=== PATIENT | male | born 1990 | race Caucasian/White ===

== ENCOUNTER 2025-05-23 12:35 | Outpatient (CLI) | payer OTHER, SELFPAY ==
--- NOTE | ~2025-05-23 | MR_ITS ---
MRI of the left shoulder Technique: Axial proton-density fat-sat images, coronal proton density fat-sat and T2 fat-sat images, and sagittal T1-weighted and T2 fat-sat images were acquired. Clinical History: Pain Findings: AC joint is unremarkable. Coracoclavicular, coracoacromial, and coracohumeral ligaments suzan ear intact. Supraspinatus and infraspinatus tendons are intact, without partial or full-thickness tear. Subscapul reshma tendon is intact. There is presumed complete rupture of the tendon of long head of the biceps pr oximally with retraction beyond the [id number]-bw-mian. Bicipital groove appears empty. 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 There is relative deficiency of the posterior labrum, which could indicate sequela of prior tear. There is mild posterior subluxation of the humeral head. Inferior glenohumeral ligament is intact. Minimal glenohumeral joint effusion present. No fluid diste ntion of the subacromial/subdeltoid bursa. No muscle atrophy or edema. Impression: Apparent complete rupture of the proximal long head biceps tendon with retraction beyond the field-of -view. Bicipital groove appears empty. Posterior labral tearing or attenuation with degenerative change along the posterior aspect of the gl enohumeral joint. There is mild posterior subluxation of the humeral head. Reviewed, dictated and finalized at [facility]. Impression: Apparent complete rupture of the proximal long head biceps tendon with retracti on beyond the [id number]. Bicipital groove appears empty. Posterior labral tearing or attenuation with degenerative change along the post erior aspect of the glenohumeral joint. There is mild posterior subluxation of the humeral head.
--- OUTSIDE RECORDS SUMMARY | 2025-05-23 12:46 | XMS_ITS | Continuity of Care Document ---
Author Name [facility] Organization [facility] Care Team Providers Care Customer Experience Intern Name Role Phone [facility] Unavailable Unavailable Problems Combined list of problems from Department of Defense and Veterans Affairs facilities. It does not include entries that were removed or entered in error. Problem Status Onset Date Problem Type Date of Resolution Comments Source OTITIS MEDIA RIGHT EAR Inactive 11/26/19 15 Condition [facility] Pain in left shoulder Active Condition DoD BLEPHARITIS Active Condition DoD visit for: screening exam neurological disorders traumatic brain injury Active Condition DoD visit for: issue repeat prescription Inactive Condition [facility] Patient Education - Injury Prevention Active Condition DoD visit: ears/hearing exam for hearing conservation, treatment Inactive Condition [facility] Vaccines Prophylactic Need Against Influenza Inactive Condition [facility] DRY EYE SYNDROME Active Condition [facility] ASTIGMATISM - REGULAR Active Condition [facility] REFRACTIVE ERROR - MYOPIA Active Condition DoD visit for: occupational health / fitness exam Active Condition DoD visit for: potential organ / tissue donor Inactive Condition [facility] Need For Prophylactic Antibiotics Inactive Condition [facility] Need For Vaccination Yellow Fever Inactive Condition DoD visit for: exam following treatment Active Condition DoD Need For Vaccination Poliomyelitis Inactivated Inactive Condition DoD PNEUMONIA Inactive Condition DoD visit for: examination of subpopulation Active Condition [facility] Vaccines Prophylactic Need Against DTP Inactive Condition DoD Need For Vaccination Pneumococcal Inactive Condition [facility]D Need For Vaccination Hepatitis A And Hepatitis B Inactive Condition [facility] Vaccines Prophylactic Need Against Bacterial Diseases Inactive Condition [facility] visit for: screening exam pulmonary tuberculosis Inactive Condition [facility] Allergic rhinitis Active Condition [facility] Constipation Active Condition [facility] Decreased vitamin D Active Condition [facility] Gastroesophageal reflux disease Active Condition [facility] HLD - Hyperlipidemia Active Condition [facility] Knee pain Active Condition [facility] Low [facility] pain Active Condition [facility] Mood disorder Active Condition [facility] Obesity Active Condition . [facility] Pain of left shoulder joint Active Condition [facility] Pain of right shoulder joint Active Condition Apr 01, 2024 Entered By: SHANNAN QUARLES Comment: MRI indicates Partial-thickne ss bursal surface supraspinatus tendon tear 03/2024 [facility] Posttraumatic stress disorder Active Condition [facility] Prediabetes Active Condition [facility] Severe bipolar II disorder Active Condition [facility] Diagnosis: ICD-10-CM N50.89 Other specified disorders of the male genital organs Active Diagnosis [facility] Diagnosis: ICD-10-CM M25.512 Pain in left shoulder Active Diagnosis [facility] Diagnosis: ICD-10-CM F39 Unspecified mood [affective] disorder Active Diagnosis [facility] Diagnosis: ICD-10-CM R21 Rash and other nonspecific skin eruption Active Diagnosis [facility] Diagnosis: ICD-10-CM M25.511 Pain in right shoulder Active Diagnosis [facility] Diagnosis: ICD-10-CM M54.50 Low back pain, unspecified Active Diagnosis [facility] Diagnosis: ICD-10-CM Z51.81 Encounter for therapeutic drug level monitoring Active Diagnosis [facility] Diagnosis: ICD-10-CM H04.123 Dry eye syndrome of bilateral lacrimal glands Active Diagnosis [facility] Diagnosis: ICD-10-CM G89.29 Other chronic pain Active Diagnosis [facility] Diagnosis: ICD-10-CM Z47.89 Encounter for other orthopedic aftercare Active Diagnosis [facility] Diagnosis: ICD-10-CM G47.33 Obstructive sleep apnea (adult) (pediatric) Active Diagnosis [facility] Diagnosis: ICD-10-CM K12.2 Cellulitis and abscess of mouth Active Diagnosis [facility] Diagnosis: ICD-10-CM H94.03 Acustc neuritis in infec/parastc diseases classd elswhr, bi Active Diagnosis [facility] Diagnosis: ICD-10-CM H60.8X2 Other otitis externa, left ear Active Diagnosis [facility] Diagnosis: ICD-10-CM Z79.899 Other prison (current) drug therapy Active Diagnosis [facility] Diagnosis: ICD-10-CM Z01.818 Encounter for other preprocedural examination Active Diagnosis [facility] Diagnosis: ICD-10-CM J30.9 Allergic rhinitis, unspecified Active Diagnosis [facility] Diagnosis: ICD-10-CM Z23 Encounter for immunization Active Diagnosis [facility] Diagnosis: ICD-10-CM M19.011 Primary osteoarthritis, right shoulder Active Diagnosis [facility] Diagnosis: ICD-10-CM J18.9 Pneumonia, unspecified organism Active Diagnosis [facility] Diagnosis: ICD-10-CM J22 Unspecified acute lower respiratory infection Active Diagnosis [facility] Diagnosis: ICD-10-CM R55 Syncope and collapse Active Diagnosis [facility] Admit Reason: CHEST PAIN Active Diagnosis [facility] Diagnosis: ICD-10-CM M25.561 Pain in right knee Active Diagnosis [facility] Diagnosis: ICD-10-CM S53.491S Other sprain of right elbow, sequela Active Diagnosis [facility] Diagnosis: ICD-10-CM H60.8X1 Other otitis externa, right ear Active Diagnosis [facility] Diagnosis: ICD-10-CM M51.36 Other intervertebral disc degeneration, lumbar region Active Diagnosis [facility] Diagnosis: ICD-10-CM 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 Diagnosis [facility] Diagnosis: ICD-10-CM S53.491A Other sprain of right elbow, initial encounter Active Diagnosis [facility] Diagnosis: ICD-10-CM M79.7 Fibromyalgia Active Diagnosis [facility] Diagnosis: ICD-10-CM L03.211 Cellulitis of face Active Diagnosis [facility] Diagnosis: ICD-10-CM R60.9 Edema, unspecified Active Diagnosis [facility] Diagnosis: ICD-10-CM R03.0 Elevated blood-pressure reading, w/o diagnosis of htn Active Diagnosis [facility] Diagnosis: ICD-10-CM H65.01 Acute serous otitis media, right ear Active Diagnosis [facility] Medications Combined list of outpatient medications from Department of Defense and Veterans Affairs facilities.Medications provided include 1) outpatient medications from the last 15 months, and 2) patient-reported medications. Medication Details Route Status Patient Instructions Prescription Expires Prescription Number Last Dispense Date Ordering Provider Order Date Order Qty Source BUPROPION HCL 150MG 12HR TAB,SA TAKE ONE TABLET BY MOUTH EVERY MORNING FOR DEPRESSI ON SWALLOW WHOLE - DO NOT CRUSH OR CHEW. ORAL ACTIVE 01/29/2026 [id number] 5 SHELLIE JACOBO 2024 90 [facility] BUPROPION HCL 150MG 12HR TAB,SA TAKE ONE TABLET BY MOUTH EVERY MORNING SWALLOW WHOLE - DO NOT CRUSH OR CHEW. ORAL DISCONT INUED (EDIT) 03/31/2025 [id number] 5 SHELLIE JACOBO 2024 90 [facility] BUPROPION HCL 150MG 12HR TAB,SA TAKE ONE TABLET BY MOUTH EVERY MORNING SWALLOW WHOLE - DO NOT CRUSH OR CHEW. ORAL DISCONT INUED 12/30/2024 [id number] 5 SHELLIE JACOBO 2024 90 [facility] BUPROPION HCL 150MG 12HR TAB,SA TAKE ONE TABLET BY MOUTH EVERY MORNING SWALLOW WHOLE - DO NOT CRUSH OR CHEW. ORAL DISCONT INUED 12/28/2024 [id number] SHELLIE JACOBO 2023 90 [facility] BUPROPION HCL 150MG 12HR TAB,SA TAKE ONE TABLET BY MOUTH EVERY MORNING SWALLOW WHOLE - DO NOT CRUSH OR CHEW. ORAL DISCONT INUED 07/01/2025 [id number] 4 SHELLIE JACOBO 2023 45 [facility] BUPROPION HCL 150MG 12HR TAB,SA TAKE ONE TABLET BY MOUTH EVERY MORNING SWALLOW WHOLE - DO NOT CRUSH OR CHEW. ORAL DISCONT INUED 01/04/2025 [id number] 4 SHELLIE JACOBO DENNISAARON Domitila 2023 45 [facility] CARBOXYMETH YLCELLULOSE NA 0.5% SOLN,OPH INSTILL 1 DROP IN BOTH EYES FOUR TIMES A DAY NEEDED FOR DRY EYE(S) OPHTHA LMIC 01/21/2025 [id number] Astrid TRAN C 2023 30 [facility] CEFUROXIME AXETIL 500MG TAB TAKE ONE TABLET BY MOUTH EVERY 12 HOURS FOR PNEUMONI A TAKE UNTIL GONE UNLESS OTHERWIS E DIRECTED . ORAL 05/18/2024 [id number] JIM ROQUE 2023 4 [facility] CETIRIZINE (U/D) 10 MG ORAL TAB TAKE ONE TABLET BY MOUTH ONCE A DAY FOR ALLERGY SYMPTOMS . 04/11/2024 [id number] BRIAN OCAMPO 2023 90 [facility] CETIRIZINE HCL 10MG TAB TAKE ONE TABLET BY MOUTH ONCE A DAY FOR ALLERGY SYMPTOMS . ORAL ACTIVE 07/11/2025 [id number] ISMA ROSARIO 2023 90 [facility] CETIRIZINE HCL 10MG TAB TAKE ONE TABLET BY MOUTH ONCE A DAY FOR ALLERGY SYMPTOMS . ORAL DISCONT INUED 04/11/2024 [id number] RITESH OCAMPO 2022 90 [facility] CHLORHEXIDI NE GLUCONATE 4% LIQUID,TOP APPLY MODERATE AMOUNT TO AFFECTED AREA(S) DIRECTED FOR SKIN DISINFEC TION FOR 2 CONSECUT ANDRZEJ DAYS BEFORE SURGERY. WASH FROM NECK DOWN WITH SOLUTION WHILE SHOWERIN G MORNING OF SURGERY. REPEAT BEFORE ARRIVING TO HOSPITAL . FOR 2 CONSECUT ANDRZEJ DAYS BEFORE SURGERY. WASH FROM NECK DOWN WITH SOLUTION WHILE SHOWERIN G MORNING OF SURGERY. REPEAT BEFORE ARRIVING TO HOSPITAL . TOPICA L 08/28/2024 [id number] Astrid MOCTEZUMA S 2023 120 [facility] cholecalcif (VIT D3) 2,000 UNIT ORAL TAB TAKE ONE TABLET BY MOUTH ONCE A DAY FOR VITAMIN D DEFICIEN CY 12/13/2024 [id number] 4 SHANNAN QUARLES A 2023 100 [facility] CHOLECALCIF FAISAL 50MCG (2,000UNIT) TAB TAKE ONE TABLET BY MOUTH ONCE A DAY FOR VITAMIN D DEFICIEN CY ORAL 12/13/2024 [id number] ANDREW QUARLES A 2023 100 [facility] CIPROFLOXAC IN HCL 0.3%/DEXAME THASONE 0.1% SUSP,OTIC INSTILL 4 DROPS IN LEFT EAR TWICE A DAY FOR BACTERIA L INFECTIO N SHAKE WELL. FOR USE IN THE EAR(S) ONLY. AURICU LAR (OTIC) 11/09/2024 [id number] 4 ERIKA FRANKEL MD 2023 7.5 [facility] CYCLOBENZAP RINE HCL 10MG TAB TAKE ONE TABLET BY MOUTH TWICE A DAY FOR MUSCLE SPASM MAY CAUSE DROWSINE SS. DO NOT DRINK ALCOHOL WHILE TAKING THIS MEDICATI ON. ORAL ACTIVE 06/10/2025 [id number] 4 ELENA ROWE A 2023 60 [facility] DICLOFENAC NA 1% GEL,TOP APPLY 4 GM TO AFFECTED AREA(S) FOUR TIMES A DAY NEEDED FOR PAIN DO NOT EXCEED MORE THAN 16 GRAMS DAILY TO ANY LOWER EXTREMIT Y JOINT. NOT MORE THAN 8 GRAMS DAILY TO ANY UPPER EXTREMIT Y JOINT. MAX 32GM/DAY OVER ALL JOINTS. (MEASURE DOSE WITH RULER ATTACHED INSIDE BOX) TOPICA L ACTIVE 07/11/2025 [id number] ISMA ROSARIO A 2023 100 [facility] DICLOFENAC NA 1% GEL,TOP APPLY 4 GM TO AFFECTED AREA(S) FOUR TIMES A DAY NEEDED FOR PAIN DO NOT EXCEED MORE THAN 16 GRAMS DAILY TO ANY LOWER EXTREMIT Y JOINT. NOT MORE THAN 8 GRAMS DAILY TO ANY UPPER EXTREMIT Y JOINT. MAX 32GM/DAY OVER ALL JOINTS. (MEASURE DOSE WITH RULER ATTACHED INSIDE BOX) TOPICA L DISCONT INUED 04/24/2024 [id number] ICE,PIERO E [address] [facility] Diclofenac Sodium 0.01mg/mg, Gel/Jelly, Topical APPLY 4 GM TO AFFECTED AREA(S) FOUR TIMES A DAY NEEDED FOR PAIN DO NOT EXCEED MORE THAN 16 GRAMS DAILY TO ANY LOWER EXTREMIT Y JOINT. NOT MORE THAN 8 GRAMS DAILY TO ANY UPPER EXTREMIT Y JOINT. MAX 32 04/24/2024 [id number] ICE, PIERO E 2023 100 [facility] DULOXETINE HCL 60MG CAP,EC TAKE ONE CAPSULE BY MOUTH EVERY MORNING DO NOT ABRUPTLY DISCONTI NUE MEDICATI ON. ORAL ACTIVE 01/01/2026 [id number] 5 SHELLIE JACOBO 2024 90 [facility] DULOXETINE HCL 60MG CAP,EC TAKE ONE CAPSULE BY MOUTH EVERY MORNING DO NOT ABRUPTLY DISCONTI NUE MEDICATI ON. ORAL DISCONT INUED 01/04/2025 [id number] 5 SHELLIE JACOBO 2023 90 [facility] LAMOTRIGINE 100MG TAB TAKE ONE TABLET BY MOUTH TWICE A DAY FOR BIPOLAR DISORDER AND IRRITABI LITY . IF YOU GET A RASH, STOP THE MEDICINE ORAL ACTIVE 10/02/2025 [id number] 5 SHELLIE JACOBO 2024 180 [facility] LAMOTRIGINE 100MG TAB TAKE ONE TABLET BY MOUTH TWICE A DAY FOR BIPOLAR DISORDER AND IRRITABI LITY . IF YOU GET A RASH, STOP THE MEDICINE ORAL DISCONT INUED 09/30/2025 [id number] 5 SHELLIE JACOBO 2024 180 [facility] LAMOTRIGINE 100MG TAB TAKE ONE TABLET BY MOUTH TWICE A DAY FOR BIPOLAR DISORDER AND IRRITABI LITY . IF YOU GET A RASH, STOP THE MEDICINE ORAL DISCONT INUED 02/08/2025 [id number] 4 SHELLIE JACOBO 2023 180 [facility] LIDOCAINE 5% PATCH APPLY 1 PATCH TO SKIN SITE ONCE A DAY FOR LOCAL ANESTHES IA APPLY PATCH AND PRESS FIRMLY FOR 10-15 SECONDS. KEEP ON FOR 12 HOURS THEN REMOVE PATCH FOR 12 HOURS. TRANSD ERMAL 02/06/2025 [id number] 4 ANDREW QUARLES A 2023 30 [facility] LIFITEGRAST 5% SOLN,OPH,0. 2ML INSTILL 1 DROP IN BOTH EYES EVERY 12 HOURS FOR DRY EYE(S) OPHTHA LMIC 01/21/2025 [id number] Astrid TRAN 2023 180 [facility] meloxicam (U/D) 7.5 MG ORAL TAB TAKE ONE TABLET BY MOUTH ONCE A DAY FOR PAIN 02/06/2025 [id number] 4 SHANNAN QUARLES 2023 30 [facility] MELOXICAM 15MG TAB TAKE ONE TABLET BY MOUTH ONCE A DAY FOR PAIN ORAL ACTIVE 01/01/2026 [id number] SHELLIE JACOBO 2024 60 [facility] MELOXICAM 15MG TAB TAKE ONE TABLET BY MOUTH ONCE A DAY FOR PAIN ORAL DISCONT INUED 10/21/2025 [id number] 5 ELENA ROWE 2023 30 [facility] MELOXICAM 15MG TAB TAKE ONE TABLET BY MOUTH ONCE A DAY FOR PAIN ORAL DISCONT INUED 06/10/2025 [id number] SOLEDADELENA COOK A 2023 30 [facility] MELOXICAM 7.5MG TAB TAKE ONE TABLET BY MOUTH ONCE A DAY FOR PAIN ORAL DISCONT INUED 02/06/2025 [id number] QUARLESANDREW A 2023 30 [facility] MUPIROCIN 2% OINT,TOP APPLY LIGHTLY TO AFFECTED AREA(S) TWICE A DAY FOR BACTERIA L INFECTIO N EXTERNAL USE ONLY. TOPICA L 12/19/2024 [id number] JADEN MARTINEZ J 2024 22 [facility] NAPROXEN 500MG TAB TAKE ONE TABLET BY MOUTH TWICE A DAY FOR PAIN TAKE WITH FOOD STOP TAKING MELOXICA M AND IBUPROFE N WHILE ON THIS MEDICATI ON ORAL 05/18/2024 [id number] JIM ROQUE 2023 14 [facility] OXYCODONE HCL 5MG TAB TAKE ONE TABLET BY MOUTH EVERY 4 HOURS NEEDED FOR POST-OPE RATIVE PAIN MAY CAUSE CONSTIPA TION ORAL 09/28/2024 [id number] 4 CHRISTIE JACKSON 2023 42 [facility] pantoprazol e (U/D) 20 MG ORAL TBEC TAKE ONE TABLET BY MOUTH ONCE A DAY FOR GASTROES OPHAGEAL REFLUX DISEASE TAKE 30 MINUTES BEFORE MEAL(S) 04/11/2024 [id number] BRIAN OCAMPO 2023 90 [facility] PANTOPRAZOL E NA 20MG TAB,EC TAKE ONE TABLET BY MOUTH ONCE A DAY FOR GASTROES OPHAGEAL REFLUX DISEASE TAKE 30 MINUTES BEFORE MEAL(S) ORAL ACTIVE 07/11/2025 [id number] 5 ISMA ROSARIO 2023 90 [facility] PANTOPRAZOL E NA 20MG TAB,EC TAKE ONE TABLET BY MOUTH ONCE A DAY FOR GASTROES OPHAGEAL REFLUX DISEASE TAKE 30 MINUTES BEFORE MEAL(S) ORAL DISCONT INUED 04/11/2024 [id number] RITESH OCAMPO VENKAT Chen 2023 90 [facility] POLYETHYLEN E GLYCOL 3350 PWDR,ORAL MIX AND DRINK 1 CAPFUL BY MOUTH ONCE A DAY FOR CONSTIPA TION (MEASURE WITH CAP AND MIX IN 8 OZ OF WATER) ORAL ACTIVE 07/11/2025 [id number] 5 RYAN ROSARIOY Gabe 2023 510 [facility] POLYETHYLEN E GLYCOL 3350 PWDR,ORAL MIX AND DRINK 1 CAPFUL BY MOUTH ONCE A DAY FOR CONSTIPA TION (MEASURE WITH CAP AND MIX IN 8 OZ OF WATER) ORAL DISCONT INUED 04/30/2024 [id number] CHIKIS ESPINOZA 2022 510 [facility] PRAZOSIN HCL 2MG CAP TAKE TWO CAPSULES BY MOUTH AT BEDTIME MAY CAUSE DIZZINES S OR DROWSINE SS. ORAL ACTIVE 01/01/2026 [id number] SHELLIE JACOBO 2024 180 [facility] PRAZOSIN HCL 2MG CAP TAKE ONE CAPSULE BY MOUTH AT BEDTIME FOR NIGHTMAR ES MAY CAUSE DIZZINES S OR DROWSINE SS. ORAL DISCONT INUED (EDIT) 01/04/2025 [id number] 5 SHELLIE JACOBO 2023 90 [facility] PREDNISONE 10MG TAB TAKE FOUR TABLETS BY MOUTH EVERY MORNING FOR 4 DAYS, THEN TAKE THREE TABLETS EVERY MORNING FOR 3 DAYS, THEN TAKE TWO TABLETS EVERY MORNING FOR 2 DAYS, THEN TAKE ONE TABLET EVERY MORNING FOR 1 DAY CONTACT DERMATIT IS TAKE WITH FOOD OR MILK. ORAL 05/07/2025 [id number] GARFIELD AGARWAL 2024 30 [facility] PREDNISONE 20MG TAB TAKE THREE TABLETS BY MOUTH EVERY MORNING TAKE WITH FOOD OR MILK. ORAL 03/31/2025 [id number] TELMA MAZARIEGOS 2024 15 [facility] SENNOSIDES 8.6MG TAB TAKE ONE TABLET BY MOUTH TWICE A DAY FOR CONSTIPA TION ORAL DISCONT INUED 09/28/2024 [id number] RENETTANAFISAJose Resendiz 2023 28 [facility] SENNOSIDES 8.6MG TAB TAKE ONE TABLET BY MOUTH TWICE A DAY FOR CONSTIPA TION ORAL 12/09/2024 [id number] CHRISTIE JACKSON 2024 100 [facility] SO-PEG 3350-BOWEL 2,TWO PART PREP--PO SO MIX AND DRINK 1 CAPFUL BY MOUTH ONCE A DAY FOR CONSTIPA TION (MEASURE WITH CAP AND MIX IN 8 OZ OF WATER) 04/30/2024 [id number] EYAL ESPINOZA 2023 510 [facility] SULFAMETHOX AZOLE 800MG/TRIME THOPRIM 160MG TAB TAKE 1 TABLET BY MOUTH EVERY 12 HOURS FOR SKIN OR SOFT TISSUE INFECTIO N TAKE WITH WATER/AV OID SUNLIGHT . ORAL 12/19/2024 [id number] JADEN MARTINEZ 2024 14 [facility] Allergies, Adverse Reactions, Alerts Combined list of allergies from Department of Defense and Veterans Affairs facilities. It does not include entries that were removed or entered in error. Substance Category Reaction Severity Reaction type Status Date Reported Comments Source No Known Allergies Drug allergy (disorder) active 12/18/2012 [facility] Immunizations Combined list of available immunizations from the Department of Defense and Veterans Affairs facilities. Immunization Series Date Given Administered By Site Reaction Lot Number CVX Code Drug Telephoto Installer Status Comments Source PNEUMOCOCCAL CONJUGATE PCV20, POLYSACCHARID E [id number] CONJUGATE, ADJUVANT, PF 2024 ERUM GUTHRIE LEFT DELTO ID [id number] 216 complet ed [place], [facility] COVID-19 (PFIZER), MRNA, LNP-S, PF, DEBRA-SUCROSE, 30 MCG/0.3 ML (AGES 12+ YEARS) 2023 IVY SELBY LEFT DELTO ID [id number] 309 complet ed Booster for Series, [place], Tolerated well, informed to sit for 15min [facility] INFLUENZA, SPLIT VIRUS, TRIVALENT, PF 2023 IVY SELBY NNKARISIA Gabe LEFT DELTO ID [id number] 140 complet ed Completed Series, [facility]MIN[facility]E [facility] AT [facility] COVID-19 (MODERNA), MRNA, LNP-S, PF, 50 MCG/0.5 ML (AGES 12+ YEARS) 5 2022 312 complet ed HISTORICA L INFORMATI ON - FROM OTHER REGISTRY, [facility] INFLUENZA, INJECTABLE, QUADRIVALENT, PRESERVATIVE FREE 2022 ZAYNAB RUBY LEFT DELTO ID [id number] A 150 complet ed [place], [facility] INFLUENZA, INJECTABLE, QUADRIVALENT, PRESERVATIVE FREE 2021 150 complet ed [facility] COVID-19 (PFIZER), MRNA, LNP-S, PF, 30 MCG/0.3 ML DOSE 4 2021 208 complet ed [facility] COVID-19 (PFIZER), MRNA, LNP-S, PF, 30 MCG/0.3 ML DOSE, DEBRA-SUCROSE (AGES 12+ YEARS) 4 2021 217 complet ed HISTORICA L INFORMATI ON - FROM OTHER REGISTRY, [facility] COVID-19 (PFIZER), MRNA, LNP-S, PF, 30 MCG/0.3 ML DOSE 3 2020 208 complet ed [facility] INFLUENZA, INJECTABLE, QUADRIVALENT, PRESERVATIVE FREE 2020 150 complet ed [facility] TDAP 1 2020 115 complet ed HISTORICA L INFORMATI ON - FROM OTHER REGISTRY, [facility] COVID-19 (PFIZER), MRNA, LNP-S, PF, 30 MCG/0.3 ML DOSE 2 2020 208 complet ed [facility] COVID-19 (PFIZER), MRNA, LNP-S, PF, 30 MCG/0.3 ML DOSE 1 2020 208 complet ed [facility] INFLUENZA, INJECTABLE, QUADRIVALENT, PRESERVATIVE FREE 2019 150 complet ed [facility] TDAP 2019 115 complet ed [facility] PNEUMOCOCCAL POLYSACCHARID E PPV23 2019 33 complet ed [facility] INFLUENZA, UNSPECIFIED FORMULATION 2017 88 complet ed [facility] PHARMAC IES INFLUENZA, SPLIT VIRUS, QUADRIVALENT, PF 1 2017 150 complet ed HISTORICA L INFORMATI ON - FROM OTHER REGISTRY, [facility] N INFLUENZA, INJECTABLE, QUADRIVALENT, PRESERVATIVE FREE 2016 NONE 150 complet ed Completed Series, given [facility] Influenza, injectable, quadrivalent, preservative free 1 2015 EJFF DANIELS [id number] 150 [employer] ([facility]) complet ed Influenza , injectabl e, quadrival ent, preservat andrzej free DoD Influenza, injectable, quadrivalent, preservative free 0 2015 [id number] 150 [employer] ([facility]) complet ed Influenza , injectabl e, quadrival ent, preservat andrzej free DoD Influenza, seasonal, injectable, preservative free 0 2014 [id number] 140 Sanofi Pasteur ([facility]) complet ed Influenza , seasonal, injectabl e, preservat andrzej free DoD anthrax vaccine 3 2013 [id number] 24 [employer] ([facility]) complet ed anthrax vaccine DoD influenza, live, intranasal, quadrivalent 0 2013 [id number] 149 Sanofi Pasteur ([facility]) complet ed influenza , live, intranasa l, quadrival ent DoD poliovirus vaccine, inactivated 0 2013 [id number] 10 [employer] (MED) complet ed polioviru s vaccine, inactivat ed DoD Welsh Encephalitis vaccine for intramuscular administratio n 2 2013 [id number] 134 [employer] (INT) complet ed Welsh Encephali tis vaccine for intramusc ular administr ation DoD anthrax vaccine 2 2013 [id number] 24 [employer] (MIP) complet ed anthrax vaccine DoD anthrax vaccine 1 2013 [id number] (EBS) complet ed anthrax vaccine DoD Welsh Encephalitis vaccine for intramuscular administratio n 1 2013 [id number] 134 [employer] (INT) complet ed Welsh Encephali tis vaccine for intramusc ular administr ation DoD vaccinia (smallpox) vaccine 0 2013 UNK 75 (CHRISTINE) complet ed vaccinia (smallpox ) vaccine DoD typhoid Vi capsular polysaccharid e vaccine 1 2013 [id number] Sanofi Pasteur (PMC) complet ed typhoid Vi capsular polysacch aride vaccine DoD hepatitis A and hepatitis B vaccine 3 2012 [id number] [employer] (SKB) complet ed hepatitis A and hepatitis B vaccine DoD influenza virus vaccine, whole virus 1 2012 LELIA DUQUE [id number] 16 Novartis Anatole. (NOV) complet ed influenza virus vaccine, whole virus DoD seasonal influenza, intradermal, preservative free 0 2012 UNK 144 Sanofi Pasteur (PMC) complet ed seasonal influenza , intraderm al, preservat andrzej free DoD yellow fever vaccine 0 2012 [id number] Sanofi Pasteur (PMC) complet ed yellow fever vaccine DoD poliovirus vaccine, inactivated 0 2012 [id number] Sanofi Pasteur (PMC) complet ed polioviru s vaccine, inactivat ed DoD hepatitis A and hepatitis B vaccine 2 2012 [id number] 104 SmithKline (SKB) complet ed hepatitis A and hepatitis B vaccine DoD hepatitis A and hepatitis B vaccine 1 2012 [id number] 0AB 104 [employer] (SKB) complet ed hepatitis A and hepatitis B vaccine DoD meningococcal polysaccharid e (groups A, C, Y and W-135) diphtheria toxoid conjugate vaccine (MCV4P) 0 2012 [id number] (AG) complet ed meningoco ccal polysacch aride (groups A, C, Y and W-135) diphtheri a toxoid conjugate vaccine (MCV4P) DoD tetanus toxoid, reduced diphtheria toxoid, and acellular pertu is vaccine, adsorbed 0 2012 [id number] 2AA 115 SmithKline (SKB) complet ed tetanus toxoid, reduced diphtheri a toxoid, and acellular pertussis vaccine, adsorbed DoD pneumococcal conjugate vaccine, 13 valent 0 2012 [id number] Merck (MSD) complet ed pneumococ hilario conjugate vaccine, 13 valent DoD Influenza, seasonal, injectable 0 2012 [id number] 141 [employer], [employer]. (CSL) complet ed Influenza , seasonal, injectabl e DoD Adenovirus, type 4 and type 7, live, oral 0 2012 [id number] 143 [employer] (BRR) complet ed Adenoviru s, type 4 and type 7, live, oral DoD Results Combined list of recent chemistry, hematology and other laboratory results from [facility] [employer] and [facility], ranging from 15 months to all on record, depending upon the facility. Order Name Results Value Reference Range Date Interpretation Specimen Comments Source RAPID PLASMA REAGIN (RPR) REAGIN AB [PRESENCE] IN SERUM BY RPR NONREACT ANDRZEJ 04/01 Specimen Type: SERUM No comment entered. Ordering Provider: JABARI CONTRERAS Report Released Date/Time: Apr 01, 2025 03:29 PM Reporting Lab: [facility] [address] [facility] [address] Performing Lab: [facility] [address] [address] [facility] GC & CHLAMYDI A PCR (STL-PB) NEISSERIA GONORRHOEA E DNA [PRESENCE] IN URINE BY USAMA WITH PROBE DETECTION Not Detected 04/01 Specimen Type: URINE Comment: This is a qualitative real-time PCR test for the detection and differentia tion of genomic DNA from Chlamydia trachomatis (CT) and Neisseria gonorrhoeae (NG). A negative result does not preclude infection with the agent(s) tested and should not be used as the sole basis for treatment or other patient management decisions. If negative, but symptoms persist, consider re-testing. A positive test does not necessarily indicate the presence of viable organisms, following bacterial culture (for NG) to recover the organism for further characteriz ation and susceptibil ity testing. All results must be combined with clinical observation s, patient history, and epidemiolog ical information for final interpretat ion. Ordering Provider: JABARI CONTRERAS Report Released Date/Time: Apr 01, 2025 03:29 PM Reporting Lab: [facility] [address] [address] Performing Lab: [place] [address] [address] [facility] GC & CHLAMYDI A PCR ([facility]-PB) CHLAMYDIA SP DNA [PRESENCE] IN URINE BY USAMA WITH PROBE DETECTION Not Detected 04/01 Specimen Type: URINE Comment: This is a qualitative real-time PCR test for the detection and differentia tion of genomic DNA from Chlamydia trachomatis (CT) and Neisseria gonorrhoeae (NG). A negative result does not preclude infection with the agent(s) tested and should not be used as the sole basis for treatment or other patient management decisions. If negative, but symptoms persist, consider re-testing. A positive test does not necessarily indicate the presence of viable organisms, following bacterial culture (for NG) to recover the organism for further characteriz ation and susceptibil ity testing. All results must be combined with clinical observation s, patient history, and epidemiolog ical information for final interpretat ion. Ordering Provider: JABARI CONTRERAS Report Released Date/Time: Apr 01, 2025 03:29 PM Reporting Lab: [facility] [address] [address] Performing Lab: [place] [address] [address] [facility] HIV COMBO FOURTH GENERATI ON (STL) HIV 1+2 AB+HIV1 P24 AG [PRESENCE] IN SERUM OR PLASMA BY IMMUNOASSA Y Nonreact andrzej 04/01 Specimen Type: SERUM No comment entered. Ordering Provider: JABARI CONTRERAS Report Released Date/Time: Apr 01, 2025 03:29 PM Reporting Lab: [place] [phone] Performing Lab: [place] [address] [phone] [place] [address] TRICHOMO ASIA PCR (STL-PB) TRICHOMONA S VAGINALIS RRNA [PRESENCE] IN URINE BY USAMA WITH PROBE DETECTION Not Detected 04/01 Specimen Type: URINE Comment: Qualitative real-time PCR test to detect Trichomonas vaginalis genomic DNA. A negative result does not preclude infection with the agent(s) tested and should not be used as the sole basis for treatment or other patient management decisions. If negative, but symptoms persist, consider re-testing. A positive test does not necessarily indicate the presence of viable organisms. All results must be combined with clinical observation s, patient history, and epidemiolog ical information for final interpretat ion. Ordering Provider: JABARI CONTRERAS Report Released Date/Time: Apr 01, 2025 03:29 PM Reporting Lab: [place] [address] [place] [place] [phone] Performing Lab: [address] LIPID PANEL (STL) CHOLESTERO L [MASS/VOLU ME] IN SERUM OR PLASMA 182 mg/dL 0 - 200 12/12 Specimen Type: PLASMA Comment: No hemolysis noted. Ordering Provider: DONNIE MENEZES Report Released Date/Time: Dec 12, 2024 02:20 PM Reporting Lab: [place] [address] [address] Performing Lab: [place] [phone] [facility] LIPID PANEL (STL) TRIGLYCERI DE [MASS/VOLU ME] IN SERUM OR PLASMA 237 mg/dL 0 - 150 12/12 H Specimen Type: PLASMA Comment: No hemolysis noted. Ordering Provider: DONNIE MENEZES Report Released Date/Time: Dec 12, 2024 02:20 PM Reporting Lab: [facility] [address] [facility] [address] Performing Lab: [facility] [address] [address] [facility] LIPID PANEL (STL) CHOLESTERO L IN LDL [MASS/VOLU ME] IN SERUM OR PLASMA BY CALCULATIO N 106 mg/dL 12/12 Specimen Type: PLASMA Comment: No hemolysis noted. Ordering Provider: DONNIE MENEZES Report Released Date/Time: Dec 12, 2024 02:20 PM Reporting Lab: [facility] [address] [facility] [address] Performing Lab: [facility] [address] [address] [facility] LIPID PANEL (STL) CHOLESTERO L IN HDL [MASS/VOLU ME] IN SERUM OR PLASMA 29 mg/dL 40 12/12 L Specimen Type: PLASMA Comment: No hemolysis noted. Ordering Provider: DONNIE MENEZES Report Released Date/Time: Dec 12, 2024 02:20 PM Reporting Lab: [facility] [address] [facility] [address] Performing Lab: [facility] [address] [address] [facility] COMPREHE NSIVE METABOLI C PANEL CREATININE [MASS/VOLU ME] IN SERUM OR PLASMA 1.06 mg/dL 0.7 - 1.3 12/12 Specimen Type: PLASMA Comment: No hemolysis noted. Ordering Provider: DONNIE MENEZES Report Released Date/Time: Dec 12, 2024 02:20 PM Reporting Lab: [facility] [address] [address] Performing Lab: [facility] [address] [address] [facility] COMPREHE NSIVE METABOLI C PANEL UREA NITROGEN [MASS/VOLU ME] IN SERUM OR PLASMA 13.6 mg/dL 9.0 - 25.0 12/12 Specimen Type: PLASMA Comment: No hemolysis noted. Ordering Provider: DONNIE MENEZES Report Released Date/Time: Dec 12, 2024 02:20 PM Reporting Lab: [place] [address] [facility] [address] Performing Lab: [place] [address] [address] [facility] COMPREHE NSIVE METABOLI C PANEL GLUCOSE [MASS/VOLU ME] IN SERUM OR PLASMA 97 mg/dL 72 - 99 12/12 Specimen Type: PLASMA Comment: No hemolysis noted. Ordering Provider: DONNIE MENEZES Report Released Date/Time: Dec 12, 2024 02:20 PM Reporting Lab: [place] [address] [address] Performing Lab: [place] [address] [facility] [address] [facility] COMPREHE NSIVE METABOLI C PANEL SODIUM [MOLES/VOL UME] IN SERUM OR PLASMA 139 meq/L 136 - 145 12/12 Specimen Type: PLASMA Comment: No hemolysis noted. Ordering Provider: DONNIE MENEZES Report Released Date/Time: Dec 12, 2024 02:20 PM Reporting Lab: [place] [address] [facility] [address] Performing Lab: [place] [address] [address] [facility] COMPREHE NSIVE METABOLI C PANEL POTASSIUM [MOLES/VOL UME] IN SERUM OR PLASMA 5.0 meq/L 3.5 - 5 12/12 Specimen Type: PLASMA Comment: No hemolysis noted. Ordering Provider: DONNIE MENEZES Report Released Date/Time: Dec 12, 2024 02:20 PM Reporting Lab: [place] [address] [facility] [address] Performing Lab: [facility] [address] [facility] [address] [facility] COMPREHE NSIVE METABOLI C PANEL CHLORIDE [MOLES/VOL UME] IN SERUM OR PLASMA 104 meq/L 98 - 107 12/12 Specimen Type: PLASMA Comment: No hemolysis noted. Ordering Provider: DONNIE MENEZES Report Released Date/Time: Dec 12, 2024 02:20 PM Reporting Lab: [facility] [address] [facility] [address] Performing Lab: [place] [address] [address] [facility] COMPREHE NSIVE METABOLI C PANEL CARBON DIOXIDE, TOTAL [MOLES/VOL UME] IN SERUM OR PLASMA 26 meq/L 22 - 31 12/12 Specimen Type: PLASMA Comment: No hemolysis noted. Ordering Provider: DONNIE MENEZES Report Released Date/Time: Dec 12, 2024 02:20 PM Reporting Lab: [place] [address] [facility] [address] Performing Lab: [place] [address] [address] [facility] COMPREHE NSIVE METABOLI C PANEL CALCIUM [MASS/VOLU ME] IN SERUM OR PLASMA 10.0 mg/dL 8.4 - 10.4 12/12 Specimen Type: PLASMA Comment: No hemolysis noted. Ordering Provider: DONNIE MENEZES Report Released Date/Time: Dec 12, 2024 02:20 PM Reporting Lab: [place] [address] [address] Performing Lab: [address] [address] [facility] COMPREHE NSIVE METABOLI C PANEL PROTEIN [MASS/VOLU ME] IN SERUM OR PLASMA 8.1 g/dL 6 - 8.6 12/12 Specimen Type: PLASMA Comment: No hemolysis noted. Ordering Provider: DONNIE MENEZES Report Released Date/Time: Dec 12, 2024 02:20 PM Reporting Lab: [facility] [address] [address] Performing Lab: [facility] [address] [address] [facility] COMPREHE NSIVE METABOLI C PANEL ALBUMIN [MASS/VOLU ME] IN SERUM OR PLASMA 4.6 g/dL 3.4 - 5 12/12 Specimen Type: PLASMA Comment: No hemolysis noted. Ordering Provider: DONNIE MENEZES Report Released Date/Time: Dec 12, 2024 02:20 PM Reporting Lab: [place] [address] [address] Performing Lab: [place] [address] [address] [facility] COMPREHE NSIVE METABOLI C PANEL BILIRUBIN. TOTAL [MASS/VOLU ME] IN SERUM OR PLASMA 0.4 mg/dL 0.2 - 1.2 12/12 Specimen Type: PLASMA Comment: No hemolysis noted. Ordering Provider: DONNIE MENEZES Report Released Date/Time: Dec 12, 2024 02:20 PM Reporting Lab: [facility] [address] [address] Performing Lab: [place] [address] [address] [facility] COMPREHE NSIVE METABOLI C PANEL ALKALINE PHOSPHATAS E [ENZYMATIC ACTIVITY/V OLUME] IN SERUM OR PLASMA 105 U/L 40 - 150 12/12 Specimen Type: PLASMA Comment: No hemolysis noted. Ordering Provider: DONNIE MENEZES Report Released Date/Time: Dec 12, 2024 02:20 PM Reporting Lab: [facility] [address] [address] Performing Lab: [facility] [address] [address] [facility] COMPREHE NSIVE METABOLI C PANEL ASPARTATE AMINOTRANS FERASE [ENZYMATIC ACTIVITY/V OLUME] IN SERUM OR PLASMA 26 U/L 5 - 34 12/12 Specimen Type: PLASMA Comment: No hemolysis noted. Ordering Provider: DONNIE MENEZES Report Released Date/Time: Dec 12, 2024 02:20 PM Reporting Lab: [place] [address] [facility] [address] Performing Lab: [place] [address] [address] [facility] COMPREHE NSIVE METABOLI C PANEL ALANINE AMINOTRANS FERASE [ENZYMATIC ACTIVITY/V OLUME] IN SERUM OR PLASMA 20 U/L 8 - 40 12/12 Specimen Type: PLASMA Comment: No hemolysis noted. Ordering Provider: DONNIE MENEZES Report Released Date/Time: Dec 12, 2024 02:20 PM Reporting Lab: [place] [address] [address] Performing Lab: [place] [address] [phone] [place] [address] COMPREHE NSIVE METABOLI C PANEL GLOMERULAR FILTRATION RATE/1.73 SQ M.PREDICTE D [VOLUME RATE/AREA] IN SERUM, PLASMA OR BLOOD BY CREATININE -BASED FORMULA (CKD-EPI 2020) 94.4 60 12/12 Specimen Type: PLASMA Comment: No hemolysis noted. Ordering Provider: DONNIE MENEZES Report Released Date/Time: Dec 12, 2024 02:20 PM Reporting Lab: [place] [address] [address] Performing Lab: [place] [address] [phone] CBC LEUKOCYTES [#/VOLUME] IN BLOOD BY AUTOMATED COUNT 6.2 10*3/uL 3.6 - 11.2 12/12 Specimen Type: BLOOD No comment entered. Ordering Provider: DONNIE MENEZES Report Released Date/Time: Dec 12, 2024 02:20 PM Reporting Lab: [address] [place] [address] Performing Lab: [address] [address] [facility] CBC ERYTHROCYT ES [#/VOLUME] IN BLOOD BY AUTOMATED COUNT 4.84 10*6/uL 4.10 - 5.70 12/12 Specimen Type: BLOOD No comment entered. Ordering Provider: DONNIE MENEZES Report Released Date/Time: Dec 12, 2024 02:20 PM Reporting Lab: [address] [address] Performing Lab: [address] [address] [facility] CBC HEMOGLOBIN [MASS/VOLU ME] IN BLOOD 15.0 g/dL 13.1 - 16.8 12/12 Specimen Type: BLOOD No comment entered. Ordering Provider: DONNIE MENEZES Report Released Date/Time: Dec 12, 2024 02:20 PM Reporting Lab: [address] [address] Performing Lab: [address] [phone] [place] [address] CBC HEMATOCRIT [VOLUME FRACTION] OF BLOOD 44.7 38.2 - 48.4 12/12 Specimen Type: BLOOD No comment entered. Ordering Provider: DONNIE MENEZES Report Released Date/Time: Dec 12, 2024 02:20 PM Reporting Lab: [address] [address] Performing Lab: [address] [address] [facility] CBC MCV [ENTITIC VOLUME] BY AUTOMATED COUNT 92.4 fL 80.0 - 100.0 12/12 Specimen Type: BLOOD No comment entered. Ordering Provider: DONNIE MENEZES Report Released Date/Time: Dec 12, 2024 02:20 PM Reporting Lab: [address] [address] Performing Lab: [address] [address] [facility] CBC MCH [ENTITIC MASS] BY AUTOMATED COUNT 31.0 pg 27.0 - 34.0 12/12 Specimen Type: BLOOD No comment entered. Ordering Provider: DONNIE MENEZES Report Released Date/Time: Dec 12, 2024 02:20 PM Reporting Lab: [address] [address] Performing Lab: [address] [address] [facility] CBC MCHC [MASS/VOLU ME] BY AUTOMATED COUNT 33.6 g/dL 33.0 - 36.0 12/12 Specimen Type: BLOOD No comment entered. Ordering Provider: DONNIE MENEZES Report Released Date/Time: Dec 12, 2024 02:20 PM Reporting Lab: [address] [address] Performing Lab: [address] [phone] [place] [address] CBC PLATELETS [#/VOLUME] IN BLOOD BY AUTOMATED COUNT 171 10*3/uL 150 - 400 12/12 Specimen Type: BLOOD No comment entered. Ordering Provider: DONNIE MENEZES Report Released Date/Time: Dec 12, 2024 02:20 PM Reporting Lab: [address] [address] Performing Lab: [address] [address] [facility] CBC PLATELET MEAN VOLUME [ENTITIC VOLUME] IN BLOOD BY AUTOMATED COUNT 10.6 fL 7.5 - 11.2 12/12 Specimen Type: BLOOD No comment entered. Ordering Provider: DONNIE MENEZES Report Released Date/Time: Dec 12, 2024 02:20 PM Reporting Lab: [facility] [address] [address] Performing Lab: [facility] [address] [address] [facility] CBC ERYTHROCYT E DISTRIBUTI ON WIDTH [RATIO] BY AUTOMATED COUNT 12.7 11.8 - 15.1 12/12 Specimen Type: BLOOD No comment entered. Ordering Provider: DONNIE MENEZES Report Released Date/Time: Dec 12, 2024 02:20 PM Reporting Lab: [facility] [address] [address] Performing Lab: [place] [address] [address] [facility] CBC LYMPHOCYTE S/100 LEUKOCYTES IN BLOOD BY AUTOMATED COUNT 30 12/12 Specimen Type: BLOOD No comment entered. Ordering Provider: DONNIE MENEZES Report Released Date/Time: Dec 12, 2024 02:20 PM Reporting Lab: [facility] [address] [address] Performing Lab: [facility] [address] [address] [facility] CBC MONOCYTES/ 100 LEUKOCYTES IN BLOOD BY AUTOMATED COUNT 7 12/12 Specimen Type: BLOOD No comment entered. Ordering Provider: DONNIE MENEZES Report Released Date/Time: Dec 12, 2024 02:20 PM Reporting Lab: [facility] [address] [address] Performing Lab: [facility] [address] [address] [facility] CBC NEUTROPHIL S/100 LEUKOCYTES IN BLOOD BY AUTOMATED COUNT 61 12/12 Specimen Type: BLOOD No comment entered. Ordering Provider: DONNIE MENEZES Report Released Date/Time: Dec 12, 2024 02:20 PM Reporting Lab: [facility] [address] [address] Performing Lab: [facility] [address] [address] [facility] CBC EOSINOPHIL S/100 LEUKOCYTES IN BLOOD BY AUTOMATED COUNT 1 12/12 Specimen Type: BLOOD No comment entered. Ordering Provider: DONNIE MENEZES Report Released Date/Time: Dec 12, 2024 02:20 PM Reporting Lab: [place] [address] [facility] [address] Performing Lab: [facility] [address] [address] [facility] CBC BASOPHILS/ 100 LEUKOCYTES IN BLOOD BY AUTOMATED COUNT 1 12/12 Specimen Type: BLOOD No comment entered. Ordering Provider: DONNIE MENEZES Report Released Date/Time: Dec 12, 2024 02:20 PM Reporting Lab: [place] [address] [address] Performing Lab: [place] [address] [address] [facility] CBC LYMPHOCYTE S [#/VOLUME] IN BLOOD BY AUTOMATED COUNT 1.88 10*3/uL 0.77 - 4.50 12/12 Specimen Type: BLOOD No comment entered. Ordering Provider: DONNIE MENEZES Report Released Date/Time: Dec 12, 2024 02:20 PM Reporting Lab: [place] [address] [address] Performing Lab: [place] [address] [address] [facility] CBC MONOCYTES [#/VOLUME] IN BLOOD BY AUTOMATED COUNT 0.41 10*3/uL 0.19 - 0.80 12/12 Specimen Type: BLOOD No comment entered. Ordering Provider: DONNIE MENEEZS Report Released Date/Time: Dec 12, 2024 02:20 PM Reporting Lab: [place] [address] [address] Performing Lab: [address] [place] [address] [facility] CBC NEUTROPHIL S [#/VOLUME] IN BLOOD BY AUTOMATED COUNT 3.78 10*3/uL 2.10 - 8.00 12/12 Specimen Type: BLOOD No comment entered. Ordering Provider: DONNIE MENEZES Report Released Date/Time: Dec 12, 2024 02:20 PM Reporting Lab: [place] [phone] Performing Lab: [place] [phone] [facility] CBC EOSINOPHIL S [#/VOLUME] IN BLOOD BY AUTOMATED COUNT 0.08 10*3/uL 0.00 - 0.60 12/12 Specimen Type: BLOOD No comment entered. Ordering Provider: DONNIE MENEZES Report Released Date/Time: Dec 12, 2024 02:20 PM Reporting Lab: [place] [phone] Performing Lab: [address] [phone] [place] [address] CBC BASOPHILS [#/VOLUME] IN BLOOD BY AUTOMATED COUNT 0.03 10*3/uL 0.00 - 0.20 12/12 Specimen Type: BLOOD No comment entered. Ordering Provider: DONNIE MENEZES Report Released Date/Time: Dec 12, 2024 02:20 PM Reporting Lab: [place] [phone] Performing Lab: [place] [phone] URINE DRUG SCREEN (STL) ETHANOL [MASS/VOLU ME] IN URINE Negative mg/dL 0 - 20 07/30 Specimen Type: URINE Comment: The cut-off value for Fentanyl was laboratory developed and its performance characteris tics confirmed by the [facility] laboratory thru method comparison with reference laboratory and medication chart review. The laboratory is regulated under CLIA as qualified to perform high-comple xity testing. Fentanyl is used for clinical purposes in conjunction with other laboratory tests. Ordering Provider: RITESH MOCTEZUMA Report Released Date/Time: Jul 29, 2024 09:13 AM Reporting Lab: [facility] [address] [address] Performing Lab: [facility] [address] [address] [facility] URINE DRUG SCREEN (STL) AMPHETAMIN E [PRESENCE] IN URINE BY SCREEN METHOD Negative ng/mL 07/30 Specimen Type: URINE Comment: The cut-off value for Fentanyl was laboratory developed and its performance characteris tics confirmed by the [facility] laboratory thru method comparison with reference laboratory and medication chart review. The laboratory is regulated under CLIA as qualified to perform high-comple xity testing. Fentanyl is used for clinical purposes in conjunction with other laboratory tests. Ordering Provider: RITESH MOCTEZUMA Report Released Date/Time: Jul 29, 2024 09:13 AM Reporting Lab: [facility] [address] [address] Performing Lab: [place] [address] [address] [facility] URINE DRUG SCREEN (STL) BENZOYLECG ONINE [PRESENCE] IN URINE Negative ng/mL 07/30 Specimen Type: URINE Comment: The cut-off value for Fentanyl was laboratory developed and its performance characteris tics confirmed by the [facility] laboratory thru method comparison with reference laboratory and medication chart review. The laboratory is regulated under CLIA as qualified to perform high-comple xity testing. Fentanyl is used for clinical purposes in conjunction with other laboratory tests. Ordering Provider: RITESH MOCTEZUMA Report Released Date/Time: Jul 29, 2024 09:13 AM Reporting Lab: [place] [id number] [facility] [address] Performing Lab: [facility] [address] [address] [facility] URINE DRUG SCREEN (STL) BENZODIAZE PINES [PRESENCE] IN URINE BY SCREEN METHOD Negative ng/mL 07/30 Specimen Type: URINE Comment: The cut-off value for Fentanyl was laboratory developed and its performance characteris tics confirmed by the [facility] laboratory thru method comparison with reference laboratory and medication chart review. The laboratory is regulated under CLIA as qualified to perform high-comple xity testing. Fentanyl is used for clinical purposes in conjunction with other laboratory tests. Ordering Provider: RITESH MOCTEZUMA Report Released Date/Time: Jul 29, 2024 09:13 AM Reporting Lab: [facility] [address] [phone] Performing Lab: [facility] [address] [place] [phone] [facility] URINE DRUG SCREEN (STL) CANNABINOI DS [PRESENCE] IN URINE BY SCREEN METHOD Negative ng/mL 07/30 Specimen Type: URINE Comment: The cut-off value for Fentanyl was laboratory developed and its performance characteris tics confirmed by the [facility] laboratory thru method comparison with reference laboratory and medication chart review. The laboratory is regulated under CLIA as qualified to perform high-comple xity testing. Fentanyl is used for clinical purposes in conjunction with other laboratory tests. Ordering Provider: RITESH MOCTEZUMA Report Released Date/Time: Jul 29, 2024 09:13 AM Reporting Lab: [facility] [address] [phone] Performing Lab: [facility] [address] [place] [phone] [facility] URINE DRUG SCREEN (STL) METHADONE [PRESENCE] IN URINE Negative ng/mL 07/30 Specimen Type: URINE Comment: The cut-off value for Fentanyl was laboratory developed and its performance characteris tics confirmed by the [facility] laboratory thru method comparison with reference laboratory and medication chart review. The laboratory is regulated under CLIA as qualified to perform high-comple xity testing. Fentanyl is used for clinical purposes in conjunction with other laboratory tests. Ordering Provider: RITESH MOCTEZMUA Report Released Date/Time: Jul 29, 2024 09:13 AM Reporting Lab: [facility] [address] [phone] Performing Lab: [facility] [address] [place] [phone] [facility] URINE DRUG SCREEN (STL) OPIATES [PRESENCE] IN URINE BY SCREEN METHOD Negative ng/mL 07/30 Specimen Type: URINE Comment: The cut-off value for Fentanyl was laboratory developed and its performance characteris tics confirmed by the [facility] laboratory thru method comparison with reference laboratory and medication chart review. The laboratory is regulated under CLIA as qualified to perform high-comple xity testing. Fentanyl is used for clinical purposes in conjunction with other laboratory tests. Ordering Provider: RITESH MOCTEZUMA Report Released Date/Time: Jul 29, 2024 09:13 AM Reporting Lab: [address] [address] Performing Lab: [address] [address] [facility] URINE DRUG SCREEN (STL) CREATININE [MASS/VOLU ME] IN URINE 46.1 mg/dL 63 - 166 07/30 L Specimen Type: URINE Comment: The cut-off value for Fentanyl was laboratory developed and its performance characteris tics confirmed by the [facility] laboratory thru method comparison with reference laboratory and medication chart review. The laboratory is regulated under CLIA as qualified to perform high-comple xity testing. Fentanyl is used for clinical purposes in conjunction with other laboratory tests. Ordering Provider: RITESH MOCTEZUMA Report Released Date/Time: Jul 29, 2024 09:13 AM Reporting Lab: [place] [address] [address] Performing Lab: [address] [address] [facility] URINE DRUG SCREEN (STL) OXYCODONE CUTOFF [MASS/VOLU ME] IN URINE FOR SCREEN METHOD Negative ng/mL 07/30 Specimen Type: URINE Comment: The cut-off value for Fentanyl was laboratory developed and its performance characteris tics confirmed by the [facility] laboratory thru method comparison with reference laboratory and medication chart review. The laboratory is regulated under CLIA as qualified to perform high-comple xity testing. Fentanyl is used for clinical purposes in conjunction with other laboratory tests. Ordering Provider: RITESH MOCTEZUMA Report Released Date/Time: Jul 29, 2024 09:13 AM Reporting Lab: [facility] [address] [phone] Performing Lab: [facility] [address] [facility] [phone] [facility] URINE DRUG SCREEN (STL) BUPRENORPH INE [PRESENCE] IN URINE Negative ng/mL 07/30 Specimen Type: URINE Comment: The cut-off value for Fentanyl was laboratory developed and its performance characteris tics confirmed by the [facility] laboratory thru method comparison with reference laboratory and medication chart review. The laboratory is regulated under CLIA as qualified to perform high-comple xity testing. Fentanyl is used for clinical purposes in conjunction with other laboratory tests. Ordering Provider: RITESH MOCTEZUMA Report Released Date/Time: Jul 29, 2024 09:13 AM Reporting Lab: [facility] [address] [facility] [phone] Performing Lab: [address] [address] [facility] URINE DRUG SCREEN (STL) FENTANYL [PRESENCE] IN URINE Negative ng/mL 07/30 Specimen Type: URINE Comment: The cut-off value for Fentanyl was laboratory developed and its performance characteris tics confirmed by the [facility] laboratory thru method comparison with reference laboratory and medication chart review. The laboratory is regulated under CLIA as qualified to perform high-comple xity testing. Fentanyl is used for clinical purposes in conjunction with other laboratory tests. Ordering Provider: RITESH MOCTEZUMA Report Released Date/Time: Jul 29, 2024 09:13 AM Reporting Lab: [facility] [address] [facility] [address] Performing Lab: [facility] [address] [place] [phone] [facility] HGA1C HEMOGLOBIN A1C/HEMOGL OBIN.TOTAL IN BLOOD 5.3 4.0 - 6.0 07/30 Specimen Type: BLOOD No comment entered. Ordering Provider: RITESH MOCTEZUMA Report Released Date/Time: Jul 29, 2024 09:13 AM Reporting Lab: [facility] [address] [facility] [address] Performing Lab: [facility] [address] [phone] [facility] APTT APTT IN PLATELET POOR PLASMA BY COAGULATIO N ASSAY 36.6 s 26.7 - 39.9 07/30 Specimen Type: PLASMA No comment entered. Ordering Provider: RITESH MOCTEZUMA Report Released Date/Time: Jul 29, 2024 09:13 AM Reporting Lab: [facility] [address] [phone] Performing Lab: [address] [address] [facility] Vital Signs Combined list of inpatient and outpatient Vital Signs from Department of Defense and Veterans Affairs, ranging from 12 months to all on record, depending upon the facility. Vital Sign Value Date Comments Source SYSTOLIC BLOOD PRESSURE 151 04/29/2025 13:58:16 [facility] DIASTOLIC BLOOD PRESSURE 94 04/29/2025 13:58:16 [facility] PULSE OXIMETRY 98 % 04/29/2025 13:58:16 [facility] WEIGHT 335.6 04/29/2025 13:58:16 [facility] BMI 43 kg/m2 04/29/2025 13:58:16 [facility] PAIN 5 04/29/2025 13:58:16 [facility] HEIGHT 74 04/29/2025 13:58:16 [facility] TEMPERATURE 97.9 04/29/2025 13:58:16 [facility] PULSE 72 04/29/2025 13:58:16 [facility] RESPIRATION 20 04/29/2025 13:58:16 [facility] SYSTOLIC BLOOD PRESSURE 138 04/07/2025 19:41:00 [facility] DIASTOLIC BLOOD PRESSURE 89 04/07/2025 19:41:00 [facility] PAIN 3 04/07/2025 19:41:00 [facility] TEMPERATURE 98.1 04/07/2025 19:41:00 [facility] PULSE 81 04/07/2025 19:41:00 [facility] RESPIRATION 17 04/07/2025 19:41:00 [facility] SYSTOLIC BLOOD PRESSURE 128 04/01/2025 14:39:21 [facility] DIASTOLIC BLOOD PRESSURE 80 04/01/2025 14:39:21 [facility] PULSE OXIMETRY 97 04/01/2025 14:39:21 [facility] WEIGHT 327.5 04/01/2025 14:39:21 [facility] BMI 42 kg/m2 04/01/2025 14:39:21 [facility] PAIN 0 04/01/2025 14:39:21 [facility] TEMPERATURE 97.9 04/01/2025 14:39:21 [facility] PULSE 76 04/01/2025 14:39:21 [facility] RESPIRATION 18 04/01/2025 14:39:21 [facility] SYSTOLIC BLOOD PRESSURE 129 03/11/2025 14:55:31 [facility] DIASTOLIC BLOOD PRESSURE 86 03/11/2025 14:55:31 [facility] PULSE OXIMETRY 98 03/11/2025 14:55:31 [facility] WEIGHT 332.2 03/11/2025 14:55:31 [facility] BMI 43 kg/m2 03/11/2025 14:55:31 [facility] PAIN 3 03/11/2025 14:55:31 [facility] TEMPERATURE 97.7 03/11/2025 14:55:31 [facility] PULSE 72 03/11/2025 14:55:31 [facility] RESPIRATION 18 03/11/2025 14:55:31 [facility] SYSTOLIC BLOOD PRESSURE 135 03/01/2025 09:14:00 [facility] DIASTOLIC BLOOD PRESSURE 88 03/01/2025 09:14:00 [facility] TEMPERATURE 98 03/01/2025 09:14:00 [facility] PULSE 82 03/01/2025 09:14:00 [facility] RESPIRATION 18 03/01/2025 09:14:00 [facility] Encounters Combined list of: 1) Encounters from Department of Veterans Affairs facilities going backup to the last 18 months, not all VA inpatient encounters are included; 2) Encounters from the Department of Defense facilities going backup to 280 months. Location Location Details Encounter Type Encounter Number Reason For Visit Attending Provider ADM Date DC Date Status Disposition Source [facility] D Recruit Processin g) OUTPATIENT [id number] Notes Entered by: COLLEEN BELL 17 Dec 2012 1336 ------- ------- ------- ------- -- MOT KAREY HARRIS 12/17 Released w/o Limitations [facility]( CRD Recruit Process ing) [facility] D Recruit Sick Call) OUTPATIENT [id number] Notes Entered by: ANAHI MACKENZIE 14 Jan 2013 0634 ------- ------- ------- ------- -- COUGH X1 JULIAN DRUMMOND 01/14 Sick at Home/Quarter s [facility]( CRD Recruit Sick Call) [facility] D Recruit Sick Call) OUTPATIENT [id number] F/U PNA MAGALY SANTOS 01/15 Released with Work/Duty Limitations [facility](M CRD Recruit Sick Call) [facility](MCR D Recruit Sick Call) OUTPATIENT [id number] F/U MAGALY CHENG 01/16 Released w/o Limitations [facility](M CRD Recruit Sick Call) [facility](MCR D Recruit Processin g) OUTPATIENT [id number] Notes Entered by: KAILEY GORDON 20 Jan 2013 0830 ------- ------- ------- ------- -- T-22 VACCINE JOLYNN BORREGO 01/20 Released w/o Limitations [facility](M CRD Recruit Process ing) [facility](MCR D Recruit Sick Call) OUTPATIENT [id number] 1 MONTH PNA F/U JOSTIN CARLISLE 02/12 Released w/o Limitations [facility](M CRD Recruit Sick Call) [facility](MCR D Recruit Processin g) OUTPATIENT [id number] T48 VACCINE JOLYNN BORREGO 02/17 Released w/o Limitations [facility](M CRD Recruit Process ing) [place]) OUTPATIENT [id number] POST ALEX CHANDRA 03/07 Released w/o Limitations [place] OUTPATIENT [id number] KAREN Henry V 03/26 Released w/o Limitations [place]([facility] Occupatio [facility]) OUTPATIENT [id number] [facility] KATHYA HAYWARD 05/29 Released w/o Limitations [place]([facility] Occupat ional [facility]) [facility] [place], [facility](Op tometry CP Cln) OUTPATIENT [id number] blurred vision PAULIE ANDREWS 07/15 Released w/o Limitations [facility] [place], [facility]( Optomet ry CP Cln) [facility] [place], [facility](Mi litary Homeport Team 1) OUTPATIENT [id number] YAMILKA Dyer 08/07 Released w/o Limitations [facility] [place], [facility]( Militar y Homepor t Team 1) [facility] Program) OUTPATIENT [id number] Notes Entered by: ARON WILLIS 08 Oct 2013 1140 ------- ------- ------- ------- -- Annual MARIA LUZ WILLIS 10/08 Released w/o Limitations [facility] HC Program ) [facility]) OUTPATIENT [id number] NEW EXP CARD IGNACIO SOSA 12/31 Released w/o Limitations [facility] Health) [facility]) TELE CONSULT [id number] Notes Entered by: ZIA TRUJILLO 02 Jan 2014 1242 ------- ------- ------- ------- -- Patient request ed refill on Restasi s but was given an appt instead . RAQUEL YADAV 01/02 [facility] Tm 2) [facility]) OUTPATIENT [id number] Chronic Dry Eye (MALS-1 6) RAQUEL YADAV 01/15 Released w/o Limitations [facility] Tm 2) [facility](SD Med Readiness Cln) OUTPATIENT [id number] LENY Mejias 01/23 Released w/o Limitations [facility](S D Med Readine ss Cln) [facility](SD Ophthalmo logy General) OUTPATIENT [id number] Dry eye SAWYER Tesfaye 02/06 Released w/o Limitations [facility](S D Ophthal mology General ) Theater Facility OUTPATIENT [id number] Theater Provider 11/26 Released w/o Limitations Theater Facilit y [facility] Tm [facility]) OUTPATIENT [id number] R shoulde r pain (MALS-1 6) MARIO FIERRO S 12/29 Released with Work/Duty Limitations [facility](M CASM [facility] Tm 2) [facility](MCA SM Optometry Cln) OUTPATIENT [id number] jairon MARIA VICTORIA TERANE PURA 12/31 Released w/o Limitations [facility](M CASM Optomet ry Cln) [facility] SM Physical Therapy) OUTPATIENT [id number] Joint pain, localiz ed in the shoulde r SATHYABRIGIDA HAGAN L 01/29 Released w/o Limitations [facility](M CASM Physica l Therapy ) [facility] SM Physical Therapy) OUTPATIENT [id number] ISAAC HANCOCK 02/01 Released w/o Limitations [facility](M CASM Physica l Therapy ) [facility] SM Physical Therapy) OUTPATIENT [id number] SEFERINO RECIO 02/03 Released w/o Limitations [facility](M CASM Physica l Therapy ) [facility] SM Physical Therapy) TELE CONSULT [id number] CRISTIN CURRIE 02/15 Released to Self Care [facility](M CASM Physica l Therapy ) [facility] SM HC Program) OUTPATIENT [id number] Notes Entered by: ARON WLILIS 16 Feb 2015 1359 ------- ------- ------- ------- -- Annual MARIA LUZ WILLIS 02/16 Released w/o Limitations [facility](M CASM HC Program ) [facility]CA SM Physical Therapy) OUTPATIENT [id number] CRISTIN CURRIE 02/17 Released w/o Limitations [facility](M CASM Physica l Therapy ) [facility] SM Physical Therapy) OUTPATIENT [id number] CRISTIN CURRIE 02/19 Released w/o Limitations [facility](M CASM Physica l Therapy ) [facility] SM Physical Therapy) OUTPATIENT [id number] F/U BRIGIDA MUIR Eder 02/22 Released w/o Limitations [facility](M CASM Physica l Therapy ) [facility] SM Physical Therapy) OUTPATIENT [id number] CRISTIN CURRIE 02/24 Released w/o Limitations [facility](M CASM Physica l Therapy ) [facility] SM Physical Therapy) OUTPATIENT [id number] CRISTIN CURRIE Eder 03/01 Released w/o Limitations [facility](M CASM Physica l Therapy ) [facility] SM Physical Therapy) OUTPATIENT [id number] BRIGIDA MUIR Eder 03/29 Released w/o Limitations [facility](M CASM Physica l Therapy ) [facility] SM [facility] Tm 2) OUTPATIENT [id number] f/u r shoulde r (MalS-1 6) FLOWER JACINTO 03/29 Released with Work/Duty Limitations [facility](M CASM M[facility] Tm 2) [facility]CA SM MCMH Tm 2) OUTPATIENT [id number] F/U MRI (MAlS-1 6) MESSI RAMSAY 05/07 Released w/o Limitations [facility](M CASM [facility] Tm 2) [facility](MCA SM Ortho Cln) OUTPATIENT [id number] NONTRAU MATIC TENDON RUPTURE ROTATOR CUFF PARTIAL ARUN AGUAYO 05/25 Released w/o Limitations [facility](M CASM Ortho Cln) [facility]) OUTPATIENT [id number] PRELIM DRY ONLY ARAVIND GARCIA 06/01 Released w/o Limitations [facility](N TC NRSC) [facility]CA SM Ortho Cln) OUTPATIENT [id number] F/U RIGHT SHOULDE R ARUN AGUAYO 07/06 Released w/o Limitations [facility](M CASM Ortho Cln) [facility]) OUTPATIENT [id number] pre-op wet CHRIS SOTO 08/11 Released w/o Limitations [facility](N TC NRS) [facility]) OUTPATIENT [id number] DRY STABILI TY CK;WAVE S;(OK PER DR.NEWA VELA) CHRIS SOTO S 08/17 Released w/o Limitations [facility](N TC NRS) [facility] SM MCMH Tm 2) OUTPATIENT [id number] f/u shoulde r (MALS-1 6) ADITI RAMSAYH A 08/27 Released w/o Limitations [facility](M CASM M[facility]H Tm 2) [facility] SM Ortho Cln) OUTPATIENT [id number] R.Shoul helene F/U ARUN AGUAYO 09/07 Released w/o Limitations [facility](M CASM Ortho Cln) [facility]) OUTPATIENT [id number] lasik consent and sle (cherri geller) KYLE BELL 10/03 Released w/o Limitations [facility](N TC NRS) [facility]) OUTPATIENT [id number] lasik surgery (cherri geller) KYLE BELL 10/05 Released w/o Limitations [facility](N TC NRS) [facility]) OUTPATIENT [id number] impop lasik CHRIS Boykin S 10/06 Released w/o Limitations [facility](N TC NRS) [facility] SM Ortho Cln) OUTPATIENT [id number] Eval Right Shoulde r Distal Clavicl e Excisio n ALEX SALAZAR 10/12 Released w/o Limitations [facility](M CASM Ortho Cln) [facility]) OUTPATIENT [id number] 1-wk lasik CHRIS Boykin S 10/12 Released w/o Limitations [facility](N TC NRS) [facility](SD Med Readiness Cln) OUTPATIENT [id number] CHRIS VALE 10/12 Released w/o Limitations [facility](S D Med Readine ss Cln) [facility](SD Ortho Surgical Sports Tm) OUTPATIENT [id number] Notes Entered by: RHEA FERY 28 Oct 2015 0916 ------- ------- ------- ------- -- Consult ation of Poss MARIE Valentine CHARLES J 10/28 Released w/o Limitations [facility](S D Ortho Surgica l Sports Tm) [facility](SD Ortho Surgical Sports Tm) OUTPATIENT [id number] Notes Entered by: IZZY ANGUIANO 03 Nov 2015 191 ------- ------- ------- ------- -- Post-Ca ll ALEX SALAZAR 11/04 Released w/o Limitations [facility](S D Ortho Surgica l Sports Tm) [facility](SD Ortho Surgical Sports Tm) OUTPATIENT [id number] POP1 DOS [id number] RT ALEX MARLEY 11/09 Released w/o Limitations [facility](S D Ortho Surgica l Sports Tm) [facility] OUTPATIENT [id number] 4WK CHRIS HIDALGO 11/12 Released w/o Limitations [facility](N NRS) [facility](SD Physical Therapy) OUTPATIENT [id number] SETH THOMAS 11/12 Released with Work/Duty Limitations [facility](S D Physica l Therapy ) [facility](SD Ortho Surgical Sports Tm) TELE CONSULT [id number] Notes Entered by: GARRY BYERS 12 Nov 2015 1352 ------- ------- ------- ------- -- MED REFILL REQUEST ARUN AGUAYO 11/12 [facility](S D Ortho Surgica l Sports Tm) [facility] Physical Therapy) OUTPATIENT [id number] ELISA DOMINGUEZ 11/16 Released w/o Limitations [facility](M CASM Physica l Therapy ) [facility] Physical Therapy) OUTPATIENT [id number] MARIA L CONNER 11/18 Released w/o Limitations [facility](M CASM Physica l Therapy ) [facility](MCA SM Physical Therapy) OUTPATIENT [id number] ELISA DOMINGUEZ 11/30 Released w/o Limitations [facility](M CASM Physica l Therapy ) [facility] SM Physical Therapy) OUTPATIENT [id number] ELISA DOMINGUEZ 12/02 Released w/o Limitations [facility](M CASM Physica l Therapy ) [facility] SM Physical Therapy) OUTPATIENT [id number] ELISA DOMINGUEZ 12/07 Released w/o Limitations [facility](M CASM Physica l Therapy ) [facility](MCA SM Physical Therapy) OUTPATIENT [id number] ELISA DOMINGUEZ 12/09 Released w/o Limitations [facility](M CASM Physica l Therapy ) [facility] SM Physical Therapy) OUTPATIENT [id number] f/u shoulde SUPRIYA Thomas 12/13 Released w/o Limitations [facility](M CASM Physica l Therapy ) [facility] SM Ortho Cln) OUTPATIENT [id number] rt shoulde r f/u ALEX Sarkar 12/20 Released w/o Limitations [facility](M CASM Ortho Cln) [facility] Physical Therapy) OUTPATIENT [id number] ONEAL ALDANA 12/23 Released w/o Limitations [facility](M CASM Physica l Therapy ) [facility]) OUTPATIENT [id number] 3mons.l ARAVIND Modi 01/03 Released w/o Limitations [facility](N NRS) [facility] SM HC Program) OUTPATIENT [id number] Notes Entered by: ARON WILLIS 06 Jan 2016 0955 ------- ------- ------- ------- -- Annual MARIA LUZ WILLIS 01/05 Released w/o Limitations [facility](M CASM HC Program ) [facility]CA SM Ortho Cln) OUTPATIENT [id number] F/u Right Shoulde ALEX Snider 02/07 Released w/o Limitations [facility] [facility](13 ABC FP MHP Green Team) OUTPATIENT [id number] LEFT LEG PAIN ABRASSI ON INFLAMM ED MYLA ORTIZ 03/07 Released w/o Limitations [facility](1 3 ABC FP MHP Green Team) [facility](13 ABC FP MHP Green Team) OUTPATIENT [id number] F/U ER FOR LEFT SHOULDE R INJURY KRISTEN TERRY 04/03 Released with Work/Duty Limitations [facility](1 3 ABC FP MHP Green Team) [facility](13 ABC FP MHP Green Team) OUTPATIENT [id number] L shoulde r KRISTEN TERRY 05/02 Released w/o Limitations [facility](1 3 ABC FP MHP Green Team) [facility](13 ABC FP MHP Green Team) OUTPATIENT [id number] Medical Certifi cation of Tom gonzales for RELM. SAVANNAH CLEMENT 05/16 Released w/o Limitations [facility](1 3 ABC FP MHP Green Team) [facility](13 ABC FP MHP Green Team) OUTPATIENT [id number] lcpls screeni LELIA Sullivan 05/17 Released w/o Limitations [facility](1 3 ABC FP MHP Green Team) [facility](22 Area Physical Therapy) OUTPATIENT [id number] Pain in left shoulde r NANCY CHAVEZ 05/22 Released w/o Limitations [facility](2 2 Area Physica l Therapy ) [facility](22 Area Physical Therapy) OUTPATIENT [id number] DANIEL REHMAN 05/23 Released w/o Limitations [facility](2 2 Area Physica l Therapy ) [facility](13 ABC FP MHP Green Team) OUTPATIENT [id number] POSSIBL E ANGER ISSUES KRISTEN TERRY 05/30 Released w/o Limitations [facility](1 3 ABC FP MHP Green Team) [facility](22 Area Physical Therapy) OUTPATIENT [id number] DANIEL REHMAN 05/31 Released w/o Limitations [facility](2 2 Area Physica l Therapy ) [facility](22 Area Physical Therapy) OUTPATIENT [id number] DANIEL REHMAN 06/12 Released w/o Limitations [facility](2 2 Area Physica l Therapy ) [facility](22 Area Physical Therapy) OUTPATIENT [id number] QUE ROOT 06/15 Released w/o Limitations [facility](2 2 Area Physica l Therapy ) [facility](22 Area Physical Therapy) OUTPATIENT [id number] DANIEL REHMAN CHARLEY 06/19 Released w/o Limitations [facility](2 2 Area Physica l Therapy ) [facility](22 Area Physical Therapy) OUTPATIENT [id number] DANIEL REHMAN CHARLEY 06/21 Released w/o Limitations [facility](2 2 Area Physica l Therapy ) [facility](22 Area Physical Therapy) OUTPATIENT [id number] NANCY CHAVEZ 06/28 Released w/o Limitations [facility](2 2 Area Physica l Therapy ) [facility](22 Area Physical Therapy) OUTPATIENT [id number] JENNA MARIA 07/03 Released w/o Limitations [facility](2 2 Area Physica l Therapy ) [facility](22 Area Physical Therapy) OUTPATIENT [id number] JENNA MARIA 07/05 Released w/o Limitations [facility](2 2 Area Physica l Therapy ) [facility](13 ABC FP MHP Green Team) OUTPATIENT [id number] SAWYER HAYES 07/13 Released w/o Limitations [facility](1 3 ABC FP MHP Green Team) [facility](22 Area Physical Therapy) OUTPATIENT [id number] JENNA MARIA 07/18 Released w/o Limitations [facility](2 2 Area Physica l Therapy ) [facility](22 Area Physical Therapy) OUTPATIENT [id number] NANCY Cevallos 07/27 Released w/o Limitations [facility](2 2 Area Physica l Therapy ) [facility](13 ABC FP MHP Green Team) OUTPATIENT [id number] CHRONIC BACK PAIN DEPLOYM ENT RELATED //GUIDO. KRISTEN TERRY 08/01 Released w/o Limitations [facility](1 3 ABC FP MHP Green Team) [facility](13 ABC Smart/Spo rts Medicine) OUTPATIENT [id number] Pain in left shoulde LONNY Michelle 08/22 Released w/o Limitations [facility](1 3 ABC Smart/S ports Medicin e) [facility](13 ABC Smart/Spo rts Medicine) OUTPATIENT [id number] Injecti on lt shoulde r LONNY MORALES 08/28 Released w/o Limitations [facility](1 3 ABC Smart/S ports Medicin e) [facility](13 ABC FP MHP Green Team) OUTPATIENT [id number] Notes Entered by: JEFF DANIELS 30 Aug 2016 1456 ------- ------- ------- ------- -- flu JEFF DANIELS 08/30 Released w/o Limitations [facility](1 3 ABC FP MHP Green Team) [facility](13 ABC FP MHP Green Team) OUTPATIENT [id number] Sep pe KRISTEN TERRY 09/20 Released w/o Limitations [facility](1 3 ABC FP MHP Green Team) [facility](13 ABC Smart/Spo rts Medicine) OUTPATIENT [id number] f/u L ShouldLONNY Melendez 09/25 Released w/o Limitations [facility](1 3 ABC Smart/S ports Medicin e) [facility](13 ABC FP MHP Green Team) OUTPATIENT [id number] CHEST PAINS X 2 WEEKS KRISTEN TERRY 10/30 Released w/o Limitations [facility](1 3 ABC FP MHP Green Team) [facility] Outpatient Encounter 27877-0.65 [id number] 9 12/04 [facility] EMERGENCY DEPT VISIT MOD MDM 05350-0.65 [id number] 1 Diagnos is: ICD-10- CM H65.01 Acute serous otitis media, right ear Ana PATEL 12/05 [facility] Outpatient Encounter 76532-0.65 [id number] 2 Ana PATEL T 12/05 [facility] OFFICE O/P NEW MOD 45 MIN 17847-4.65 [id number] 3 Diagnos is: ICD-10- CM R03.0 Elevate d blood-p ressure reading , w/o diagnos is of htn IMANI QUARLES A 12/12 [facility] PSYTX W PT 30 MINUTES 25620-9.65 [id number] 1 Diagnos is: ICD-10- CM F39 Unspeci fied mood [affect andrzej] disorde r KEMAR TOWNSEND E 12/12 [facility] EMERGENCY DEPT VISIT MOD MDM 08000-5.65 [id number] 1 Diagnos is: ICD-10- CM R60.9 Edema, unspeci fied MUDALLAL,O MAR 12/14 [facility] Outpatient Encounter 82971-4.65 [id number] 5 MUDALLAL,O MAR 12/14 [facility] EMERGENCY DEPT VISIT MOD MDM 95408-3.65 [id number] 8 Diagnos is: ICD-10- CM L03.211 Celluli tis of face ANDRES BELTRAN 12/15 [facility] Outpatient Encounter 03829-0.65 [id number] 9 ANDRES BELTRAN 12/15 [facility] Outpatient Encounter [id number] [id number] 5 12/17 [facility] EMERGENCY DEPT VISIT SF MDM 37550-8.65 [id number] 5 Diagnos is: ICD-10- CM L03.211 Celluli tis of face ANDRES BELTRAN 12/17 [facility] EMERGENCY DEPT VISIT MOD MDM 63724-5.65 [id number] 8 Diagnos is: ICD-10- CM K12.2 Celluli tis and abscess of mouth VU,MELO D 12/18 [facility] Outpatient Encounter 54255-6.65 [id number] 3 VU,MELO D 12/18 [facility] PSYTX W PT 30 MINUTES 57882-1.65 [id number] 1 Diagnos is: ICD-10- CM F39 Unspeci fied mood [affect andrzej] disorde KEMAR Barron [facility] En[facility] 19162-4.65 [id number] 8 12/25 [facility] OFF/OP CONSLTJ NEW/EST HI 55 83117-8.65 [id number] 2 Diagnos is: ICD-10- CM M79.7 Fibromy algia GU-AMILCAR MCMULLEN R D 12/30 [facility] OFFICE O/P NEW HI 60 MIN 89705-1.58 [id number] Diagnos is: ICD-10- CM F39 Unspeci fied mood [affect andrzej] disorde CRISTEL Nair 01/03 [facility] Outpatient Encounter 11934-6.65 [id number] 9 01/03 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 fied corneal degener ation ANDRÉS TRAN TTHEW C 01/20 [facility] OFFICE O/P EST MOD 30 MIN 47167-6.65 [id number] 4 Diagnos is: ICD-10- CM M51.36 Other interve rtebral disc degener ation, lumbar region DO,HYUNWOO 01/28 [facility] Outpatient Encounter 42608-8.65 [id number] 9 01/30 [facility] Outpatient Encounter 29896-2.65 [id number] 1 RORY CONNER 02/04 [facility] OFFICE O/P EST LOW 20 MIN 37260-5.65 [id number] 1 Diagnos is: ICD-10- CM M25.511 Pain in right shoulde r QUARLES,IMANI H A 02/05 [facility] OFF[facility] O/P EST MOD 30 MIN 77336-6.58 [id number] Diagnos is: ICD-10- CM F39 Unspeci fied mood [affect andrzej] disorde r CRISTEL JACOBO C 02/07 [facility] Outpatient Encounter 39536-6.65 [id number] 5 02/07 [facility] OT RE-EVAL EST PLAN CARE 56215-2.65 [id number] 0 Diagnos is: ICD-10- CM S53.491 S Other sprain of right elbow, sequela CARIE,SLAMA AN T 02/10 [facility] Outpatient Encounter 58361-1.65 [id number] 1 WILLIAMS SIMS THEW R 02/17 [facility] EMERGENCY DEPT VISIT MOD MDM 81833-6.65 [id number] 1 Diagnos is: ICD-10- CM H60.8X1 Other otitis externa , right ear ALBARCHA,B ASSAM 02/17 [facility] Outpatient Encounter 53863-1.65 [id number] 8 ALBARCHA,B ASSAM 02/17 [facility] OFFICE O/P NEW LOW 30 MIN 07572-8.65 [id number] Diagnos is: ICD-10- CM M54.50 Low back pain, unspeci fied CROOKS,CAR OL 03/05 [facility] Outpatient Encounter 53938-2.65 [id number] 03/06 [facility] Outpatient Encounter 97795-4.65 [id number] 6 03/07 [facility] En[facility] 76213-0.65 [id number] 2 03/07 [facility] Encounter 64003-6.65 [id number] 6 03/11 [facility] RE-EVAL EST PLAN CARE 82016-7.65 [id number] 0 Diagnos is: ICD-10- CM S53.491 S Other sprain of right elbow, sequela CARIE,SALMA AN T 03/24 [facility] O[facility]P EST LOW 20 MIN 75551-8.58 [id number] Diagnos is: ICD-10- CM F39 Unspeci fied mood [affect andrzej] disorde r CRISTEL JACOBO 03/24 [facility] [place] Outpatient Encounter 22625-5.65 [id number] 9 03/24 [facility] Encounter 64830-3.65 [id number] 4 03/25 [facility] Encounter 61046-7.65 [id number] 7 03/25 [facility] O/P EST SF 10 MIN 77834-0.65 [id number] 5 Diagnos is: ICD-10- CM M25.561 Pain in right knee ICE,PIERO E 03/25 [facility] Encounter 92362-3.65 [id number] 8 03/31 [facility] Outpatient Encounter 57001-3.65 [id number] 6 04/02 [facility] THERAPEUTI C EXERCISES 82999-7.65 [id number] Diagnos is: ICD-10- CM M25.561 Pain in right knee BERNADETTE RALPH A 04/11 [facility] Outpatient Encounter 17766-5.65 [id number] 2 04/15 [facility] OFF/OP CNSLTJ NEW/EST MOD 40 52370-3.65 [id number] 9 Diagnos is: ICD-10- CM M25.511 Pain in right shoulde SAM Marti 04/15 [facility] EMERGENCY DEPT VISIT MOD MDM 24998-3.65 [id number] 3 Diagnos is: ICD-10- CM R55 Syncope and collaps e DEBRA MARTINEZ 04/15 [facility] Outpatient Encounter 80580-5.65 [id number] 9 04/15 [facility] Ultrasonog kathy of Right and Left Heart 21771-8.65 [id number] 2 Admit Reason: CHEST PAIN ONEB,MED 04/16 Discharge from inpatient treatment to the Service Connected (OPT-NH) [facility] Inpatient Encounter 86517-1.65 [id number] 0 MG BACON 04/16 [facility] Inpatient Encounter 32876-7.65 [id number] 3 MG BACON C 04/16 [facility] QNHP OL DIG ASSMT&MGMT 11-20 42951-4.65 [id number] 7 Diagnos is: ICD-10- CM Z51.81 Encount er for therape utic drug level monitor JENNIFER Villatoro 04/16 [facility] Inpatient Encounter 30514-9.65 [id number] 3 MG BACON C 04/16 [facility] MYOCRD STRAIN IMG [facility] TRCK 26672-4.65 [id number] 1 Diagnos is: ICD-10- CM R55 Syncope and collaps e RHEA VALENCIA M 04/16 [facility] Inpatient Encounter 51094-1.65 [id number] 5 MG BACON C 04/16 [facility] Inpatient Encounter 19934-9.65 [id number] 1 MG BACON C 04/16 [facility] Inpatient Encounter 36614-7.65 [id number] 3 WALTER RIGGINS 04/16 [facility] Inpatient Encounter 21710-6.65 [id number] 0 Ana AGUSTIN 04/16 [facility] Inpatient Encounter 37815-5.65 [id number] 2 NIKOLE,S USAN M 04/16 [facility] Inpatient Encounter 06893-6.65 [id number] 2 NIKOLE,S USAN M 04/16 [facility] Inpatient Encounter 06901-2.65 [id number] 6 NIKOLE,S USAN M 04/17 [facility] Inpatient Encounter 01697-7.65 [id number] 5 NIKOLE,S USAN 04/17 [facility] Inpatient Encounter 76932-0.65 [id number] 3 WALTER RIGGINS DA 04/17 [facility] Inpatient Encounter 38119-1.65 [id number] 6 NIKOLE,S USAN M 04/17 [facility] Inpatient Encounter 84670-3.65 [id number] 1 NIKOLE,S USAN M 04/17 [facility] Inpatient Encounter 18807-6.65 [id number] 3 ANURAG NAIR CA A 04/17 [facility] Inpatient Encounter 07089-8.65 [id number] 1 ANURAG NIAR CA A 04/17 [facility] Inpatient Encounter 27974-6.65 [id number] 6 ANURAG NAIR CA A 04/17 [facility] Inpatient Encounter 03976-6.65 [id number] 7 ANURAG NAIR CA A 04/17 [facility] Inpatient Encounter 86331-9.65 [id number] 7 Ana AGUSTIN M 04/17 [facility] Inpatient Encounter 86105-2.65 [id number] 7 Ana AGUSTIN USAN M 04/17 [facility] Inpatient Encounter 91131-0.65 [id number] 9 Ana AGUSTIN USAN M 04/17 [facility] Inpatient Encounter 76160-2.65 [id number] 1 Ana AGUSTIN M 04/17 [facility] Inpatient Encounter 62545-7.65 [id number] 3 TROTTER,THER ORLIN A 04/18 [facility] Inpatient Encounter 21687-0.65 [id number] 2 TROTTER,THER ORLIN A 04/18 [facility] Inpatient Encounter 91276-0.65 [id number] 3 TIMMY TROTTER A 04/18 [facility] Inpatient Encounter 01979-1.65 [id number] 4 SEDA FLORES BROOKS 04/18 [facility] Inpatient Encounter 92551-1.65 [id number] 3 DANYA MCDONALD [facility] 04/18 [facility] Inpatient Encounter 34865-8.65 [id number] 9 DANYA MCDONALD [facility] 04/18 [facility] Inpatient Encounter 61118-0.65 [id number] 1 DANYA MCDONALD [facility] 04/18 [facility] Inpatient Encounter 43044-9.65 [id number] 0 DANYA MCDONALD [facility] 04/18 [facility] Inpatient Encounter 18835-3.65 [id number] 6 DANYA MCDONALD [facility] 04/18 [facility] Inpatient Encounter 97002-6.65 [id number] 8 DANYA MCDONALD [facility] 04/18 [facility] Outpatient Encounter 46121-0.65 [id number] 1 04/21 [facility] Outpatient Encounter 19861-0.65 [id number] 1 04/21 [facility] Outpatient Encounter [id number]. [id number] 1 Diagnos is: ICD-10- CM J22 Unspeci fied acute lower respira tory infecti on HUANG-EVGENY DEL ROSARIO R 04/22 [facility] Outpatient Encounter 01071-2. [id number] 3 04/22 [facility] OFFICE O/P EST MOD 30 MIN 21422-7.65 [id number] 6 Diagnos is: ICD-10- CM J18.9 Pneumon ia, unspeci fied organis MIRZA Nunez 05/02 [facility] Outpatient Encounter 75433-2. [id number] 4 05/14 [facility] PT RE-EVAL EST PLAN CARE 90990-6. [id number] Diagnos is: ICD-10- CM M25.511 Pain in right shoulde r PIERO TAM 05/15 [facility] Outpatient Encounter 45160-9. [id number] 4 05/15 [facility] Outpatient Encounter 58100-1.65 [id number] 0 05/17 [facility] Outpatient Encounter 46344-6.65 [id number] 6 06/04 [facility] Outpatient Encounter 97134-2.65 [id number] 4 April SHAH 06/06 [facility] OFFICE O/P EST MOD 30 MIN 75972-8.65 [id number] 1 Diagnos is: ICD-10- CM M25.511 Pain in right shoulde r JAMES ROWE Heike A 06/09 [facility] Outpatient Encounter 57004-9.65 [id number] 9 06/09 [facility] HC PRO PHONE CALL 5-10 MIN 88073-3.65 [id number] 5 Diagnos is: ICD-10- CM M25.511 Pain in right shoulde r AMPARO STEPHEN SHAHID M 06/25 [facility] OFFICE O/P NEW MOD 45 MIN 93724-7.65 [id number] 8 Diagnos is: ICD-10- CM M19.011 Primary osteoar thritis , right shoulde r Gabe WESTON M 06/25 [facility] OFFICE O/P EST LOW 20 MIN 18890-6.58 [id number] Diagnos is: ICD-10- CM F39 Unspeci fied mood [affect andrzej] disorde r CRISTEL JACOBO 06/30 [facility] Outpatient Encounter 37878-1.65 [id number] 1 06/30 [facility] Outpatient Encounter 64569-0.65 [id number] 8 07/29 [facility] Encounter 40846-3.58 [id number] 0 07/30 [facility] OFFICE O/P EST LOW 20 MIN 99040-8.65 [id number] 6 Diagnos is: ICD-10- CM M25.511 Pain in right shoulde r Gabe WESTON M 07/30 [facility] Outpatient Encounter 45082-6.65 [id number] 3 07/30 [facility] IMMUNIZATI ON ADMIN 45086-3.65 [id number] 7 Diagnos is: ICD-10- CM Z23 Encount er for immuniz atRUDDY Richard A 07/30 [facility] Outpatient Encounter 09350-9.65 [id number] 5 Diagnos is: ICD-10- CM J30.9 Allergi c rhiniti s, unspeci ebony RIVERA,ER IN A 07/30 [facility] MEASURE BLOOD OXYGEN LEVEL 86314-0.65 [id number] 5 Diagnos is: ICD-10- CM M25.511 Pain in right shoulde r JIM AGUILAR TOÑO SA 08/28 [facility] HC PRO PHONE CALL 5-10 MIN 77335-2.65 [id number] 0 Diagnos is: ICD-10- CM M25.511 Pain in right shoulde r BETOALLISONTA M 08/28 [facility] OFFICE O/P EST LOW 20 MIN 82186-5.65 [id number] 7 Diagnos is: ICD-10- CM Z01.818 Encount er for other preproc edural examina tion MIGUEL,ER IN A 08/29 [facility] Outpatient Encounter 39976-5.65 [id number] 9 ALYSIA ZAIDI P 08/29 [facility] Outpatient Encounter 18788-6.65 [id number] 1 IVONNE DIAZ 08/29 [facility] Outpatient Encounter 43704-7.65 [id number] 9 IVONNE DIAZ 08/29 [facility] RC ARTHRS SRG RT8TR CUF RPR 46744-5.65 [id number] 3 ROMALUKE Hilda 08/29 [facility] Outpatient Encounter 89872-4.65 [id number] 2 ROMALUKE Hilda 08/29 [facility] OFFICE O/P EST SF 10 MIN 16358-0.65 [id number] 8 Diagnos is: ICD-10- CM M25.511 Pain in right shoulde r MIGUEL,ER IN A 08/29 [facility] Outpatient Encounter 69826-3.65 [id number] 0 ROMALUKE Hilda 08/29 [facility] Outpatient Encounter 30073-8.65 [id number] 7 RENETTA AYERS 08/29 [facility] Outpatient Encounter 55176-1.65 [id number] 4 MALIK BASS 08/29 [facility] Outpatient Encounter 55624-6.65 [id number] 9 09/02 [facility] MTMS BY PHARM ACCOUNT DEVELOPMENT SPECIALIST 15 MIN 27793-3.65 [id number] Diagnos is: ICD-10- CM 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 POSTOP FOLLOW-UP VISIT 27046-3.65 [id number] 6 Diagnos is: ICD-10- CM M25.511 Pain in right shoulde r IVONNE DAIZ 09/10 [facility] THERAPEUTI C EXERCISES 79021-5.65 [id number] 8 Diagnos is: ICD-10- CM M25.511 Pain in right shoulde r BRUCE PANIAGUA HN K 09/10 [facility] Outpatient Encounter 29985-2.65 [id number] 1 09/19 [facility] 66515-6.65 [id number] 2 Diagnos is: ICD-10- CM M25.511 Pain in right shoulde r BRUCE PANIAGUA HN K 09/26 [facility] Encounter 52950-0.65 [id number] 0 CRISTEL JACOBO 09/29 [facility] Outpatient Encounter 39923-6.65 [id number] 9 09/29 [facility] O/P EST LOW 20 MIN 37018-0.58 [id number] Diagnos is: ICD-10- CM F39 Unspeci fied mood [affect andrzej] disorde r CRISTEL JACOBO 10/01 [facility] Out[facility] Encounter 36219-8.65 [id number] 0 10/01 [facility] THERAPEUTI C EXERCISES 79125-9.65 [id number] 7 Diagnos is: ICD-10- CM M25.511 Pain in right shoulde r SHERMANRickeyBRUCE DEVANTE K 10/10 [facility] Outpatient Encounter 95032-1.65 [id number] 7 Ana FRANKEL MD 10/10 [facility] Outpatient Encounter 04782-7.65 [id number] 0 YEE VERONICA R 10/10 [facility] EMERGENCY DEPT VISIT LOW MDM 89833-5.65 [id number] 9 Diagnos is: ICD-10- CM H60.8X2 Other otitis externa , left ear Ana FRANKEL MD 10/10 [facility] Outpatient Encounter [id number] [id number] Ana FRANKEL MD 10/10 [facility] Outpatient Encounter [id number] 10/10 [facility] OFFICE O/P NEW SF 15 MIN [id number] [id number] Diagnos is: ICD-10- CM 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 lindsay RENE E J 10/23 [facility] POSTOP FOLLOW-UP VISIT 35984-7.65 [id number] 8 Diagnos is: ICD-10- CM M25.511 Pain in right shoulde r IVONNE DIAZ 11/05 [facility] THERAPEUTI C EXERCISES [id number] [id number] Diagnos is: ICD-10- CM M25.511 Pain in right shoulde r IDALIAYEE Burroughs 11/14 [facility] Outpatient Encounter [id number] DEBRA MARTINEZ J 11/19 [facility] Outpatient Encounter [id number] [id number] 0 SAMEER SALAS 11/19 [facility] EMERGENCY DEPT VISIT LOW MDM 31619-6.65 [id number] 2 Diagnos is: ICD-10- CM K12.2 Celluli tis and abscess of mouth DEBRA MARTINEZ 11/19 [facility] Outpatient Encounter [id number] [id number] DEBRA MARTINEZ 11/19 [facility] THERAPEUTI C EXERCISES 12768-0.65 [id number] 8 Diagnos is: ICD-10- CM M25.511 Pain in right shoulde r BRUCE PANIAGUA 11/28 [facility] Outpatient Encounter [id number] [id number] 9 12/12 [facility] OFFICE O/P EST MOD 30 MIN 60998-3.65 [id number] 8 Diagnos is: ICD-10- CM G47.33 Obstruc tive sleep apnea (adult) (pediat margret) Domitila ROSARIO 12/12 [facility] Outpatient Encounter [id number] [id number] 2 12/17 [facility]P EST SF 10 MIN 61287-9.65 [id number] 7 Diagnos is: ICD-10- CM Z47.89 Encount er for other orthope dic afterca re AKTRUIZGabe Velazquez Astrid 12/24 [facility] OFF/OP EST MAY X REQ PHY/QHP [id number] Diagnos is: ICD-10- CM G89.29 Other chronic pain JUAN JOSÉTAYLA 12/25 [facility] THERAPEUTI C EXERCISES [id number] Diagnos is: ICD-10- CM M25.511 Pain in right shoulde r BRUCE PANIAGUA 12/29 [facility] W E/M 30 MIN [id number] [id number] Diagnos is: ICD-10- CM F39 Unspeci fied mood [affect andrzej] disorde r CRISTEL JACOBO 12/31 [facility] Encounter [id number] 12/31 [facility] THERAPEUTI C EXERCISES [id number] [id number] Diagnos is: ICD-10- CM M25.511 Pain in right shoulde r BRUCE PANIAGUA 01/09 [facility] OFFICE O/P EST LOW 20 MIN [id number] [id number] Diagnos is: ICD-10- CM H04.123 Dry eye syndrom e of bilater al lacrima l glands April COLES ATHARINE IVÁN 01/21 [facility] THERAPEUTI C EXERCISES [id number] [id number] Diagnos is: ICD-10- CM M25.511 Pain in right shoulde r IDALIAYEE TURK D 01/26 [facility] Outpatient Encounter [id number] Diagnos is: ICD-10- CM Z51.81 Encount er for therape utic drug level monitor HUAN Galeano 01/27 [facility] [place] [facility] SYNCH AUDIO-VIDE O EST LOW 20 [id number] [id number] Diagnos is: ICD-10- CM F39 Unspeci fied mood [affect andrzej] disorde CRISTEL Nair 01/28 [facility] [place] Outpatient Encounter [id number] 01/28 [facility] Outpatient Encounter [id number] 02/20 [facility] Outpatient Encounter [id number] 02/20 [facility] OT RE-EVAL EST PLAN CARE [id number] [id number] Diagnos is: ICD-10- CM M25.511 Pain in right shoulde r YEE FRIEDMAN 02/25 [facility] Outpatient Encounter [id number] Gabe MAZARIEGOS 03/01 [facility] EMERGENCY DEPT VISIT LOW MDM [id number] [id number] Diagnos is: ICD-10- CM R21 Rash and other nonspec ific skin eruptio n Gabe MAZARIEGOS NNA M 03/01 [facility] Outpatient Encounter [id number] Gabe MAZARIEGOS NNGabe M 03/01 [facility] Outpatient Encounter [id number] [id number] 03/03 [facility] Outpatient Encounter [id number] [id number] MANGO PRINCE 03/06 [facility] Outpatient Encounter [id number] 03/11 [facility] Outpatient Encounter [id number] [id number] 03/11 [facility] OFFICE O/P EST MOD 30 MIN [id number] [id number] Diagnos is: ICD-10- CM M54.50 Low back pain, unspeci fied JAMES ROWE D A 03/11 [facility] THERAPEUTI C EXERCISES [id number] [id number] Diagnos is: ICD-10- CM M25.511 Pain in right shoulde r YEE FRIEDMAN D 04/01 [facility] OFFICE O/P EST LOW 20 MIN [id number] [id number] Diagnos is: ICD-10- CM M25.512 Pain in left shoulde r JAMES ROWE D A 04/01 [facility] PH1 ASSMT&MGMT NQHP 5-10 [id number] [id number] Diagnos is: ICD-10- CM M25.512 Pain in left shoulde r AMPARO STEPHEN 04/06 [facility] Outpatient Encounter [id number] [id number] LEISA AGARWAL S 04/07 [facility] EMERGENCY DEPT VISIT LOW MDM [id number] [id number] Diagnos is: ICD-10- CM R21 Rash and other nonspec ific skin eruptio n LEISA AGARWAL S 04/07 [facility] [id number] [id number] LEISA AGARWAL S 04/07 [facility] Outpatient Encounter [id number] [id number] NEYMAR HERNANDEZ L 04/21 [facility] Outpatient Encounter [id number] 04/29 [facility] [place] [facility] SYNCH AUDIO-VIDE O EST LOW 20 [id number] [id number] Diagnos is: ICD-10- CM F39 Unspeci fied mood [affect andrzej] disorde r CRISTEL JACOBO 04/29 [facility] [place] [facility] Outpatient Encounter [id number] 04/29 [facility] Outpatient Encounter [id number] [id number] MEGHANA SKELTON 04/29 [facility] OFFICE O/P EST MOD 30 MIN [id number] [id number] Diagnos is: ICD-10- CM M25.512 Pain in left shoulde IVONNE Mott 04/29 [facility] OFFICE O/P EST LOW 20 MIN [id number] Diagnos is: ICD-10- CM 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 Procedure Procedure Type Code Date Perfomer Comments Sourc e ELECTROCARDIOGRAM, ROUTINE ECG WITH AT LEAST 12 LEADS; WITH INTERPRETATION AND REPORT 2012 [facility] INFLUENZA VIRUS VACCINE, TRIVALENT (IIV3), SPLIT VIRUS, 0.5 ML DOSAGE, FOR INTRAMUSCULAR USE 2012 [facility] FITTING OF SPECTACLES, EXCEPT FOR APHAKIA; MONOFOCAL 2012 [facility] INTRODUCTION OF NEEDLE OR INTRACATHETER, VEIN 2016 [facility] INFLUENZA VIRUS VACCINE, QUADRIVALENT (IIV4), SPLIT VIRUS, PRESERVATIVE FREE, 0.5 ML DOSAGE, FOR INTRAMUSCULAR USE 2015 [facility] ARTHROCENTESIS, ASPIRATION AND/OR INJECTION, MAJOR JOINT OR BURSA (EG, SHOULDER, HIP, KNEE, SUBACROMIAL BURSA); WITHOUT ULTRASOUND GUIDANCE 2015 [facility] PHYSICAL THERAPY RE-EVALUATION 2015 [facility] THERAPEUTIC PROCEDURE, 1 OR MORE AREAS, EACH 15 MINUTES; THERAPEUTIC EXERCISES TO DEVELOP STRENGTH AND ENDURANCE, RANGE OF MOTION AND FLEXIBILITY 2015 [facility] THERAPEUTIC PROCEDURE, 1 OR MORE AREAS, EACH 15 MINUTES; THERAPEUTIC EXERCISES TO DEVELOP STRENGTH AND ENDURANCE, RANGE OF MOTION AND FLEXIBILITY 2015 [facility] THERAPEUTIC PROCEDURE, 1 OR MORE AREAS, EACH 15 MINUTES; THERAPEUTIC EXERCISES TO DEVELOP STRENGTH AND ENDURANCE, RANGE OF MOTION AND FLEXIBILITY 2015 [facility] THERAPEUTIC PROCEDURE, 1 OR MORE AREAS, EACH 15 MINUTES; THERAPEUTIC EXERCISES TO DEVELOP STRENGTH AND ENDURANCE, RANGE OF MOTION AND FLEXIBILITY 2015 [facility] THERAPEUTIC PROCEDURE, 1 OR MORE AREAS, EACH 15 MINUTES; THERAPEUTIC EXERCISES TO DEVELOP STRENGTH AND ENDURANCE, RANGE OF MOTION AND FLEXIBILITY 2015 [facility] THERAPEUTIC PROCEDURE, 1 OR MORE AREAS, EACH 15 MINUTES; THERAPEUTIC EXERCISES TO DEVELOP STRENGTH AND ENDURANCE, RANGE OF MOTION AND FLEXIBILITY 2015 [facility] THERAPEUTIC PROCEDURE, 1 OR MORE AREAS, EACH 15 MINUTES; THERAPEUTIC EXERCISES TO DEVELOP STRENGTH AND ENDURANCE, RANGE OF MOTION AND FLEXIBILITY 2015 [facility] APPLICATION OF A MODALITY TO 1 OR MORE AREAS; HOT OR COLD PACKS 2015 [facility] APPLICATION OF A MODALITY TO 1 OR MORE AREAS; HOT OR COLD PACKS 2015 [facility] THERAPEUTIC PROCEDURE, 1 OR MORE AREAS, EACH 15 MINUTES; THERAPEUTIC EXERCISES TO DEVELOP STRENGTH AND ENDURANCE, RANGE OF MOTION AND FLEXIBILITY 2015 [facility] STRAPPING; SHOULDER (EG, VELPEAU) 2015 [facility] SLINGS 2015 [facility] AUDIOMETRIC TESTING OF GROUPS 2015 [facility] DETERMINATION OF REFRACTIVE STATE 2015 [facility] THERAPEUTIC PROCEDURE, 1 OR MORE AREAS, EACH 15 MINUTES; THERAPEUTIC EXERCISES TO DEVELOP STRENGTH AND ENDURANCE, RANGE OF MOTION AND FLEXIBILITY 2015 [facility] THERAPEUTIC PROCEDURE, 1 OR MORE AREAS, EACH 15 MINUTES; THERAPEUTIC EXERCISES TO DEVELOP STRENGTH AND ENDURANCE, RANGE OF MOTION AND FLEXIBILITY 2015 [facility] THERAPEUTIC PROCEDURE, 1 OR MORE AREAS, EACH 15 MINUTES; THERAPEUTIC EXERCISES TO DEVELOP STRENGTH AND ENDURANCE, RANGE OF MOTION AND FLEXIBILITY 2015 [facility] APPLICATION OF A MODALITY TO 1 OR MORE AREAS; VASOPNEUMATIC DEVICES 2015 [facility] THERAPEUTIC PROCEDURE, 1 OR MORE AREAS, EACH 15 MINUTES; THERAPEUTIC EXERCISES TO DEVELOP STRENGTH AND ENDURANCE, RANGE OF MOTION AND FLEXIBILITY 2015 [facility] THERAPEUTIC PROCEDURE, 1 OR MORE AREAS, EACH 15 MINUTES; THERAPEUTIC EXERCISES TO DEVELOP STRENGTH AND ENDURANCE, RANGE OF MOTION AND FLEXIBILITY 2015 [facility] MANUAL THERAPY TECHNIQUES (EG, MOBILIZATION/ MANIPULATION, MANUAL LYMPHATIC DRAINAGE, MANUAL TRACTION), 1 OR MORE REGIONS, EACH 15 MINUTES 2015 [facility] THERAPEUTIC PROCEDURE, 1 OR MORE AREAS, EACH 15 MINUTES; THERAPEUTIC EXERCISES TO DEVELOP STRENGTH AND ENDURANCE, RANGE OF MOTION AND FLEXIBILITY 2015 [facility] THERAPEUTIC PROCEDURE, 1 OR MORE AREAS, EACH 15 MINUTES; THERAPEUTIC EXERCISES TO DEVELOP STRENGTH AND ENDURANCE, RANGE OF MOTION AND FLEXIBILITY 2015 [facility] DETERMINATION OF REFRACTIVE STATE 2015 [facility] CLAVICULECTOMY; PARTIAL 2015 [facility] NEUROPSYCHOLOGICAL TESTING (EG, [place] CARD SORTING TEST), ADMINISTERED BY A COMPUTER, WITH QUALIFIED HEALTH RESOURCE PARAPROFESSIONAL INTERPRETATION AND REPORT 2014 [facility] DETERMINATION OF REFRACTIVE STATE 2014 [facility] POSTOPERATIVE FOLLOW-UP VISIT, NORMALLY INCLUDED IN THE SURGICAL PACKAGE, INDICATE THAT EVALUATION & MANAGEMENT SERVICE WAS PERFORMED DURING A POSTOPERATIVE PERIOD REASON RELATED ORIGINAL PROCEDURE 2014 [facility] LASER IN SITU KERATOMILEUSIS (LASIK) 2014 [facility] PHYS/OTH QUALIFIED HEALTH RESOURCE PARAPROFESSIONAL QUALIFIED,EDUCATION, TRAIN,LICENSURE/REGU LATION (WHEN APPLICABLE) EDUC SER RENDERED TO PATS IN A GRP SETTING (EG,,OBESITY ,OR DIABETIC INSTRUCT) 2014 [facility] ARTHROCENTESIS, ASPIRATION AND/OR INJECTION, INTERMEDIATE JOINT OR BURSA (EG, TEMPOROMANDIBULAR, ACROMIOCLAVICULAR, WRIST, ELBOW OR ANKLE, OLECRANON BURSA); WITHOUT ULTRASOUND GUIDANCE 2014 [facility] QUANTITATIVE PUPILLOMETRY WITH INTERPRETATION AND REPORT, UNILATERAL OR BILATERAL 2014 [facility] DETERMINATION OF REFRACTIVE STATE 2014 [facility] OPHTHALMIC ULTRASOUND, ECHOGRAPHY, DIAGNOSTIC; CORNEAL PACHYMETRY, UNILATERAL OR BILATERAL (DETERMINATION OF CORNEAL THICKNESS) 2014 [facility] ARTHROCENTESIS, ASPIRATION AND/OR INJECTION, INTERMEDIATE JOINT OR BURSA (EG, TEMPOROMANDIBULAR, ACROMIOCLAVICULAR, WRIST, ELBOW OR ANKLE, OLECRANON BURSA); WITHOUT ULTRASOUND GUIDANCE 2014 [facility] PHYSICAL THERAPY RE-EVALUATION 2014 [facility] APPLICATION OF A MODALITY TO 1 OR MORE AREAS; IONTOPHORESIS, EACH 15 MINUTES 2014 [facility] APPLICATION OF A MODALITY TO 1 OR MORE AREAS; IONTOPHORESIS, EACH 15 MINUTES 2014 [facility] PHYSICAL THERAPY RE-EVALUATION 2014 [facility] APPLICATION OF A MODALITY TO 1 OR MORE AREAS; VASOPNEUMATIC DEVICES 2014 [facility] APPLICATION OF A MODALITY TO 1 OR MORE AREAS; IONTOPHORESIS, EACH 15 MINUTES 2014 [facility] AUDIOMETRIC TESTING OF GROUPS 2014 [facility] THERAPEUTIC PROCEDURE, 1 OR MORE AREAS, EACH 15 MINUTES; THERAPEUTIC EXERCISES TO DEVELOP STRENGTH AND ENDURANCE, RANGE OF MOTION AND FLEXIBILITY 2014 [facility] EXERCISE EQUIPMENT 2014 [facility] PHYSICAL THERAPY EVALUATION 2014 [facility] DETERMINATION OF REFRACTIVE STATE 2014 [facility] OPHTHALMOLOGICAL SERVICES: MEDICAL EXAMINATION AND EVALUATION WITH INITIATION OF DIAGNOSTIC AND TREATMENT PROGRAM; COMPREHENSIVE, NEW PATIENT, 1 OR MORE VISITS 2013 [facility] NEUROPSYCHOLOGICAL TESTING (EG, [place] CARD SORTING TEST), ADMINISTERED BY A COMPUTER, WITH QUALIFIED HEALTH RESOURCE PARAPROFESSIONAL INTERPRETATION AND REPORT 2013 [facility] TELE ASSESS & MGT SRV PROV QUAL NONPHYS HLTH CARE PRO TO EST PAT,PARENT,GUARD NOT ORIG REL ASSESS & MGT SRV PROV W/IN PREV 7 DAYS NOR LEAD ASSESS & MGT SRV/PX W/IN NXT 24 HR/SOON APT;5-10 MIN MED DIS 2013 [facility] AUDIOMETRIC TESTING OF GROUPS 2012 [facility] IMMUNIZATION ADMINISTRATION (INCLUDES PERCUTANEOUS, INTRADERMAL, SUBCUTANEOUS, OR INTRAMUSCULAR INJECTIONS); 1 VACCINE (SINGLE OR COMBINATION VACCINE/TOXOID) 2012 [facility] IMMUNIZATION ADMINISTRATION (INCLUDES PERCUTANEOUS, INTRADERMAL, SUBCUTANEOUS, OR INTRAMUSCULAR INJECTIONS); EACH ADDITIONAL VACCINE (SINGLE OR COMBINATION VACCINE/TOXOID) 2012 [facility] SPIROMETER, NON-ELECTRONIC, INCLUDES ALL ACCESSORIES 2012 [facility] IMMUNIZATION ADMINISTRATION (INCLUDES PERCUTANEOUS, INTRADERMAL, SUBCUTANEOUS, OR INTRAMUSCULAR INJECTIONS); 1 VACCINE (SINGLE OR COMBINATION VACCINE/TOXOID) 2012 [facility] Injection, penicillin g benzathine, 100,000 units 2012 CYRUS BROWNLEE DoD Immunization Administration One Vaccine Immunization Administration One Vaccine 48298 2012 CYRUS BROWNLEE [facility] Hepatitis A And Hepatitis B (Intramuscular Use) Adult Dosage Hepatitis A And Hepatitis B (Intramuscular Use) Adult Dosage [address] Supervised Injection Intramuscular Supervised Injection Intramuscular 86084 2012 KAILEY GORDON [facility] Vaccines Viral Polio, Inactivated (Salk) Vaccines Viral Polio, Inactivated (Salk) 50827 2012 KAILEY GORDON [facility] Injection, penicillin g benzathine, 100,000 units 2012 KAILEY GORDON Immunization Administration One Vaccine Immunization Administration One Vaccine 95730 2012 KAILEY GORDON Immunization Administration Each Additional Vaccine Immunization Administration Each Additional Vaccine 70096 2012 KAILEY GORDON Spirometer, non-electronic, includes all acce ories 2012 JULIAN HAN Tdap Vaccine Seven Years Of Age And Above Tdap Vaccine Seven Years Of Age And Above 76947 2012 SERVANDO FITZGERALD Skin Test Anergy Tuberculin Intradermal Skin Test Anergy Tuberculin Intradermal 25696 2012 SERVANDO FITZGERALD Venipuncture Venipuncture 99598 2012 SERVANDO FITZGERALD Collection Of Capillary Blood Specimen Collection Of Capillary Blood Specimen [address] Supervised Injection Intramuscular Antibiotic Supervised Injection Intramuscular Antibiotic 09899 2012 SERVANDO FITZGERALD [facility] Injection, penicillin g benzathine, 100,000 units 2012 SERVANDO FITZGERALD [facility] Meningococcal Polysaccharide Vaccine (Active) Meningococcal Polysaccharide Vaccine (Active) 21734 2012 SERVANDO FITZGERALD Pneumococcal Polysaccharide Vaccine Adult Dos For Intramusc Pneumococcal Polysaccharide Vaccine Adult Dos For Intramusc 65634 2012 SERVANDO FITZGERALD [facility] Immunization Administration Each Additional Vaccine Immunization Administration Each Additional Vaccine 87446 2012 SERVANDO FITZGERALD [facility] Hepatitis A And Hepatitis B (Intramuscular Use) Adult Dosage Hepatitis A And Hepatitis B (Intramuscular Use) Adult Dosage 80035 2012 SERVANDO FITZGERALD Immunization Administration One Vaccine Immunization Administration One Vaccine 93677 2012 SERVANDO FITZGERALD [facility] Immunization Administration One Vaccine Immunization Administration One Vaccine 19431 2015 JEFF DANIELS [facility] Corticosteroids Injection Intraarticular Left Shoulder Corticosteroids Injection Intraarticular Left Shoulder 27655 2015 LONNY MORALES [facility] Physical Medicine Physical Therapy Re-Evaluation Physical Medicine Physical Therapy Re-Evaluation 96535 2015 NANCY CHAVEZ [facility] Physical Therapy: ___ Se ion Segments, 15 Minutes Each Physical Therapy: ___ Session Segments, 15 Minutes Each 26024 2015 JENNA MARIA 45 minutes DoD Physical Therapy: ___ Se ion Segments, 15 Minutes Each Physical Therapy: ___ Session Segments, 15 Minutes Each 01647 2015 JNENA MARIA 50 minutes DoD Physical Therapy: ___ Se ion Segments, 15 Minutes Each Physical Therapy: ___ Session Segments, 15 Minutes Each 24251 2015 JENNA MARIA 60 minutes DoD Physical Therapy: ___ Se ion Segments, 15 Minutes Each Physical Therapy: ___ Session Segments, 15 Minutes Each 58403 2015 NANCY CHAVEZ [facility] Physical Medicine Physical Therapy Re-Evaluation Physical Medicine Physical Therapy Re-Evaluation 21504 2015 NANCY CHAVEZ [facility] Physical Therapy: ___ Se ion Segments, 15 Minutes Each Physical Therapy: ___ Session Segments, 15 Minutes Each 69674 2015 DANIEL REHMAN Therex 68 minutes DoD Physical Therapy: ___ Se ion Segments, 15 Minutes Each Physical Therapy: ___ Session Segments, 15 Minutes Each 37436 2015 DANIEL REHMAN Therex 60 minutes DoD Physical Therapy: ___ Se ion Segments, 15 Minutes Each Physical Therapy: ___ Session Segments, 15 Minutes Each 51517 2015 QUE ROOT 55 mins DoD Modalities Cryotherapy Cold Packs Modalities Cryotherapy Cold Packs 45701 2015 DANIEL REHMAN DoD Mobilization Soft Ti ue Mobilization Soft Tissue 71426 2015 DANIEL REHMAN DoD Physical Therapy: ___ Se ion Segments, 15 Minutes Each Physical Therapy: ___ Session Segments, 15 Minutes Each 38788 2015 DANIEL REHMAN There ex 60 minutes DoD Modalities Cryotherapy Cold Packs Modalities Cryotherapy Cold Packs 90662 2015 DANIEL REHMAN DoD Mobilization Soft Ti ue Mobilization Soft Tissue 76180 2015 DANIEL REHMAN DoD Physical Therapy: ___ Se ion Segments, 15 Minutes Each Physical Therapy: ___ Session Segments, 15 Minutes Each 11055 2015 DANIEL REHMAN There ex 65 minutes DoD Physical Therapy: ___ Se ion Segments, 15 Minutes Each Physical Therapy: ___ Session Segments, 15 Minutes Each 90048 2015 DANIEL REHMAN CHARLEY Therex 65 minutes [facility] Orthopedic Strapping Shoulder Orthopedic Strapping Shoulder 37581 2015 NANCY CHAVEZ Physical Medicine Physical Therapy Evaluation Physical Medicine Physical Therapy Evaluation 23927 2015 NANCY CHAVEZ Audiometry Group Testing Audiometry Group Testing 89901 2015 MARIA LUZ WILLIS Postoperative Visit, Without Charge Postoperative Visit, Without Charge 12032 2015 ARAVIND GARCIA Determination Of Refractive State Determination Of Refractive State 95761 2015 ARAVIND GARCIA Physical Medicine Physical Therapy Re-Evaluation Physical Medicine Physical Therapy Re-Evaluation 00958 2015 ONEAL ALDANA Physical Therapy: ___ Se ion Segments, 15 Minutes Each Physical Therapy: ___ Session Segments, 15 Minutes Each 25000 2015 ONEAL ALDANA Physical Medicine Physical Therapy Re-Evaluation Physical Medicine Physical Therapy Re-Evaluation 27086 2015 SUPRIYA WARD Exercises A isted Exercises For ROM Exercises Assisted Exercises For ROM 97179 2015 SUPRIYA WARD Exercises A isted Exercises For ROM Exercises Assisted Exercises For ROM 64945 2015 ELISA DOMINGUEZ Modalities Vasopneumatic Device Modalities Vasopneumatic Device 76864 2015 ELISA DOMINGUEZ Exercises A isted Exercises For ROM Exercises Assisted [place]ercises [place] 35611 2015 ELISA DOMINGUEZ Exercises A isted Exercises For ROM Exercises Assisted [place]ises [place] 65212 2015 ELISA DOMINGUEZ Exercises A isted Exercises For ROM Exercises Assisted [place]ercises [place] 91152 2015 ELISA DOMINGUEZ Physical Therapy Mobilization Joint Physical Therapy Mobilization Joint 89265 2015 SHAILA CONNER Exercises A isted Exercises For ROM Exercises Assisted [place]ercises [place] ROM 22129 2015 SHAILA CONNER Exercises A isted Exercises For ROM Exercises Assisted Exercises For ROM 76368 2015 ELISA DOMINGUEZ Exercises A isted Exercises For ROM Exercises Assisted [place]ercises [place] 34035 2015 SETH THOMAS 12 MIN FOR AAROM RIGHT [facility] Physical Therapy Neuromuscular Re-education Physical Therapy Neuromuscular Re-education 7[address] [facility] Physical Medicine Physical Therapy Evaluation Physical Medicine Physical Therapy Evaluation 52362 2015 SETH THOMAS [facility] Postoperative Visit, Without Charge Postoperative Visit, Without Charge 02372 2015 CHRIS SOTO Determination Of Refractive State Determination Of Refractive State 41780 2015 CHRIS SOTO Psychometric Neuropsych Testing Battery Admin By Computer Psychometric Neuropsych Testing Battery Admin By Computer 47618 2014 CHRIS CACERES Postoperative Visit, Without Charge Postoperative Visit, Without Charge 69117 2014 CHRIS SOTO Determination Of Refractive State Determination Of Refractive State 12401 2014 CHRIS SOTO Laser in situ keratomileusis (LASIK) 2014 KYLE BELL Postoperative Visit, Without Charge Postoperative Visit, Without Charge 80280 2014 CHRIS SOTO Ophthalmological Prior Patient Start Intermediate Level Care Ophthalmological Prior Patient Start Intermediate Level Care [address]Supervised Group Educational Services -Supervised Group Educational Services 25159 2014 KYLE BELL Arthrocentesis Injection Of Acromioclavicular Joint Arthrocentesis Injection Of Acromioclavicular Joint 41549 2014 ARUN AGUAYO Right shoulder was marked and prepped in sterile fashion. Under informed consent and sterile technique, 25g 1 inch needle was used to enter the right AC joint. 1cc Kenalog 40 and 3cc 1% lidocaine without epinephrine, was injected in the joint. Site was dressed with band-aid and patient tolerated procedure well. Good lidocaine effect was achieved. Post-procedur e instructions provided. [facility] Scanning Computerized Ophthalmic Diagnostic Imaging Retina Scanning Computerized Ophthalmic Diagnostic Imaging Retina 12024 2014 CHRIS SOTO Determination Of Refractive State Determination Of Refractive State 07000 2014 CHRIS SOTO Ophthalmological New Patient Start Comprehensive Care Ophthalmological New Patient Start Comprehensive Care 71169 2014 CHRIS SOTO Determination Of Refractive State Determination Of Refractive State 19648 2014 CHRIS SOTO Scanning Computerized Ophthalmic Diagnostic Imaging Retina Scanning Computerized Ophthalmic Diagnostic Imaging Retina 02342 2014 ARAVIND GARCIA Determination Of Refractive State Determination Of Refractive State 13033 2014 ARAVIND GARCIA Computerized Corneal Topography Computerized Corneal Topography 85135 2014 ARAVIND GARCIA Corneal Pachymetry Both Eyes Corneal Pachymetry Both Eyes 76844 2014 ARAVIND GARCIA Arthrocentesis Injection Of Acromioclavicular Joint Arthrocentesis Injection Of Acromioclavicular Joint 53348 2014 ARUN AGUAYO Right shoulder was marked and prepped in sterile fashion. Under informed consent and sterile technique, 25g 1 inch needle was used to enter the right AC joint. 1cc Kenalog 40 and 3cc 1% lidocaine without epinephrine, was injected in the joint. Site was dressed with band-aid and patient tolerated procedure well. Good lidocaine effect was achieved. Post-procedur e instructions provided. [facility] Physical Medicine Physical Therapy Re-Evaluation Physical Medicine Physical Therapy Re-Evaluation 36926 2014 BRIGIDA MUIR Modalities Iontophoresis Modalities Iontophoresis 35687 2014 CRISTIN CURRIE Exercises A isted Exercises For ROM Exercises Assisted Exercises For ROM 79348 2014 CRISTIN CURRIE Modalities Iontophoresis Modalities Iontophoresis 61549 2014 CRISTIN CURRIE Modalities Vasopneumatic Device Modalities Vasopneumatic Device 22647 2014 CRISTIN CURRIE Exercises A isted Exercises For ROM Exercises Assisted Exercises For ROM 02616 2014 CRISTIN CURRIE Physical Medicine Physical Therapy Re-Evaluation Physical Medicine Physical Therapy Re-Evaluation 28018 2014 BRIGIDA MUIR Modalities Iontophoresis Modalities Iontophoresis 26635 2014 CRISTIN CURRIE Modalities Vasopneumatic Device Modalities Vasopneumatic Device 82147 2014 CRISTIN CURRIE Exercises A isted Exercises For ROM Exercises Assisted Exercises [place] ROM 92758 2014 CRISTIN CURRIE Modalities Vasopneumatic Device Modalities Vasopneumatic Device 28231 2014 STIVISONCRISTIN Modalities Iontophoresis Modalities Iontophoresis 89511 2014 DMITRYCRISTIN YOUNG Exercises A isted Exercises For ROM Exercises Assisted Exercises For ROM 41733 2014 STICRISTIN YOUNG [facility] Testing Audiometry Group Testing [id number] 2014 CHRISTIANECARLITOS MARIA LUZ [place]allo Exercises A isted Exercises For ROM Exercises Assisted Exercises For ROM 67492 2014 SEFERINO DIAZ Modalities Vasopneumatic Device Modalities Vasopneumatic Device 63167 2014 SEFERINO DIAZ Modalities Iontophoresis Modalities Iontophoresis 47464 2014 SEFERINO DIAZ Exercise equipment [address]Supervised Services Provision Of Special Supplies -Supervised Services Provision Of Special Supplies 40763 2014 ISAAC ALONSO Modalities Vasopneumatic Device Modalities Vasopneumatic Device 45075 2014 ISAAC ALONSO Modalities Iontophoresis Modalities Iontophoresis 66786 2014 ISAAC ALONSO Physical Therapy: ___ Se ion Segments, 15 Minutes Each Physical Therapy: ___ Session Segments, 15 Minutes Each 61731 2014 ISAAC ALONSO Physical Medicine Physical Therapy Evaluation Physical Medicine Physical Therapy Evaluation 55847 2014 BRIGIDA MUIR Determination Of Refractive State Determination Of Refractive State 80869 2014 BRIGIDA TERAN Spectacles Services Fitting Monofocals (Not For Aphakia) Spectacles Services Fitting Monofocals (Not For Aphakia) 04822 2014 BRIGIDA TERAN Ophthalmological New Patient Start Comprehensive Care Ophthalmological New Patient Start Comprehensive Care [id number] 2014 BRIGIDA TERAN Ophthalmological New Patient Start Comprehensive Care Ophthalmological New Patient Start Comprehensive Care [id number] 2013 SAWYER MESA Psychometric Neuropsych Testing Battery Admin By Computer Psychometric Neuropsych Testing Battery Admin By Computer 32049 2013 LENY PONCE [facility] Non-Physician Phone Call To Patient/Provider Brief (5-10min) Non-Physician Phone Call To Patient/Provider Brief (5-10min) 89909 2013 ZIA TRUJILLO [facility] Audiometry Group Testing Audiometry Group Testing 39622 2012 MARIA LUZ WILLIS [facility] Influenza Split Virus Vaccine Age 3+ Years Intramuscular 2012 LELIA HARDING [facility] Ophthalmological New Patient Start Comprehensive Care Ophthalmological New Patient Start Comprehensive Care 09753 2012 ALISHA ANDREWS [facility] Spectacles Services Fitting Monofocals (Not For Aphakia) Spectacles Services Fitting Monofocals (Not For Aphakia) 19723 2012 ALISHA ANDREWS [facility] Determination Of Refractive State Determination Of Refractive State 26751 2012 ALISHA ANDREWS [facility] Electrocardiogram Electrocardiogram 76485 05/29 KATHYA DEXTER Screening Test Of Visual Acuity, Quantitative, Bilateral Screening Test Of Visual Acuity, Quantitative, Bilateral 75598 2012 KATHYA DEXTER Screening to determine the appropriatene of consideration of an individual for participation in a specified program, project or treatment protocol, per encounter [address] Supervised Injection Intramuscular Antibiotic Supervised Injection Intramuscular Antibiotic 69479 2012 SKINNY LYNCH Vaccines Viral Yellow Fever Vaccines Viral Yellow Fever [address] Supervised Injection Intramuscular Antibiotic Supervised Injection Intramuscular Antibiotic 05119 2012 CYRUS BROWNLEE Right shoulder arthroscopy RC ARTHRS SRG RT8TR CUF RPR 10429 2023 IVONNE DIAZ [facility] Social History Combined list of available smoking, tobacco, and other social history from Department of Defense and Veterans Affairs facilities. Social History Type Response Date Comment Sourc e Tobacco smoking status NHIS VA-TOBACCO NEVER USED 05/02/2024 [facility] History of tobacco use VA-TOBACCO NEVER USED 04/11/2023 [facility] History of tobacco use [place]-TOBACCO NEVER USED 05/10/2022 [facility] History of tobacco use [place]-TOBACCO NEVER USED 06/03/2021 [facility] History of tobacco use [place]-TOBACCO NEVER USED 06/10/2020 [facility] History of tobacco use [place]-TOBACCO NEVER USED 01/14/2019 [facility] History of tobacco use TOBACCO REFUSED S CREEN V15 06/07/2018 [facility] History of tobacco use LIFETIME NON-USER OF TOBACCO 08/10/2017 [facility] History of tobacco use LIFETIME NON-USER OF TOBACCO 07/13/2017 [facility] History of tobacco use LIFETIME NON-USER OF TOBACCO 05/08/2017 [facility] This section is an empty social history section. [facility] Plan of Care List of future care activities from Department of Veterans Affairs facilities. Additional future care activities may be listed in the Assessment and Plan section. Date/Time Care Activity Care Activity Detail Facili ty 05/23/2025 AMBULATORY - NONE AMBULATORY - NONE [facility]
--- OUTSIDE RECORDS SUMMARY | 2025-05-23 12:46 | XMS_ITS | Encounter Summary ---
Author Name [facility] [place] [facility] [place] Address [address] [place] [address] Care Team Providers Care Wire Straightener Name Role Phone ISMA ROSARIO Primary Care Provider REBECCA Kinney Unavailable Unavailable Selected Encounter This section includes the information on record at [place] for the Encounter. Date/Time Encounter Type Encounter Description Reason Provider Source Dec 29, 2024 02:30 PM THERAPEUTIC EXERCISES OCCUPATIONAL THERAPY ICD-10-CM M25.511 Pain in right shoulder GEOVANNY PANIAGUA Carmen Encounter Template Text not used by [place] Assessments - Encounter Diagnoses This section includes the primary and secondary diagnoses documented for the Encounter. Date/Time Primary/Secondary Diagnosis Diagnosis Name Provider Source Dec 29, 2024 03:16 PM PRIMARY Pain in right shoulder GEOVANNY PANIAGUA [facility] Plan of Treatment: Future Appointments (+ 6 months) and Future Tests (+/- 45 days) The Plan of Treatment section includes future care activities for the patient from all [place] treatmentfacilities. This section includes future appointments and future orders which are active, pending or scheduled. Future Appointments This section includes appointments that were scheduled to occur 6 months from the date of the Encounter, up to a maximum of 20 appointments. The data comes from all [place] treatment facilities. Appointment Date/Time Appointment Type Appointme nt Facility Name Dec 31, 2024 09:30 AM AMBULATORY - PSYCHIATRY [facility] Dec 31, 2024 09:30 AM AMBULATORY - [facility]IATRY [facility] Jan 09, 2025 02:30 PM AMBULATORY - REHAB MEDICIN E [facility] Jan 21, 2025 10:00 AM AMBULATORY - SURGERY [facility] Jan 26, 2025 03:00 PM AMBULATORY - REHAB MEDICIN E [facility] Jan 28, 2025 09:30 AM AMBULATORY - PSYCHIATRY [facility] Jan 28, 2025 09:30 AM AMBULATORY - PSYCHIATRY [facility] February 20, 2025 12:00 PM AMBULATORY - NONE [facility] February 25, 2025 11:30 AM AMBULATORY - REHAB MEDICIN E [facility] March 01, 2025 09:10 AM AMBULATORY - MEDICINE [facility] March 11, 2025 02:40 PM AMBULATORY - MEDICINE [facility] Apr 01, 2025 11:30 AM AMBULATORY - REHAB MEDICIN E [facility] Apr 01, 2025 02:40 PM AMBULATORY - MEDICINE [facility] Apr 07, 2025 07:22 PM AMBULATORY - MEDICINE [facility] Apr 29, 2025 09:30 AM AMBULATORY - PSYCHIATRY [facility] Apr 29, 2025 09:30 AM AMBULATORY - PS[facility]CHIATRY [facility] Apr 29, 2025 02:00 PM AMBULATORY - SURGERY [facility] Apr 29, 2025 02:15 PM AMBULATORY - MEDICINE [facility] May 23, 2025 01:00 PM AMBULATORY - NONE [facility] May 27, 2025 11:00 AM AMBULATORY - NONE [facility] Lab Results: +/- 30 days of the encounter This section includes the Chemistry and Hematology Lab Results on record with [place] for the patient. Radiology Reports and Pathology Reports are provided separately, in subsequent sections. Lab Results This section contains the Chemistry/Hematology Results that were resulted 30 days before or 30 daysafter the date of the Encounter. Date/Time Source Result Type Result - Unit Interpretation Reference Range Specimen Type Comment Dec 12, 2024 02:29 PM [facility] LIPID PANEL (STL) PLASMA Specimen Type: PLASMA Comment: No hemolysis noted. Ordering Provider: REBECCA MENEZES Report Released Date/Time: Dec 12, 2024 02:20 PM Reporting Lab: [facility] [address] [facility] [address] Performing Lab: [address] [address] CHOLESTEROL 182 mg/dL 0-200 TRIGLYCERIDE 237 mg/dL H 0-150 CALCULATED LDL 106 mg/dL HDL(New) 29 mg/dL L >40 Dec 12, 2024 02:29 PM [facility] COMPREHENSIVE METABOLIC PANEL PLASMA Specimen Type: PLASMA Comment: No hemolysis noted. Ordering Provider: REBECCA MENEZES Report Released Date/Time: Dec 12, 2024 02:20 PM Reporting Lab: [address] [address] Performing Lab: [address] [address] CREATININE 1.06 mg/dL 0.7-1.3 UREA NITROGEN 13.6 mg/dL 9.0-25.0 GLUCOSE 97 mg/dL 72-99 SODIUM 139 meq/L 136-145 POTASSIUM 5.0 meq/L 3.5-5 CHLORIDE 104 meq/L 98-107 CARBON DIOXIDE 26 meq/L 22-31 CALCIUM 10.0 mg/dL 8.4-10.4 PROTEIN 8.1 g/dL 6-8.6 ALBUMIN 4.6 g/dL 3.4-5 TOTAL BILIRUBIN 0.4 mg/dL 0.2-1.2 ALKALINE PHOSPHATASE 105 U/L 40-150 AST/SGOT 26 U/L 5-34 ALT/SGPT 20 U/L 8-40 EGFR (CKD-EPI 2020) 94.4 >60 Dec 12, 2024 02:29 PM [facility] CBC BLOOD Specimen Type: BLOOD No comment entered. Ordering Provider: REBECCA MENEZES Report Released Date/Time: Dec 12, 2024 02:20 PM Reporting Lab: [facility] [address] [facility] [address] Performing Lab: [facility] [address] [facility] [address] WBC 6.2 10*3/uL 3.6-11.2 RBC 4.84 10*6/uL 4.10-5.70 HGB 15.0 g/dL 13.1-16.8 HCT 44.7 38.2-48.4 MCV 92.4 fL 80.0-100.0 MCH 31.0 pg 27.0-34.0 MCHC 33.6 g/dL 33.0-36.0 PLT 171 10*3/uL 150-400 MPV 10.6 fL 7.5-11.2 RDW 12.7 11.8-15.1 LYMPHOCYTES, AUTO % 30 MONOCYTES, AUTO % 7 NEUTROPHILS, AUTO % 61 EOSINOPHILS, AUTO % 1 BASOPHILS, AUTO % 1 LYMPHOCYTES, ABSOLUTE 1.88 10*3/uL 0.77- 4.50 MONOCYTES, ABSOLUTE 0.41 10*3/uL 0.19-0. 80 NEUTROPHILS, ABSOLUTE 3.78 10*3/uL 2.10- 8.00 EOSINOPHILS, ABSOLUTE 0.08 10*3/uL 0.00- 0.60 BASOPHILS, ABSOLUTE 0.03 10*3/uL 0.00-0. 20 Social History: Smoking Status (Most current) and Tobacco Use (All prior to encounter date) This section includes the most current, and the historical, smoking and tobacco- related health factors from the [place] facility where the Encounter took place. Current Smoking Status This section includes the most current smoking, or tobacco-related health factor, from the [place] facility where the Encounter took place. Date/Time Current Smoking Status Comment David ity May 02, 2024 11:00 AM VA-TOBACCO NEVER USED [facility] Tobacco Use History This section includes a history of the smoking, or tobacco-related health factors, that were collected on or before the date of the Encounter. The data comes from the [place] facility where the Encounter took place. Date/Time Smoking Status/Tobacco Use Comment F acility Jan 14, 2019 05:30 PM [place]-TOBACCO NEVER USED [facility] Jun 07, 2018 01:03 PM TOBACCO REFUSED SCREEN V15 [facility] Aug 10, 2017 09:25 AM LIFETIME NON-USER OF TOBACCO [facility] Jul 13, 2017 11:32 AM LIFETIME NON-USER OF TOBACCO [facility] May 08, 2017 01:14 PM LIFETIME NON-USER OF TOBACCO [facility] Encounter Notes: All associated encounter notes This section contains the clinical notes associated to the Encounter. Date/Time Encounter Note(s) Provider Source Dec 29, 2024 03:07 PM PHYSICAL MEDICINE REHAB NOTE: LOCAL TITLE: OT DAILY STL STANDARD TITLE: PHYSICAL MEDICINE REHAB NOTE DATE OF NOTE: DEC 29, 2024@15:07 ENTRY DATE: DEC 29, 2024@15:07:29 AUTHOR: GEOVANNY PANIAGUA COSIGNER: URGENCY: STATUS: COMPLETED Occupational Therapy Daily/Progress Note Diagnosis: Pain in right Shoulder(ICD-10-CM M25.511) Requesting Provider: BRIAN MOCTEZUMA Reason for request: R shoulder scope, possible cuff repair 08/29/24 Surgery: Right arthroscopic rotator cuff repair Date of surgery: 08/29/24 IS 17 WEEKS POST-OP PHYSICAL THERAPY REFERRAL: Rotator cuff repair (Phase 3: beyond 12 weeks postop) Therapy Instructions: Progressive passive stretching and advance AROM as needed/tolerated. May need to focus on posterior cuff stretching. Emphasize proper scapular posture and mechanics with AROM. Progressive light cuff, deltoid and scapular stabilizer strengthening. Special Instructions: Avoid overhead strengthening. Date of Initial Evaluation: 09/10/2024 Visit #: 6 Ca or NS #: 0 TIME: [id number] Ther ex: 45 minutes SUBJECTIVE: Dominick reports he is still having pain since his slip/trip fall in his home onto his outstretched R arm, pain is consistnat, located to proximal bicep and anterior shoulder. 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 OT reached out to ortho ([facility]) regurading return to work note. Ortho note from 12/24: He does have some anterior shoulder pain which I think is related to a deltoid strain from his fall episode in October. He should continue the strengthening conditioning phase of his rotator cuff repair with physical therapy 2-3 times a week. We discussed the importance of rotator cuff conditioning, strengthening and periscapular muscle strengthening. We also discussed his poor scapular posture and ways to correct this. Goal: Return to work Pain: 2-3/10 constant States 4-5/10 at worst. OBJECTIVE: Vet presents into OT ambulating without AD. AROM SHOULDER STANDING: Left Right Right Right 10/10 10/10 11/14 310 Flexion:160 148 145 165 EX: 50 46 50 50 ABD: 150 132 140 160 ER: 65 48 64 65 IR: T8 T12 T12 T8 Strenth: 5/5 in all Right shoulder motions. Treatment: [place] participated in the following this date: - educated to conintue with use of ice for targeted pain at bicep tendon since fall - Continue trigger point massage to proximal bicep - Vet to continue with rotator cuff conditioning, strengthening and periscapular muscle strengthening as noted below Access Code: [email or web address] URL: [email or web address] Date: 11/28/2024 Prepared by: Geovanny Paniagua Exercises - Shoulder Row - 1 x daily - 7 x weekly - 3 sets - 10 reps - Shoulder Y - 1 x daily - 7 x weekly - 3 sets - 10 reps - Shoulder Internal Rotation with Resistance - 1 x daily - 7 x weekly - 3 sets - 10 reps - Shoulder External Rotation with Anchored Resistance - 1 x daily - 7 x weekly - 3 sets - 10 reps - Shoulder extension with resistance - Neutral - 1 x daily - 7 x weekly - 3 sets - 10 reps - Standing Shoulder Row with Anchored Resistance - 1 x daily - 7 x weekly - 3 sets - 10 reps - Standing Low Trap Setting with Resistance at Wall - 1 x daily - 7 x weekly - 3 sets - 10 reps - Anterior Shoulder and Biceps Stretch - 1 x daily - 7 x weekly - 3 sets - 10 reps - Standing Bicep Stretch at Wall - 1 x daily - 7 x weekly - 3 sets - 10 reps Equipment/Instructions: Red looped band for Standing Low Trap Green and Blue theraband [place] Education [place] was ready to learn and demonstrated an understanding of instructions given on Role of OT, [place] 1:1 instruction in equipment issued and/or home exercise program as noted above. ASSESSMENT: This 33 year old male presents to therapy s/p right rotator cuff surgery. Vet able to demonstrate HEP in the clinic today. [place] will continue to benefit from skilled occupational therapy in order to address pain and progress HEP. [place] presents with good rehabilitation potential. PLAN: Vet to f/u on 01/09 to continue with Phase III of post op protocol as tolerated. Continued skilled occupational therapy as below to address: Treatment Plan: ___ADLs _x__UE AROM/AAROM/PROM ___Transfers ___Cognition ___Coordination ___Endurance ___Gross/Fine Motor ___Home Management ___Visual Perception ___Standing Act. _x__UE Strengthening ___Sensation/Compensation ___Visual Skills ___Facilitation ___Inhibition ___Adaptive equipment Assessment _x__Modalities _x__Other:HEP SHORT TERM GOALS: To be achieved in (4-6 visits). 1. Demonstrate HEP with 100% accuracy-PROGRESSING met 2. Increase AROM to WFL in all planes of motion in UE-PROGRESSING. met 3. Increase MM mass to 4/5 grade in all involved MM groups. 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 1. Vet will describe improved pain management with combination of HEP, and increased awareness of posture/scapular/biomechani cs and positioning techniques 2. Return to prior level of independent function at home and in the community. Date of Initiation of Treatment Plan: 09/10/2024 *This note will serve as the d/c note should this be the last tx intervention* /arlet/ ESCOBAR Dominguez/DARIUS Gaines Occupational Therapist Signed: 12/29/2024 15:16 GEOVANNY PANIAGUA [facility]
--- OUTSIDE RECORDS SUMMARY | 2025-05-23 12:46 | XMS_ITS | Encounter Summary ---
Author Name [facility] [place] [facility] [place] Address [address] [place] [address] Care Team Providers Care Oil Laboratory Analyst Name Role Phone ISMA ROSARIO Primary Care Provider REBECCA Kinney Unavailable Unavailable Selected Encounter This section includes the information on record at [place] for the Encounter. Date/Time Encounter Type Encounter Description Reason Provider Source Nov 19, 2024 09:49 AM EMERGENCY DEPT VISIT [facility] EMERGENCY DEPT ICD-10-CM K12.2 Cellulitis and abscess of mouth DEBRA MARTINEZ E Encounter Template Text not used by [place] Assessments - Encounter Diagnoses This section includes the primary and secondary diagnoses documented for the Encounter. Date/Time Primary/Secondary Diagnosis Diagnosis Name Provider Source Nov 19, 2024 10:45 AM PRIMARY Cellulitis and abscess of mouth DEBRA MARTINEZ [facility] Plan of Treatment: Future Appointments (+ 6 months) and Future Tests (+/- 45 days) The Plan of Treatment section includes future care activities for the patient from all [place] treatmentfacilities. This section includes future appointments and future orders which are active, pending or scheduled. Future Appointments This section includes appointments that were scheduled to occur 6 months from the date of the Encounter, up to a maximum of 20 appointments. The data comes from all [place] treatment facilities. Appointment Date/Time Appointment Type Appointme nt Facility Name Nov 28, 2024 02:00 PM AMBULATORY - REHAB MEDICIN E [facility] Dec 12, 2024 01:15 PM AMBULATORY - MEDICINE [facility] Dec 24, 2024 10:40 AM AMBULATORY - SURGERY [facility] Dec 29, 2024 02:30 PM AMBULATORY - REHAB MEDICIN E [facility] Dec 31, 2024 09:30 AM AMBULATORY - PSYCHIATRY [facility] Dec 31, 2024 09:30 AM AMB[facility]ORY [facility]AT[facility] Jan 09, 2025 02:30 PM AMBULATORY - REHAB MEDICIN E [facility] Jan 21, 2025 10:00 AM AMBULATORY - SURGERY [facility] Jan 26, 2025 03:00 PM AMBULATORY - REHAB MEDICIN E [facility] Jan 28, 2025 09:30 AM AMBULATORY - PSYCHIATRY [facility] Jan 28, 2025 09:30 AM AMBULATORY - PS[facility]CHIATRY [facility] February 20, 2025 12:00 PM AMBULATORY - NONE [facility] February 25, 2025 11:30 AM AMBULATORY - REHAB MEDICIN E [facility] March 01, 2025 09:10 AM AMBULATORY - MEDICINE [facility] March 11, 2025 02:40 PM AMBULATORY - MEDICINE [facility] Apr 01, 2025 11:30 AM AMBULATORY - REHAB MEDICIN E [facility] Apr 01, 2025 02:40 PM AMBULATORY - MEDICINE [facility] Apr 07, 2025 07:22 PM AMBULATORY - MEDICINE [facility] Apr 29, 2025 09:30 AM AMBULATORY - PSYCHIATRY [facility] Apr 29, 2025 09:30 AM AMBULATORY - PS[facility]CHIATRY [facility] Lab Results: +/- 30 days of the encounter This section includes the Chemistry and Hematology Lab Results on record with [facility] for the patient. Radiology Reports and Pathology Reports are provided separately, in subsequent sections. Lab Results This section contains the Chemistry/Hematology Results that were resulted 30 days before or 30 daysafter the date of the Encounter. Date/Time Source Result Type Result - Unit Interpretation Reference Range Specimen Type Comment Dec 12, 2024 02:29 PM [facility] LIPID PANEL (STL) PLASMA Specimen Type: PLASMA Comment: No hemolysis noted. Ordering Provider: REBECCA MENEZES Report Released Date/Time: Dec 12, 2024 02:20 PM Reporting Lab: [facility] [address] [facility] [address] Performing Lab: [address] [address] CHOLESTEROL 182 mg/dL 0-200 TRIGLYCERIDE 237 mg/dL H 0-150 CALCULATED LDL 106 mg/dL HDL(New) 29 mg/dL L >40 Dec 12, 2024 02:29 PM [facility] COMPREHENSIVE METABOLIC PANEL PLASMA Specimen Type: PLASMA Comment: No hemolysis noted. Ordering Provider: REBECCA MENEZES Report Released Date/Time: Dec 12, 2024 02:20 PM Reporting Lab: [facility] [address] [facility] [address] Performing Lab: [address] [address] CREATININE 1.06 mg/dL 0.7-1.3 UREA NITROGEN 13.6 [...] 94.4 >60 Dec 12, 2024 02:29 PM [facility] CBC BLOOD Specimen Type: BLOOD No comment entered. Ordering Provider: CLIF,REBECCA S Report Released Date/Time: Dec 12, 2024 02:20 PM Reporting Lab: [facility] [address] [facility] [address] Performing Lab: [facility] [address] [facility] [address] WBC 6.2 10*3/uL 3.6-11.2 RBC 4.84 10*6/uL [...] 0.60 BASOPHILS, ABSOLUTE 0.03 10*3/uL 0.00-0. 20 Vital Signs: All taken on the encounter date This section contains inpatient and outpatient Vital Signs collected on the date of the Encounter. Date/Time Temperature Pulse Blood Pressure Respiratory Rate SP02 Pain Height Weight Body Mass Index Source Nov 19, 2024 10:01 AM 97.8 97 151/97 16 2 [facility] Social History: Smoking Status (Most current) and Tobacco Use (All prior to encounter date) This section includes the most current, and the historical, smoking and tobacco- related health factors from the [place] facility where the Encounter took place. Current Smoking Status This section includes the most current smoking, or tobacco-related health factor, from the [place] facility where the Encounter took place. Date/Time Current Smoking Status Comment Facil ity May 02, 2024 11:00 AM [facility]-TOBACCO NEVER USED [facility] Tobacco Use History This section includes a history of the smoking, or tobacco-related health factors, that were collected on or before the date of the Encounter. The data comes from the [place] facility where the Encounter took place. Date/Time Smoking Status/Tobacco Use Comment F michael Jan 14, 2019 05:30 PM VA-TOBACCO NEVER USED [facility] Jun 07, 2018 01:03 PM TOBACCO REFUSED SCREEN V15 [facility] Aug 10, 2017 09:25 AM LIFETIME NON-USER OF TOBACCO [facility] Jul 13, 2017 11:32 AM LIFETIME NON-USER OF TOBACCO [facility] May 08, 2017 01:14 PM LIFETIME NON-USER OF TOBACCO [facility] Encounter Notes: All associated encounter notes This section contains the clinical notes associated to the Encounter. Date/Time Encounter Note(s) Provider Source Nov 19, 2024 10:29 AM PHYSICIAN EMERGENCY DEPT NOTE: LOCAL TITLE: EMERGENCY DEPARTMENT ST STANDARD TITLE: PHYSICIAN EMERGENCY DEPT NOTE DATE OF NOTE: NOV 19, 2024@10:29 ENTRY DATE: NOV 19, 2024@10:29:23 AUTHOR: DEBRA MARTINEZ COSIGNER: URGENCY: STATUS: COMPLETED TRIAGE CHIEF COMPLAINT: Sore to his left lip HPI: Patient is a 33-year-old male presents stating that 4 days ago he noticed a pustule just outside the left corner of his mouth. He squeezed it and got a little bit of pus and blood out of it, and over the last few days has noticed some swelling to his upper lip near the lesion which is painful. He has not had any further drainage from the lesion. Denies any fevers or chills, denies any dental pain, denies any difficulty speaking or swallowing, denies any difficulty opening his mouth. He admits to frequently squeezing and picking at the lesion. 1 year ago he had a similar swelling to his right lip that he thinks was due to an adjacent hair follicle infection. He was initially seen in the ED and felt to be having an allergic reaction due to the lower lip swelling, but after a few days the lesion burst and began draining and he was started on Augmentin. He was seen again about 5 days later with persistent drainage from the lesion, though the lesion had gotten a lot smaller and he overall appeared improved. At that time he was given a few more days of Augmentin and given full course of Bactrim and mupirocin. The lesion then healed completely and has not recurred. He does not smoke cigarettes. He is not a diabetic. REVIEW OF SYSTEMS: See HPI for further details. All 10 systems reviewed and otherwise negative unless otherwise detailed herein. PAST MEDICAL HISTORY: 1) Mood disorder 2) Allergic rhinitis 3) Pain of left shoulder joint 4) Low back pain 5) Severe bipolar II disorder 6) Posttraumatic stress disorder 7) Gastroesophageal reflux disease 8) Constipation 9) Obesity 10) Knee pain 11) HLD - Hyperlipidemia 12) Decreased vitamin D 13) Prediabetes 14) Pain of right shoulder joint CURRENT MEDICATIONS: Active Outpatient Medications (including Supplies): Active Outpatient Medications Status 1) BUPROPION HCL 150MG 12HR SA TAB TAKE ONE TABLET BY MOUTH ACTIVE (S) EVERY MORNING SWALLOW WHOLE - DO NOT CRUSH OR CHEW. Indication: FOR DEPRESSION 2) CARBOXYMETHYLCELLULOSE NA 0.5% OPH SOLN INSTILL 1 DROP IN ACTIVE BOTH EYES FOUR TIMES A DAY NEEDED Indication: FOR DRY EYE(S) 3) CETIRIZINE HCL 10MG TAB TAKE ONE TABLET BY MOUTH ONCE A DAY ACTIVE (S) FOR ALLERGY SYMPTOMS. 4) CHOLECALCIF 50MCG (D3-2,000UNIT) TAB TAKE ONE TABLET BY ACTIVE MOUTH ONCE A DAY Indication: FOR VITAMIN D DEFICIENCY 5) CYCLOBENZAPRINE HCL 10MG TAB TAKE ONE TABLET BY MOUTH TWICE ACTIVE A DAY MAY CAUSE DROWSINESS. DO NOT DRINK ALCOHOL WHILE TAKING THIS MEDICATION. Indication: FOR MUSCLE SPASM 6) DICLOFENAC NA 1% TOP GEL APPLY 4 GM TO AFFECTED AREA(S) FOUR ACTIVE TIMES A DAY NEEDED DO NOT EXCEED MORE THAN 16 GRAMS DAILY TO ANY LOWER EXTREMITY JOINT. NOT MORE THAN 8 GRAMS DAILY TO ANY UPPER EXTREMITY JOINT. MAX 32GM/DAY OVER ALL JOINTS. (MEASURE DOSE WITH RULER ATTACHED INSIDE BOX) Indication: FOR PAIN 7) DULOXETINE HCL 60MG EC CAP TAKE ONE CAPSULE BY MOUTH EVERY ACTIVE MORNING DO NOT ABRUPTLY DISCONTINUE MEDICATION. 8) LAMOTRIGINE 100MG TAB TAKE ONE TABLET BY MOUTH TWICE A DAY ACTIVE . IF YOU GET A RASH, STOP THE MEDICINE Indication: FOR BIPOLAR DISORDER AND IRRITABILITY 9) LIDOCAINE 5% PATCH APPLY 1 PATCH TO SKIN SITE ONCE A DAY ACTIVE APPLY PATCH AND PRESS FIRMLY FOR 10-15 SECONDS. KEEP ON FOR 12 HOURS THEN REMOVE PATCH FOR 12 HOURS. Indication: FOR LOCAL ANESTHESIA 10) LIFITEGRAST 5% OPH SOLN 0.2ML INSTILL 1 DROP IN BOTH EYES ACTIVE EVERY 12 HOURS Indication: FOR DRY EYE(S) 11) MELOXICAM 15MG TAB TAKE ONE TABLET BY MOUTH ONCE A DAY ACTIVE Indication: FOR PAIN 12) PANTOPRAZOLE NA 20MG EC TAB TAKE ONE TABLET BY MOUTH ONCE A ACTIVE (S) DAY TAKE 30 MINUTES BEFORE MEAL(S) Indication: FOR GASTROESOPHAGEAL REFLUX DISEASE 13) POLYETHYLENE GLYCOL 3350 ORAL PWDR MIX AND DRINK 1 CAPFUL BY ACTIVE MOUTH ONCE A DAY (MEASURE WITH CAP AND MIX IN 8 OZ OF WATER) Indication: FOR CONSTIPATION 14) PRAZOSIN HCL 2MG CAP TAKE ONE CAPSULE BY MOUTH AT BEDTIME ACTIVE MAY CAUSE DIZZINESS OR DROWSINESS. Indication: FOR NIGHTMARES 15) SENNOSIDES 8.6MG TAB TAKE ONE TABLET BY MOUTH TWICE A DAY ACTIVE Indication: FOR CONSTIPATION 1) ONDANSETRON INJ,SOLN IVP Q8H PRN 4MG/2ML. 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 Any medication discrepancies have been resolved. Patient will be provided with an updated list of his/her medication(s). SURGICAL HISTORY: not pertinent FAMILY HISTORY: not pertinent SOCIAL HISTORY: Social History Main Topics: Smoking status: Denies Alcohol Use: Denies illicit Drug Use: not indorsed ALLERGIES: Review of patient's allergies indicates: Patient has answered NKA PHYSICAL EXAM: VITAL SIGNS: 151/97 (11/19/2024 10:01)97 (11/19/2024 10:01)99% (09/10/2024 11:05)97.8 F [36.6 C] (11/19/2024 10:01)16 (11/19/2024 10:01) Measurement DT PAIN 11/19/2024 10:01 2 CONSTITUTIONAL: No acute distress, Non-toxic appearance, ANO x 4 HENT: airway patent, oropharynx clear, mucous membranes moist, dentition good, no trismus. Just lateral to the left commissure there is a 2 mm white dry raised lesion, with 1 cm of palpable induration there and over the lateral left upper lip. There is no fluctuance, there is slight tenderness to palpation. There is no erythema, no open wound, no drainage. EYES: Conj pink, sclera clear NECK: Normal range of motion, No tenderness, Supple, No stridor, No LAD. CARDIOVASCULAR: Normal heart rate PULMONARY/CHEST: Nonlabored respiration EXTREMITIES: Normal range of motion NEUROLOGIC: Alert & oriented/reactive, Normal motor function, Normal gait, no ataxia, No focal deficits appreciated on cursory screening exam SKIN: Warm, Dry, No erythema, No rash ED COURSE & MEDICAL DECISION MAKING: Nursing notes, medications, vital signs, allergies and pertinent labs & imaging studies reviewed (see chart for details) with lab results reviewed with patient and family/caregivers at bedside and radiology results reviewed with patient and any family/caregivers at bedside. Stable, alert, nontoxic, nonfocal with clinically apparent folliculitis versus superinfected pustule versus induration from patient persistently squeezing the left, commissure. Given his history of prior lip infections, will treat with Bactrim x 1 week as well as mupirocin topically. Also advised warm compresses, and advised patient not to touch or squeeze the area at all. Return to the ED as needed worsening or new concerning symptoms. Patient's care impacted by : other Patient's care is significantly limited by social determinants of health including: / psychiatric disease / other social determinants of health External records reviewed: Inpatient records / outpatient records DIFFERENTIAL DIAGNOSES CONSIDERED: Folliculitis, abscess, cellulitis DECISION to ADMIT / DISCHARGE TIME: 1050 SMOKING CESSATION RECOMMENDATION: The patient was strongly advised to DISPOSITION CONDITION:[ x ] Improved [ ] Unchanged [ ] Deteriorated CLINICAL IMPRESSION: 1 -cellulitis of the lip 2 - 3 - DISCHARGE INSTRUCTIONS AND PATIENT-DIRECTED FOLLOW-UP RECOMMENDATIONS: DIET: regular ACTIVITY: ad iesha NEW MEDS: Bactrim DS x 1 week, mupirocin ointment MEDICATION RECONCILIATION: CONTINUE ALL PRESCRIBED MEDICATIONS DIRECTED EXCEPT: FOLLOW-UP WITH PRIMARY COMMAND AND CONTROL OFFICER/SPECIALIST: routine in 1-2 weeks if not improving, sooner if worse RETURN TO EMERGENCY: if any worries or concerns ADDITIONAL SIGNATURE PCP: [x ] YES [ ] NO [ ] not listed Active Outpatient Medications (including Supplies): Active Outpatient Medications Status 1) BUPROPION HCL 150MG 12HR SA TAB TAKE ONE TABLET BY MOUTH ACTIVE (S) EVERY MORNING SWALLOW WHOLE - DO NOT CRUSH OR CHEW. Indication: FOR DEPRESSION 2) CARBOXYMETHYLCELLULOSE NA 0.5% OPH SOLN INSTILL 1 DROP IN ACTIVE BOTH EYES FOUR TIMES A DAY NEEDED Indication: FOR DRY EYE(S) 3) CETIRIZINE HCL 10MG TAB TAKE ONE TABLET BY MOUTH ONCE A DAY ACTIVE (S) FOR ALLERGY SYMPTOMS. 4) CHOLECALCIF 50MCG (D3-2,000UNIT) TAB TAKE ONE TABLET BY ACTIVE MOUTH ONCE A DAY Indication: FOR VITAMIN D DEFICIENCY 5) CYCLOBENZAPRINE HCL 10MG TAB TAKE ONE TABLET BY MOUTH TWICE ACTIVE A DAY MAY CAUSE DROWSINESS. DO NOT DRINK ALCOHOL WHILE TAKING THIS MEDICATION. Indication: FOR MUSCLE SPASM 6) DICLOFENAC NA 1% TOP GEL APPLY 4 GM TO AFFECTED AREA(S) FOUR ACTIVE TIMES A DAY NEEDED DO NOT EXCEED MORE THAN 16 GRAMS DAILY TO ANY LOWER EXTREMITY JOINT. NOT MORE THAN 8 GRAMS DAILY TO ANY UPPER EXTREMITY JOINT. MAX 32GM/DAY OVER ALL JOINTS. (MEASURE DOSE WITH RULER ATTACHED INSIDE BOX) Indication: FOR PAIN 7) DULOXETINE HCL 60MG EC CAP TAKE ONE CAPSULE BY MOUTH EVERY ACTIVE MORNING DO NOT ABRUPTLY DISCONTINUE MEDICATION. 8) LAMOTRIGINE 100MG TAB TAKE ONE TABLET BY MOUTH TWICE A DAY ACTIVE . IF YOU GET A RASH, STOP THE MEDICINE Indication: FOR BIPOLAR DISORDER AND IRRITABILITY 9) LIDOCAINE 5% PATCH APPLY 1 PATCH TO SKIN SITE ONCE A DAY ACTIVE APPLY PATCH AND PRESS FIRMLY FOR 10-15 SECONDS. KEEP ON FOR 12 HOURS THEN REMOVE PATCH FOR 12 HOURS. Indication: FOR LOCAL ANESTHESIA 10) LIFITEGRAST 5% OPH SOLN 0.2ML INSTILL 1 DROP IN BOTH EYES ACTIVE EVERY 12 HOURS Indication: FOR DRY EYE(S) 11) MELOXICAM 15MG TAB TAKE ONE TABLET BY MOUTH ONCE A DAY ACTIVE Indication: FOR PAIN 12) PANTOPRAZOLE NA 20MG EC TAB TAKE ONE TABLET BY MOUTH ONCE A ACTIVE (S) DAY TAKE 30 MINUTES BEFORE MEAL(S) Indication: FOR GASTROESOPHAGEAL REFLUX DISEASE 13) POLYETHYLENE GLYCOL 3350 ORAL PWDR MIX AND DRINK 1 CAPFUL BY ACTIVE MOUTH ONCE A DAY (MEASURE WITH CAP AND MIX IN 8 OZ OF WATER) Indication: FOR CONSTIPATION 14) PRAZOSIN HCL 2MG CAP TAKE ONE CAPSULE BY MOUTH AT BEDTIME ACTIVE MAY CAUSE DIZZINESS OR DROWSINESS. Indication: FOR NIGHTMARES 15) SENNOSIDES 8.6MG TAB TAKE ONE TABLET BY MOUTH TWICE A DAY ACTIVE Indication: FOR CONSTIPATION /arlet/ DEBRA MARTINEZ MD STAFF PHYSICIAN Signed: 11/19/2024 11:01 Receipt Acknowledged By: 12/01/2024 16:57 /arlet/ ISMA ROSARIO MD Staff Physician DEBRA MARTINEZ [facility]
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
--- OUTSIDE RECORDS SUMMARY | 2025-05-23 12:47 | XMS_ITS | Encounter Summary ---
Author Name Department of [place] [place] Organization [facility] [place] Address [address] [place] [address] Care Team Providers Care Nuisance Wildlife Specialist Name Role Phone ISMA ROSARIO Primary Care Provider REBECCA Kinney Unavailable Unavailable Selected Encounter This section includes the information on record at [place] for the Encounter. 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 This section includes future appointments and future orders which are active, pending or scheduled. Future Appointments This section includes appointments that were scheduled to occur 6 months from the date of the Encounter, up to a maximum of 20 appointments. The data comes from all [facility]. Appointment Date/Time Appointment Type Appointme nt Facility Name Nov 05, 2024 11:20 AM AMBULATORY - SURGERY [facility] Nov 14, 2024 11:30 AM AMBULATORY - REHAB MEDICIN E [facility] Nov 19, 2024 09:49 AM AMBULATORY - MEDICINE [facility] Nov 28, 2024 02:00 PM AMBULATORY - REHAB MEDICIN E [facility] Dec 12, 2024 01:15 PM AMBULATORY - MEDICINE [facility] Dec 24, 2024 10:40 AM AMBULATORY - SURGERY [facility] Dec 29, 2024 02:30 PM AMBULATORY - REHAB MEDICIN E [facility] Dec 31, 2024 09:30 AM AMBULATORY - PSYCHIATRY [facility] Dec 31, 2024 09:30 AM [facility] Jan 09, 2025 02:30 PM AMBULATORY - REHAB MEDICIN E [facility] Jan 21, 2025 10:00 AM AMBULATORY - SURGERY [facility] Jan 26, 2025 03:00 PM AMBULATORY - REHAB MEDICIN E [facility] Jan 28, 2025 09:30 AM AMBULATORY - PSYCHIATRY [facility] Jan 28, 2025 09:30 AM [facility] February 20, 2025 12:00 PM AMBULATORY - NONE [facility] February 25, 2025 11:30 AM AMBULATORY - REHAB MEDICIN E [facility] March 01, 2025 09:10 AM AMBULATORY - MEDICINE [facility] March 11, 2025 02:40 PM AMBULATORY - MEDICINE [facility] Apr 01, 2025 11:30 AM AMBULATORY - REHAB MEDICIN E [facility] Apr 01, 2025 02:40 PM AMBULATORY - MEDICINE [facility] Social History: Smoking Status (Most current) and Tobacco Use (All prior to encounter date) This section includes the most current, and the historical, smoking and tobacco- related health factors from the [place] facility where the Encounter took place. Current Smoking Status This section includes the most current smoking, or tobacco-related health factor, from the [place] facility where the Encounter took place. Date/Time Current Smoking Status Comment David dar May 02, 2024 11:00 AM VA-TOBACCO NEVER USED [facility] Tobacco Use History This section includes a history of the smoking, or tobacco-related health factors, that were collected on or before the date of the Encounter. The data comes from the [place] facility where the Encounter took place. Date/Time Smoking Status/Tobacco Use Comment F acility Jan 14, 2019 05:30 PM VA-TOBACCO NEVER USED [facility] Jun 07, 2018 01:03 PM TOBACCO REFUSED SCREEN V15 [facility] Aug 10, 2017 09:25 AM LIFETIME NON-USER OF TOBACCO [facility] Jul 13, 2017 11:32 AM LIFETIME NON-USER OF TOBACCO [facility] May 08, 2017 01:14 PM LIFETIME NON-USER OF TOBACCO [facility] Encounter Notes: All associated encounter notes This section contains the clinical notes associated to the Encounter. Date/Time Encounter Note(s) Provider Source Oct 23, 2024 11:32 AM OTOLARYNGOLOGY CONSULT: LOCAL TITLE: OTOLARYNGOLOGY CONSULT [facility] STANDARD TITLE: OTOLARYNGOLOGY CONSULT DATE OF NOTE: OCT 23, 2024@11:32 ENTRY DATE: OCT 23, 2024@11:32:41 AUTHOR: NORMA BRAVO EXP COSIGNER: URGENCY: STATUS: COMPLETED OTOLARYNGOLOGY CONSULT ST Has ADDENDA EAR INFECTION CONSULT HPI- Pt reports 3 infections within a few months awhile back. Last time he went to ED and they submitted ENT conslut. Pt denies chronic ear HL, fullness, pain and drainage. He is rather vague on what sxs he does have when he gets ear infections. Says happens to both ears, ? feel full with some dereased hearing. Never had pain or drainage, no h/o ear surgery +Wears CPAP, has some issues with left nasal airway only at noc when using CPAP. Breathes fine throughout the day, uses [facility] PAST MEDICAL HISTORY: 1) Mood disorder 2) Allergic rhinitis 3) Pain of left shoulder joint 4) Low back pain 5) Severe bipolar II disorder 6) Posttraumatic stress disorder 7) Gastroesophageal reflux disease 8) Constipation 9) Obesity 10) Knee pain 11) HLD - Hyperlipidemia 12) Decreased vitamin D 13) Prediabetes 14) Pain of right shoulder joint Active Outpatient Medications 1) BUPROPION HCL 150MG 12HR SA TAB [...] ONCE A DAY ACTIVE FOR ALLERGY SYMPTOMS. 4) CHOLECALCIF 50MCG (D3-2,000UNIT) [...] CAUSE DIZZINESS OR DROWSINESS. Indication: FOR NIGHTMARES PE- Obese WM, BMI 40.46 OTOMIC EXAM- external ears benign, EACs clear dry, TMs intact mobile, MEs aerated A/P Pt with vague h/o ?recurrent ear infections. He is poor historian, and wasn't able to clearly say what exact sxs recur. I reassured him his exam was completely benign today If he suspects recurrence of ear infection, he can contact ENT to discuss sxs and recommendations for further evalaution (PCP or ENT) He also has left nasal congestion only with CPAP use at night. Recommend he start using once daily nasal steroid /aftab BRAVO Physician Script Girl, ENT Signed: 10/23/2024 11:39 11/05/2024 ADDENDUM STATUS: COMPLETED Clarification on OTOMIC EXAM: Pt was examined under otomicroscopy. Exam was benign, no instrumentation or procedures were done on this pt. /aftab BRAVO Physician Script Girl, ENT Signed: 11/05/2024 12:08 NORMA BRAVO [facility]
--- OUTSIDE RECORDS SUMMARY | 2025-05-23 12:47 | XMS_ITS | Encounter Summary ---
Author Name [facility] [place] Organization [place] Address [address] [place] [address] Care Team Providers Care Fire Observer Name Role Phone ISMA ROSARIO Primary Care Provider REBECCA Kinney Unavailable Unavailable Selected Encounter This section includes the information on record at [place] for the Encounter. Date/Time Encounter Type Encounter Description Reason Provider Source Jan 09, 2025 02:30 PM THERAPEUTIC EXERCISES OCCUPATIONAL THERAPY ICD-10-CM M25.511 Pain in right shoulder GEOVANNY PANIAGUA Carmen Encounter Template Text not used by [place] Assessments - Encounter Diagnoses This section includes the primary and secondary diagnoses documented for the Encounter. Date/Time Primary/Secondary Diagnosis Diagnosis Name Provider Source Jan 09, 2025 03:20 PM PRIMARY Pain in right shoulder GEOVANNY PANIAGUA [facility] Plan of Treatment: Future Appointments (+ 6 months) and Future Tests (+/- 45 days) The Plan of Treatment section includes future care activities for the patient from all [place] treatmentfacilities. This section includes future appointments and future orders which are active, pending or scheduled. Future Appointments This section includes appointments that were scheduled to occur 6 months from the date of the Encounter, up to a maximum of 20 appointments. The data comes from all [place] treatment facilities. Appointment Date/Time Appointment Type Appointme nt Facility Name Jan 21, 2025 10:00 AM AMBULATORY - SURGERY [facility] Jan 26, 2025 03:00 PM AMBULATORY - REHAB MEDICIN E [facility] Jan 28, 2025 09:30 AM AMBULATORY - PSYCHIATRY [facility] Jan 28, 2025 09:30 AM AMB[facility]ATORY - [facility]RY [facility] February 20, 2025 12:00 PM AMBULATORY - NONE [facility] February 25, 2025 11:30 AM AMBULATORY - REHAB MEDICIN E [facility] March 01, 2025 09:10 AM AMBULATORY - MEDICINE [facility] March 11, 2025 02:40 PM AMBULATORY - MEDICINE [facility] Apr 01, 2025 11:30 AM AMBULATORY - REHAB MEDICIN E [facility] Apr 01, 2025 02:40 PM AMBULATORY - MEDICINE [facility] Apr 07, 2025 07:22 PM AMBULATORY - MEDICINE [facility] Apr 29, 2025 09:30 AM AMBULATORY - PSYCHIATRY [facility] Apr 29, 2025 09:30 AM AMBULATORY - [facility]ATRY [facility] Apr 29, 2025 02:00 PM AMBULATORY - SURGERY [facility] Apr 29, 2025 02:15 PM AMBULATORY - MEDICINE [facility] May 23, 2025 01:00 PM AMBULATORY - NONE [facility] May 27, 2025 11:00 AM AMBULATORY - NONE [facility] Jun 02, 2025 10:00 AM AMBULATORY - SURGERY [facility] Lab Results: +/- 30 days of the encounter This section includes the Chemistry and Hematology Lab Results on record with [place] for the patient. Radiology Reports and Pathology Reports are provided separately, in subsequent sections. Lab Results This section contains the Chemistry/Hematology Results that were resulted 30 days before or 30 daysafter the date of the Encounter. Date/Time Source Result Type Result - Unit Interpretation Reference Range Specimen Type Comment Dec 12, 2024 02:29 PM [facility] LIPID PANEL (STL) PLASMA Specimen Type: PLASMA Comment: No hemolysis noted. Ordering Provider: REBECCA MENEZES Report Released Date/Time: Dec 12, 2024 02:20 PM Reporting Lab: [address] [id number] Performing Lab: [address] [address] CHOLESTEROL 182 mg/dL 0-200 TRIGLYCERIDE 237 mg/dL H 0-150 CALCULATED LDL 106 mg/dL HDL(New) 29 mg/dL L >40 Dec 12, 2024 02:29 PM [facility] COMPREHENSIVE METABOLIC PANEL PLASMA Specimen Type: PLASMA Comment: No hemolysis noted. Ordering Provider: REBECCA MENEZES Report Released Date/Time: Dec 12, 2024 02:20 PM Reporting Lab: [address] [address] Performing Lab: [address] [address] CREATININE 1.06 mg/dL 0.7-1.3 UREA NITROGEN 13.6 [...] 94.4 >60 Dec 12, 2024 02:29 PM [facility] CBC BLOOD Specimen Type: BLOOD No comment entered. Ordering Provider: REBECCA MENEZES Report Released Date/Time: Dec 12, 2024 02:20 PM Reporting Lab: [address] [address] Performing Lab: [address] [address] WBC 6.2 10*3/uL 3.6-11.2 RBC 4.84 10*6/uL [...] and tobacco- related health factors from the [place] facility where the Encounter took place. Current Smoking Status This section includes the most current smoking, or tobacco-related health factor, from the [place] facility where the Encounter took place. Date/Time Current Smoking Status Comment David dodge May 02, 2024 11:00 AM VA-TOBACCO NEVER USED [facility] Tobacco Use History This section includes a history of the smoking, or tobacco-related health factors, that were collected on or before the date of the Encounter. The data comes from the [place] facility where the Encounter took place. Date/Time Smoking Status/Tobacco Use Comment Maximus acbashir Jan 14, 2019 05:30 PM VA-TOBACCO NEVER USED [facility] Jun 07, 2018 01:03 PM TOBACCO REFUSED SCREEN V15 [facility] Aug 10, 2017 09:25 AM LIFETIME NON-USER OF TOBACCO [facility] Jul 13, 2017 11:32 AM LIFETIME NON-USER OF TOBACCO [facility] May 08, 2017 01:14 PM LIFETIME NON-USER OF TOBACCO [facility] Encounter Notes: All associated encounter notes This section contains the clinical notes associated to the Encounter. Date/Time Encounter Note(s) Provider Source Jan 09, 2025 03:22 PM ADDENDUM: LOCAL TITLE: Addendum STANDARD TITLE: ADDENDUM DATE OF NOTE: JAN 09, 2025@15:22:40 ENTRY DATE: JAN 09, 2025@15:22:41 AUTHOR: GEOVANNY PANIAGUA EXP COSIGNER: URGENCY: STATUS: COMPLETED Vet reports he is still having pain since his slip/trip fall in his home onto his outstretched R arm, pain is consistent, located to proximal bicep and anterior shoulder. States he is wanting to have an earlier f/u with ortho for re-assessment as pain has been consistent since fall. States pain is very similar to prior to surgery but from instead of back. States no posterior shoulder pain since surgery. /es/ Geovanny Paniagua, OTR/L, CLT Occupational Therapist Signed: 01/09/2025 15:24 Receipt Acknowledged By: 01/21/2025 16:25 /es/ BRIAN MOCTEZUMA PA-C Physician Pilot Captain, Orthopedic 01/15/2025 16:41 /es/ TOM TRINIDAD MSN ANP-BC Nurse Practitioner, Orthopedics 01/14/2025 15:39 /es/ KAELYN [facility] [employer] AND ELBOW CLINICAL FELLOW --- Original Document --- 01/09/25 OT DAILY STL: Occupational Therapy Daily/Progress Note Diagnosis: Pain in right Shoulder(ICD-10-CM M25.511) Requesting Provider: BRIAN MOCTEZUMA Reason for request: R shoulder scope, possible cuff repair 08/29/24 Surgery: Right arthroscopic rotator cuff repair Date of surgery: 08/29/24 PHYSICAL THERAPY REFERRAL: Rotator cuff repair (Phase 3: beyond 12 weeks postop) Therapy Instructions: Progressive passive stretching and advance AROM as needed/tolerated. May need to focus on posterior cuff stretching. Emphasize proper scapular posture and mechanics with AROM. Progressive light cuff, deltoid and scapular stabilizer strengthening. Special Instructions: Avoid overhead strengthening. Date of Initial Evaluation: 09/10/2024 Visit #: 7 Ca or NS #: 0 TIME: [id number] Ther ex: 45 minutes SUBJECTIVE: Vet reports he is still having pain since his slip/trip fall in his home onto his outstretched R arm, pain is consistent, located to proximal bicep and anterior shoulder. States he is wanting to have an earlier f/u with other for re-assessment as pain has been consistent since fall. States pain is very similar to prior to surgery but from instead of back. States no posterior shoulder pain since surgery. 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 Ortho note from 12/24: He does have [...] AROM SHOULDER STANDING: Left Right Right Right 10/1010 Flexion:160 148 145 165 EX: 50 46 50 50 ABD: 150 132 140 160 ER: 65 48 64 65 IR: T8 T12 T12 T8 Strength: 5/5 in all Right shoulder motions. Treatment: participated in the following this date: - [place] educated to continue with use of ice for targeted pain at bicep tendon since fall - Continue trigger point massage to proximal bicep - Vet to continue with rotator cuff conditioning, strengthening and periscapular muscle strengthening as noted below -On this date vet provided with HEP with focus on anterior shoulder strength/endurance. Vet to complete slow controlled reps getting to 30 pain free motions prior to increase tension Access Code: [email or web address] URL: [email or web address] Date: 01/09/2025 Prepared by: Geovanny Paniagua Exercises - Shoulder Flexion with Anterior Anchored Resistance - 1 x daily - 7 x weekly - 3 sets - 10 reps - Shoulder External Rotation in Abduction with Anchored Resistance - 1 x daily - 7 x weekly - 3 sets - 10 reps - Standing Single Arm Shoulder Flexion with Posterior Anchored Resistance - 1 x daily - 7 x weekly - 3 sets - 10 reps - Standing Single Arm Shoulder Internal Rotation in Abduction with Anchored Resistance - 1 x daily - 7 x weekly - 3 sets - 10 reps - Standing Single Arm Shoulder Abduction with Anchored Resistance - 1 x daily - 7 x weekly - 3 sets - 10 reps Access Code: [email or web address] URL: [email or web address] Date: 11/28/2024 Prepared by: Geovanny Paniagua Exercises [...] for Standing Low Trap Green and Blue [employer] Education was ready to learn and demonstrated an understanding of instructions given on Role of OT, 1:1 instruction in equipment issued and/or home exercise program as noted above. ASSESSMENT: This 33 year old male presents to therapy s/p right rotator cuff surgery. Vet able to demonstrate HEP in the clinic today. will continue to benefit from skilled occupational therapy in order to address pain and progress HEP. presents with good rehabilitation potential. PLAN: Vet to f/u on 01/26 to continue with Phase III of post [...] grade in all involved MM groups. met BRAND DESIGNER GOALS: To be achieved in (6-8 visits). [...] /arlet/ ESCOBAR Dominguez/DARIUS Gaines Occupational Therapist Signed: 01/09/2025 15:20 Receipt Acknowledged By: * AWAITING SIGNATURE * AJITH FRIEDMAN 01/14/2025 ADDENDUM STATUS: COMPLETED MRI of the right shoulder to investigate the integrity of the repair is ordered. /arlet/ KAELYN [facility] [employer] CLINICAL FELLOW Signed: 01/14/2025 15:40 GEOVANNY PANIAGUA [facility] Jan 09, 2025 03:07 PM PHYSICAL MEDICINE REHAB NOTE: LOCAL TITLE: OT DAILY STL STANDARD TITLE: PHYSICAL MEDICINE REHAB NOTE DATE OF NOTE: JAN 09, 2025@15:07 ENTRY DATE: JAN 09, 2025@15:07:31 AUTHOR: GEOVANNY PANIAGUA EXP COSIGNER: URGENCY: STATUS: COMPLETED OT DAILY STL Has ADDENDA Occupational Therapy Daily/Progress Note Diagnosis: Pain in right Shoulder(ICD-10-CM M25.511) Requesting Provider: BRIAN MOCTEZUMA Reason for request: R shoulder scope, possible cuff repair 08/29/24 Surgery: Right arthroscopic rotator cuff repair Date of surgery: 08/29/24 PHYSICAL THERAPY REFERRAL: Rotator cuff repair (Phase 3: beyond 12 weeks postop) Therapy Instructions: Progressive passive stretching and advance AROM as needed/tolerated. May need to focus on posterior cuff stretching. Emphasize proper scapular posture and mechanics with AROM. Progressive light cuff, deltoid and scapular stabilizer strengthening. Special Instructions: Avoid overhead strengthening. Date of Initial Evaluation: 09/10/2024 Visit #: 7 Ca or NS #: 0 TIME: 4386-0722 Ther ex: 45 minutes SUBJECTIVE: Vet reports he is still having pain since his slip/trip fall in his home onto his outstretched R arm, pain is consistent, located to proximal bicep and anterior shoulder. States he is wanting to have an earlier f/u with other for re-assessment as pain has been consistent since fall. States pain is very similar to prior to surgery but from instead of back. States no posterior shoulder pain since surgery. 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 Ortho note from 12/24: He does have [...] Left Right Right Right 10/10 10/10 11/14 12/29 Flexion:160 148 145 165 EX: 50 46 50 50 ABD: 150 132 140 160 ER: 65 48 64 65 IR: T8 T12 T12 T8 Strength: 5/5 in all Right shoulder motions. Treatment: [place] participated in the following this date: - educated to continue with use of ice for targeted pain at bicep tendon since fall - Continue trigger point massage to proximal bicep - Vet to continue with rotator cuff conditioning, strengthening and periscapular muscle strengthening as noted below -On this date vet provided with HEP with focus on anterior shoulder strength/endurance. Vet to complete slow controlled reps getting to 30 pain free motions prior to increase tension Access Code: [email or web address] URL: [email or web address] Date: 01/09/2025 Prepared by: Geovanny Paniagua Exercises - Shoulder Flexion with Anterior Anchored Resistance - 1 x daily - 7 x weekly - 3 sets - 10 reps - Shoulder External Rotation in Abduction with Anchored Resistance - 1 x daily - 7 x weekly - 3 sets - 10 reps - Standing Single Arm Shoulder Flexion with Posterior Anchored Resistance - 1 x daily - 7 x weekly - 3 sets - 10 reps - Standing Single Arm Shoulder Internal Rotation in Abduction with Anchored Resistance - 1 x daily - 7 x weekly - 3 sets - 10 reps - Standing Single Arm Shoulder Abduction with Anchored Resistance - 1 x daily - 7 x weekly - 3 sets - 10 reps Access Code: [email or web address] URL: [email or web address] Date: 11/28/2024 Prepared by: Geovanny Patrico Exercises - Shoulder Row - 1 x [...] for Standing Low Trap Green and Blue TheraBand [place] Education [place] was ready to learn and demonstrated an understanding of instructions given on Role of OT, [place] 1:1 instruction in equipment issued and/or home exercise program as noted above. ASSESSMENT: This 33 year old male presents to therapy s/p right rotator cuff surgery. Vet able to demonstrate HEP in the clinic today. will continue to benefit from skilled occupational therapy in order to address pain and progress HEP. [place] presents with good rehabilitation potential. PLAN: Vet to f/u on 01/26 to continue with Phase III of post [...] grade in all involved MM groups. met HALF-WAY GOALS: To be achieved in (6-8 visits). [...] /arlet/ ESCOBAR Dominguez/DARIUS Gaines Occupational Therapist Signed: 01/09/2025 15:20 Receipt Acknowledged By: 01/22/2025 09:05 /arlet/ AJITH FRIEDMAN Occupational Therapist 01/09/2025 ADDENDUM STATUS: COMPLETED Vet reports he is still having pain since his slip/trip fall in his home onto his outstretched R arm, pain is consistent, located to proximal bicep and anterior shoulder. States he is wanting to have an earlier f/u with ortho for re-assessment as pain has been consistent since fall. States pain is very similar to prior to surgery but from instead of back. States no posterior shoulder pain since surgery. /arlet/ Geovanny K Patrico, OTR/L, CLT Occupational Therapist Signed: 01/09/2025 15:24 Receipt Acknowledged By: 01/21/2025 16:25 /arlet/ BRIAN MOCTEZUMA PA-C Physician Pilot Captain, Orthopedic 01/15/2025 16:41 /arlet/ TOM TRINIDAD MSN ANP-BC Nurse Practitioner, Orthopedics 01/14/2025 15:39 /arlet/ KAELYN [facility] [employer] CLINICAL FELLOW 01/14/2025 ADDENDUM STATUS: COMPLETED MRI of the right shoulder to investigate the integrity of the repair is ordered. /aftab [facility] CLINICAL FELLOW Signed: 01/14/2025 15:40 GEOVANNY PANIAGUA [facility]
--- OUTSIDE RECORDS SUMMARY | 2025-05-23 12:47 | XMS_ITS | Encounter Summary ---
Author Name [facility] Organization [facility] Address [address] [place] [address] Care Team Providers Care Applications Intern Name Role Phone ISMA ROSARIO Primary Care Provider REBECCA Kinney Unavailable Unavailable Selected Encounter This section includes the information on record at OR for the Encounter. Date/Time Encounter Type Encounter Description Reason Provider Source Jan 26, 2025 03:00 PM THERAPEUTIC EXERCISES OCCUPATIONAL THERAPY ICD-10-CM M25.511 Pain in right shoulder AJITH FRIEDMAN Carmen Encounter Template Text not used by OR Assessments - Encounter Diagnoses This section includes the primary and secondary diagnoses documented for the Encounter. Date/Time Primary/Secondary Diagnosis Diagnosis Name Provider Source Jan 26, 2025 04:07 PM PRIMARY Pain in right shoulder AJITH FRIEDMAN [facility] Plan of Treatment: Future Appointments (+ 6 months) and Future Tests (+/- 45 days) The Plan of Treatment section includes future care activities for the patient from all OR treatmentfacilities. This section includes future appointments and future orders which are active, pending or scheduled. Future Appointments This section includes appointments that were scheduled to occur 6 months from the date of the Encounter, up to a maximum of 20 appointments. The data comes from all OR treatment facilities. Appointment Date/Time Appointment Type Appointme nt Facility Name Jan 28, 2025 09:30 AM AMBULATORY - PSYCHIATRY [facility] Jan 28, 2025 09:30 AM AMBULATORY - PS[facility]CHIATRY [facility] February 20, 2025 12:00 PM AMBULATORY - NONE [facility] February 25, 2025 11:30 AM AMBULATORY - REHAB MEDICIN E [facility] March 01, 2025 09:10 AM AMBULATORY - MEDICINE [facility] March 11, 2025 02:40 PM AMBULATORY - MEDICINE [facility] Apr 01, 2025 11:30 AM AMBULATORY - REHAB MEDICIN E [facility] Apr 01, 2025 02:40 PM AMBULATORY - MEDICINE [facility] Apr 07, 2025 07:22 PM AMBULATORY - MEDICINE [facility] Apr 29, 2025 09:30 AM AMBULATORY - PSYCHIATRY [facility] Apr 29, 2025 09:30 AM AMBULATORY - PS[facility]CHIATRY [facility] Apr 29, 2025 02:00 PM AMBULATORY - SURGERY [facility] Apr 29, 2025 02:15 PM AMBULATORY - MEDICINE [facility] May 23, 2025 01:00 PM AMBULATORY - NONE [facility] May 27, 2025 11:00 AM AMBULATORY - NONE [facility] Jun 02, 2025 10:00 AM AMBULATORY - SURGERY [facility] Active, Pending, and Scheduled Orders This section includes a listing of several types of active, pending, and scheduled orders, including clinic medications orders, diagnostic test orders, procedure orders and consult orders; where the start date of the order is 45 days before the date of the Encounter or 45 days after the date of theEncounter. The data comes from all OR treatment facilities. Test Date/Time Test Type Test Details Facility Name March 11, 2025 03:38 PM Consult Order WHOLE HEAL TH [facility] [employer] OUTPT [facility] Cons Director [employer] [facility] Social History: Smoking Status (Most current) and Tobacco Use (All prior to encounter date) This section includes the most current, and the historical, smoking and tobacco- related health factors from the OR facility where the Encounter took place. Current Smoking Status This section includes the most current smoking, or tobacco-related health factor, from the OR facility where the Encounter took place. Date/Time Current Smoking Status Comment David ity May 02, 2024 11:00 AM OR-TOBACCO NEVER USED [facility] Tobacco Use History This section includes a history of the smoking, or tobacco-related health factors, that were collected on or before the date of the Encounter. The data comes from the OR facility where the Encounter took place. Date/Time Smoking Status/Tobacco Use Comment F acility Jan 14, 2019 05:30 PM VA-TOBACCO NEVER USED [facility] Jun 07, 2018 01:03 PM TOBACCO REFUSED SCREEN V15 [facility] Aug 10, 2017 09:25 AM LIFETIME NON-USER OF TOBACCO [facility] Jul 13, 2017 11:32 AM LIFETIME NON-USER OF TOBACCO [facility] May 08, 2017 01:14 PM LIFETIME NON-USER OF TOBACCO [facility] Radiology Reports: +/- 30 days of the [...] the Encounter. The data comes from all OR treatment facilities. Date/Time Radiology Report Provider Source February 20, 2025 12:04 PM MRI SHOULDER RIGHT : ALEYDA SORTO [id number] -1990 M Exm Date: FEBRUARY 20, 2025@12:04 Req Phys: JASPER LAMA Pat Loc: [facility] (Req'g Loc) Img Loc: [facility] Service: [address] [address] (Case [id number] COMPLETE) MRI SHOULDER RIGHT (MRI Detailed) CPT:88351 Proc Modifiers : RIGHT CPT Modifiers : RT RIGHT SIDE Reason for Study: s/p right rotator cuff repair; had post op fall. Now with pain Clinical History: Has this patient had a plain film x-ray of this body part within the past 6 months? Yes If no, please order a plain film x-ray. After the results of the x-ray, you may then proceed to order an MRI if necessary. Otherwise, this MRI order will be cancelled. Date of plain film x-ray performed? Mar Responsible Attending: Jasper Lama Attending Contact Number: [phone] Resident Contact Number: Does your patient have an implanted device or hardware? (Any prosthesis, implant, shrapnel or bullet fragments) No Does your patient have any of the following (Please check all that apply) [ ] Pacemaker [ ] AICD [ ] Neuro-stimulator [ ] Bone Growth Stimulator [ ] Pain Pump [ ] Insulin Pump [ ] Cochlear Implant [ ] Ocular Implant [ ] Aneurysm Clip [ ] Vascular Clip Any other type of implant, please explain rotator cuff repair anchors; MRI compatible Does your patient have a Coronary Stent: No Does your patient have a an artificial Heart Valve: No Were any of the following intravascular implanted devices inserted less than 6 weeks ago: Stent No IVC Filter No Embolization Coils No Is your patient's weight >350lbs or abdominal and shoulder width >60cm? No Does your patient have Renal Failure, Chronic or Acute Renal Disease? No If ordering a contrasted enhanced MRI, you will be required to complete the order for creatine eGFR which is located at the bottom of the MRI ordering screen. If your patient is 60 years or older, the patient will need a recent eGFR within 30 days prior to the exam. NOTE: Incorrectly answering these questions may result in a delay in the procedure. A patient with a device or implant does not automatically mean the patient cannot receive an MRI. If your patient will have difficulty with a confined space, the provider will be responsible for ordering a sedation prior to the procedure, or to order an alternative procedure. ----- In the event this patient needs referred to Community Care: Does this patient have mobility issues that will require additional assistance at the imaging center? No If yes, please provide specifics: Does this patient require an open bore MRI due to claustrophobia? No Has a close bore MRI with oral sedation been tried? No This order requests: Without Contrast Report Status: Verified Date Reported: FEBRUARY 23, 2025 Date Verified: FEBRUARY 23, 2025 Adjunct Teacher E-Sig:/ES/Elisa Oconnell MD Report: MRI SHOULDER RIGHT CASE #: [id number] DATE:02/20/2025 4:29 PM CLINICAL HISTORY:s/p right rotator cuff repair; had post op fall. Now with pain COMPARISON: 04/15/2024, 03/31/2024, 01/08/2024, 04/06/2017 TECHNIQUE: MRI SHOULDER RIGHT Impression: FINDINGS/IMPRESSION: Interval rotator cuff repair with anchors noted in the greater tuberosity of the humeral head through the distal fibers of the posterior supraspinatus and anterior infraspinatus. Inflammatory changes in the distal supraspinatus and infraspinatus at site of recent repair consistent with postsurgical change. No evidence for re-tear currently suggested. Subscapularis is intact. Teres minor unremarkable. Biceps tendon and tendon anchor appear intact. Humeral head is slightly posteriorly subluxed. Prominent posterior subpleural sulcus versus slight posterior labral tear. Superior and anterior glenoid labrum are intact. Consider arthrography for more definitive characterization if clinically warranted. Generally maintained articular cartilage in the glenohumeral articulation. There is no muscle atrophy or acute myoedema. Previous distal clavicle resection or resorption unchanged since 04/06/2017 No subacromial/subdeltoid bursitis. Primary Interpreting Staff: Elisa Oconnell MD, Radiologist ([place]elam) /ELISA DELGADO [facility] Encounter Notes: All associated encounter notes This section contains the clinical notes associated to the Encounter. Date/Time Encounter Note(s) Provider Source Jan 26, 2025 03:00 PM OCCUPATIONAL THERA PY E & M NOTE: LOCAL TITLE: OT PROGRESS ST STANDARD TITLE: OCCUPATIONAL THERAPY E & M NOTE DATE OF NOTE: JAN 26, 2025@15:00 ENTRY DATE: JAN 26, 2025@15:30:58 AUTHOR: AJITH FRIEDMAN EXP COSIGNER: URGENCY: STATUS: COMPLETED Occupational Therapy Daily/Progress [...] Date of Initial Evaluation: 09/10/2024 Visit #: 8 Ca or NS #: 0 TIME: 15:00-15:30 Ther ex: 30 minutes SUBJECTIVE: Vet states he is still having pain in R shoulder. He is scheduled for MRI February 20. He states he has increased weight for biceps curls and chest press to 40# Ortho note from 12/24: He does have [...] correct this. Goal: Return to work Pain: States 4-5/10 at worst. OBJECTIVE: Vet presents into OT ambulating without AD. 01/26/25: AROM R SHOULDER STANDING: Left Right Right Right Right 10/10 10/10 11/14 12/29 01/26 Flexion:160 148 145 165 150 EX: 50 46 50 50 50 ABD: 150 132 140 160 160 ER: 65 48 64 65 60 w/tightness IR: T8 T12 T12 T8 NT Strength: NT THIS DATE Treatment: participated in the following this date: CURRENT: - Crowell educated on decreasing weight lifted until pain-free resistance is achieved - Vet educated on doorway stretch, wall stretch in SH flexion and abduction with good return demo - Vet to continue HEP and was encouraged to review previously issued [employer] HEP videos for refresher on optimal HEP techniques - Vet encouraged to use heat prior to stretches PREVIOUS: - Crowell educated to continue with use of ice [...] pain free motions prior to increase tension Equipment/Instructions: Red looped band for Standing Low Trap Green and Blue TheraBand Education was ready to learn and demonstrated an understanding of instructions given on Role of OT, 1:1 instruction in equipment issued and/or home exercise program as noted above. ASSESSMENT: This 33 year old male presents to therapy s/p right rotator cuff surgery. Crowell awaiting MRI for possible injury to previous RTC repair. Crowell reports he has continued to progress HEP with increased weight and is still having pain. Vet encouraged to exercise in pain-free range/resistance. will continue to benefit from skilled occupational therapy in order to address pain and progress HEP. Crowell presents with good rehabilitation potential. PLAN: Vet to f/u after February 20 MRI to guide treatment needs Continued skilled occupational therapy as below to [...] grade in all involved MM groups. met ILLUSTRATOR SET GOALS: To be achieved in (6-8 visits). 1. Vet will describe improved pain management with combination of HEP, and increased awareness of posture/scapular/biomechani cs and positioning techniques-CONTINUE 2. Return to prior level of independent function at home and in the community- CONTINUE Date of Initiation of Treatment Plan: 09/10/2024 *This note will serve as the d/c note should this be the last tx intervention* Learning Assessment: Patient/Caregiver appeared ready for instruction (good eye contact, appropriate questions, active participation, etc.) Person(s) who received education: Patient Education Topic/Teaching Needs: Rehabilitation and Habilitation POST-OP RTC HEP Methods used included: One-on-one: DISCUSSION, DEMO/RETURN DEMO Teaching outcomes: Good level of understanding /arlet/ AJITH FRIEDMAN Occupational Therapist Signed: 01/26/2025 16:07 AJITH FRIEDMAN [facility]
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
--- OUTSIDE RECORDS SUMMARY | 2025-05-23 12:47 | XMS_ITS | Encounter Summary ---
Author Name [facility] Organization [facility] Address [address] [place] [address] Care Team Providers Care Vp Delivery Name Role Phone ISMA ROSARIO Primary Care Provider REBECCA Kinney Unavailable Unavailable Selected Encounter This section includes the information on record at MD for the Encounter. Date/Time Encounter Type Encounter Description Reason Provider Source March 01, 2025 09:10 AM EMERGENCY DEPT VISIT [facility]GENCY DEPT ICD-10-CM R21 Rash and other nonspecific skin eruption TELMA MAZARIEGOS Carmen Encounter Template Text not used by MD Assessments - Encounter Diagnoses This section includes the primary and secondary diagnoses documented for the Encounter. Date/Time Primary/Secondary Diagnosis Diagnosis Name Provider Source March 01, 2025 11:03 AM PRIMARY Rash and other nonspecific skin eruption TELMA MAZARIEGOS [facility] Plan of Treatment: Future Appointments (+ 6 months) and Future Tests (+/- 45 days) The Plan of Treatment section includes future care activities for the patient from all MD treatmentfacilities. This section includes future appointments and future orders which are active, pending or scheduled. Future Appointments This section includes appointments that were scheduled to occur 6 months from the date of the Encounter, up to a maximum of 20 appointments. The data comes from all MD treatment facilities. Appointment Date/Time Appointment Type Appointme nt Facility Name March 11, 2025 02:40 PM AMBULATORY - MEDICINE [facility] Apr 01, 2025 11:30 AM AMBULATORY - REHAB MEDICIN E [facility] Apr 01, 2025 02:40 PM AMBULATORY - MEDICINE [facility] Apr 07, 2025 07:22 PM AMBULATORY - MEDICINE [facility] Apr 29, 2025 09:30 AM AMBULATORY - PSYCHIATRY [facility] Apr 29, 2025 09:30 AM AMBULATORY - PSYCHIATRY [facility] Apr 29, 2025 02:00 PM AMBULATORY - SURGERY [facility] Apr 29, 2025 02:15 PM AMBULATORY - MEDICINE [facility] May 23, 2025 01:00 PM AMBULATORY - NONE [facility] May 27, 2025 11:00 AM [facility] NONE [facility] Jun 02, 2025 10:00 AM AMBULATORY - SURGERY [facility] Aug 07, 2025 09:30 AM AMBULATORY - PSYCHIATRY [facility] Aug 07, 2025 09:30 AM AMBULATORY - PSYCHIATRY [facility] Active, Pending, and Scheduled Orders This section includes a listing of several types of active, pending, and scheduled orders, including clinic medications orders, diagnostic test orders, procedure orders and consult orders; where the start date of the order is 45 days before the date of the Encounter or 45 days after the date of theEncounter. The data comes from all MD treatment facilities. 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 Apr 01, 2025 03:28 PM Consult Order ORTHOPEDIC SHOULDER/ELBOW EVAL OUTPT ST Cons Director Of Emergency Nursing's [facility] Vital Signs: All taken on the encounter date This section contains inpatient and outpatient Vital Signs collected on the date of the Encounter. Date/Time Temperature Pulse Blood Pressure Respiratory Rate SP02 Pain Height Weight Body Mass Index Source March 01, 2025 09:14 AM 98 82 135/88 18 [facility] Social History: Smoking Status (Most current) and Tobacco Use (All prior to encounter date) This section includes the most current, and the historical, smoking and tobacco- related health factors from the MD facility where the Encounter took place. Current Smoking Status This section includes the most current smoking, or tobacco-related health factor, from the MD facility where the Encounter took place. Date/Time Current Smoking Status Comment David dodge May 02, 2024 11:00 AM VA-TOBACCO NEVER USED [facility] Tobacco Use History This section includes a history of the smoking, or tobacco-related health factors, that were collected on or before the date of the Encounter. The data comes from the MD facility where the Encounter took place. Date/Time Smoking Status/Tobacco Use Comment F acility Jan 14, 2019 05:30 PM MD-TOBACCO NEVER USED [facility] Jun 07, 2018 01:03 PM TOBACCO REFUSED SCREEN V15 [facility] Aug 10, 2017 09:25 AM LIFETIME NON-USER OF TOBACCO [facility] Jul 13, 2017 11:32 AM LIFETIME NON-USER OF TOBACCO [facility] May 08, 2017 01:14 PM LIFETIME NON-USER OF TOBACCO [facility] Radiology Reports: +/- 30 days of [...] the Encounter. The data comes from all MD treatment facilities. Date/Time Radiology Report Provider Source February 20, 2025 12:04 PM MRI SHOULDER RIGHT : ALEYDA SORTO RENNY [id number] -[id number] M Exm Date: FEBRUARY 20, 2025@12:04 Req Phys: JASPER LAMA Loc: [facility] (Req'g Loc) Img Loc: [facility] Service: [facility] [address] [place] [address] (Case [id number] COMPLETE) MRI SHOULDER RIGHT (MRI Detailed) CPT:12955 Proc Modifiers : RIGHT CPT Modifiers : [...] Responsible Attending: Jasper Lama Attending Contact Number: [phone] Resident Contact Number: Does your patient have [...] 23, 2025 Date Verified: FEBRUARY 23, 2025 [employer]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 Date/Time Encounter Note(s) Provider Source March 01, 2025 09:35 AM PHYSICIAN EMERGENCY DEPT NOTE: LOCAL TITLE: EMERGENCY DEPARTMENT STL STANDARD TITLE: PHYSICIAN EMERGENCY DEPT NOTE DATE OF NOTE: MARCH 01, 2025@09:35 ENTRY DATE: MARCH 01, 2025@09:35:08 AUTHOR: TELMA MAZARIEGOS COSIGNER: URGENCY: STATUS: COMPLETED TRIAGE CHIEF COMPLAINT: rash HPI: Patient is a 34 yo male with a PMH of bipolar d/o, PTSD, GERD, HLD who presents to the ED with the complaint of a rash over the past few days. The pt notes the rash over his forearms, eyelids and scrotum. He states the rash is ithcy but not painful. It reminds him of poison ana maria rashes he has had in the past. He has tried benadryl with little relief of the itching. He denies fever, chills, oral lesions or GI symptoms. He has not started any new medications recently. REVIEW OF SYSTEMS: See HPI for further [...] TAB TAKE ONE TABLET BY MOUTH ACTIVE EVERY MORNING SWALLOW WHOLE - DO NOT CRUSH OR CHEW. Indication: FOR DEPRESSION 2) CETIRIZINE HCL 10MG TAB TAKE ONE TABLET BY MOUTH ONCE A DAY ACTIVE (S) FOR ALLERGY SYMPTOMS. 3) CYCLOBENZAPRINE HCL 10MG [...] ACTIVE MORNING DO NOT ABRUPTLY DISCONTINUE MEDICATION. 6) [...] TWO CAPSULES BY MOUTH AT BEDTIME ACTIVE MAY CAUSE DIZZINESS OR DROWSINESS. Indication: FOR NIGHTMARES Pending Outpatient Medications Status 1) METHYLPREDNISOLONE 4MG TAB DOSEPAK,21 TAKE TABLETS BY MOUTH PENDING DIRECTED TAKE 6 TABLETS BY MOUTH ON DAY ONE, THEN DECREASE BY ONE TABLET DAILY UNTIL GONE. TAKE WITH FOOD. Indication: FOR ALLERGIC REACTION 11 Total Medications No medications found.. I have reviewed the patient's medication list with the patient and/or his/her care-disabilities caregiver. Any medication discrepancies have been resolved. Patient will be provided with an updated list of his/her medication(s). SURGICAL HISTORY: not pertinent FAMILY HISTORY: not pertinent SOCIAL HISTORY: Social History Main Topics: Smoking status: No data available for: Current Tobacco User Alcohol Use: not indorsed Negative mg/dL (07/30/24 11:08) Illicit Drug Use: not indorsed Sexual Activity: Other Topics of Concern: Child bearing age: N/A LMP: N/A possible: N/A ALLERGIES: Review of patient's allergies indicates: Patient has answered NKA PHYSICAL EXAM: VITAL SIGNS: 135/88 (03/01/2025 09:14)82 (03/01/2025 09:14)97% (12/24/2024 10:36)98 F [36.7 C] (03/01/2025 09:14)18 (03/01/2025 09:14)The OBJECT WEIGHT LAST 3 was NOT found...Contact IRM. Carinae OBJECT was NOT found...Contact IRM.PAIN ASSESSMENTThe OBJECT was NOT found...Contact IRM. No data available for: PAIN CONSTITUTIONAL: No acute distress, Non-toxic appearance HENT: airway patent, no appreciable rash over eyelids EYES: Conj pink, sclera clear NECK: Normal range of motion, Supple, No stridor PULMONARY/CHEST: Breathing comfortably EXTREMITIES: Erythematous fine papular/vesicular rash in patches over bilaral volar forearms, some linear distributions; Normal range of motion, No edema, No tenderness NEUROLOGIC: Alert & oriented/reactive, Normal motor function, Normal gait, no ataxia, No focal deficits appreciated on cursory screening exam SKIN: Warm, Dry, see above ED COURSE & MEDICAL DECISION MAKING: Nursing notes, medications, vital signs, allergies and pertinent labs & imaging studies reviewed (see chart for details) with lab results reviewed with patient and family/caregivers at bedside and radiology results reviewed with patient and any family/caregivers at bedside. Stable, alert, nontoxic, nonfocal with clinically apparent pruritic papular/vessicular rash over forearms most likley consistent with contact dermatitis. The pt states that the itching has interfered with his sleep. As he feels his eyelids and scrotum are also involved, will opt for PO steroid over topical agent. Plan for outpt f/u as needed and return to the ED for new or worsening symptoms. MEDICATIONS GIVEN IN ED: [ ] YES [ x ] NO DIFFERENTIAL DIAGNOSES CONSIDERED: contact dermatitis, drug reaction, infectious etiolgy, autoimmune dz vs other DECISION to ADMIT / DISCHARGE TIME: 929 DISPOSITION CONDITION:[ ] Improved [ x ] Unchanged [ ] Deteriorated CLINICAL IMPRESSION: 1 - rash 2 - 3 - DISCHARGE INSTRUCTIONS AND PATIENT-DIRECTED FOLLOW-UP RECOMMENDATIONS: DIET: regular ACTIVITY: ad iesha NEW MEDS: Prednisone for 5 days FOLLOW-UP WITH PRIMARY ATOMIC PHYSICS PROFESSOR/SPECIALIST: routine in 1-2 weeks if not improving, sooner if worse RETURN TO EMERGENCY: if any worries or concerns, including fever or chills, sore throat, worsening rash, wounds in your mouth, vision changes, diarrhea or vomiting, or any other new, worsening or concerning symptoms. ADDITIONAL SIGNATURE PCP: [x ] YES [ ] NO [ ] not listed Active Outpatient Medications (including Supplies): Active Outpatient Medications Status 1) BUPROPION HCL 150MG 12HR SA TAB TAKE ONE TABLET BY MOUTH ACTIVE EVERY MORNING SWALLOW WHOLE - DO NOT CRUSH OR CHEW. Indication: FOR DEPRESSION 2) CETIRIZINE HCL 10MG TAB TAKE ONE TABLET BY MOUTH ONCE A DAY ACTIVE (S) FOR ALLERGY SYMPTOMS. 3) CYCLOBENZAPRINE HCL 10MG [...] ACTIVE MORNING DO NOT ABRUPTLY DISCONTINUE MEDICATION. 6) [...] TWO CAPSULES BY MOUTH AT BEDTIME ACTIVE MAY CAUSE DIZZINESS OR DROWSINESS. Indication: FOR NIGHTMARES Pending Outpatient Medications Status 1) METHYLPREDNISOLONE 4MG TAB DOSEPAK,21 TAKE TABLETS BY MOUTH PENDING DIRECTED TAKE 6 TABLETS BY MOUTH ON DAY ONE, THEN DECREASE BY ONE TABLET DAILY UNTIL GONE. TAKE WITH FOOD. Indication: FOR ALLERGIC REACTION 11 Total Medications /es/ TELMA MAZARIEGOS MD STAFF PHYSICIAN Signed: 03/01/2025 12:10 Receipt Acknowledged By: 04/16/2025 13:15 /es/ COLLEEN ROWE MD, MD for ISMA A ABRAHAM 04/16/2025 10:18 /es/ REBECCA MENEZES Resident Physician TELMA MAZARIEGOS [facility] March 01, 2025 09:12 AM EMERGENCY DEPT TRIAGE NOTE: LOCAL TITLE: EMERGENCY DEPARTMENT TRIAGE NOTE STANDARD TITLE: EMERGENCY DEPT TRIAGE NOTE DATE OF NOTE: MARCH 01, 2025@09:12 ENTRY DATE: MARCH 01, 2025@09:12:42 AUTHOR: MELISSA REDMAN EXP COSIGNER: URGENCY: STATUS: COMPLETED Emergency Department/Urgent Care Center Triage Patient age:34 Sex in chart: MALE Mode of Arrival: Private vehicle Mode of Mobility: * Walk Chief Complaint: rash gwot ia/ilo intelligence support Note (Subjective/Objective): Pt to ED with complaints of a generalized rash, worsening over the past one week. denied fever, chills, cp or sob. appeared awake and alert. VSS. had no further complaints. no distress noted. Level of Consciousness (AVPU): Alert = Appears aware of and responsive to the environment on their own. Follows commands, opens eyes spontaneously, and tracks objects. Vital Signs: Temperature 98 F (36.7 C) Pulse 82 Respirations 18 Blood Pressure 135/88 Pulse Oximetry 97 Room Air Pain: No pain Suicide Screen: [place] Suicide Severity Rating Scale (C-SSRS) screener 1. Over the past month, have you wished you were or wished you could go to sleep and not wake up? No 2. Over the past month, have you had any actual thoughts of killing yourself? No 3. Over the past month, have you been thinking about how you might do this? Response not required due to responses to other questions. 4. Over the past month, have you had these thoughts and had some intention of acting on them? Response not required due to responses to other questions. 5. Over the past month, have you started to work out or worked out the details of how to kill yourself? Response not required due to responses to other questions. 6. If yes, at any time in the past month did you intend to carry out this plan? Response not required due to responses to other questions. 7. In your lifetime, have you ever done anything, started to do anything, or prepared to do anything to end your life (for example, collected pills, obtained a gun, gave away valuables, went to the roof but didn't jump)? No 8. If YES, was this within the past 3 months? Response not required due to responses to other questions. Emergency Severity Index (MICHAEL) level: Level 4 Previously documented allergies: Patient has answered NKA Current Problems: 1) Mood disorder 2) Allergic rhinitis 3) Pain of left shoulder joint 4) Low back pain 5) Severe bipolar II disorder 6) Posttraumatic stress disorder 7) Gastroesophageal reflux disease 8) Constipation 9) Obesity 10) Knee pain 11) HLD - Hyperlipidemia 12) Decreased vitamin D 13) Prediabetes 14) Pain of right shoulder joint /es/ MELISSA REDMAN CORRECTIONS CORPORAL REGISTERED NURSE Signed: 03/01/2025 09:15 MELISSA REDMAN [facility]
--- OUTSIDE RECORDS SUMMARY | 2025-05-23 12:47 | XMS_ITS | Encounter Summary ---
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 CMH20(MMHG) (L/MIN)(%) IN(CM) ------ 06/25/2024 13:08 96 06/09/2024 10:19 95 Measurement DT Pain ---- 06/25/2024 13:08 3 06/09/2024 10:19 5 LABS: WBC 7.9 10*3/uL 04/17/2024 14:00 RBC 4.24 10*6/uL 04/17/2024 14:00 HGB 12.7 L g/dL 04/17/2024 14:00 HCT 39.4 % 04/17/2024 14:00 MCV 92.9 fL 04/17/2024 14:00 MCH 30.0 pg 04/17/2024 14:00 MCHC 32.2 L g/dL 04/17/2024 14:00 RDW 12.7 % 04/17/2024 14:00 PLT 177 10*3/uL 04/17/2024 14:00 MPV 10.7 fL 04/17/2024 14:00 NEUTROPHILS, AUTO % 71 % 04/17/2024 14:00 LYMPHOCYTES, AUTO % 17 % 04/17/2024 14:00 MONOCYTES, AUTO % 10 % 04/17/2024 14:00 EOSINOPHILS, AUTO % 2 % 04/17/2024 14:00 BASOPHILS, AUTO % 0 % 04/17/2024 14:00 IMMATURE GRANS, AUTO % 0.2 % 04/11/2023 09:44 NEUTROPHILS, ABSOLUTE 5.60 10*3/uL 04/17/2024 14:00 LYMPHOCYTES, ABSOLUTE 1.32 10*3/uL 04/17/2024 14:00 MONOCYTES, ABSOLUTE 0.79 10*3/uL 04/17/2024 14:00 EOSINOPHILS, ABSOLUTE 0.17 10*3/uL 04/17/2024 14:00 BASOPHILS, ABSOLUTE 0.03 10*3/uL 04/17/2024 14:00 IMMATURE GRANS, AUTO ABS 0.01 10*3/uL 04/11/2023 09:44 SODIUM 136 mEq/L 04/17/2024 14:00 POTASSIUM 4.1 mEq/L 04/17/2024 14:00 CHLORIDE 104 mEq/L 04/17/2024 14:00 UREA NITROGEN 13.5 mg/dL 04/17/2024 14:00 CREATININE 0.99 mg/dL 04/17/2024 14:00 CALCIUM 9.2 mg/dL 04/17/2024 14:00 PROTEIN 7.7 g/dL 04/15/2024 21:10 ALBUMIN 4.3 g/dL 04/15/2024 21:10 ALKALINE PHOSPHATASE 74 U/L 04/15/2024 21:10 ALT/SGPT 24 U/L 04/15/2024 21:10 AST/SGOT 27 U/L 04/15/2024 21:10 TOTAL BILIRUBIN 0.6 mg/dL 04/15/2024 21:10 CARBON DIOXIDE 25 mEq/L 04/17/2024 14:00 GLUCOSE 100 H mg/dL 04/17/2024 14:00 EGFR (CKD-EPI 2020) 103.2 04/17/2024 14:00 SLT - Lab Tests Selected Collection DT Specimen Test Name Result Units Ref Range 04/17/2024 14:00 PLASMA CREATININE 0.99 mg/dL 0.7 - 1.3 Comment: No hemolysis noted. 04/16/2024 14:00 PLASMA CREATININE 0.90 mg/dL 0.7 - 1.3 Comment: No hemolysis noted. TRIGLYCERIDE 61 mg/dL 04/16/2024 01:50 CHOLESTEROL 132 [...] Specimen Test Name Result Units Ref Range 04/16/2024 20:00 BLOOD HGA1C 5.6 % 4.0 - 6.0 12/12/2023 14:01 BLOOD HGA1C 5.7 % 4.0 - 6.0 04/11/2023 09:44 BLOOD HGA1C 5.2 % 4.0 - 6.0 No URINE DRUG SCREEN EO data found No data available for: FREE T4 (MA-PB) No TEST LAST ONE EO data found No GGT EO data found Measurement DT TEMP PULSE RESP BP HT WT F(C) IN(CM) LB(KG)[BMI] ---- ----- ---- -- ------ 06/25/2024 13:08 97.5(36.4) 78 18 129/76 74.0(188) 319(144.8)[41*] 06/09/2024 10:19 98.2(36.8) 110 16 132/81 74.0(188) 313(142.0)[40*] Measurement DT CVP POx CG CMH20(MMHG) (L/MIN)(%) IN(CM) ------ 06/25/2024 13:08 96 06/09/2024 10:19 95 Measurement DT Pain ---- 06/25/2024 13:08 3 06/09/2024 10:19 5 /es/ SHERI JACOBO MD [facility] Signed: 06/30/2024 14:21 06/30/2024 ADDENDUM STATUS: COMPLETED requested refills of pantoprazole and Miralax. /delilah/ SHERI JACOBO MD [facility] Signed: 06/30/2024 14:24 Receipt Acknowledged By: * AWAITING SIGNATURE * ISMA ROSARIO JENNIFER C [facility]
--- OUTSIDE RECORDS SUMMARY | 2025-05-23 12:47 | XMS_ITS | Continuity of Care Document ---
Author Organization [facility] Address [address] [place] [address] Phone Care Team Providers Care Cereal Miller Name Role Phone Canelizalbert Jon Unavailable Unavailable Procedures Procedure Date Office/outpatient Visit, Est Eye Exam, New Patient Advance Directives Directive Yes / No Effective Date File Name No Information Encounters Encounter Description Practice Location Reason(s) For Visit Diagnoses Date Provider Providers Copied on Encounter Office/outpat ient Visit, Est [facility], [id number] [place] [address] [address], [place], [place], [id number], tel:[phone] SEC [facility] No Information 8-200 8 Krishnasamy Jon. [address], [facility] [place], [place]. tel:[phone] [facility], [address] [place] [address] [address], [place], [place], [id number], [place] tel:[phone] SEC [facility] No Information 5-200 8 Krishnasamy Jon. [address] [facility] [address], [place], [place], [facility] [place], [place]. tel:[phone] Referring Provider: Rose Narayan MD, [address], [place], [place], [facility] [place]. tel:[phone] Family History Family Member Type Diagnosis Age At Onset No Information Payers Payer name Insurance type Covered constitution party ID Ryan lu(s) [facility] CI [id number] Social History Type Description Quantity Date Captured Comments Sex Male Smoking Status No Information Chief Complaint And Reason For Visit No Information Reason For Referral Reason For Referral No Information History Of Present Illness Encounter Date Complaint History Of Prese nt Illness No Information Functional Status Date Functional Assessmen t No Information Instructions Date Instruction Additional Infor mation No Information Assessments Type Assessment Date No Information Patient Care Teams Name Effective Dates (start - stop) Status Members No Information
--- OUTSIDE RECORDS SUMMARY | 2025-05-23 12:47 | XMS_ITS | Clinical Summary ---
Author Organization [facility] Address [address] [place] [address] Care Team Providers Care Claims Service Adjustor Name Role Phone Pino Monsalve MD Primary Care Provider [phone] Social History Tobacco Use Types Packs/Day Years Used Date Smoking Tobacco: Never Assessed Sex and Gender Information Value Date Recorded Sex Assigned at Not on file Legal Sex Male 8:26 PM CDT Gender Identity Not on file Sexual Orientation Not on file Plan of Treatment Health Maintenance Due Date Last Done Comments Annual Physical 1993 Hepatitis C 2008 DTaP, Tdap and Td Vaccines ( 1 - Tdap) 2009 Hepatitis B Vaccines (1 of 3 - 19+ 3-dose series) 2009 HPV Vaccines (1 - 3-dose SCD M series) 2017 COVID-19 Vaccine (2023-2 5 season) 2024 Meningococcal B Vaccine Aged Out No l onger eligible based on patient's age to complete this topic Meningococcal Vaccine Aged Out No jimmy efren eligible based on patient's age to complete this topic Pneumococcal Vaccine: Pediat rics (0 to 5 Years) and At-Risk Patients (6 to 49 Years) Aged Out No longer eligible b ased on patient's age to complete this topic RSV Immunizations Under 20 Months Aged Out No longer eligible based on patient's age to complete this topic Care Teams Claims Service Adjustor Relationship Specialty Start Date End Date Pino Monsalve MD [address] [address] PCP - General 05/06/12
--- OUTSIDE RECORDS SUMMARY | 2025-05-23 12:47 | XMS_ITS | Encounter Summary ---
Author Name [facility] Organization [facility] [place] Address [address] [place] [address] Care Team Providers Care Pastry Cook Name Role Phone ISMA ROSARIO Primary Care Provider REBECCA Kinney Unavailable Unavailable Selected Encounter This section includes the information on record at [place] for the Encounter. Date/Time Encounter Type Encounter Description Reason Provider Source Sep 10, 2024 11:00 AM POSTOP FOLLOW-UP VISIT ORTHO/JOINT SURG ICD-10-CM M25.511 Pain in right shoulder IVONNE DIAZ IHE Encounter Template Text not used by [place] Assessments - Encounter Diagnoses This section includes the primary and secondary diagnoses documented for the Encounter. Date/Time Primary/Secondary Diagnosis Diagnosis Name Provider Source Sep 10, 2024 01:09 PM PRIMARY Pain in right shoulder IVONNE DIAZ [facility] Plan of Treatment: Future Appointments (+ 6 months) and Future Tests (+/- 45 days) The Plan of Treatment section includes future care activities for the patient from all [place] treatmentfacilities. This section includes future appointments and future orders which are active, pending or scheduled. Future Appointments This section includes appointments that were scheduled to occur 6 months from the date of the Encounter, up to a maximum of 20 appointments. The data comes from all [place] treatment facilities. Appointment Date/Time Appointment Type Appointme nt Facility Name Sep 26, 2024 02:00 PM AMBULATORY - REHAB MEDICIN E [facility] Sep 29, 2024 02:00 PM AMBULATORY - PSYCHIATRY [facility] Sep 29, 2024 02:00 PM AMBULATORY - PSYCHIATRY [facility] Oct 01, 2024 09:30 AM AMBULATORY - PSYCHIATRY [facility] Oct 01, 2024 09:30 AM AMBULATORY - PSYCHIATRY [facility] Oct 10, 2024 10:30 AM AMBULATORY - REHAB MEDICIN E [facility] Oct 10, 2024 11:13 AM AMBULATORY - MEDICINE [facility] Oct 23, 2024 11:30 AM AMBULATORY - SURGERY [facility] Nov 05, 2024 11:20 AM AMBULATORY - SURGERY [facility] Nov 14, 2024 11:30 AM AMBULATORY - REHAB MEDICIN E [facility] Nov 19, 2024 09:49 AM AMBULATORY - MEDICINE [facility] Nov 28, 2024 02:00 PM AMBULATORY - REHAB MEDICIN E [facility] Dec 12, 2024 01:15 PM AMBULATORY - MEDICINE [facility] Dec 24, 2024 10:40 AM AMBULATORY - SURGERY [facility] Dec 29, 2024 02:30 PM AMBULATORY - REHAB MEDICIN E [facility] Dec 31, 2024 09:30 AM AMBULATORY - PSYCHIATRY [facility] Dec 31, 2024 09:30 AM AMBULATORY - PSYCHIATRY [facility] Jan 09, 2025 02:30 PM AMBULATORY - REHAB MEDICIN E [facility] Jan 21, 2025 10:00 AM [facility] Jan 26, 2025 03:00 PM AMBULATORY - REHAB MEDICIN E [facility] Vital Signs: All taken on the encounter date This section contains inpatient and outpatient Vital Signs collected on the date of the Encounter. Date/Time Temperature Pulse Blood Pressure Respiratory Rate SP02 Pain Height Weight Body Mass Index Source Sep 10, 2024 11:05 AM 97.8 80 130/85 20 99 1 [facility] Social History: Smoking Status (Most current) and Tobacco Use (All prior to encounter date) This section includes the most current, and the historical, smoking and tobacco- related health factors from the [place] facility where the Encounter took place. Current Smoking Status This section includes the most current smoking, or tobacco-related health factor, from the [place] facility where the Encounter took place. Date/Time Current Smoking Status Comment David dodge May 02, 2024 11:00 AM VA-TOBACCO NEVER USED [facility] Tobacco Use History This section includes a history of the smoking, or tobacco-related health factors, that were collected on or before the date of the Encounter. The data comes from the [place] facility where the Encounter took place. Date/Time Smoking Status/Tobacco Use Comment F michael Jan 14, 2019 05:30 PM VA-TOBACCO NEVER USED [facility] Jun 07, 2018 01:03 PM TOBACCO REFUSED SCREEN V15 [facility] Aug 10, 2017 09:25 AM LIFETIME NON-USER OF TOBACCO [facility] Jul 13, 2017 11:32 AM LIFETIME NON-USER OF TOBACCO [facility] May 08, 2017 01:14 PM LIFETIME NON-USER OF TOBACCO [facility] Encounter Notes: All associated encounter notes This section contains the clinical notes associated to the Encounter. Date/Time Encounter Note(s) Provider Source Sep 10, 2024 01:04 PM ORTHOPEDIC SURGERY NOTE: LOCAL TITLE: ORTHOPEDIC ST STANDARD TITLE: ORTHOPEDIC SURGERY NOTE DATE OF NOTE: SEP 10, 2024@13:04 ENTRY DATE: SEP 10, 2024@13:04:38 AUTHOR: IVONNE DIAZ EXP COSIGNER: URGENCY: STATUS: COMPLETED POST OP CLINIC VISIT Surgery: Right arthroscopic rotator cuff repair Date of surgery: 08/29/24 Subjective: Presents today for first post operative visit following above procedure. Has been doing well, off of narcotic pain medication. mostly having difficulty with sleeping. Has been compliant with sling. He is scheduled to see physical therapy at 1pm today. Objective Right shoulder incisions healing appropriately PFE 80 PER 10 defer IR and strengthening no new imaging today A/P 2 weeks s/p R RCR doing well. Remphasized importance of rehab. -sutures removed today and steri strips placed -continue phase 1 (weeks 0-6) cuff repair protocol: reviewed with alina who communicates understanding -RTC 4 weeks /arlet/ IVONNE DIAZ Signed: 09/10/2024 13:10 IVONNE DIAZ [facility]
--- OUTSIDE RECORDS SUMMARY | 2025-05-23 12:47 | XMS_ITS | Encounter Summary ---
Author Name [facility] [place] Organization [facility] [place] [place] Address [address] [place] [address] Care Team Providers Care Payroll Representative Name Role Phone ISMA ROSARIO Primary Care Provider REBECCA Kinney Unavailable Unavailable Selected Encounter This section includes the information on record at [place] for the Encounter. Date/Time Encounter Type Encounter Description Reason Provider Source Apr 21, 2025 11:04 AM Outpatient Encounter COMMUNITY CARE CONSULT DANI HERNANDEZ Carmen Encounter Template Text not used by [place] Plan of Treatment: Future Appointments (+ 6 months) and Future Tests (+/- 45 days) The Plan of Treatment section includes future care activities for the patient from all [place] treatmentfacilities. This section includes future appointments and future orders which are active, pending or scheduled. Future Appointments This section includes appointments that were scheduled to occur 6 months from the date of the Encounter, up to a maximum of 20 appointments. The data comes from all [place] treatment facilities. Appointment Date/Time Appointment Type Appointme nt Facility Name Apr 29, 2025 09:30 AM AMBULATORY - PSYCHIATRY [facility] Apr 29, 2025 09:30 AM AMBULATORY - PS[facility]CHIATRY [facility] Apr 29, 2025 02:00 PM AMBULATORY - SURGERY [facility] Apr 29, 2025 02:15 PM AMBULATORY - MEDICINE [facility] May 23, 2025 01:00 PM AMBULATORY - NONE [facility] May 27, 2025 11:00 AM AMBULATORY - NONE [address] [facility] Jun 02, 2025 10:00 AM AMBULATORY - SURGERY [facility] Aug 07, 2025 09:30 AM AMBULATORY - PS[place]CHIATRY [facility] Aug 07, 2025 09:30 AM AMBULATORY - PSYCHIATRY [facility] Active, Pending, and Scheduled Orders This section includes a listing of several types of active, pending, and scheduled orders, including clinic medications orders, diagnostic test orders, procedure orders and consult orders; where the start date of the order is 45 days before the date of the Encounter or 45 days after the date of theEncounter. The data comes from all [place] treatment facilities. Test Date/Time Test Type Test Details Facility Name March 11, 2025 03:38 PM Consult Order WHOLE HEAL TH CORE WINDING OPERATOR OUTPT [facility] [employer] [facility] [employer] [facility] Apr 01, 2025 03:28 PM Consult Order ORTHOPEDIC SHOULDER/ELBOW EVAL OUTPT [facility] [employer] [facility] Apr 21, 2025 09:48 AM Consult Order COMMUNITY CARE-IMAGING MAGNETIC [employer]ON[employer]AGING-AUTO [facility] Lab Results: +/- 30 days of the encounter This section includes the Chemistry and Hematology Lab Results on record with [place] for the patient. Radiology Reports and Pathology Reports are provided separately, in subsequent sections. Lab Results This section contains the Chemistry/Hematology Results that were resulted 30 days before or 30 daysafter the date of the Encounter. Date/Time Source Result Type Result - Unit Interpretation Reference Range Specimen Type Comment Apr 01, 2025 03:[address] [facility] RAPID PLASMA REAGIN (RPR) SERUM Specimen Type : SERUM No comment entered. Ordering Provider: FANI CONTRERAS Report Released Date/Time: Apr 01, 2025 03:29 PM Reporting Lab: [place] [address] [facility] [address] Performing Lab: [address] [address] RAPID PLASMA REAGIN (RPR) NONREACTIVE NO NREACTIVE Apr 01, 2025 03:[address] [facility] GC & CHLAMYDIA PCR (STL-PB) URINE Specimen [...] Apr 01, 2025 03:29 PM Reporting Lab: [address] [address] Performing Lab: [address] [address] N.GONORRHOEAE PCR (STL) Not Detected Not Detected C.TRACHOMATIS PCR (STL) Not Detected Not Detected Apr 01, 2025 03:[address] [facility] HIV COMBO FOURTH GENERATION (STL) SERUM Speci men Type: SERUM No comment entered. Ordering Provider: FANI CONTRERAS Report Released Date/Time: Apr 01, 2025 03:29 PM Reporting Lab: [facility] [address] [place] [id number] Performing Lab: [address] [address] HIV COMBO FOURTH GENERATION (STL) Nonreactive Nonreactive Apr 01, 2025 03:[address] [facility] TRICHOMONAS PCR (STL-PB) URINE Specimen Type: URINE [...] Apr 01, 2025 03:29 PM Reporting Lab: [facility] [address] [facility] [address] Performing Lab: [facility] [address] [facility] [address] TRICHOMONAS PCR (STL-PB) Not Detected No t Detected Social History: Smoking Status (Most current) and Tobacco Use (All prior to encounter date) This section includes the most current, and the historical, smoking and tobacco- related health factors from the [place] facility where the Encounter took place. Current Smoking Status This section includes the most current smoking, or tobacco-related health factor, from the [place] facility where the Encounter took place. Date/Time Current Smoking Status Comment David ity May 02, 2024 11:00 AM [place]-TOBACCO NEVER USED [facility] Tobacco Use History This section includes a history of the smoking, or tobacco-related health factors, that were collected on or before the date of the Encounter. The data comes from the [place] facility where the Encounter took place. Date/Time Smoking Status/Tobacco Use Comment F acility Jan 14, 2019 05:30 PM [place]-TOBACCO NEVER USED [facility] Jun 07, 2018 01:03 PM TOBACCO REFUSED SCREEN V15 [facility] Aug 10, 2017 09:25 AM LIFETIME NON-USER OF TOBACCO [facility] Jul 13, 2017 11:32 AM LIFETIME NON-USER OF TOBACCO [facility] May 08, 2017 01:14 PM LIFETIME NON-USER OF TOBACCO [facility] Radiology Reports: +/- 30 days of the [...] the Encounter. The data comes from all [place] treatment facilities. Date/Time Radiology Report Provider Source Apr 01, 2025 03:28 PM SHOULDER,LEFT,2 OR MORE VIEWS: ALEYDA SORTO [id number] -[phone] M Exm Date: APR 01, 2025@15:28 Req Phys: FANI CONTRERAS P Pat Loc: [facility]- GEN MED TM-C SAME DAY (R Img Loc: [facility]MAIN RADIOLOGY SUITE Service: Unknown [facility] [place] [address] [place] [address] (Case [id number] COMPLETE) SHOULDER,LEFT,2 OR MORE VIEWS (RAD Detailed) CPT:03833 Proc Modifiers : LEFT Reason for Study: 1 month of non-traumatic L shoulder pain Clinical History: Report Status: Verified Date Reported: APR 02, 2025 Date Verified: APR 02, 2025 Movie Extra E-Sig:/ES/KRISTEN MALDONADO Report: EXAM: SHOULDER,LEFT,2 OR MORE VIEWS HISTORY: 1 month of non-traumatic L shoulder pain FINDINGS: 3 views obtained. No fracture or dislocation. No advanced arthritic changes. No soft tissue abnormality is seen. Impression: No significant bony abnormality. RR Primary Interpreting Staff: KRISTEN MALDONADO Staff Physician (Movie Extra) /KRISTEN PHELAN [facility] Encounter Notes: All associated encounter notes This section contains the clinical notes associated to the Encounter. Date/Time Encounter Note(s) Provider Source Apr 21, 2025 11:04 AM NONVA NOTE: LOCAL TITLE: COMMUNITY CARE-CARE COORDINATION PLAN NOTE [address] TITLE: NONVA NOTE DATE OF NOTE: APR 21, 2025@11:04 ENTRY DATE: APR 21, 2025@11:04:38 AUTHOR: DANI HERNANDEZ EXP COSIGNER: URGENCY: STATUS: COMPLETED Community Care Consult: MRI Consult No: [id number] HS Referral #: pending DOA approval Chief Complaint: lt shoulder pain s/p surgery MRI SHOULDER LEFT Patient Admitted? No Level of Care Coordination Moderate Care Coordination was determined from: Chart Review Facility Community Care Office Contact Care Coordination Point of Contact: Dani Hernandez Services: Basic Care Coordination Services Monitoring and coordination of Rehab/PT Services Direct communication to referring provider Care management, if appropriate Plan: Send to . Fax authorization to provider. Follow up with provider or for scheduling update. Follow up with after appointment. Retrieve records for visit. Review imaging report, document any significant finding. Send to scanner. Request disc of images. Assess if any other care needed. /arlet/ DANI STEVENS RN REGISTERED NURSE Signed: 04/21/2025 11:05 DANI HERNANDEZ [facility]
--- OUTSIDE RECORDS SUMMARY | 2025-05-23 12:47 | XMS_ITS | Encounter Summary ---
Author Name [facility] [place] [place] Organization [facility] [place] [facility] [place] Address [address] [place] [address] Care Team Providers Care Wall Washer Name Role Phone ISMA ROSARIO Primary Care Provider REBECCA Kinney Unavailable Unavailable Selected Encounter This section includes the information on record at [place] for the Encounter. Date/Time Encounter Type Encounter Description Reason Provider Source Aug 29, 2024 11:13 AM Outpatient Encounter ADMIN PAT ACTIVTIES (MASNONCT) SUPRIYA AYERS Carmen Encounter Template Text not used by [place] Plan of Treatment: Future Appointments (+ 6 [...] Appointment Type Appointme nt Facility Name Sep 10, 2024 11:00 AM AMBULATORY - SURGERY [facility] Sep 10, 2024 01:00 PM AMBULATORY - REHAB MEDICIN E [facility] Sep 26, 2024 02:00 PM AMBULATORY - REHAB MEDICIN E [facility] Sep 29, 2024 02:00 PM AMBULATORY - [facility]IATRY [facility] Sep 29, 2024 02:00 PM AMBULATORY - PSYCHIATRY [facility] Oct 01, 2024 09:30 AM AMBULATORY - PSYCHIATRY [facility] Oct 01, 2024 09:30 AM [facility]BULATORY [facility]AT[facility] Oct 10, 2024 10:30 AM AMBULATORY - REHAB MEDICIN E [facility] Oct 10, 2024 11:13 AM AMBULATORY - MEDICINE [facility] Oct 23, 2024 11:30 AM AMBULATORY - SURGERY [facility] Nov 05, 2024 11:20 AM AMBULATORY - SURGERY [facility] Nov 14, 2024 11:30 AM AMBULATORY - REHAB MEDICIN E [facility] Nov 19, 2024 09:49 AM AMBULATORY - MEDICINE [facility] Nov 28, 2024 02:00 PM AMBULATORY - REHAB MEDICIN E [facility] Dec 12, 2024 01:15 PM AMBULATORY - MEDICINE [facility] Dec 24, 2024 10:40 AM AMBULATORY - SURGERY [facility] Dec 29, 2024 02:30 PM AMBULATORY - REHAB MEDICIN E [facility] Dec 31, 2024 09:30 AM AMBULATORY - PSYCHIATRY [facility] Dec 31, 2024 09:30 AM AMBULATORY - [facility]IATRY [facility] Jan 09, 2025 02:30 PM AMBULATORY - REHAB MEDICIN E [facility] Vital Signs: All taken on the encounter date This section contains inpatient and outpatient Vital Signs collected on the date of the Encounter. Date/Time Temperature Pulse Blood Pressure Respiratory Rate SP02 Pain Height Weight Body Mass Index Source Aug 29, 2024 11:55 AM 97.2 87 114/67 11 94 0 [facility] Aug 29, 2024 06:12 AM 97.3 84 140/79 14 98 8 74 314.5 40 [facility] Social History: Smoking Status (Most [...] David ity May 02, 2024 11:00 AM [place]-TOBACCO NEVER USED [facility] Tobacco Use History This section includes a history of the smoking, or tobacco-related health factors, that were collected on or before the date of the Encounter. The data comes from the [place] facility where the Encounter took place. Date/Time Smoking Status/Tobacco Use Comment F acility Jan 14, 2019 05:30 PM [place]-TO[place]AC[place] NEVER USED [facility] Jun 07, 2018 01:03 PM TOBACCO REFUSED SCREEN V15 [facility] Aug 10, 2017 09:25 AM LIFETIME NON-USER OF TOBACCO [facility] Jul 13, 2017 11:32 AM LIFETIME NON-USER OF TOBACCO [facility] May 08, 2017 01:14 PM LIFETIME NON-USER OF TOBACCO [facility] Radiology Reports: +/- 30 days of the [...] the Encounter. The data comes from all [place] treatment facilities. Date/Time Radiology Report Provider Source Jul 30, 2024 11:15 AM CHEST X-RAY, 2 VIE WS: ALEYDA SORTO [id number] -[id number] M Ex Date: JUL 30, 2024@11:15 Req Phys: BRIAN MOCTEZUMA Loc: [facility]TH[facility] SHOULDER (Req'g Loc) Img Loc: [facility]MAIN RADIOLOGY SUITE Service: [facility] [address] [place] [address] (Case [id number] COMPLETE) CHEST X-RAY, 2 VIEWS (RAD Detailed) CPT:02324 Reason for Study: preop Clinical History: Pre Operative CXR Report Status: Verified Date Reported: JUL 30, 2024 Date Verified: JUL 30, 2024 Spindle Setter E-Sig:/ES/HODAN JANE Report: INDICATION: preop COMPARISON: 04/15/2024 TECHNIQUE: Chest 2 views Impression: No pneumothorax. No large pleural effusion. No focal consolidation. Normal heart size. Normal mediastinal contours. Redemonstrated partial resection of the right clavicle. Primary Interpreting Staff: HODAN JANE, RADIOLOGIST (Spindle Setter) /HODAN DOOLEY [facility] Encounter Notes: All associated encounter notes This section contains the clinical notes associated to the Encounter. Date/Time Encounter Note(s) Provider Source Aug 29, 2024 11:13 AM ANESTHESIOLOGY ROBERTA WSHEET: LOCAL TITLE: LINA INTRA-OP FLOWSHEET ST STANDARD TITLE: ANESTHESIOLOGY FLOWSHEET DATE OF NOTE: AUG 29, 2024@11:13 ENTRY DATE: AUG 29, 2024@11:13:24 AUTHOR: SUPRIYA AYERS COSIGNER: URGENCY: STATUS: COMPLETED Patient: ALEYDA SORTO SSN: [id number] Date of Operation: 08/29/2024 Surgery Start Time: 08/29/2024 8:59 Surgery End Time: 08/29/2024 10:54 Anesthesia Care Start: 08/29/2024 7:52 Anesthesia Care End: 08/29/2024 11:17 Anesthesia Method: General 08/29/2024 8:43 Airway: Endotracheal Intubation, Technique: Direct Laryngoscopy, Level Of Consciousness: Sedated, Patient Position: Supine, Preoxygenated, Induction Type: Intravenous, Ventilation by Mask: Two Handed Mask, Intubating Device: Curved Blade, 1 Number Of Attempts, Intubation View: Grade 1, Blade Size: 4, Size: 8 mm, Depth (cm): 24, Depth Measurement Location: Lips, Tracheal Cuff Inflated With Min. Volume To Create Seal, Performed By: PRIN. GALLOWAY, Performed By Staff: JACQUI ZAIDI, Result: Successful Route: Oral Tube Checklist: Balloons Checked Airway Tube: Standard Verification Of Tube Placement: Bilateral Chest Movement Securement: Taped Eye Protection: Both Eyes Insertion Complication: No Complications Noted Positioning: Head Neutral, Head And Neck In Alignment With Spine, Pressure Points Padded & Checked, Eyes, Ears And Nose Free Of Pressure Regional - Peripheral 08/29/2024 8:12 (Primary), Block Type: Brachial Plexus Block, Approach: Interscalene, Laterality: Right, Patient Position: Appropriate for intended approach, Monitors Applied, Guidance: Ultrasound, Needle Type: Echogenic, Needle Size (Ga): 21, Needle Length (in): 2, Paresthesias: Negative, Intermittent Aspiration Of Blood: Negative, Test Dose: Negative, 1 Number Of Attempts, Performed By: Anesthesiologist, Co-Performed By: Resident Anesthesiologist 7:52 Time out Protocol Followed 7:52 Surgical Site/Side Verified 7:55 Start Time 8:08 Stop Time Patient Location: Pre Induction - OR Indications: Maintain Post Operatively For Pain Control Timing: Placed Pre Induction Type: Single Injection Sterile Procedure Prep: Headcover, Mask, Hand Washing, Chlorhexidine Technique: Relative External Anatomy Identified, Other Guided Assistance: Ultrasound Verification Technique - Ultrasound Guided: Relevant Structures Identified, Nerve Bundles Identified, Local Anesthetic Spread Visualized Around Nerves Technique - Injection: Via Needle Observation: No Signs Of Local Anesthetic Toxicity Timeout with OR team ASA Number: 3 Procedure: Right shoulder arthroscopy Diagnosis: Right shoulder pain Holding, Anesthesia, PACU Drugs: ------ Phenylephrine gtt: 7776.421 mcg Acetaminophen IVPB: 1 g FentaNYL: 100 mcg Lidocaine: 100 mg Propofol: 200 mg Sugammadex: 200 mg Rocuronium: 80 mg ceFAZolin: 2 g HYDROmorphone: 0.6 mg Ondansetron: 4 mg Ropivicane MPF 0.5%: 20 ml Dexamethasone: 4 mg DexmedeTOMidine: 20 mcg Holding, Anesthesia, PACU Fluids: ------- Ringers Lactated Solution: 750 ml Estimated Blood Loss: 50 ml Resources: Aquacel foam placed on jalil prominence to protect skin during surgery Safety Belt Staff: --------- KAELYN WESTON, SURGEON KAELYN WESTON, ATT. SURGEON NEVA AGUILAR, Holding Nurse SWAPNA RIVERA ANES. SUPER. SWAPNA RIVERA ANES. SUPER. PARRY, NATHAN, PRIN. ANES. SUPRIYA AYERS PRIN. ANES. Anesthesia Procedure: -- Procedure 08/29/2024 6:43 Line Number: 1, Level Of Consciousness: Awake, Site: Arm, Laterality: Left, Catheter Type: Angio, Catheter Size: 20 Ga, Inserted By: Holding Nurse Procedure 08/29/2024 6:43 Line Number: 1, Level Of Consciousness: Awake, Site: Arm, Laterality: Left, Catheter Type: Angio, Catheter Size: 20 Ga, Inserted By: Holding Nurse Procedure Date: 08/29/2024 Procedure Start Time: Procedure End Time: /arlet/ SUPRIYA AYERS CERTIFIED REGISTERED NURSE FIRE MANAGEMENT SPECIALIST Signed: 08/29/2024 11:13 SUPRIYA AYERS [facility]
--- OUTSIDE RECORDS SUMMARY | 2025-05-23 12:47 | XMS_ITS | Clinical Summary ---
Author Organization [facility] Address [address] [place] [address] Care Team Providers Care Deaf Teacher Name Role Phone Unavailable Primary Care Provider Unavailabl e Source Comments [facility],non-owned Affiliates and Associated Physician Practices is amultiple site organization consisting of ambulatory clinics and hospital sitesin [place], [place], [place] and [place]. This disclosure is being madepursuant to the Care Everywhere program and may not contain all information available regarding this patient. Last updated 18.[facility] Allergies No known active allergies Immunizations Immunization Administration Dates Next Due INFLUENZA VACCINE, QUADR. (F LUZONE; FLULAVAL; FLUARIX; AFLURIA QUADRIVALENT; 6MO+), 0.5 ML (IIV4) 08/09/2018 Social History Tobacco Use Types Packs/Day Years Used Date Smoking Tobacco: Never Assessed Sex and Gender Information Value Date Recorded Sex Assigned at Not on file Legal Sex Male 9:02 AM CDT Gender Identity Not on file Sexual Orientation Not on file Plan of Treatment Health Maintenance Due Date Last Done Comments HIV SCREENING 2005 HEPATITIS C SCREENING 12/05/2008 DTAP/TDAP/TD VACCINES (1 - Tdap) 2009 HEPATITIS B VACCINE (1 of 3 - 19+ 3-dose series) 2009 HPV VACCINE (1 - 3-dose SCDM series) 2017 COVID-19 VACCINE (1 - 2023- season) 2024 DEPRESSION SCREENING 10/22/2024 INFLUENZA VACCINE (#1) 2025 8, 08/30/2016, 08/23/2016, Additional history exists ZOSTER VACCINE (1 of 2) 2040 HIB VACCINE Aged Out No longer eligi ble based on patient's age to complete this topic MENINGOCOCCAL (Group B) VACCINE SHARED DECISION-MAKING Aged Out No longer eligible based on patient's age to complete this topic MENINGOCOCCAL GROUPS A/C/Y/W VACCINE Aged Out No longer eligible based on patient's age to complete this topic PNEUMOCOCCAL VACCINE Aged Out No long er eligible based on patient's age to complete this topic
--- OUTSIDE RECORDS SUMMARY | 2025-05-23 12:48 | XMS_ITS | Encounter Summary ---
Author Name [facility] [place] [facility] [place] Organization [facility] [place] [place] Address [address] [place] [address] Care Team Providers Care Technical Sales Director Name Role Phone ISMA ROSARIO Primary Care Provider REBECCA Kinney Unavailable Unavailable Selected Encounter This section includes the information on record at [place] for the Encounter. Date/Time Encounter Type Encounter Description Reason Provider Source Nov 19, 2024 09:49 AM Outpatient Encounter EMERGENCY DEPT JACQUI SALAS Encounter Template Text not used by [place] Plan of Treatment: Future Appointments (+ 6 months) and Future Tests (+/- 45 days) The Plan of Treatment section includes future care activities for the patient from all [place] treatmentfacilities. This section includes future appointments and future orders which are active, pending or scheduled. Future Appointments This section includes appointments that were scheduled to occur 6 months from the date of the Encounter, up to a maximum of 20 appointments. The data comes from all [place] treatment facilities. Appointment Date/Time Appointment Type Appointme nt Facility Name Nov 28, 2024 02:00 PM AMBULATORY - REHAB MEDICIN E [facility] Dec 12, 2024 01:15 PM AMBULATORY - MEDICINE [facility] Dec 24, 2024 10:40 AM AMBULATORY - SURGERY [facility] Dec 29, 2024 02:30 PM [facility] Dec 31, 2024 09:30 AM AMBULATORY - PSYCHIATRY [facility] Dec 31, 2024 09:30 AM AM[facility]ATRY [facility] Jan 09, 2025 02:30 PM [facility] Jan 21, 2025 10:00 AM AMBULATORY - SURGERY [facility] Jan 26, 2025 03:00 PM AM[facility]UL[facility] Jan 28, 2025 09:30 AM AMBULATORY - PSYCHIATRY [facility] Jan 28, 2025 09:30 AM AMBULATORY - [facility]IATRY [facility] February 20, 2025 12:00 PM AMBULATORY - NONE [facility] February 25, 2025 11:30 AM AMBULATORY - [facility] MEDICIN [facility] March 01, 2025 09:10 AM AM[facility]ULATORY - MEDICINE [facility] March 11, 2025 02:40 PM AM[facility]ULATORY - MEDICINE [facility] Apr 01, 2025 11:30 AM AMBULATORY - [facility] MEDICIN [facility] Apr 01, 2025 02:40 PM AM[facility]UL[facility]ORY - MEDICINE [facility] Apr 07, 2025 07:22 PM [facility]IC[facility] Apr 29, 2025 09:30 AM AMBULATORY - PSYCHIATRY [facility] Apr 29, 2025 09:30 AM AMBULATORY - PS[facility]IATRY [facility] Lab Results: +/- 30 days of the encounter This section includes the Chemistry and Hematology Lab Results on record with [place] for the patient. Radiology Reports and Pathology Reports are provided separately, in subsequent sections. Lab Results This section contains the Chemistry/Hematology Results that were resulted 30 days before or 30 daysafter the date of the Encounter. Date/Time Source Result Type Result - Unit Interpretation Reference Range Specimen Type Comment Dec 12, 2024 02:29 PM [facility] LIPID PANEL (STL) PLASMA Specimen Type: PLASMA Comment: No hemolysis noted. Ordering Provider: REBECCA MENEZES Report Released Date/Time: Dec 12, 2024 02:20 PM Reporting Lab: [address] [address] Performing Lab: [address] [address] CHOLESTEROL 182 mg/dL 0-200 TRIGLYCERIDE 237 mg/dL H 0-150 CALCULATED LDL 106 mg/dL HDL(New) 29 mg/dL L >40 Dec 12, 2024 02:29 PM [facility] COMPREHENSIVE METABOLIC PANEL PLASMA Specimen Type: PLASMA Comment: No hemolysis noted. Ordering Provider: REBECCA MENEZES Report Released Date/Time: Dec 12, 2024 02:20 PM Reporting Lab: [address] [id number] Performing Lab: [address] [address] CREATININE 1.06 mg/dL 0.7-1.3 UREA NITROGEN 13.6 [...] 94.4 >60 Dec 12, 2024 02:[address] [facility] CBC BLOOD Specimen Type: BLOOD No comment entered. Ordering Provider: REBECCA MENEZES Report Released Date/Time: Dec 12, 2024 02:20 PM Reporting Lab: [address] [phone] Performing Lab: [address] [address] WBC 6.2 10*3/uL 3.6-11.2 RBC 4.84 10*6/uL [...] 10:01 AM 97.8 97 151/97 16 2 [facility] Social History: Smoking Status (Most current) and Tobacco Use (All prior to encounter date) This section includes the most current, and the historical, smoking and tobacco- related health factors from the [place] facility where the Encounter took place. Current Smoking Status This section includes the most current smoking, or tobacco-related health factor, from the [place] facility where the Encounter took place. Date/Time Current Smoking Status Comment Facil ity May 02, 2024 11:00 AM [place]-TOBACCO [facility] USED [facility] Tobacco Use History This section includes a history of the smoking, or tobacco-related health factors, that were collected on or before the date of the Encounter. The data comes from the [place] facility where the Encounter took place. Date/Time Smoking Status/Tobacco Use Comment F acility Jan 14, 2019 05:30 PM [place]-TOBACCO NEVER USED [facility] Jun 07, 2018 01:03 PM TOBACCO REFUSED SCREEN V15 . [facility] Aug 10, 2017 09:25 AM LIFETIME NON-USER OF TOBACCO [facility] Jul 13, 2017 11:32 AM LIFETIME NON-USER OF TOBACCO [facility] May 08, 2017 01:14 PM LIFETIME NON-USER OF TOBACCO [facility] Encounter Notes: All associated encounter notes This section contains the clinical notes associated to the Encounter. Date/Time Encounter Note(s) Provider Source Nov 19, 2024 09:59 AM EMERGENCY DEPT TRI AGE NOTE: LOCAL TITLE: EMERGENCY DEPARTMENT TRIAGE NOTE STANDARD TITLE: EMERGENCY DEPT TRIAGE NOTE DATE OF NOTE: NOV 19, 2024@09:59 ENTRY DATE: NOV 19, 2024@09:59:52 AUTHOR: JACQUI SALAS COSIGNER: URGENCY: STATUS: COMPLETED Emergency Department/Urgent Care Center Triage Patient age:33 Sex in chart: MALE Mode of Arrival: Self Mode of Mobility: * Walk Chief Complaint: lip sore watchstander Note (Subjective/Objective): Pt to ED with complaint of lip sore for the past few days. Pt denies fever, SOB, and N/V/D. Small sore with surrounding redness noted in left corner of mouth. Pt's respirations are even and unlabored. Pt is afebrile and nondiaphoretic. Level of Consciousness (AVPU): Alert = Appears aware of and responsive to the environment on their own. Follows commands, opens eyes spontaneously, and tracks objects. Vital Signs: Temperature 97.8 F (36.6 C) Pulse 97 Respirations 16 Blood Pressure 151/97 Pulse Oximetry 98 Room Air Pain: DVPRS Scale Location: [facility] Pain Rating Scale (DVPRS): Pain Score: 2 Patient's acceptable pain goal: Suicide Screen: Converse Suicide Severity Rating Scale (C-SSRS) screener 1. [...] 14) Pain of right shoulder joint /es/ JACQUI SALAS PUMPER HELPER REGISTERED NURSE Signed: 11/19/2024 10:02 JACQUI SALAS [facility]
--- OUTSIDE RECORDS SUMMARY | 2025-05-23 12:48 | XMS_ITS | Encounter Summary ---
Author Name [facility] [place] Organization [facility] [place] Address [address] [place] [address] Care Team Providers Care Superintendent Distribution Name Role Phone ISMA ROSARIO Primary Care Provider REBECCA Kinney Unavailable Unavailable Selected Encounter This section includes the information on record at [place] for the Encounter. Date/Time Encounter Type Encounter Description Reason Provider Source March 11, 2025 02:40 PM OFFICE O/P EST MOD 30 MIN GENERAL INTERNAL MEDICINE ICD-10-CM M54.50 Low back pain, unspecified COLLEEN ROSENEBRG Carmen Encounter Template Text not used by [place] Assessments - Encounter Diagnoses This section includes the primary and secondary diagnoses documented for the Encounter. Date/Time Primary/Secondary Diagnosis Diagnosis Name Provider Source March 12, 2025 12:02 PM PRIMARY Low back pain, unspecified POPEYEMIKALA [facility] March 12, 2025 12:02 PM SECOND[facility] March 12, 2025 12:02 PM SECONDARY Pain in right shoulder [facility] Plan of Treatment: Future Appointments (+ 6 months) and Future Tests (+/- 45 days) The Plan of Treatment section includes future care activities for the patient from all [place] treatmentfacilities. This section includes future appointments and future orders which are active, pending or scheduled. Future Appointments This section includes appointments that were scheduled to occur 6 months from the date of the Encounter, up to a maximum of 20 appointments. The data comes from all [facility]. Appointment Date/Time Appointment Type Appointme nt Facility Name Apr 01, 2025 11:30 AM AMBULATORY - REHAB MEDICIN E [facility] Apr 01, 2025 02:40 PM AMBULATORY - MEDICINE [facility] Apr 07, 2025 07:22 PM AMBULATORY - MEDICINE [facility] Apr 29, 2025 09:30 AM AMBULATORY - PSYCHIATRY [facility] Apr 29, 2025 09:30 AM AMBULATORY - PSYCHIATRY [facility] Apr 29, 2025 02:00 PM AMBULATORY - SURGERY [facility] Apr 29, 2025 02:15 PM AMBULATORY - MEDICINE [facility] May 23, 2025 01:00 PM AMBULATORY - NONE . [facility] May 27, 2025 11:00 AM AMBULATORY - NONE [facility] Jun 02, 2025 10:00 AM AMBULATORY - SURGERY [facility] Aug 07, 2025 09:30 AM AMBULATORY - PSYCHIATRY [facility] Aug 07, 2025 09:30 AM AMBULATORY - PSYCHIATRY [facility] Active, Pending, and Scheduled Orders This section includes a listing of several types of active, pending, and scheduled orders, including clinic medications orders, diagnostic test orders, procedure orders and consult orders; where the start date of the order is 45 days before the date of the Encounter or 45 days after the date of theEncounter. The data comes from all [facility]. Test Date/Time Test Type Test Details Facility Name March 11, 2025 03:38 PM Consult Order WHOLE HEAL TH FILLER AND TRIMMER OUTPT STL Cons Adult Day Care Worker's Choice [facility] Apr 01, 2025 03:28 PM Consult Order ORTHOPEDIC SHOULDER/ELBOW EVAL OUTPT ST[facility] Cons Adult Day Care Worker's Choice [facility] Apr 21, 2025 09:48 AM Consult Order COMMUNITY CARE-IMAGING [facility]-AUTO ST[facility] Cons Adult Day Care Worker's Choice [facility] Lab Results: +/- 30 days of [...] Type Comment Apr 01, 2025 03:37 PM [facility] RAPID PLASMA REAGIN (RPR) SERUM Specimen Type : SERUM No comment entered. Ordering Provider: FANI CONTRERAS Report Released Date/Time: Apr 01, 2025 03:29 PM Reporting Lab: [address] [address] Performing Lab: [address] [address] RAPID PLASMA REAGIN (RPR) NONREACTIVE NO NREACTIVE Apr 01, 2025 03:37 PM [facility] GC & CHLAMYDIA PCR (STL-PB) URINE Specimen [...] Apr 01, 2025 03:29 PM Reporting Lab: [address] [address] Performing Lab: [address] [address] N.GONORRHOEAE PCR (STL) Not Detected Not Detected C.TRACHOMATIS PCR (STL) Not Detected Not Detected Apr 01, 2025 03:37 PM [facility] HIV COMBO FOURTH GENERATION (STL) SERUM Speci men Type: SERUM No comment entered. Ordering Provider: FANI CONTRERAS Report Released Date/Time: Apr 01, 2025 03:29 PM Reporting Lab: [facility] [address] [facility] [address] Performing Lab: [facility] [address] [facility] [address] HIV COMBO FOURTH GENERATION (STL) Nonreactive Nonreactive Apr 01, 2025 03:36 PM [facility] TRICHOMONAS PCR (STL-PB) URINE Specimen Type: URINE [...] Apr 01, 2025 03:29 PM Reporting Lab: [facility] [address] [facility] [address] Performing Lab: [place] [id number] [facility] [address] TRICHOMONAS PCR (STL-PB) Not Detected No t Detected Vital Signs: All taken on the encounter date This section contains inpatient and outpatient Vital Signs collected on the date of the Encounter. Date/Time Temperature Pulse Blood Pressure Respiratory Rate SP02 Pain Height Weight Body Mass Index Source March 11, 2025 02:55 PM 97.7 72 129/86 18 98 3 332.2 43 [facility] Social History: Smoking Status (Most current) and Tobacco Use (All prior to encounter date) This section includes the most current, and the historical, smoking and tobacco- related health factors from the [place] facility where the Encounter took place. Current Smoking Status This section includes the most current smoking, or tobacco-related health factor, from the [place] facility where the Encounter took place. Date/Time Current Smoking Status Comment Facil ity May 02, 2024 11:00 AM VA-TOBACCO NEVER USED [facility] Tobacco Use History This section includes a history of the smoking, or tobacco-related health factors, that were collected on or before the date of the Encounter. The data comes from the [place] facility where the Encounter took place. Date/Time Smoking Status/Tobacco Use Comment F acility Jan 14, 2019 05:30 PM [place]-TOBACCO NEVER USED [facility] Jun 07, 2018 01:03 PM TOBACCO REFUSED SCREEN V15 [facility] Aug 10, 2017 09:25 AM LIFETIME NON-USER OF TOBACCO [facility] Jul 13, 2017 11:32 AM LIFETIME NON-USER OF TOBACCO [facility] May 08, 2017 01:14 PM LIFETIME NON-USER OF TOBACCO [facility] Radiology Reports: +/- 30 days of [...] the Encounter. The data comes from all [place] treatment facilities. Date/Time Radiology Report Provider Source Apr 01, 2025 03:28 PM SHOULDER,LEFT,2 OR MORE VIEWS: ALEYDA SORTO [id number] -1990 M Exm Date: APR 01, 2025@15:28 Req Phys: FANI CONTRERAS Pat Loc: -PC GEN MED TM-C SAME DAY (R Img Loc: -MAIN RADIOLOGY SUITE Service: [facility], [facility] [address] [place] [address] (Case [id number] COMPLETE) SHOULDER,LEFT,2 OR MORE VIEWS (RAD Detailed) CPT:97260 Proc Modifiers : LEFT Reason for Study: 1 month of non-traumatic L shoulder pain Clinical History: Report Status: Verified Date Reported: APR 02, 2025 Date Verified: APR 02, 2025 Optical Effects Line Up Person E-Sig:/ES/KRISTEN MALDONADO Report: EXAM: SHOULDER,LEFT,2 OR MORE VIEWS HISTORY: 1 month of non-traumatic L shoulder pain FINDINGS: 3 views obtained. No fracture or dislocation. No advanced arthritic changes. No soft tissue abnormality is seen. Impression: No significant bony abnormality. RR Primary Interpreting Staff: KRISTEN MALDONADO, Staff Physician (Optical Effects Line Up Person) /KRISTEN PHELAN [facility] February 20, 2025 12:04 PM MRI SHOULDER RIGHT : ALEYDA SORTO [id number] -1990 M Exm Date: FEBRUARY 20, 2025@12:04 Req Phys: JASPER LAMA Loc: [facility] SHOULDER (Req'g Loc) Img Loc: [facility] Service: [address] [address] (Case [id number] COMPLETE) MRI SHOULDER RIGHT (MRI Detailed) CPT:61905 Proc Modifiers : RIGHT CPT Modifiers : [...] Responsible Attending: Jasper Lama Attending Contact Number: [phone] Resident Contact Number: Does your patient have [...] procedure, or to order an alternative procedure. ------- In the event this patient needs referred [...] 2025 Date Verified: FEBRUARY 23, 2025 Optical Effects Line Up Person E-Sig:/ES/Elisa Oconnell MD Report: MRI SHOULDER RIGHT CASE #: [id number] DATE:02/20/2025 4:29 PM CLINICAL HISTORY:s/p right rotator [...] Interpreting Staff: Elisa Oconnell MD, Radiologist (Optical Effects Line Up Person) /[facility] Encounter Notes: All associated encounter notes This section contains the clinical notes associated to the Encounter. Date/Time Encounter Note(s) Provider Source March 11, 2025 03:11 PM PRIMARY CARE NOTE: LOCAL TITLE: PRIMARY CARE PROVIDER ESTABLISHED VISIT STL STANDARD TITLE: PRIMARY CARE NOTE DATE OF NOTE: MARCH 11, 2025@15:11 ENTRY DATE: MARCH 11, 2025@15:14:28 AUTHOR: MIKALA TREVIÑO COSIGNER: COLLEEN ROSENBERG URGENCY: STATUS: COMPLETED PRIMARY CARE PROVIDER ESTABLISHED VISIT ST [facility] Date: March 11, 2025 Subjective: Pt is a 34 year old MALE with a PMHx of rotator cuff tendinopathy, chronic lower back pain who presents to same day clinic for chiropractor referral. He reports longstanding chronic back pain for which he wants the referral. He used to follow with a chiropractor until his recent R rotator cuff tear and subsequent repair. He has been taking prn pain relievers and cyclobenzaprine without much relief. 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 Denies any recent back injuries or trauma. Patient also reports longstanding history of bilateral shoulder pain. He has had multiple rotator cuff surgeries, (R in 2015, L in 2020, R again in 2023). He has been following with orthopedics. He denies any new injuries other than a fall on outstretched hand back in December. He endorses that now his L shoulder is hurting more than the right. He describes it as an achy pain, not necessarily associated with movement. Denies trauma or injury. He has been receiving occupational therapy which seems to mildly help. MEDICAL HISTORY: 1) Mood disorder 2) Allergic rhinitis 3) Pain of left shoulder joint 4) Low back pain 5) Severe bipolar II disorder 6) Posttraumatic stress disorder 7) Gastroesophageal reflux disease 8) Constipation 9) Obesity 10) Knee pain 11) HLD - Hyperlipidemia 12) Decreased vitamin D 13) Prediabetes 14) Pain of right shoulder joint ACTIVE OUTPATIENT MEDS: Active Outpatient Medications (including Supplies): Active Outpatient [...] OR DROWSINESS. Indication: FOR NIGHTMARES 11) PREDNISONE 20MG TAB TAKE THREE TABLETS BY MOUTH EVERY ACTIVE MORNING TAKE WITH FOOD OR MILK. Indication: FOR INFLAMMATORY BOWEL DISEASE REVIEW OF SYSTEMS: Negative except where noted above. Objective: Vital Signs: Pulse: 72 (03/11/2025 14:55) BP: 129/86 (03/11/2025 14:55) RESP: 18 (03/11/2025 14:55) Pain: 3 (03/11/2025 14:55) Weight: 332.2 lb [150.68 kg] (03/11/2025 14:55) PHYSICAL EXAM: General: Pleasant NAD, AAO x 3 HEENT: AT, NC, PERRL, MMM, no oral pharyngeal erythema or exudate, poor dentition Neck: Supple, No CAD, No JVD Heart: RRR, No mgr Lungs: Clear, no wrr Abdomen: NT/ND, BS normoactive Vascular: 2/4 radial and dorsalis pedis pulses Extremities: No LE Edema, warm hands and feet. UE ROM Intact, pain with should flexion in BUE. Pain with internal rotation of RUE. No ttp of rotator cuff musculature MSK: lumbar paraspinal tenderness Neuro: CN 2-12 GI, no focal deficits Skin: No abrasions, ulcers or ecchymosis LAB DATA: SODIUM 139 mEq/L 12/12/2024 14:29 POTASSIUM 5.0 mEq/L 12/12/2024 14:29 CHLORIDE 104 mEq/L 12/12/2024 14:29 UREA NITROGEN 13.6 mg/dL 12/12/2024 14:29 CREATININE 1.06 mg/dL 12/12/2024 14:29 CALCIUM 10.0 mg/dL 12/12/2024 14:29 PROTEIN 8.1 g/dL 12/12/2024 14:29 ALBUMIN 4.6 g/dL 12/12/2024 14:29 ALKALINE PHOSPHATASE 105 U/L 12/12/2024 14:29 ALT/SGPT 20 U/L 12/12/2024 14:29 AST/SGOT 26 U/L 12/12/2024 14:29 TOTAL BILIRUBIN 0.4 mg/dL 12/12/2024 14:29 CARBON DIOXIDE 26 mEq/L 12/12/2024 14:29 GLUCOSE 97 mg/dL 12/12/2024 14:29 EGFR (CKD-EPI 2020) 94.4 12/12/2024 14:29 WBC 6.2 10*3/uL 12/12/2024 14:29 RBC 4.84 [...] BASOPHILS, AUTO % 1 % 12/12/2024 14:29 IMMATURE GRANS, AUTO % 0.2 % 04/11/2023 09:44 NEUTROPHILS, ABSOLUTE 3.78 10*3/uL 12/12/2024 14:29 LYMPHOCYTES, ABSOLUTE 1.88 10*3/uL 12/12/2024 14:29 MONOCYTES, ABSOLUTE 0.41 10*3/uL 12/12/2024 14:29 EOSINOPHILS, ABSOLUTE 0.08 10*3/uL 12/12/2024 14:29 BASOPHILS, ABSOLUTE 0.03 10*3/uL 12/12/2024 14:29 IMMATURE GRANS, AUTO ABS 0.01 10*3/uL 04/11/2023 09:44 ASSESSMENT/PLAN: # Chronic low back pain - Lumbar degenerative changes noted on MRI from 2023 - Follows with pain management PLAN: - Continue NSAIDS, cyclobenzaprine prn - Referral to chiropractor # Bilateral rotator cuff tendinopathy # R Supraspinatus tear status post repair in August 2024 - Most recent R shoulder MRI shows healing rotator cuff repair, no evidence of retear PLAN: - continue multimodal pain control - continue OT - pt to follow up with orthopedics Patient seen and discussed with Dr. Rosenberg Time spent on date of visit including face to face time, data review, and charting was 35 minutes. Mikala Treviño DO Neurology PGY-1 [place] [facility] /arlet/ MIKALA TREVIÑO BASKETBALL COACH Signed: 03/11/2025 16:00 /arlet/ COLLEEN ROSENBERG MD, MD Cosigned: 03/12/2025 12:02 03/12/2025 ADDENDUM STATUS: COMPLETED CLINIC ATTENDING I have personally seen and evaluated patient, reviewed CPRS and discussed case with resident Dr. treviño whom I supervised during this visit. Detailed history and findings as noted by resident. I agree with the plan as outlined in the resident note which I discussed with the patient. He was advised to contact us or RTC/ER for interim problems. /arlet/ COLLEEN ROSENBERG MD, MD Signed: 03/12/2025 12:02 MIKALA TREVIOÑ [facility] March 11, 2025 02:56 PM NURSING NOTE: LOCAL TITLE: V15 PACT FACE TO FACE NOTE STL STANDARD TITLE: NURSING NOTE DATE OF NOTE: MARCH 11, 2025@14:56 ENTRY DATE: MARCH 11, 2025@14:56:17 AUTHOR: CONG MCFARLAND EXP COSIGNER: URGENCY: STATUS: COMPLETED Provider Visit: Patient Identifiers : Full Name Date of Reason for visit: Other: Will like a consult for chiropractic consult Mode of Arrival: Ambulatory Allergy Review: ALLERGIES/ADVERSE REACTIONS - NONE FOUND Allergy list reviewed and remains current. Recent Vital Signs: Temperature: 97.7 F [36.5 C] (03/11/2025 14:55) Pulse: 72 (03/11/2025 14:55) Respiration: 18 (03/11/2025 14:55) B/P: 129/86 (03/11/2025 14:55) Pain: 3 (03/11/2025 14:55) Wt.: 332.2 lb. [150.68 kg] (03/11/2025 14:55) Ht: 74 in [188.0 cm] (12/12/2024 13:11) BMI: 42.7 POX: 98% (03/11/2025 14:55) PERSONAL HEALTH INVENTORY Notes: No data available for PHI note titles PERSONAL HEALTH INVENTORY - MAP: 12/12/2024 Personal Health Plan [place], [place], [place] (MAP) my dog Would you like to discuss any personal problem, family problem, alcohol use, drug use, or a mental or emotional illness? No [facility] ([facility]), please select appointment type: Face to face: No- Are you interested in getting this done? No Contact provided Primary Care phone number and encouraged to call if any questions or concerns. Review that after hours nurse line [phone] and emergency room are available 14/05 for patient use. Contact verbalized good understanding. /arlet/ CONG MCFARLAND LPN LICENSED PRACTICAL NURSE Signed: 03/11/2025 14:59 CONG MCFARLAND [facility]
--- OUTSIDE RECORDS SUMMARY | 2025-05-23 12:48 | XMS_ITS | Encounter Summary ---
Author Name [facility] Address [address] [place] [address] Care Team Providers Care Post Doc Fellowship Name Role Phone ISMA ROSARIO Primary Care Provider REBECCA Kinney Unavailable Unavailable Selected Encounter This section includes the information on record at [facility] for the Encounter. Date/Time Encounter Type Encounter Description Reason Provider Source Sep 26, 2024 02:00 PM THERAPEUTIC EXERCISES OCCUPATIONAL THERAPY ICD-10-CM M25.511 Pain in right shoulder GEOVANNY PANIAGUA Carmen Encounter Template Text not used by [place] Assessments - Encounter Diagnoses This section includes the primary and secondary diagnoses documented for the Encounter. Date/Time Primary/Secondary Diagnosis Diagnosis Name Provider Source Sep 26, 2024 03:57 PM PRIMARY Pain in right shoulder GEOVANNY PANIAGUA [facility] Plan of Treatment: Future Appointments (+ 6 months) and Future Tests (+/- 45 days) The Plan of Treatment section includes future care activities for the patient from all [place] treatmentfacilities. This section includes future appointments and future orders which are active, pending or scheduled. Future Appointments This section includes appointments that were scheduled to occur 6 months from the date of the Encounter, up to a maximum of 20 appointments. The data comes from all [place] treatment facilities. Appointment Date/Time Appointment Type Appointme nt Facility Name Sep 29, 2024 02:00 PM AMBULATORY - PS[facility]IATRY [facility] Sep 29, 2024 02:00 PM AMBULATORY - [facility]RY [facility] Oct 01, 2024 09:30 AM AMBULATORY - PS[facility]ATRY [facility] Oct 01, 2024 09:30 AM AMBULATORY - PS[facility]CHIATRY [facility] Oct 10, 2024 10:30 AM AMBULATORY - REHAB MEDICIN [facility] Oct 10, 2024 11:13 AM AMBULATORY - MEDICINE [facility] Oct 23, 2024 11:30 AM AMBULATORY - SURGERY [facility] Nov 05, 2024 11:20 AM AMBULATORY - SURGERY [facility] Nov 14, 2024 11:30 AM AMBULATORY - REHAB MEDICIN E [facility] Nov 19, 2024 09:49 AM AMBULATORY - MEDICINE [facility] Nov 28, 2024 02:00 PM AMBULATORY - REHAB MEDICIN E [facility] Dec 12, 2024 01:15 PM AMBULATORY - MEDICINE [facility] Dec 24, 2024 10:40 AM AMBULATORY - SURGERY [facility] Dec 29, 2024 02:30 PM AMBULATORY - REHAB MEDICIN E [facility] Dec 31, 2024 09:30 AM AMBULATORY - PS[facility]CHIATRY [facility] Dec 31, 2024 09:30 AM AMBULATORY - PS[facility]CHIATRY [facility] Jan 09, 2025 02:30 PM AMBULATORY - REHAB MEDICIN E [facility] Jan 21, 2025 10:00 AM AMBULATORY - SURGERY [facility] Jan 26, 2025 03:00 PM AMBULATORY - REHAB MEDICIN E [facility] Jan 28, 2025 09:30 AM AMBULATORY - PSYCHIATRY [facility] Social History: Smoking Status (Most current) and Tobacco Use (All prior to encounter date) This section includes the most current, and the historical, smoking and tobacco- related health factors from the [place] facility where the Encounter took place. Current Smoking Status This section includes the most current smoking, or tobacco-related health factor, from the [facility] facility where the [facility]counter took place. Date/Time Current Smoking Status Comment David dodge May 02, 2024 11:00 AM VA-TOBACCO NEVER USED [facility] Tobacco Use History This section includes a history of the smoking, or tobacco-related health factors, that were collected on or before the date of the Encounter. The data comes from the [place] facility where the Encounter took place. Date/Time Smoking Status/Tobacco Use Comment F acility Jan 14, 2019 05:30 PM VA-TOBACCO NEVER USED [facility] Jun 07, 2018 01:03 PM TOBACCO REFUSED SCREEN V15 [facility] Aug 10, 2017 09:25 AM LIFETIME NON-USER OF TOBACCO [facility] Jul 13, 2017 11:32 AM LIFETIME NON-USER OF TOBACCO [facility] May 08, 2017 01:14 PM LIFETIME NON-USER OF TOBACCO [facility] Encounter Notes: All associated encounter notes This section contains the clinical notes associated to the Encounter. Date/Time Encounter Note(s) Provider Source Sep 26, 2024 02:31 PM PHYSICAL MEDICINE REHAB NOTE: LOCAL TITLE: OT DAILY [facility] STANDARD TITLE: PHYSICAL MEDICINE REHAB NOTE DATE OF NOTE: SEP 26, 2024@14:31 ENTRY DATE: SEP 26, 2024@14:31:13 AUTHOR: GEOVANNY PANIAGUA COSIGNER: URGENCY: STATUS: COMPLETED Occupational Therapy Daily Note Diagnosis: Pain in right Shoulder(ICD-10-CM M25.511) Requesting Provider: BRIAN MOCTEZUMA Reason for request: R shoulder scope, possible cuff repair 08/29/24 Order/Precautions/Surgery/P rocedures performed: PHYSICAL THERAPY REFERRAL: Rotator cuff repair (Phase 1: 0-6 weeks postop) Therapy Instructions: Progressive PROM of the shoulder. AROM of elbow, forearm and hand. Edema control, modalities as needed. Special Instructions: Avoid AROM and IR stretching (behind the back) Frequency & Duration: 1-2 days/week, therapists discretion. PHYSICAL THERAPY REFERRAL: Rotator cuff repair (Phase 2: 6-12 weeks postop) Therapy Instructions: Passive, active assistive and active ROM of shoulder - -May progress as tolerated. IR behind the back should be very gentle. Mervat program optional. Special Instructions: Avoid strengthening of shoulder. OK to gently strengthen biceps. 5-10 lb lifting limit from the elbow only, no resisted shoulder activities. Frequency & Duration: 1-2 days/week, therapists discretion. PHYSICAL THERAPY REFERRAL: Rotator cuff repair (Phase 3: beyond 12 weeks postop) Therapy Instructions: Progressive passive stretching and advance AROM as needed/tolerated. May need to focus on posterior cuff stretching. Emphasize proper scapular posture and mechanics with AROM. Progressive light cuff, deltoid and scapular stabilizer strengthening. Special Instructions: Avoid overhead strengthening. Frequency & Duration: 1-2 days/week, therapists discretion. Date of Initial Evaluation: 09/10/2024 Visit #: 2 Ca or NS #: 0 TIME: [id number] Ther ex: 30 minutes SUBJECTIVE: Dominick reports minimal R shoulder pain since last visit. Dominick states he has been wearing the sling all the day and has no difficulty with donning and doffing. Dominick states he has been having difficulty sleeping due to the pain and is sleeping in a recliner. Dominick has a hx of shoulder surgeries and is familiar with the rehabilitation process. 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 Goal: Return to work Pain: 3/10 OBJECTIVE: PROM R SHOULDER SUPINE IN DE/6 Flexion:145 ER: 66 IR: 63 Digit/wrist/elbow AROM WNL. Vet with some initial stiffness with elbow flexion but able to complete ROM with repetition. States right tennis elbow has been bothering him over the past week. Educated to get back to stretching and massage to area as insturcted by OT in past. Shoulder strength testing deferred at this time. Treatment: Access Code: [email or web address] URL: [email or web address] Date: 09/10/2024 Prepared by: Kianna Armas Exercises - Circular Shoulder Pendulum with Table Support - 1 x daily - 7 x weekly - 3 sets - 10 reps - Horizontal Shoulder Pendulum with Table Support - 1 x daily - 7 x weekly - 3 sets - 10 reps - Flexion-Extension Shoulder Pendulum with Table Support - 1 x daily - 7 x weekly - 3 sets - 10 reps - Seated Shoulder Flexion Towel Slide at Table Top - 1 x daily - 7 x weekly - 3 sets - 10 reps *Vet instructed to complete exercises passively with the L hand assisting the R to move - Supine Shoulder Flexion AAROM with Hands Clasped - 1 x daily - 7 x weekly - 3 sets - 10 reps *Vet instructed to complete exercises passively with the L hand assisting the R to move -Vet insructed on sink walk-outs (PROM to shoulder) able to compelte in clin with good demo - Vet instructed to complete basic AROM of the wrist, forearm, and elbow including elbow flexion/extension, forearm supination/pronation, wrist flexion/extension/ulnar deviation/radial deviation. Vet able to demonstrate in the clinic Equipment/Instructions: [X] None Education was ready to learn and demonstrated an understanding of instructions given on Role of OT, [place] 1:1 instruction in equipment issued and/or home exercise program as noted above. ASSESSMENT: This 33 year old male presents to therapy s/p right rotator cuff surgery. Vet with impairments including decreased ROM, strength, and pain. Vet able to demonstrate HEP in the clinic today. would benefit from skilled occupational therapy in order to address pain, ROM, and strength impairments needed to assist with reutrn to ADLs. Colcord presents with good rehabilitation potential. PLAN: [place]cord to be seen by OT 1-2x every other week 30days with shoulder ROM and gradual progression of strength per protocol, proprioception, and modalities for pain control. Discussed plan of care with and was agreeable to plan. Vet to f/u in 10/10 to progress to 6 week post op protocal. Continued skilled occupational therapy as below to address: Treatment Plan: ___ADLs _x__UE AROM/AAROM/PROM ___Transfers ___Cognition ___Coordination ___Endurance ___Gross/Fine Motor ___Home Management ___Visual Perception ___Standing Act. _x__UE Strengthening ___Sensation/Compensation ___Visual Skills ___Facilitation ___Inhibition ___Adaptive equipment Assessment _x__Modalities _x__Other:HEP SHORT TERM GOALS: To be achieved in (4-6 visits). 1. Demonstrate HEP with 100% accuracy. 2. Increase AROM to WFL in all planes of motion in UE. 3. Increase MM mass to 4/5 grade in all involved MM groups. ALMOND BLANCHER HAND GOALS: To be achieved in (6-8 visits). [...] be the last tx intervention* /arlet/ ESCOBAR Dominguez/Eder, CLT Occupational Therapist Signed: 09/26/2024 15:57 GEOVANNY PANIAGUA [facility]
--- OUTSIDE RECORDS SUMMARY | 2025-05-23 12:48 | XMS_ITS | Encounter Summary ---
Author Name [facility] [place] [facility] [place] Organization [facility] [place] Address [address] [place] [address] Care Team Providers Care Client Project Coordinator Name Role Phone GOMEZ KAMARA Primary Care Provider REBECCA Kinney Unavailable Unavailable Selected Encounter This section includes the information on record at [place] for the Encounter. Date/Time Encounter Type Encounter Description Reason Provider Source Jan 27, 2025 09:34 AM Outpatient Encounter PAIN CLINIC ICD-10-CM Z51.81 Encounter for therapeutic drug level monitoring HUAN ISLAS Carmen Encounter Template Text not used by [place] Assessments - Encounter Diagnoses This section includes the primary and secondary diagnoses documented for the Encounter. Date/Time Primary/Secondary Diagnosis Diagnosis Name Provider Source Jan 30, 2025 10:19 AM PRIMARY Encounter for therapeutic drug level monitoring ARLINE DEL RIO [facility] Plan of Treatment: Future Appointments (+ 6 months) and Future Tests (+/- 45 days) The Plan of Treatment section includes future care activities for the patient from all [place] treatmentfacilities. This section includes future appointments and future orders which are active, pending or scheduled. Future Appointments This section includes appointments that were scheduled to occur 6 months from the date of the Encounter, up to a maximum of 20 appointments. The data comes from all [place] treatment facilities. Appointment Date/Time Appointment Type Appointme nt Facility Name Jan 28, 2025 09:30 AM AMBULATORY - PSY[facility]IATRY [facility] Jan 28, 2025 09:30 AM AMBULATORY - PS[facility]CHIATRY [facility] February 20, 2025 12:00 PM AMBULATORY - NONE [facility] February 25, 2025 11:30 AM AMBULATORY - REHAB MEDICIN E [facility] March 01, 2025 09:10 AM AMBULATORY - MEDICINE [facility] March 11, 2025 02:40 PM AMBULATORY - MEDICINE [facility] Apr 01, 2025 11:30 AM AMBULATORY - REHAB MEDICIN E [facility] Apr 01, 2025 02:40 PM AMBULATORY - MEDICINE [facility] Apr 07, 2025 07:22 PM AMBULATORY - MEDICINE [facility] Apr 29, 2025 09:30 AM AMBULATORY - PSYCHIATRY [facility] Apr 29, 2025 09:30 AM AMBULATORY - PSYCHIATRY [facility] [place] Apr 29, 2025 02:00 PM AMBULATORY - SURGERY [facility] Apr 29, 2025 02:15 PM AMBULATORY - MEDICINE [facility] May 23, 2025 01:00 PM AMBULATORY - NONE [facility] May 27, 2025 11:00 AM AMBULATORY - NONE [facility] Jun 02, 2025 10:00 AM AMBULATORY - SURGERY [facility] Active, Pending, and Scheduled Orders This section includes a listing of several types of active, pending, and scheduled orders, including clinic medications orders, diagnostic test orders, procedure orders and consult orders; where the start date of the order is 45 days before the date of the Encounter or 45 days after the date of theEncounter. The data comes from all [place] treatment facilities. Test Date/Time Test Type Test Details Facility Name March 11, 2025 03:38 PM Consult Order WHOLE HEAL TH CAPONIZER OUTPT STL Cons Patient Accounts Coordinator's Choice [facility] Social History: Smoking Status (Most current) and Tobacco Use (All prior to encounter date) This section includes the most current, and the historical, smoking and tobacco- related health factors from the [place] facility where the Encounter took place. Current Smoking Status This section includes the most current smoking, or tobacco-related health factor, from the [place] facility where the Encounter took place. Date/Time Current Smoking Status Comment Facil ity Apr 11, 2023 10:00 AM [place]-TOBACCO NEVER USED [facility] Tobacco Use History This section includes a history of the smoking, or tobacco-related health factors, that were collected on or before the date of the Encounter. The data comes from the [place] facility where the Encounter took place. Date/Time Smoking Status/Tobacco Use Comment F acility May 10, 2022 09:30 AM [place]-TOBACCO NEVER USED [facility] Jun 03, 2021 10:00 AM [place]-TOBACCO NEVER USED [facility] Jun 10, 2020 01:01 PM [place]-TOBACCO NEVER USED [facility] Radiology Reports: +/- 30 days of the [...] the Encounter. The data comes from all [place] treatment facilities. Date/Time Radiology Report Provider Source February 20, 2025 12:04 PM MRI SHOULDER RIGHT : ALEYDA SORTO [id number] -[id number] M Exm Date: FEBRUARY 20, 2025@12:04 Req Phys: JASPER LAMA Loc: [facility]THO SHOULDER (Req'g Loc) Img Loc: [facility] Service: Unknown [facility], [address] [address] (Case [id number] COMPLETE) MRI SHOULDER RIGHT (MRI Detailed) CPT:80314 Proc Modifiers : RIGHT CPT Modifiers : [...] Responsible Attending: Jasper Lama Attending Contact Number: [phone] Resident Contact Number: Does your patient have [...] 23, 2025 Date Verified: FEBRUARY 23, 2025 Custom Furrier E-Sig:/ES/Elisa Oconnell MD Report: MRI SHOULDER RIGHT CASE #: [id number] DATE:02/20/2025 4:29 PM CLINICAL HISTORY:s/p right rotator [...] Primary Interpreting Staff: Elisa Oconnell MD, Radiologist (Custom Furrier) /ELISA DELGADO [facility] Encounter Notes: All associated encounter notes This section contains the clinical notes associated to the Encounter. Date/Time Encounter Note(s) Provider Source Jan 27, 2025 09:34 AM MEDICATION MGT NOT E: LOCAL TITLE: OPIOID RISK REVIEW DATA-BASED PB STANDARD TITLE: MEDICATION MGT NOTE DATE OF NOTE: JAN 27, 2025@09:34 ENTRY DATE: JAN 27, 2025@09:34:52 AUTHOR: ARLINE DEL RIO COSIGNER: URGENCY: STATUS: COMPLETED The following Opioid Safety Initiative Case Review, as required by the Opioid Safety Initiative and Title IX, Subtitle A, Section 911(a)(2) of the Comprehensive Addiction and Recovery Act ([place]ATO), was completed during Jan Pain Management Team Meeting that met to develop recommendations to mitigate The 's risk of Suicide or Overdose. Attendance: PACT Pain [place], Pharmacy, Addiction Medicine, Behavioral Medicine, Rehabilitation Medicine, Suicide Prevention This patient was identified as being very high risk for opioid Overdose / suicide-related adverse events using the Stratification Tool for Opioid Risk Mitigation (STORM) Report. The following recommendations are intended to improve the safety of the by increasing our overall opioid risk mitigation strategies. 34yo male who received a 7 day supply of oxycodone 5mg in 08/[address] Lopez Mckee from [facility]. [place] for PTSD, Arm condition, wrist condition, back pain, Sciatic nerve condition, Tinnitus, impaired hearing and scaring. is followed in by Dr. Aquino at the [facility], treated for Bipolar disorder and was last seen on 12/31/24. Currently on Lamotrigine, Bupropion, Duloxetine and Prazosin. RISK OF ADVERSE EVENTS & CLINICAL FACTORS THAT INCREASE RISK FOR PATIENT ++++++++++++++++++++++++++++++++++ ++++++++++++++++++++++++++++++ Stratified Tool for Opioid Risk Mitigation(STORM) Review Note ++++++++++++++++++++++++++++++++++ ++++++++++++++++++++++++++++++ Date: 01/27/2025 9:35:27 AM Name: ALEYDA SORTO Last Four: [id number] Age: 34 Man Address: [address] [place] [address] PATIENT'S HYPOTHETICAL RISK LEVEL AND CURRENT HIGH RISK FLAGS STORM Model Risk Estimates -------- Risk of suicide-related event or overdose in the next year: 8% (Very High - Recently Discontinued) Risk of suicide-related event, overdose, fall or accident in the next 3 years: If MEDD = 10, 29% (Medium) If MEDD = 50, 30% (Medium) If MEDD = 90, 31% (Medium) RIOSORD Risk Class: 2 RIOSORD Score: 28 REACH VET Currently Identified in REACH VET: No In REACH VET in the past 24 months: No High Risk Flags High Risk For Suicide: No Behavioral: No Missing Patient: No FACTORS CONTRIBUTING TO PATIENT'S RISK Diagnosis Medical: - Obesity - Sleep Apnea Mental Health: - Bipolar - Other Mental Health per STORM paper - PTSD Medications Pain Medications (Sedating): - DULOXETINE Kanwal Baez([facility]) === METHODS TO REDUCE PATIENT'S RISK === Risk Mitigation Strategies: [X] MEDD < 90 (30 Day Avg) 0 [ ] Naloxone Kit (365 Days) 09/05/2024 Declined [ ] Informed Consent for Long-Term Opioid Therapy [X] Timely Follow-up (90 Days) 01/26/2025 [X] Drug Screen (NA) 07/30/2024 [ ] Psychosocial Assessment (365 Days) [X] Psychosocial Tx (365 Days) 12/31/2024 [X] Bowel Regimen (365 Days) [ ] PDMP (365 Days) [ ] Data-based Risk Review (365 Days) [ ] Suicide Safety Plan (365 Days) [ ] Mandated Risk Mitigations Met Non-pharmacological Pain Treatments: [ ] Active Therapies [ ] CIH Therapies [ ] Flow Floor Attendant [X] Occupational Therapy 01/26/25 [X] Pain Clinic 12/25/24 [X] Physical Therapy/PM&R 01/26/25 [ ] Specialty Therapy [ ] Other Therapy === APPOINTMENTS === Last VA Contact [facility] Appointment MENTAL HEALTH CLINIC - IND 12/31/2024 09:30 AM [facility] - Emergency Room EMERGENCY DEPT 11/19/2024 09:49 AM - Primary Care Appointment PRIMARY CARE/MEDICINE 12/12/2024 01:15 PM - Any Clinical Appointment OCCUPATIONAL THERAPY 01/26/2025 03:00 PM - Other Appointment OCCUPATIONAL THERAPY 01/26/2025 03:00 PM Future Appointments [facility] Appointment MENTAL HEALTH CLINIC - IND 01/28/2025 09:30 AM [facility] - Other Appointment ADMIN PAT ACTIVTIES (MASNONCT) 01/28/2025 09:30 AM === ASSIGNED PROVIDERS === Benton Vogt [facility] Maryana Mullins - (Health System) Nurse Practitioner -[facility] TEAM B [facility] Gomez Kamara - Physician-Attending [facility]ELIZABETH Charles *WH* === SUPPLEMENTAL MEDICATION INFORMATION === Non-VA Controlled Substance Prescriptions: This risk assessment is based on available information in the corporate data warehouse which may lag from CPRS (usually 1-2 days) and only includes information previously documented in the medical record. This risk assessment should be used as one element to inform an overall clinical treatment plan. Further assessment, reassessment, and treatment planning should be completed as clinically indicated by this Spiro's established care teams. The calculated risk score is determined by both static and dynamic factors. Treatment planning should focus on providing the best whole person clinical care while aiming to reduce the risk of adverse events and should not aim at reducing the calculated risk score. ++++++++++++++++++++++++++++++++++ +++++++++++++++++++++++++++++ Stratified Tool for Opioid Risk Mitigation (STORM) Review Note ++++++++++++++++++++++++++++++++++ +++++++++++++++++++++++++++++ CURRENT MEDICATIONS: Active and Recently Outpatient Medications (including Supplies): Active Outpatient Medications [...] Indication: FOR BIPOLAR DISORDER AND IRRITABILITY 7) LIDOCAINE 5% PATCH APPLY 1 PATCH TO SKIN SITE ONCE A DAY ACTIVE APPLY PATCH AND PRESS FIRMLY FOR 10-15 SECONDS. KEEP ON FOR 12 HOURS THEN REMOVE PATCH FOR 12 HOURS. Indication: FOR LOCAL ANESTHESIA 8) MELOXICAM 15MG TAB TAKE ONE TABLET BY MOUTH ONCE A DAY ACTIVE Indication: FOR PAIN 9) PANTOPRAZOLE NA 20MG EC TAB TAKE ONE TABLET BY MOUTH ONCE A ACTIVE DAY TAKE 30 MINUTES BEFORE MEAL(S) Indication: FOR GASTROESOPHAGEAL REFLUX DISEASE 10) POLYETHYLENE GLYCOL 3350 ORAL PWDR MIX AND DRINK 1 CAPFUL BY ACTIVE MOUTH ONCE A DAY (MEASURE WITH CAP AND MIX IN 8 OZ OF WATER) Indication: FOR CONSTIPATION 11) PRAZOSIN HCL 2MG CAP TAKE TWO CAPSULES BY MOUTH AT BEDTIME ACTIVE (S) MAY CAUSE DIZZINESS OR DROWSINESS. Indication: FOR NIGHTMARES Inactive Outpatient Medications Status 1) CARBOXYMETHYLCELLULOSE NA 0.5% OPH SOLN INSTILL 1 DROP IN BOTH EYES FOUR TIMES A DAY NEEDED Indication: FOR DRY EYE(S) 2) LIFITEGRAST 5% OPH SOLN 0.2ML INSTILL 1 DROP IN BOTH EYES EVERY 12 HOURS Indication: FOR DRY EYE(S) 13 Total Medications Allergies: Patient has answered NKA Current medical problems: 1) Mood disorder 2) Allergic rhinitis 3) Pain of left shoulder joint 4) Low back pain 5) Severe bipolar II disorder 6) Posttraumatic stress disorder 7) Gastroesophageal reflux disease 8) Constipation 9) Obesity 10) Knee pain 11) HLD - Hyperlipidemia 12) Decreased vitamin D 13) Prediabetes 14) Pain of right shoulder joint comment: MRI indicates Partial-thickness bursal surface supraspinatus tend Recent labs: SODIUM 139 mEq/L 12/12/2024 14:29 POTASSIUM 5.0 mEq/L 12/12/2024 14:29 CHLORIDE 104 mEq/L 12/12/2024 14:29 UREA NITROGEN 13.6 mg/dL 12/12/2024 14:29 CREATININE 1.06 mg/dL 12/12/2024 14:29 CALCIUM 10.0 mg/dL 12/12/2024 14:29 CARBON DIOXIDE 26 mEq/L 12/12/2024 14:29 GLUCOSE 97 mg/dL 12/12/2024 14:29 EGFR (CKD-EPI 2020) 94.4 12/12/2024 14:29 AKP: 105 (12/12/24 14:29) ALB: 4.6 (12/12/24 14:29) GOT/AST: 26 (12/12/24 14:29) GPT/ALT: 20 (12/12/24 14:29) T.Prot: 8.1 (12/12/24 14:29) TBIL: 0.4 (12/12/24 14:29) B12 413 pg/mL 12/12/2023 14:01 VITAMIN D, 25-HYDROXY 20.6 L ng/mL 12/12/2023 14:01 Magnesium 2.0 mg/dL (04/17/24 14:00) AMPHET/METHAMPHETAMINE Negative ng/mL 07/30/2024 11:08 BENZODIAZEPINES (STL) Negative ng/mL 07/30/2024 11:08 CANNABINOIDS Negative ng/mL 07/30/2024 11:08 COCAINE METABOLITES Negative ng/mL 07/30/2024 11:08 OPIATES Negative ng/mL 07/30/2024 11:08 AMPHET/METHAMPHETAMINE Negative ng/mL 07/30/2024 11:08 BENZODIAZEPINES (STL) Negative ng/mL 07/30/2024 11:08 CANNABINOIDS Negative ng/mL 07/30/2024 11:08 COCAINE METABOLITES Negative ng/mL 07/30/2024 11:08 METHADONE Negative ng/mL 07/30/2024 11:08 OPIATES Negative ng/mL 07/30/2024 11:08 OXYCODONE (ZOQOI-LFN-WP) Negative ng/mL 07/30/2024 11:08 BUPRENORPHINE (STL-PB-MA) Negative ng/mL 07/30/2024 11:08 FENTANYL (STL) Negative ng/mL 07/30/2024 11:08 CREATININE URINE/OTHERS 46.1 L mg/dL 07/30/2024 11:08 ETHANOL Negative mg/dL 07/30/2024 11:08 No data available for: TRAMADOL No data available for: TRAMADOL BUPRENORPHINE (STL-PB-MA) Negative ng/mL 07/30/2024 11:08 REVIEW OF OTHER TREATMENT OPTIONS: 1. Low vitamin D, B12, and Mg can impact chronic pain. Noted vitd previously defecient, no noted supplemental therapy. Consider re-checking at this time. 2. Non-pharmacologic recommendations: -Recommend discussing weight management options with which may include MOVE!, dietary consult, and/or telephone lifestyle coaching. -Recommend offering CBT-CP, PT, chiro/acupuncture, and encourage exercise routine which may include yoga, evens chi, Pilates, or a walking routine. 3. Recommend whole health referral if not previously offered and if clinically appropriate. 4. MH f/u scheduled with Dr. Aquino in [facility]. PLANS FOR RISK MITIGATION & USE OF UNIVERSAL PRECAUTIONS (i.e. drug screening, prescription drug monitoring program checks): 1. OEND: - Pt declined naloxone kit on 09/05/2024. Not indicated at this time. 2. PDMP query: PDMP was not completed at time prescription was filled. Would complete PDMP if any further controlled substances are prescribed. 3. Urine Drug Screen: Most recent UDS is appropriate. UDS is required annually at minimum for long-term opioid therapy or more frequently as deemed clinically appropriate. 4. Recommend completion of suicide safety plan if clinically indicated. Suicide screen was last completed 11/19/24 and was negative. ALERTING STL STORM Team to review and disperse to local providers. /arlet/ ARLINE DEL RIO PHARMD CLINICAL SPECIAL EFFECTS ARTIST Signed: 01/30/2025 10:24 Receipt Acknowledged By: 01/30/2025 11:22 /es/ COLLEEN VERA PHARM.D., BCPS, BCACP CLINICAL SPECIAL EFFECTS ARTIST - PAIN MANAGEMENT 02/02/2025 08:30 /es/ DAVID CROUCH PHARMD, BCACP, [facility] Facility PMOP Coordinator 05/12/2025 17:06 /es/ GOMEZ KAMARA MD Staff Physician 02/09/2025 12:25 /es/ REBECCA MENEZES Resident Physician ARLINE DEL RIO [facility] [place]
--- OUTSIDE RECORDS SUMMARY | 2025-05-23 12:48 | XMS_ITS | Encounter Summary ---
Author Name [facility] [place] Organization [place] Address [address] [place] [address] Care Team Providers Care Shrinker Name Role Phone ISMA ROSARIO Primary Care Provider REBECCA Kinney Unavailable Unavailable Selected Encounter This section includes the information on record at [place] for the Encounter. Date/Time Encounter Type Encounter Description Reason Provider Source Nov 28, 2024 02:00 PM THERAPEUTIC EXERCISES OCCUPATIONAL THERAPY ICD-10-CM M25.511 Pain in right shoulder GEOVANNY PANIAGUA Carmen Encounter Template Text not used by [place] Assessments - Encounter Diagnoses This section includes the primary and secondary diagnoses documented for the Encounter. Date/Time Primary/Secondary Diagnosis Diagnosis Name Provider Source Nov 28, 2024 02:42 PM PRIMARY Pain in right shoulder GEOVANNY PANIAGUA [facility] Plan of Treatment: Future [...] Appointment Type Appointme nt Facility Name Dec 12, 2024 01:15 PM AMBULATORY - MEDICINE [facility] Dec 24, 2024 10:40 AM AMBULATORY - SURGERY [facility] Dec 29, 2024 02:30 PM AMBULATORY - REHAB MEDICIN E [facility] Dec 31, 2024 09:30 AM AMBULATORY - PSYCHIATRY [facility] Dec 31, 2024 09:30 AM AMBULATORY - PSYCHIATRY [facility] Jan 09, 2025 02:30 PM AMBULATORY - REHAB MEDICIN E [facility] Jan 21, 2025 10:00 AM AMBULATORY - SURGERY [facility] Jan 26, 2025 03:00 PM AMBULATORY - REHAB MEDICIN E [facility] Jan 28, 2025 09:30 AM AMBULATORY - PSYCHIATRY [facility] Jan 28, 2025 09:30 AM AMBULATORY - PSYCHIATRY [facility] February 20, 2025 12:00 PM AMBULATORY - NONE [facility] February 25, 2025 11:30 AM AMBULATORY - REHAB MEDICIN E [facility] March 01, 2025 09:10 AM AMBULATORY - MEDICINE [facility] March 11, 2025 02:40 PM AMBULATORY - MEDICINE [facility] Apr 01, 2025 11:30 AM AMBULATORY - REHAB MEDICIN E [facility] Apr 01, 2025 02:40 PM AMBULATORY - MEDICINE [facility] Apr 07, 2025 07:22 PM AMBULATORY - MEDICINE [facility] Apr 29, 2025 09:30 AM AMBULATORY - PSYCHIATRY [facility] Apr 29, 2025 09:30 AM AMBULATORY - PSYCHIATRY [facility] Apr 29, 2025 02:00 PM AMBULATORY - SURGERY [facility] Lab Results: +/- 30 days of [...] Type Comment Dec 12, 2024 02:29 PM [facility] LIPID PANEL (STL) PLASMA Specimen Type: PLASMA Comment: No hemolysis noted. Ordering Provider: REBECCA MENEZES Report Released Date/Time: Dec 12, 2024 02:20 PM Reporting Lab: [place] [address] [facility] [id number] Performing Lab: [address] [address] CHOLESTEROL 182 mg/dL 0-200 TRIGLYCERIDE 237 mg/dL H 0-150 CALCULATED LDL 106 mg/dL HDL(New) 29 mg/dL L >40 Dec 12, 2024 02:29 PM [facility] COMPREHENSIVE METABOLIC PANEL PLASMA Specimen Type: PLASMA Comment: No hemolysis noted. Ordering Provider: REBECCA MENEZES Report Released Date/Time: Dec 12, 2024 02:20 PM Reporting Lab: [facility] [address] [facility] [address] Performing Lab: [place] [address] [facility] [address] CREATININE 1.06 mg/dL 0.7-1.3 UREA NITROGEN 13.6 [...] 94.4 >60 Dec 12, 2024 02:29 PM [facility] CBC BLOOD Specimen Type: BLOOD No comment entered. Ordering Provider: REBECCA MENEZES Report Released Date/Time: Dec 12, 2024 02:20 PM Reporting Lab: [facility] [address] [facility] [address] Performing Lab: [facility] [address] [facility] [address] WBC 6.2 10*3/uL 3.6-11.2 RBC 4.84 10*6/uL [...] David ity May 02, 2024 11:00 AM [place]-TOBACCO NEVER USED [facility] Tobacco Use History This section includes a history of the smoking, or tobacco-related health factors, that were collected on or before the date of the Encounter. The data comes from the [place] facility where the Encounter took place. Date/Time Smoking Status/Tobacco Use Comment F acility Jan 14, 2019 05:30 PM [place]-TOBACCO NEVER USED [facility] Jun 07, 2018 01:03 PM TOBACCO REFUSED SCREEN V15 [facility] Aug 10, 2017 09:25 AM LIFETIME NON-USER OF TOBACCO [facility] Jul 13, 2017 11:32 AM LIFETIME NON-USER OF TOBACCO [facility] May 08, 2017 01:14 PM LIFETIME NON-USER OF TOBACCO [facility] Encounter Notes: All associated encounter notes This section contains the clinical notes associated to the Encounter. Date/Time Encounter Note(s) Provider Source Nov 28, 2024 02:34 PM PHYSICAL MEDICINE REHAB NOTE: LOCAL TITLE: OT DAILY STL STANDARD TITLE: PHYSICAL MEDICINE REHAB NOTE DATE OF NOTE: NOV 28, 2024@14:34 ENTRY DATE: NOV 28, 2024@14:34:51 AUTHOR: GEOVANNY PANIAGUA COSIGNER: URGENCY: STATUS: COMPLETED Occupational Therapy Daily/Progress Note Diagnosis: Pain in right Shoulder(ICD-10-CM M25.511) Requesting Provider: BRIAN MOCTEZUMA Reason for request: R shoulder scope, possible cuff repair 08/29/24 Surgery: Right arthroscopic rotator cuff repair Date of surgery: 08/29/24 IS 13 WEEKS POST-OP PHYSICAL THERAPY REFERRAL: Rotator cuff [...] Date of Initial Evaluation: 09/10/2024 Visit #: 5 Ca or NS #: 0 TIME: [id number] Ther ex: 30 minutes SUBJECTIVE: Tamikot reports since his slip/trip fall in his home onto his outstretched R arm. He states pain is consistnat, located to proximal bicep. 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 Goal: Return to work Pain: 2-3/10 constant- pre/post OT session States 4-5/10 at worst. OBJECTIVE: Dominick presents into OT ambulating without AD. AROM SHOULDER STANDING: Left Right Right 10/10 10/10 11/14 Flexion:160 148 145 EX: 50 46 50 ABD: 150 132 140 ER: 65 48 64 IR: T8 T12 T12 Shoulder strength testing deferred at this time. Treatment: Mcnabb participated in the following this date: - educated on use of ice for targeted pain at bicep tendon since fall - Vet educated on trigger point massage to proximal bicep Access Code: [email or web address] URL: [email or web address] Date: 11/28/2024 Prepared by: Geovanny Paniagua Exercises [...] Standing Low Trap Green and Blue theraband Education was ready to learn and demonstrated [...] order to address pain and progress HEP. Mcnabb presents with good rehabilitation potential. Per ortho note on 11/05 vet to retun in 6 weeks, no f/u placed. Vet sent to ortho to have this appt. scheduled. PLAN: to be seen by OT 1-2x every other week 30days with shoulder ROM and gradual progression of strength per protocol, proprioception, and modalities for pain control. Discussed plan of care with and was agreeable to plan. Vet to f/u on 12/16 to continue with Phse III of post op protocol as tolerated. Continued skilled occupational therapy as below to address: Treatment Plan: ___ADLs _x__UE AROM/AAROM/PROM ___Transfers ___Cognition ___Coordination ___Endurance ___Gross/Fine Motor ___Home Management ___Visual Perception ___Standing Act. _x__UE Strengthening ___Sensation/Compensation ___Visual Skills ___Facilitation ___Inhibition ___Adaptive equipment Assessment _x__Modalities _x__Other:HEP SHORT TERM GOALS: To be achieved in (4-6 visits). 1. Demonstrate HEP with 100% accuracy-PROGRESSING 2. Increase AROM to WFL in all planes of motion in UE-PROGRESSING. 3. Increase MM mass to 4/5 grade in all involved MM groups. TUBE HANDLER GOALS: To be achieved in (6-8 visits). [...] /arlet/ ESCOBAR Dominguez/DARIUS Gaines Occupational Therapist Signed: 11/28/2024 14:42 GEOVANNY PANIAGUA [facility]
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
--- OUTSIDE RECORDS SUMMARY | 2025-05-23 12:48 | XMS_ITS | Encounter Summary ---
Author Name [facility] Organization [facility] Address [address] [place] [address] Care Team Providers Care Sound Installation Worker Name Role Phone ISMA ROSARIO Primary Care Provider REBECCA Kinney Unavailable Unavailable Selected Encounter This section includes the information on record at MD for the Encounter. Date/Time Encounter Type Encounter Description Reason Provider Source Apr 01, 2025 02:40 PM OFFICE O/P EST LOW 20 MIN GENERAL INTERNAL MEDICINE ICD-10-CM M25.512 Pain in left shoulder COLLEEN ROSENBERG Encounter Template Text not used by MD Assessments - Encounter Diagnoses This section includes the primary and secondary diagnoses documented for the Encounter. Date/Time Primary/Secondary Diagnosis Diagnosis Name Provider Source Apr 07, 2025 11:43 AM PRIMARY Pain in left shoulder COLLEEN ROSENBERG [facility] Plan of Treatment: Future Appointments [...] Appointment Type Appointme nt Facility Name Apr 07, 2025 07:22 PM AMBULATORY - MEDICINE [facility] Apr 29, 2025 09:30 AM AMBULATORY - PSYCHIATRY [facility] Apr 29, 2025 09:30 AM AMBULATORY - PS[facility]IATRY [facility] Apr 29, 2025 02:00 PM AMBULATORY - SURGERY [facility] Apr 29, 2025 02:15 PM AMBULATORY - MEDICINE [facility] May 23, 2025 01:00 PM AMBULATORY - NONE [facility] May 27, 2025 11:00 AM AMBULATORY - NONE [facility] Jun 02, 2025 10:00 AM AMBULATORY - SURGERY [facility] Aug 07, 2025 09:30 AM AMBULATORY - PSYCHIATRY [facility] Aug 07, 2025 09:30 AM AMBULATORY - PSYCHIATRY [facility] Active, Pending, and Scheduled Orders This section [...] 03:38 PM Consult Order WHOLE HEAL TH BACK TUFTER OUTPT [facility] [employer] [facility] Apr 01, 2025 03:28 PM Consult Order ORTHOPEDIC SHOULDER/ELBOW EVAL OUTPT [facility] [employer] [facility] Apr 21, 2025 09:48 AM Consult Order COMMUNITY CARE-IMAGING MAGNETIC RESONANCE IMAGING-AUTO [facility] Lab Results: +/- 30 days of the [...] Type Comment Apr 01, 2025 03:37 PM [facility] RAPID PLASMA REAGIN (RPR) SERUM Specimen Type : SERUM No comment entered. Ordering Provider: FANI DESHPANDE Report Released Date/Time: Apr 01, 2025 03:29 PM Reporting Lab: [facility] [address] [facility] [phone] Performing Lab: [facility] [address] [place] [phone] RAPID PLASMA REAGIN (RPR) NONREACTIVE NO NREACTIVE Apr 01, 2025 03:37 PM [facility] GC & CHLAMYDIA PCR (STL-PB) URINE [...] information for final interpretation. Ordering Provider: FANI DESHPANDE Report Released Date/Time: Apr 01, 2025 03:29 PM Reporting Lab: [facility] [address] [facility] [phone] Performing Lab: [facility] [address] [place] [phone] N.GONORRHOEAE PCR (STL) Not Detected Not Detected C.TRACHOMATIS PCR (STL) Not Detected Not Detected Apr 01, 2025 03:37 PM [facility] HIV COMBO FOURTH GENERATION (STL) SERUM Speci men Type: SERUM No comment entered. Ordering Provider: FANI DESHPANDE Report Released Date/Time: Apr 01, 2025 03:29 PM Reporting Lab: [facility] [address] [facility] [phone] Performing Lab: [facility] [address] [facility] [phone] HIV COMBO FOURTH GENERATION (STL) Nonreactive Nonreactive Apr 01, 2025 03:36 PM [facility] TRICHOMONAS PCR (STL-PB) URINE Specimen Type: [...] information for final interpretation. Ordering Provider: FANI DESHPANDE Report Released Date/Time: Apr 01, 2025 03:29 PM Reporting Lab: [place] [id number] [facility] [phone] Performing Lab: [place] [address] [facility] [phone] TRICHOMONAS PCR (STL-PB) Not Detected No t Detected Vital Signs: All taken on the encounter date This section contains inpatient and outpatient Vital Signs collected on the date of the Encounter. Date/Time Temperature Pulse Blood Pressure Respiratory Rate SP02 Pain Height Weight Body Mass Index Source Apr 01, 2025 02:39 PM 97.9 76 128/80 18 97 0 327.5 42 [facility] Social History: Smoking Status [...] Facil ity May 02, 2024 11:00 AM MD-TOBACCO NEVER USED [facility] Tobacco Use History This section includes a history of the smoking, or tobacco-related health factors, that were collected on or before the date of the Encounter. The data comes from the MD facility where the Encounter took place. Date/Time Smoking Status/Tobacco Use Comment F acility Jan 14, 2019 05:30 PM MD-TOBACCO NEVER USED [facility] Jun 07, 2018 01:03 PM TOBACCO REFUSED SCREEN V15 [facility] Aug 10, 2017 09:25 AM LIFETIME NON-USER OF TOBACCO [facility] Jul 13, 2017 11:32 AM LIFETIME NON-USER OF TOBACCO [facility] May 08, 2017 01:14 PM LIFETIME NON-USER OF TOBACCO [facility] Radiology Reports: +/- 30 days of [...] 2025 03:28 PM SHOULDER,LEFT,2 OR MORE VIEWS: MACARIOALEYDAHlida LAWSON [id number] -1990 M Exm Date: APR 01, 2025@15:28 Req Phys: FANI DESHPANDE Pat Loc: -PC GEN MED TM-C SAME DAY (R Img Loc: -MAIN RADIOLOGY SUITE Service: [address] [address] (Case [id number] COMPLETE) SHOULDER,LEFT,2 OR MORE VIEWS (RAD Detailed) CPT:61749 Proc Modifiers : LEFT Reason for Study: 1 month of non-traumatic L shoulder pain Clinical History: Report Status: Verified Date Reported: APR 02, 2025 Date Verified: APR 02, 2025 Metal Spinner E-Sig:/ES/KRISTEN MALDONADO Report: EXAM: SHOULDER,LEFT,2 OR MORE VIEWS HISTORY: 1 month of non-traumatic L shoulder pain FINDINGS: 3 views obtained. No fracture or dislocation. No advanced arthritic changes. No soft tissue abnormality is seen. Impression: No significant bony abnormality. RR Primary Interpreting Staff: KRISTEN MALDONADO, Staff Physician (Metal Spinner) /KRISTEN PHELAN [facility] Encounter Notes: All associated encounter notes This section contains the clinical notes associated to the Encounter. Date/Time Encounter Note(s) Provider Source Apr 01, 2025 03:29 PM PRIMARY CARE NOTE: LOCAL TITLE: PRIMARY CARE PROVIDER ESTABLISHED VISIT [facility] STANDARD TITLE: PRIMARY CARE NOTE DATE OF NOTE: APR 01, 2025@15:29 ENTRY DATE: APR 01, 2025@15:30:50 AUTHOR: FANI DESHPANDE COSIGNER: COLELEN ROSENBERG URGENCY: STATUS: COMPLETED PRIMARY CARE PROVIDER ESTABLISHED VISIT [facility] NOTE Subjective: Pt is a 34 year old MALE who presents to same day clinic for L shoulder pain and penile lesion. He notes a history of shoulder issues. His L shoulder was operated on in 2020 by MD ortho. For the last 1-1.5 months, his notes L shoulder pain worse with any activity. He denies any preceding trauma. He is already following with PT and unable to tolerate any exercise with his L shoulder. Over the last two days, he notes a lesion on the left side of the shaft of his penis. Notes mild discomfort with palpation. Denies any dysuria or uretheral discharge. No fever, chills. Last sexual encounter 3 months ago. MEDICAL HISTORY: 1) Mood disorder 2) Allergic [...] CAUSE DIZZINESS OR DROWSINESS. Indication: FOR NIGHTMARES REVIEW OF SYSTEMS: Negative except where noted above. Objective: Vital Signs: Pulse: 76 (04/01/2025 14:39) BP: 128/80 (04/01/2025 14:39) RESP: 18 (04/01/2025 14:39) Pain: 0 (04/01/2025 14:39) Weight: 327.5 lb [148.55 kg] (04/01/2025 14:39) PHYSICAL EXAM: General: Pleasant NAD, AAO x 3 HEENT: AT, NC Heart: RRR, No mgr Lungs: Clear, no wrr Abdomen: NT/ND, BS normoactive Vascular: 2/4 radial and dorsalis pedis pulses Extremities: No LE Edema, warm hands and feet. Pain noted with active abduction of L shoulder. Positive empty can test on the left. Skin: No abrasions, ulcers or ecchymosis. 0.5-1 cm fluctuant area noted on left side of penile shaft. LAB DATA: SODIUM 139 mEq/L 12/12/2024 14:29 [...] AUTO ABS 0.01 10*3/uL 04/11/2023 09:44 ASSESSMENT/PLAN: #L shoulder pain - Prior hx: Left shoulder arthroscopy, debridement, SAD, open subpectoral biceps tenodesis - No trauma Plan: - Given prior surgical intervention and non-traumtic nature of injury, referred to Ortho shoulder again - L shoulder xray ordered - He is already in PT and unable to tolerate shoulder exercises on left side #Penile lesion - Ongoing for 2 days - HIV, RPR, G/C, trichomonas testing ordered - Recommend warm compresses and assess for improvement. Consider derm consult if not improving Patient seen and discussed with Dr. Rosenberg. /arlet/ Fani Deshpande DO Resident Physician Signed: 04/01/2025 15:41 /arlet/ COLLEEN ROSENBERG MD, MD Cosigned: 04/07/2025 11:43 04/07/2025 ADDENDUM STATUS: COMPLETED CLINIC ATTENDING I have personally seen and evaluated patient, reviewed CPRS and discussed case with resident Dr. deshpande whom I supervised during this visit. Detailed history and findings as noted by resident. I agree with the plan as outlined in the resident note which I discussed with the patient. He was advised to contact us or RTC/ER for interim problems. /arlet/ COLLEEN ROSENBERG MD, MD Signed: 04/07/2025 11:43 FANI DESHPANDE [facility] Apr 01, 2025 02:40 PM NURSING NOTE: LOCAL TITLE: V15 PACT FACE TO FACE NOTE [facility] STANDARD TITLE: NURSING NOTE DATE OF NOTE: APR 01, 2025@14:40 ENTRY DATE: APR 01, 2025@14:40:10 AUTHOR: CONG MCFARLAND EXP COSIGNER: URGENCY: STATUS: COMPLETED Provider Visit: Patient Identifiers : Full Name Date of Reason for visit: Other: is having left shoulder pain. also has a lump on groin. Area is tender and red Mode of Arrival: Ambulatory Allergy Review: ALLERGIES/ADVERSE REACTIONS - NONE FOUND Allergy list reviewed and remains current. Recent Vital Signs: Temperature: 97.9 F [36.6 C] (04/01/2025 14:39) Pulse: 76 (04/01/2025 14:39) Respiration: 18 (04/01/2025 14:39) B/P: 128/80 (04/01/2025 14:39) Pain: 0 (04/01/2025 14:39) Wt: 327.5 lb [148.55 kg] (04/01/2025 14:39) Ht: 74 in [188.0 cm] (12/12/2024 13:11) BMI: 42.1 POX: 97% (04/01/2025 14:39) PERSONAL HEALTH INVENTORY Notes: No data available for PHI note titles PERSONAL HEALTH INVENTORY - MAP: 12/12/2024 Personal Health Plan [place], [place], [place] (MAP) my dog What matters most to you in your life right now? -- 's Response: family and dog Would you like to discuss any personal problem, family problem, alcohol use, drug use, or a mental or emotional illness? No My [facility] ([facility]), please select appointment type: Face to face: No- Are you interested in getting this done? No Contact provided Primary Care phone number and encouraged to call if any questions or concerns. Review that after hours nurse line [phone] and emergency room are available 14/05 for patient use. Contact verbalized good understanding. /arlet/ CONG MCFARLAND LPN LICENSED PRACTICAL NURSE Signed: 04/01/2025 14:42 CONG MCFARLAND [facility]
--- OUTSIDE RECORDS SUMMARY | 2025-05-23 12:48 | XMS_ITS | Encounter Summary ---
Author Name [facility] [place] [place] Organization [facility] [place] Address [address] [place] [address] Care Team Providers Care Intermission Coordinator Name Role Phone ISMA ROSARIO Primary Care Provider CHICHO Kinney Unavailable Unavailable Selected Encounter This section includes the information on record at [place] for the Encounter. Date/Time Encounter Type Encounter Description Reason Provider Source Dec 12, 2024 01:15 PM OFFICE O/P EST MOD 30 MIN PRIMARY CARE/MEDICINE ICD-10-CM G47.33 Obstructive sleep apnea (adult) (pediatric) ISMA ROSARIO Carmen Encounter Template Text not used by [place] Assessments - Encounter Diagnoses This section includes the primary and secondary diagnoses documented for the Encounter. Date/Time Primary/Secondary Diagnosis Diagnosis Name Provider Source Feb 04, 2025 06:54 PM PRIMARY Obstructive sleep apnea (adult) (pediatric) [facility] Feb 04, 2025 06:54 PM SECONDARY Encounter for immunization [facility] Feb 04, 2025 06:54 PM SECONDARY Obesity, unspecified [facility] Plan of Treatment: Future Appointments (+ 6 months) and Future Tests (+/- 45 days) The Plan of Treatment section includes future care activities for the patient from all [facility] treatment[facility]ilities. This section includes future appointments and future orders which are active, pending or scheduled. Future Appointments This section includes appointments that were scheduled to occur 6 months from the date of the Encounter, up to a maximum of 20 appointments. The data comes from all [facility]. Appointment Date/Time Appointment Type Appointme nt Facility Name Dec 24, 2024 10:40 AM AMBULATORY - SURGERY [facility] Dec 29, 2024 02:30 PM AMBULATORY - REHAB MEDICIN E [facility] Dec 31, 2024 09:30 AM AMBULATORY - PSYCHIATRY [facility] Dec 31, 2024 09:30 AM [facility]AT[facility] Jan 09, 2025 02:30 PM AMBULATORY - REHAB MEDICIN E [facility] Jan 21, 2025 10:00 AM AMBULATORY - SURGERY [facility] Jan 26, 2025 03:00 PM AMBULATORY - REHAB MEDICIN E [facility] Jan 28, 2025 09:30 AM AMBULATORY - PSYCHIATRY [facility] Jan 28, 2025 09:30 AM AMBULATORY [facility]RY [facility] February 20, 2025 12:00 PM AM[facility] NONE [facility] February 25, 2025 11:30 AM AMBULATORY - REHAB MEDICIN E [facility] March 01, 2025 09:10 AM AMBULATORY - MEDICINE [facility] March 11, 2025 02:40 PM AMBULATORY - MEDICINE [facility] Apr 01, 2025 11:30 AM AMBULATORY - REHAB MEDICIN E [facility] Apr 01, 2025 02:40 PM AMBULATORY - MEDICINE [facility] Apr 07, 2025 07:22 PM AMBULATORY - MEDICINE [facility] Apr 29, 2025 09:30 AM AMBULATORY - PSYCHIATRY [facility] Apr 29, 2025 09:30 AM AMBULATORY - [facility]IATRY [facility] Apr 29, 2025 02:00 PM AMBULATORY - SURGERY [facility] Apr 29, 2025 02:15 PM AMBULATORY - MEDICINE [facility] Lab Results: +/- 30 days of the encounter This section includes the Chemistry and Hematology Lab Results on record with [place] for the patient. Radiology Reports and Pathology Reports are provided separately, in subsequent sections. Lab Results This section contains the Chemistry/Hematology Results that were resulted 30 days before or 30 daysafter the date of the Encounter. Date/Time Source Result Type Result - Unit Interpretation Reference Range Specimen Type Comment Dec 12, 2024 02:29 PM [facility] LIPID PANEL (STL) PLASMA Specimen Type: PLASMA Comment: No hemolysis noted. Ordering Provider: CHICHO HUNT Report Released Date/Time: Dec 12, 2024 02:20 PM Reporting Lab: [address] [id number] Performing Lab: [address] [id number] CHOLESTEROL 182 mg/dL 0-200 TRIGLYCERIDE 237 mg/dL H 0-150 CALCULATED LDL 106 mg/dL HDL(New) 29 mg/dL L >40 Dec 12, 2024 02:29 PM [facility] COMPREHENSIVE METABOLIC PANEL PLASMA Specimen Type: PLASMA Comment: No hemolysis noted. Ordering Provider: CHICHO HUNT Report Released Date/Time: Dec 12, 2024 02:20 PM Reporting Lab: [address] [id number] Performing Lab: [address] [address] CREATININE 1.06 mg/dL 0.7-1.3 UREA NITROGEN 13.6 [...] 94.4 >60 Dec 12, 2024 02:29 PM [facility] CBC BLOOD Specimen Type: BLOOD No comment entered. Ordering Provider: CHICHO HUNT Report Released Date/Time: Dec 12, 2024 02:20 PM Reporting Lab: [facility] [address] [place] [address] Performing Lab: [facility] [address] [place] [address] WBC 6.2 10*3/uL 3.6-11.2 RBC 4.84 10*6/uL [...] Pain Height Weight Body Mass Index Source Dec 12, 2024 01:11 PM 128/90 [facility] Dec 12, 2024 01:11 PM 98.4 82 145/95 20 96 3 74 343.4 44 [facility] Immunizations: All administered on the encounter date This section contains immunizations associated to the Encounter. 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 Current Smoking Status This section includes the most current smoking, or tobacco-related health factor, from the [facility] where the Encounter took place. Date/Time Current Smoking Status Comment Facil ity May 02, 2024 11:00 AM [place]-TOBACCO NEVER USED [facility] Tobacco Use History This section includes a history of the smoking, or tobacco-related health factors, that were collected on or before the date of the Encounter. The data comes from the [facility] where the Encounter took place. Date/Time Smoking Status/Tobacco Use Comment F acility Jan 14, 2019 05:30 PM [place]-TOBACCO NEVER USED [facility] Jun 07, 2018 01:03 PM TOBACCO REFUSED SCREEN V15 [facility] Aug 10, 2017 09:25 AM LIFETIME NON-USER OF TOBACCO [facility] Jul 13, 2017 11:32 AM LIFETIME NON-USER OF TOBACCO [facility] May 08, 2017 01:14 PM LIFETIME NON-USER OF TOBACCO [facility] Encounter Notes: All associated encounter notes This section contains the clinical notes associated to the Encounter. Date/Time Encounter Note(s) Provider Source Dec 26, 2024 04:41 PM PHYSICIAN LETTERS: LOCAL TITLE: TEST RESULT GENERAL LETTER STL STANDARD TITLE: PHYSICIAN LETTERS DATE OF NOTE: DEC 26, 2024@16:41 ENTRY DATE: DEC 26, 2024@16:41:43 AUTHOR: CHICHO HUNT EXP COSIGNER: ISMA ROSARIO URGENCY: STATUS: COMPLETED [facility] [address] [place] [address] Dec 26, 2024 ALEYDA SORTO [address] [place], [place] [address] Dear Tanmay, I would like to update you on your recent test results. BASIC METABOLIC PANEL: This is important information about the current status of your kidneys, liver, and electrolyte and acid/base balance as well as of your blood Lab Name Result Units RefLow RefHigh Date SODIUM 139 mEq/L 136 145 12/12/24 POTASSIUM 5.0 mEq/L 3.5 5 12/12/24 CHLORIDE 104 mEq/L 98 107 12/12/24 CARBON DIOXIDE 26 mEq/L 22 31 12/12/24 UREA NITROGEN 13.6 mg/dL 9.0 25.0 12/12/24 CREATININE 1.06 mg/dL 0.7 1.3 12/12/24 GLUCOSE 97 mg/dL 72 99 12/12/24 CALCIUM 10.0 mg/dL 8.4 10.4 12/12/24 EGFR (CKD-EPI 2020) 94.4 60 12/12/24 COMPELTE BLOOD COUNT: A complete blood count (CBC) gives important information about the kinds and numbers of cells in the blood, especially red blood cells, white blood cells, and platelets. Lab Name Result Units RefLow RefHigh Date WBC 6.2 10*3/uL 3.6 11.2 12/12/24 HGB 15.0 g/dL 13.1 16.8 12/12/24 HCT 44.7 % 38.2 48.4 12/12/24 PLT 171 10*3/uL 150 400 12/12/24 MPV 10.6 fL 7.5 11.2 12/12/24 MCV 92.4 fL 80.0 100.0 12/12/24 MCH 31.0 pg 27.0 34.0 12/12/24 MCHC 33.6 g/dL 33.0 36.0 12/12/24 RDW 12.7 % 11.8 15.1 12/12/24 RBC 4.84 10*6/uL 4.10 5.70 12/12/24 NEUTROPHILS, AUTO % 61 % 12/12/24 LYMPHOCYTES, AUTO % 30 % 12/12/24 MONOCYTES, AUTO % 7 % 12/12/24 BASOPHILS, AUTO % 1 % 12/12/24 EOSINOPHILS, AUTO % 1 % 12/12/24 NEUTROPHILS, ABSOLUTE 3.78 10*3/uL 2.10 8.00 12/12/24 LYMPHOCYTES, ABSOLUTE 1.88 10*3/uL 0.77 4.50 12/12/24 MONOCYTES, ABSOLUTE 0.41 10*3/uL 0.19 0.80 12/12/24 BASOPHILS, ABSOLUTE 0.03 10*3/uL 0.00 0.20 12/12/24 EOSINOPHILS, ABSOLUTE 0.08 10*3/uL 0.00 0.60 12/12/24 HEPATIC FUNCTION PANEL: These are tests for liver function Lab Name Result Units RefLow RefHigh Date PROTEIN 8.1 g/dL 6 8.6 12/12/24 ALBUMIN 4.6 g/dL 3.4 5 12/12/24 TOTAL BILIRUBIN 0.4 mg/dL 0.2 1.2 12/12/24 AST/SGOT 26 U/L 5 34 12/12/24 ALT/SGPT 20 U/L 8 40 12/12/24 ALKALINE PHOSPHATASE 105 U/L 40 150 12/12/24 LIPID PANEL: High cholesterol and triglycerides (lipids) are risk factors for heart disease. Lab Name Result Units RefLow RefHigh Date CHOLESTEROL 182 mg/dL 0 200 12/12/24 TRIGLYCERIDE 237 mg/dL H 0 150 12/12/24 HDL(New) 29 mg/dL L 40 12/12/24 CALCULATED LDL 106 mg/dL 12/12/24 Please let us know if you have any additional questions or concerns. Sincerely, CHICHO HUNT Resident Physician ALEYDA SORTO NICHOLAS S [facility] Dec 12, 2024 05:37 PM PRIMARY CARE NOTE: LOCAL TITLE: PRIMARY CARE PROVIDER ESTABLISHED VISIT [facility] STANDARD TITLE: PRIMARY CARE NOTE DATE OF NOTE: DEC 12, 2024@17:37 ENTRY DATE: DEC 12, 2024@17:38 AUTHOR: CHICHO HUNT EXP COSIGNER: ISMA ROSARIO URGENCY: STATUS: COMPLETED PRIMARY CARE PROVIDER ESTABLISHED VISIT [facility]: - [facility] [place] [facility] DATE: DEC 12, 2024 SUBJECTIVE: 34M with PMHx bipolar disorder, ANGE on CPAP, Right rotator cuff tear s/p repair presenting for primary care followup visit. States he underwent right rotator cuff repair on 08/29/24 with significant improvement in his posterior shoulder pain symptoms. However he suffered a fall at home on Oct 29 after slipping on a dog bed and caught himself with his right hand. Since then he has had pain in his anterior shoulder that has been bothering him, but he is still able to do his daily activities without issue. He also endorses some weight gain since surgery which he attributes to a poor diet consisting of fast food. Continues to take all medications appropriately as prescribed. Denies any other questions or concerns. ROS: 10-point ROS notable for the above PMH: 1) Mood disorder 2) Allergic rhinitis 3) Pain of left shoulder joint 4) Low back pain 5) Severe bipolar II disorder 6) Posttraumatic stress disorder 7) Gastroesophageal reflux disease 8) Constipation 9) Obesity 10) Knee pain 11) HLD - Hyperlipidemia 12) Decreased vitamin D 13) Prediabetes 14) Pain of right shoulder joint PSH: Rotator cuff repait 08/29/24 FH: Psoriatic arthritis in mom SH: - Tobacco: Denies. EtOH: Previously heavy alcohol use, but quit 5 years ago. Illicit: Denies . MEDS: Active Outpatient Medications (including Supplies): Active [...] A DAY ACTIVE Indication: FOR PAIN 12) MUPIROCIN 2% OINT APPLY LIGHTLY TO AFFECTED AREA(S) TWICE A ACTIVE DAY EXTERNAL USE ONLY. Indication: FOR BACTERIAL INFECTION 13) PANTOPRAZOLE NA 20MG EC TAB TAKE ONE TABLET BY MOUTH ONCE A ACTIVE (S) DAY TAKE 30 MINUTES BEFORE MEAL(S) Indication: FOR GASTROESOPHAGEAL REFLUX DISEASE 14) POLYETHYLENE GLYCOL 3350 ORAL PWDR MIX AND DRINK 1 CAPFUL BY ACTIVE (S) MOUTH ONCE A DAY (MEASURE WITH CAP AND MIX IN 8 OZ OF WATER) Indication: FOR CONSTIPATION 15) PRAZOSIN HCL 2MG CAP TAKE ONE CAPSULE BY MOUTH AT BEDTIME ACTIVE MAY CAUSE DIZZINESS OR DROWSINESS. Indication: FOR NIGHTMARES 16) SULFAMETHOXAZOLE 800/TRIMETH 160MG TAB TAKE 1 TABLET BY ACTIVE MOUTH EVERY 12 HOURS TAKE WITH WATER/AVOID SUNLIGHT. Indication: FOR SKIN OR SOFT TISSUE INFECTION Allergies: Patient has answered NKA OBJECTIVE: Vitals: Temperature: 98.4 F [36.9 C] (12/12/2024 13:11) BP: 128/90 (12/12/2024 13:11) Pulse: 82 (12/12/2024 13:11) Resp: 20 (12/12/2024 13:11) Pain: 3 (12/12/2024 13:11) Height: 74 in [188.0 cm] (12/12/2024 13:11) Weight:343.4 lb [155.76 kg] (12/12/2024 13:11) Physical Exam: General: No acute distress, alert and oriented, obese HEENT: Normocephalic, atraumatic Cardiac: Regular rate and rhythm, no murmurs, rubs or gallops Vascular: 2+ DP bilaterally Pulmonary: Clear to auscultation bilaterally, no wheezes, rales, or rhonchi Abdominal: Soft, non-tender, non-distended, BS (+) Extremity: No cyanosis or edema, full ROM and strenghth in RUE Neuro: No focal neurologic deficits Skin: No rashes or lesions observed Psych: Appropriate mood and affect Labs: WBC 6.2 10*3/uL 12/12/2024 14:29 RBC 4.84 [...] 14:29 EGFR (CKD-EPI 2020) 94.4 12/12/2024 14:29 HGA1C 5.3 % 07/30/2024 11:04 HGA1C 5.6 % 04/16/2024 20:00 HGA1C 5.7 % 12/12/2023 14:01 HGA1C 5.2 % 04/11/2023 09:44 HGA1C 5.7 % 05/10/2022 08:17 TRIGLYCERIDE 237 H mg/dL 12/12/2024 14:29 CHOLESTEROL 182 mg/dL 12/12/2024 14:29 HDL(New) 29 L mg/dL 12/12/2024 14:29 CALCULATED LDL 106 mg/dL 12/12/2024 14:29 HDL % OF TOTAL CHOLESTEROL (PB) 14.9 % 04/11/2023 09:44 VITAMIN D, 25-HYDROXY 20.6 L ng/mL 12/12/2023 14:01 B12 413 pg/mL 12/12/2023 14:01 No FOLATE (STL-MA);FOLATE (PB);FOLATE (DC 07-29);FOLATE (DC 07/29) data found No data available for: RAPID PLASMA REAGIN (RPR) No HIV SCREENING EO data found PROST. SPECIFIC AG.(PB-STL) 0.381 ng/mL 12/12/2023 14:01 Imaging: Date Procedure CPT Status Case # 07/30/2024 CHEST X-RAY, 2 VIEWS [id number] Verified 2536 No pneumothorax. No large pleural effusion. No focal consolidation. Normal heart size. Normal mediastinal contours. Redemonstrated partial resection of the right clavicle. No data available for: US ABD AORTA (AAA) US ABD AORTA SCREENING(AAA) US AAA SCREENING US ABDOMEN AORTA (AAA), LIMITED LOW DOSE CHEST CT No data available for: ZZLDCT LUNG CANCER SCREENING ASSESSMENT & PLAN: 34M with PMHx bipolar disorder, ANGE on CPAP, Right rotator cuff tear s/p repair presenting for primary care followup visit. #Right rotator cuff tendinopathy -Underwent surgical repair on 08/29/25, posterior shoulder symptoms have resolved -now presenting with anterior shoudler pain after mechanical fall -Full ROM and limited pain on exam -Advised patient to apply voltaren to anterior shoulder PRN -F/u with ortho scheduled #Obesity -Patient endorses poor diet and low activity levels since recent surgery -Offered counseling on weight loss and excercise, offered number to MOVE program -Can trial medications after initial interventions #ANGE -Uses nasal CPAP at home, but feels his nose is getting blocked despite flonase and oceanspray -Large sized full face mask ordered #Bipolar disorder -Follows with psychiatry -Continue Duloxetine and Lamotrigine #Health maintenance - CRC: Does not qualify - LDCT: Does not qualify - AAA: Does not qualify - PSA:Does not qualify Discussed with Dr. Asad Hunt, DPrema /arlet/ CHICHO HUNT Resident Physician Signed: 12/12/2024 17:58 /arlet/ ISMA ROSARIO MD Staff Physician Cosigned: 12/31/2024 18:00 12/31/2024 ADDENDUM STATUS: COMPLETED The patient was discussed with the resident and I have independently reviewed the chart and relevant labs and imaging. I agree with the assessment and plan as documented in the resident's note. /aftab ROSARIO MD Staff Physician Signed: 12/31/2024 18:00 CHICHO HUNT [facility] Dec 12, 2024 01:12 PM NURSING NOTE: LOCAL TITLE: V15 PACT FACE TO FACE NOTE STL STANDARD TITLE: NURSING NOTE DATE OF NOTE: DEC 12, 2024@13:12 ENTRY DATE: DEC 12, 2024@13:12:13 AUTHOR: MINO MOJICA EXP COSIGNER: URGENCY: STATUS: COMPLETED Provider Visit: Patient Identifiers : Full Name Date of Reason for visit:Pt a/o x3. C/o ongoing pain to rt shoulder. No s/s of distress noted. Established Follow-Up Mode of Arrival: Ambulatory Allergy Review: Patient has answered NKA Allergy list reviewed and remains current. Recent Vital Signs: Temperature: 98.4 F [36.9 C] (12/12/2024 13:11) Pulse: 82 (12/12/2024 13:11) Respiration: 20 (12/12/2024 13:11) B/P: 128/90 (12/12/2024 13:11) Pain: 3 (12/12/2024 13:11) Wt: 343.4 lb [155.76 kg] (12/12/2024 13:11) Ht: 74 in [188.0 cm] (12/12/2024 13:11) BMI: 44.2 POX: 96% (12/12/2024 13:11) PERSONAL HEALTH INVENTORY Notes: No data available for PHI note titles PERSONAL HEALTH INVENTORY - MAP: No data available for PHI MAP What matters most to you in your life right now? [place] Response: my dog Would you like to discuss any personal problem, family problem, alcohol use, drug use, or a mental or emotional illness? No Contact provided Primary Care phone number and encouraged to call if any questions or concerns. Review that after hours nurse line [phone] and emergency room are available 14/05 for patient use. Contact verbalized good understanding. Information forwarded to [place] for notification only. Homelessness/Food Insecurity Screen - DI,L,N,P,PH,PS,S,U: In the past 2 months, have you been living in stable housing that you own, rent, or stay in as part of a household? Yes - Living in stable housing. Are you worried or concerned that in the next 2 months you may NOT have stable housing that you own, rent, or stay in as part of a household? No - Not worried about housing near future The [place] reports the following: Within the past 12 months, you worried whether your food would run out before you got money to buy more. Never true Within the past 12 months, the food you bought just didn't last and you didn't have money to get more. Never true Pneumococcal Conjugate Vaccine (PCV15/PCV20/PCV21): See orders. 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 The patient/caregiver denied any prior severe reaction to this vaccine or its components or a severe allergic reaction such as anaphylaxis to any vaccine or any injectable therapy. The patient/caregiver gave verbal consent to receive the vaccine. /es/ MINO MOJICA LICENSED PRACTICAL NURSE Signed: 12/12/2024 13:19 MINO MOJICA [facility]
--- OUTSIDE RECORDS SUMMARY | 2025-05-23 12:48 | XMS_ITS | Encounter Summary ---
Author Name [facility] [place] Organization [facility] [place] [place] Address [address] [place] [address] Care Team Providers Care Promotions Director Name Role Phone ISMA ROSARIO Primary Care Provider REBECCA Kinney Unavailable Unavailable Selected Encounter This section includes the information on record at [place] for the Encounter. Date/Time Encounter Type Encounter Description Reason Provider Source Jun 09, 2024 10:30 AM OFFICE O/P EST MOD 30 MIN PRIMARY CARE/MEDICINE ICD-10-CM M25.511 Pain in right shoulder COLLEEN ROWE Carmen Encounter Template Text not used by [place] Assessments - Encounter Diagnoses This section includes the primary and secondary diagnoses documented for the Encounter. Date/Time Primary/Secondary Diagnosis Diagnosis Name Provider Source Jun 09, 2024 10:50 AM PRIMARY Pain in right shoulder COLLEEN ROWE [facility] Jun 09, 2024 10:50 AM SECONDARY Bipolar II disorder COLLEEN ROWE [facility] Plan of Treatment: Future Appointments (+ 6 months) and Future Tests (+/- 45 days) The Plan of Treatment section includes future care activities for the patient from all [place] treatmentfacilities. This section includes future appointments and future orders which are active, pending or scheduled. Future Appointments This section includes appointments that were scheduled to occur 6 months from the date of the Encounter, up to a maximum of 20 appointments. The data comes from all [facility]. Appointment Date/Time Appointment Type Appointme nt Facility Name Jun 25, 2024 12:40 PM AMBULATORY - SURGERY [facility] Jun 30, 2024 02:00 PM AMBULATORY - PSYCHIATRY [facility] Jun 30, 2024 02:00 PM AMBULATORY - PSYCHIATRY [facility] Jul 30, 2024 10:20 AM AMBULATORY - SURGERY [facility] Jul 30, 2024 11:30 AM AMBULATORY - NONE [facility] Sep 10, 2024 11:00 AM AMBULATORY - SURGERY [facility] Sep 10, 2024 01:00 PM AMBULATORY - REHAB MEDICIN E [facility] Sep 26, 2024 02:00 PM AMBULATORY - REHAB MEDICIN E [facility] Sep 29, 2024 02:00 PM AMBULATORY - PSYCHIATRY [facility] Sep 29, 2024 02:00 PM AMBULATORY - PSYCHIATRY [facility] Oct 01, 2024 09:30 AM AMBULATORY - PSYCHIATRY [facility] Oct 01, 2024 09:30 AM AMBULATORY - PSYCHIATRY [facility] Oct 10, 2024 10:30 AM AMBULATORY - REHAB MEDICIN E [facility] Oct 10, 2024 11:13 AM AMBULATORY - MEDICINE [facility] Oct 23, 2024 11:30 AM AMBULATORY - SURGERY [facility] Nov 05, 2024 11:20 AM AMBULATORY - SURGERY [facility] Nov 14, 2024 11:30 AM AMBULATORY - REHAB MEDICIN E [facility] Nov 19, 2024 09:49 AM AMBULATORY - MEDICINE [facility] Nov 28, 2024 02:00 PM AMBULATORY - REHAB MEDICIN E [facility] Vital Signs: All taken on the encounter date This section contains inpatient and outpatient Vital Signs collected on the date of the Encounter. Date/Time Temperature Pulse Blood Pressure Respiratory Rate SP02 Pain Height Weight Body Mass Index Source Jun 09, 2024 10:19 AM 98.2 110 132/81 16 95 5 74 313.1 40 [facility] Social History: Smoking Status (Most current) and Tobacco Use (All prior to encounter date) This section includes the most current, and the historical, smoking and tobacco- related health factors from the [place] facility where the Encounter took place. Current Smoking Status This section includes the most current smoking, or tobacco-related health factor, from the [place] facility where the Encounter took place. Date/Time Current Smoking Status Comment David [email or web address] May 02, 2024 11:00 AM VA-TOBACCO NEVER USED [facility] Tobacco Use History This section includes a history of the smoking, or tobacco-related health factors, that were collected on or before the date of the Encounter. The data comes from the [place] facility where the Encounter took place. Date/Time Smoking Status/Tobacco Use Comment F [email or web address] Jan 14, 2019 05:30 PM VA-TOBACCO NEVER USED [facility] Jun 07, 2018 01:03 PM TOBACCO REFUSED SCREEN V15 [facility] Aug 10, 2017 09:25 AM LIFETIME NON-USER OF TOBACCO [facility] Jul 13, 2017 11:32 AM LIFETIME NON-USER OF TOBACCO [facility] May 08, 2017 01:14 PM LIFETIME NON-USER OF TOBACCO [facility] Encounter Notes: All associated encounter notes This section contains the clinical notes associated to the Encounter. Date/Time Encounter Note(s) Provider Source Jun 09, 2024 10:28 AM PRIMARY CARE NOTE: LOCAL TITLE: PRIMARY CARE PROVIDER ESTABLISHED VISIT [facility] STANDARD TITLE: PRIMARY CARE NOTE DATE OF NOTE: JUN 09, 2024@10:28 ENTRY DATE: JUN 09, 2024@10:28:37 AUTHOR: COLLEEN ROWE COSIGNER: URGENCY: STATUS: COMPLETED CC: routine HPI: very nice 33yo man, inadvertantly put on my schedule for routine follow up. he has chronic shoulder and back pain, tentatively set to see ortho on jun 25 for rt shoulder/rotator cuff issue. has been through extensive PT. he is out of his antiinflammatory and using otc tylenol and ibuprofen wo much relief. ROS: GENERAL--NO FEVER, CHILLS, APPETITE CHANGE REPORTED ENT--NO EPISTAXIS, EAR ACHE, PHARYNGEAL, TINNITUS, MOUTH SORES REPORTED OCULAR-NO ACUTE VISION CHANGES, REDNESS, DISCHARGE, EYE PAIN REPORTED CARDIOVASCULAR--NO CP, PALPITATIONS, EDEMA, CLAUDICATION, ORTHOPNEA, PND REPORTED PULMONARY--NO COUGH, WHEEZES, DYSPNEA, HEMOPTYSIS REPORTED GI--NO NAUSEA, VOMITING, DIARRHEA, CONSTIPATION, MELENA, BLOOD IN STOOLS, GERD OR DYSPHAGIA REPORTED --NO ED, TESTICULAR PAIN OR MASSES, PENILE DISCHARGE, DYSURIA, FREQUENCY, NOCTURIA, HEMATURIA, FREQUENT UTI REPORTED NEUROLOGY--NO HEADACHE, DIZZINESS, ALTERED MENTAL STATE REPORTED PSYCHIATRIC--NO PTSD, DEPRESSION, ANXIETY, INSOMNIA SYMPTOMS REPORTED DERM--NO RASHES, MOLES CHANGE REPORTED. PMH: 1) Mood disorder 2) Allergic rhinitis 3) Pain of left shoulder joint 4) Low back pain 5) Severe bipolar II disorder 6) Posttraumatic stress disorder 7) Gastroesophageal reflux disease 8) Constipation 9) Obesity 10) Knee pain 11) HLD - Hyperlipidemia 12) Decreased vitamin D 13) Prediabetes 14) Pain of right shoulder joint comment: MRI indicates Partial-thickness bursal surface supraspinatus tend Active Outpatient Medications (including Supplies): Active Outpatient Medications Status ========= 1) [...] TABLET BY MOUTH TWICE ACTIVE A DAY FOR BIPOLAR DISORDER AND IRRITABILITY [...] 12 HOURS FOR DRY EYE(S) 9) MELOXICAM 7.5MG TAB TAKE ONE TABLET BY MOUTH ONCE A ACTIVE DAY FOR PAIN 10) PRAZOSIN HCL 2MG CAP TAKE ONE CAPSULE BY MOUTH AT ACTIVE BEDTIME FOR NIGHTMARES MAY CAUSE DIZZINESS OR DROWSINESS. Patient has answered NKA FH: mom and dad alive. SH: no tob, etoh. [facility] Physical Exam: VSD - Detailed Vitals Date Vital Measurement Qualifiers 06/09/2024 10:19 Temp F (C) 98.2 (36.8) Pulse 110 Respir 16 BP 132/81 Ht in (cm) 74 (187.96) Wt lbs (kg)[BMI] 313.1 (142.02)[40*] Pain 5 POx (L/Min)(%) 95 PE: NC/AT ALERT, NAD EYE--PUPILS EQUAL, ROUND, EOMI, ANICTERIC ENT - OROPHARYNX, NASOPHARYNX GROSSLY CLEAR. TM AND CANALS GROSSLY NL IN APPPEARANCE. EXTERNAL EAR, NOSE, MOUTH NORMAL IN APPEARANCE NECK-NO MASSES, CERVICAL ADENOPATHY, GROSSLY NORMAL LUIS ALBERTO, TRACHEA MIDLINE CARDIAC--RRR, NO MURMUR HEARD, NL RADIAL PULSE LUNG-CTA BILATERAL, NO WHEEZES OR RHONCHI HEARD, GOOD RESPIRATORY EFFORT. ABDOMEN-SOFT, NT, NO ORGANOMEGALY. EXT--NO EDEMA NOTED, WD/WN CAROTID NO BRUIT HEARD DERM--SKIN NO RASHES NOTED OR SUSPICIOUS MOLES SEEN Labs: WBC 7.9 10*3/uL 04/17/2024 14:00 RBC 4.24 [...] GRANS, AUTO ABS 0.01 10*3/uL 04/11/2023 09:44 BMP PC STL No data available for: CREATININE UREA NITROGEN GLUCOSE SODIUM POTASSIUM CHLORIDE CARBON DIOXIDE CALCIUM EGFR (DISCONTINUED 01/19/22) TRIGLYCERIDE 61 mg/dL 04/16/2024 01:50 CHOLESTEROL 132 mg/dL 04/16/2024 01:50 HDL(New) 31 L mg/dL 04/16/2024 01:50 CALCULATED LDL 89 mg/dL 04/16/2024 01:50 HDL % OF TOTAL CHOLESTEROL (PB) 14.9 % 04/11/2023 09:44 SLT - Lab Tests Selected Collection DT Specimen Test Name Result Units Ref Range 04/16/2024 20:00 BLOOD HGA1C 5.6 % 4.0 - 6.0 12/12/2023 14:01 BLOOD HGA1C 5.7 % 4.0 - 6.0 04/11/2023 09:44 BLOOD HGA1C 5.2 % 4.0 - 6.0 No data available PROST. SPECIFIC AG.(PB-STL) 0.381 ng/mL 12/12/2023 14:01 Imaging: Date Procedure CPT Status Case # 04/18/2024 US ABDOMEN, LIMITED [id number] Verified [id number] 1. Normal liver sonogram without evidence of solid hepatic mass. 2. No evidence of cholelithiasis or cholecystitis. 3. Incidentally noted right pleural effusion. Report dictated by Kamari Pate (executive assistant to president) Ashleigh Velazquez, have reviewed the images and report and concur with these findings. 04/18/2024 US BLOOD FLOW ABD/RENAL DOPPLER [id number] Verified 3986 (COMPLETE) 1. Normal liver sonogram without evidence of solid hepatic mass. 2. No evidence of cholelithiasis or cholecystitis. 3. Incidentally noted right pleural effusion. Report dictated by Kamari Pate (executive assistant to president) Ashleigh Velazquez, have reviewed the images and report and concur with these findings. 04/16/2024 US EXTREMITY VEINS BILAT (DVT) [id number] Verified 2344 No deep vein thrombosis in the right or left lower extremity. 04/15/2024 CT HEAD W/O CONT [id number] Verified 192 No acute intracranial process by noncontrast CT. READING PHYSICIAN: Gilmer Stevens M.D. -[id number] 04/15/2024 21:58 PDT [facility] [phone] (For Medical Practitioner Use Only) Attention Patients / Veterans: If you have questions or concerns about these test results, please contact your ordering provider or primary care team. 04/15/2024 CT THORAX W/CONT (PE) [id number] Verified 192 Mild right pleural effusion and right greater than left lung base atelectasis-correlate for pleurisy. No definite pulmonary emboli. Additional findings, as above. READING PHYSICIAN: Gilmer Stevens M.D. -[phone] 04/15/2024 22:30 PDT [facility] [phone] (For Medical Practitioner Use Only) Attention Patients / Veterans: If you have questions or concerns about these test results, please contact your ordering provider or primary care team. 04/15/2024 CT 3D RENDERING W INDEPENDENT [id number] Verified 1928 WORKSTATION POSTPROCESSING 04/15/2024 CHEST PORTABLE [id number] Verified 1921 Diminished lung volumes with bibasilar streaky opacities favored to represent subsegmental atelectatic changes versus pneumonia the proper clinical setting. READING PHYSICIAN: Gorge Rosas M.D. -[phone] 04/15/2024 20:07 PDT [facility] [phone] (For Medical Practitioner Use Only) Attention Patients / Veterans: If you have questions or concerns about these test results, please contact your ordering provider or primary care team. 04/15/2024 SHOULDER,RIGHT,2 OR MORE VIEWS [id number] Verified 1728 No significant changes from prior exam. Redemonstrated previously identified right acromioclavicular joint separation with redemonstrated multiple foci of calcifications, nonspecific findings, may represent prior resection/surgery or trauma. Clinical correlation is suggested. No acute displaced fracture. No glenohumeral joint dislocation. No significant degenerative changes of the glenohumeral joint. 03/31/2024 MRI SHOULDER RIGHT [id number] Verified 223 Partial-thickness bursal surface supraspinatus tendon tear, slightly greater than 50% with some delamination No data available for: LDCT LCS 1, 3 OR 6 MONTH [facility]LLOW [facility] LUNG CANCER SCREENING LDCT LUNG CANCER SCREENING Assessment and Plan: shoulder and back pain --will resume meloxicam and increase to 15mg daily cont tylenol, lido patches, myorelaxant. set up chiropractor w community care. ortho follow up PLAN OF CARE HAS BEEN DISCUSSED WITH THE including expected therapeutic benefits and potential side effects of prescribed medication and treatments. Afton verbalizes understanding and is in agreement with the plan of care. Patient was instructed to keep all scheduled appointments and contact judge for any additional problems. 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 Handwritten corrections, additions and/or deletions were made to the list, as appropriate. Corrected Outpatient Medication List was provided to the patient/caregiver. /es/ COLLEEN ROWE MD, MD Signed: 06/09/2024 10:50 COLLEEN ROWE [facility] Jun 09, 2024 10:21 AM NURSING NOTE: LOCAL TITLE: V15 PACT FACE TO FACE NOTE STL STANDARD TITLE: NURSING NOTE DATE OF NOTE: JUN 09, 2024@10:21 ENTRY DATE: JUN 09, 2024@10:21:43 AUTHOR: MINO GUTHRIE EXP COSIGNER: URGENCY: STATUS: COMPLETED Provider Visit: Patient Identifiers : Full Name Date of Reason for visit:Pt a/o x3. C/o ongoing pain to back and eulalia shoulders. No s/s of distress noted. Established Follow-Up Mode of Arrival: Ambulatory Allergy Review: Patient has answered NKA Allergy list reviewed and remains current. Recent Vital Signs: Temperature: 98.2 F [36.8 C] (06/09/2024 10:19) Pulse: 110 (06/09/2024 10:19) Respiration: 16 (06/09/2024 10:19) B/P: 132/81 (06/09/2024 10:19) Pain: 5 (06/09/2024 10:19) Wt: 313.1 lb [142.02 kg] (06/09/2024 10:19) Ht: 74 in [188.0 cm] (06/09/2024 10:19) BMI: 40.3 POX: 95% (06/09/2024 10:19) Would you like to discuss any personal problem, family problem, alcohol use, drug use, or a mental or emotional illness? No Contact provided Primary Care phone number and encouraged to call if any questions or concerns. Review that after hours nurse line [phone] and emergency room are available 14/05 for patient use. Contact verbalized good understanding. Information forwarded to [email or web address] for notification only. /arlet/ MINO GUTHRIE LICENSED PRACTICAL NURSE Signed: 06/09/2024 10:24 MINO GUTHRIE [facility]
--- OUTSIDE RECORDS SUMMARY | 2025-05-23 12:49 | XMS_ITS | Encounter Summary ---
Author Name [facility] [place] [facility] [place] [facility] [place] Address [address] [place] [address] Care Team Providers Care Technical Writer Name Role Phone ISMA ROSARIO Primary Care Provider REBECCA Kinney Unavailable Unavailable Selected Encounter This section includes the information on record at [place] for the Encounter. Date/Time Encounter Type Encounter Description Reason Pro vider Source IHE Encounter Template Text not used by [facility]
--- OUTSIDE RECORDS SUMMARY | 2025-05-23 12:49 | XMS_ITS | Encounter Summary ---
Author Name [facility] Organization [facility] Address [address] [place] [address] Care Team Providers Care Cardiology Fellow Name Role Phone ISMA ROSARIO Primary Care Provider REBECCA Kinney Unavailable Unavailable Selected Encounter This section includes the information on record at [place] for the Encounter. Date/Time Encounter Type Encounter Description Reason Provider Source Jul 30, 2024 10:20 AM OFFICE O/P EST LOW 20 MIN ORTHO/JOINT SURG ICD-10-CM M25.511 Pain in right shoulder KAELYN WESTON Carmen Encounter Template Text not used by [place] Assessments - Encounter Diagnoses This section includes the primary and secondary diagnoses documented for the Encounter. Date/Time Primary/Secondary Diagnosis Diagnosis Name Provider Source Jul 30, 2024 04:49 PM PRIMARY Pain in right shoulder KAELYN WESTON [facility] Plan of Treatment: Future Appointments (+ 6 months) and Future Tests (+/- 45 days) The Plan of Treatment section includes future care activities for the patient from all [place] treatmentfacilities. This section includes future appointments and future orders which are active, pending or scheduled. Future Appointments This section includes appointments that were scheduled to occur 6 months from the date of the Encounter, up to a maximum of 20 appointments. The data comes from all [place] treatment facilities. Appointment Date/Time Appointment Type Appointme nt Facility Name Sep 10, 2024 11:00 AM AMBULATORY - SURGERY [facility] Sep 10, 2024 01:00 PM [facility] Sep 26, 2024 02:00 PM AMBULATORY - REHAB MEDICIN E [facility] Sep 29, 2024 02:00 PM [facility] Sep 29, 2024 02:00 PM AMBULATORY - PSYCHIATRY [facility] Oct 01, 2024 09:30 AM AMBULATORY - PSYCHIATRY [facility] Oct 01, 2024 09:30 AM AMB[facility] Oct 10, 2024 10:30 AM AMBULATORY - REHAB MEDICIN E [facility] Oct 10, 2024 11:13 AM AMBULATORY - MEDICINE [facility] Oct 23, 2024 11:30 AM AMBULATORY - SURGERY [facility] Nov 05, 2024 11:20 AM AMBULATORY - SURGERY [facility] Nov 14, 2024 11:30 AM AMBULATORY - REHAB MEDICIN E [facility] Nov 19, 2024 09:49 AM AMBULATORY - MEDICINE [facility] Nov 28, 2024 02:00 PM AMBULATORY - REHAB MEDICIN E [facility] Dec 12, 2024 01:15 PM AMBULATORY - MEDICINE [facility] Dec 24, 2024 10:40 AM AMBULATORY - SURGERY [facility] Dec 29, 2024 02:30 PM AMBULATORY - REHAB MEDICIN E [facility] Dec 31, 2024 09:30 AM AMBULATORY - PSYCHIATRY [facility] Dec 31, 2024 09:30 AM AMBULATORY - PS[facility]IATRY [facility] Jan 09, 2025 02:30 PM AM[facility]AT[facility] - [facility] Lab Results: +/- 30 days of the [...] Type Comment Jul 30, 2024 11:08 AM [facility] URINE DRUG SCREEN (STL) URINE Specimen Type: URINE Comment: The cut-off value for Fentanyl was laboratory developed and its performance characteristics confirmed by the [facility] laboratory thru method comparison with reference laboratory and medication chart review. The laboratory is regulated under CLIA as qualified to perform high-complexity testing. Fentanyl is used for clinical purposes in conjunction with other laboratory tests. Ordering Provider: BRIAN MOCTEZUMA Report Released Date/Time: Jul 29, 2024 09:13 AM Reporting Lab: [address] [address] Performing Lab: [address] [address] ETHANOL Negative mg/dL 0-20 AMPHET/METHAMPHETAMINE Negative ng/mL COCAINE METABOLITES Negative ng/mL BENZODIAZEPINES (STL) Negative ng/mL CANNABINOIDS Negative ng/mL METHADONE Negative ng/mL OPIATES Negative ng/mL CREATININE URINE/OTHERS 46.1 mg/dL L 63-16 6 OXYCODONE (GQXXT-BCK-OH) Negative ng/mL BUPRENORPHINE (STL-PB-MA) Negative ng/mL FENTANYL (STL-PB) Negative ng/mL Jul 30, 2024 11:04 AM [facility] HGA1C BLOOD Specimen Type: BLOOD No comment entered. Ordering Provider: BRIAN MOCTEZUMA Report Released Date/Time: Jul 29, 2024 09:13 AM Reporting Lab: [facility] [address] [facility] [address] Performing Lab: [address] [address] HGA1C 5.3 4.0-6.0 Jul 30, 2024 11:04 AM [facility] APTT PLASMA Specimen Type: PLASM A No comment entered. Ordering Provider: BRIAN MOCTEZUMA Report Released Date/Time: Jul 29, 2024 09:13 AM Reporting Lab: [address] [place] [address] Performing Lab: [address] [address] APTT 36.6 s 26.7-39.9 Jul 30, 2024 11:04 AM [facility] PT/INR NEW (STL-MA) PLASMA Specimen Type: PLAS MA No comment entered. Ordering Provider: BRIAN MOCTEZUMA Report Released Date/Time: Jul 29, 2024 09:13 AM Reporting Lab: [address] [address] Performing Lab: [address] [address] PROTIME 12.0 s 9.4-12.5 INR VALUE 1.1 {INR} Jul 30, 2024 11:04 AM [facility] CBC BLOOD Specimen Type: BLOOD No comment entered. Ordering Provider: BRIAN MOCTEZUMA Report Released Date/Time: Jul 29, 2024 09:13 AM Reporting Lab: [address] [address] Performing Lab: [address] [address] WBC 5.6 10*3/uL 3.6-11.2 RBC 4.78 10*6/uL [...] 0.60 BASOPHILS, ABSOLUTE 0.03 10*3/uL 0.00-0. 20 Jul 30, 2024 11:04 AM [facility] COMPREHENSIVE METABOLIC PANEL PLASMA Specimen Type: PLASMA Comment: No hemolysis noted. Ordering Provider: BRIAN MOCTEZUMA Report Released Date/Time: Jul 29, 2024 09:13 AM Reporting Lab: [facility] [address] [facility] [address] Performing Lab: [facility] [address] [facility] [facility] [address] CREATININE 1.19 mg/dL 0.7-1.3 UREA NITROGEN 20.6 [...] U/L 8-40 EGFR (CKD-EPI 2020) 82.7 >60 Vital Signs: All taken on the encounter date This section contains inpatient and outpatient Vital Signs collected on the date of the Encounter. Date/Time Temperature Pulse Blood Pressure Respiratory Rate SP02 Pain Height Weight Body Mass Index Source Jul 30, 2024 10:40 AM 97.6 92 121/78 16 97 6 74 316 41 [facility] Social History: Smoking Status (Most current) and Tobacco Use (All prior to encounter date) This section includes the most current, and the historical, smoking and tobacco- related health factors from the [place] facility where the Encounter took place. Current Smoking Status This section includes the most current smoking, or tobacco-related health factor, from the [place] facility where the Encounter took place. Date/Time Current Smoking Status Comment Facil ity May 02, 2024 11:00 AM VA-TOBACCO NEVER USED [facility] Tobacco Use History This section includes a history of the smoking, or tobacco-related health factors, that were collected on or before the date of the Encounter. The data comes from the [place] facility where the Encounter took place. Date/Time Smoking Status/Tobacco Use Comment F acility Jan 14, 2019 05:30 PM AR-TOBACCO NEVER USED [facility] Jun 07, 2018 01:03 PM TOBACCO REFUSED SCREEN V15 [facility] Aug 10, 2017 09:25 AM LIFETIME NON-USER OF TOBACCO [facility] Jul 13, 2017 11:32 AM LIFETIME NON-USER OF TOBACCO [facility] May 08, 2017 01:14 PM LIFETIME NON-USER OF TOBACCO [facility] Radiology Reports: +/- 30 days of [...] the Encounter. The data comes from all [place] treatment facilities. Date/Time Radiology Report Provider Source Jul 30, 2024 11:15 AM CHEST X-RAY, 2 VIE WS: ALEYDA SORTO [id number] -1990 M Exm Date: JUL 30, 2024@11:15 Req Phys: BRIAN MOCTEZUMA Pat Loc: [facility] (Req'g Loc) Img Loc: [facility] SUITE Service: [address] [address] (Case [id number] COMPLETE) CHEST X-RAY, 2 VIEWS (RAD Detailed) CPT:65057 Reason for Study: preop Clinical History: Pre Operative CXR Report Status: Verified Date Reported: JUL 30, 2024 Date Verified: JUL 30, 2024 Manager Culinary E-Sig:/ES/HODAN JANE Report: INDICATION: preop COMPARISON: 04/15/2024 TECHNIQUE: Chest 2 views Impression: No pneumothorax. No large pleural effusion. No focal consolidation. Normal heart size. Normal mediastinal contours. Redemonstrated partial resection of the right clavicle. Primary Interpreting Staff: HODAN JANE, RADIOLOGIST (Manager Culinary) /HODAN DOOLEY [facility] Encounter Notes: All associated encounter notes This section contains the clinical notes associated to the Encounter. Date/Time Encounter Note(s) Provider Source Jul 30, 2024 04:42 PM ORTHOPEDIC SURGERY NOTE: LOCAL TITLE: ORTHOPEDIC STL STANDARD TITLE: ORTHOPEDIC SURGERY NOTE DATE OF NOTE: JUL 30, 2024@16:42 ENTRY DATE: JUL 30, 2024@16:43:06 AUTHOR: KAELYN WESTON COSIGNER: URGENCY: STATUS: COMPLETED CC: R shoulder pain Interim history: Patient presents for preoperative visit today. He reports continued right shoulder pain. Still continues to bother him with any sort of lifting activities away from the body or overhead exercises. He feels this is lifestyle limiting. He has not improved with nonoperative management. He is interested in moving forward with operative intervention. HPI: 33 year old M who presents with ongoing atraumatic right shoulder pain for the past few months with a prior history of right distal clavicle excision 11/10/2015. Patient reports pain is mostly laterally based without radiation at the elbow. His pain may worse with use better with rest. He does seem to experience early fatigue when using his arm. He tries to play disc golf but feels he does not have the strength that he used to. 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 However he does not feel like he has overt weakness mainly just early fatigue. He has tried home exercise program which has not helped. Denies any paresthesias. Has tried over-the- counter pain medications without much relief. PMH: 1) Mood disorder 2) Allergic rhinitis 3) Pain of left shoulder joint 4) Low back pain 5) Severe bipolar II disorder 6) Posttraumatic stress disorder 7) Gastroesophageal reflux disease 8) Constipation 9) Obesity 10) Knee pain 11) HLD - Hyperlipidemia 12) Decreased vitamin D 13) Prediabetes 14) Pain of right shoulder joint Active Outpatient Medications (including Supplies): Active Outpatient [...] DRINK ALCOHOL WHILE TAKING THIS MEDICATION. 5) DICLOFENAC NA 1% TOP GEL APPLY 4 GM TO AFFECTED ACTIVE AREA(S) FOUR TIMES A DAY NEEDED FOR PAIN DO NOT EXCEED MORE THAN 16 GRAMS DAILY TO ANY LOWER EXTREMITY JOINT. NOT MORE THAN 8 GRAMS DAILY TO ANY UPPER EXTREMITY JOINT. MAX 32GM/DAY OVER ALL JOINTS. (MEASURE DOSE WITH RULER ATTACHED INSIDE BOX) 6) DULOXETINE HCL 60MG EC CAP TAKE ONE CAPSULE BY MOUTH ACTIVE EVERY MORNING DO NOT ABRUPTLY DISCONTINUE MEDICATION. 7) LAMOTRIGINE 100MG TAB TAKE ONE TABLET BY MOUTH TWICE ACTIVE A DAY FOR BIPOLAR DISORDER AND IRRITABILITY . IF YOU GET A RASH, STOP THE MEDICINE 8) LIDOCAINE 5% PATCH APPLY 1 PATCH TO SKIN SITE ONCE A ACTIVE DAY FOR LOCAL ANESTHESIA APPLY PATCH AND PRESS FIRMLY FOR 10-15 SECONDS. KEEP ON FOR 12 HOURS THEN REMOVE PATCH FOR 12 HOURS. 9) LIFITEGRAST 5% OPH SOLN 0.2ML INSTILL 1 DROP IN BOTH ACTIVE EYES EVERY 12 HOURS FOR DRY EYE(S) 10) MELOXICAM 7.5MG TAB TAKE ONE TABLET BY MOUTH ONCE A ACTIVE DAY FOR PAIN 11) POLYETHYLENE GLYCOL 3350 ORAL PWDR MIX AND DRINK 1 ACTIVE CAPFUL BY MOUTH ONCE A DAY FOR CONSTIPATION (MEASURE WITH CAP AND MIX IN 8 OZ OF WATER) 12) PRAZOSIN HCL 2MG CAP TAKE ONE CAPSULE BY MOUTH AT ACTIVE BEDTIME FOR NIGHTMARES MAY CAUSE DIZZINESS OR DROWSINESS. 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 -4 out of 5 strength in Jobes position secondary to pain, 5 out of 5 strength in adducted external rotation. No external rotation lag sign. Negative Hornblower. Negative bearhug test, abdominal press test. -Negative Yergason's, speeds. -Sensation tact light touch axillary, median, ulnar, radial nerve distributions 2+ radial pulse Imaging: X-ray of the right shoulder dated 04/15/2024 demonstrate prior sequela of distal clavicle excision. Otherwise normal radiographs MRI of the right shoulder dated 03/31/2024 demonstrates a partial-thickness bursal sided supraspinatus tear, approximately 50%. Intact subscapularis. Physiologic biceps fluid and remains located in the groove. Parasagittal oblique images on T1 demonstrate healthy normal-appearing rotator cuff muscle bellies. Assessment and plan: 33-year-old otherwise healthy presents with ongoing right shoulder atraumatic pain and early fatigue secondary to partial-thickness bursal sided supraspinatus tear. -Again discussed risks and benefits surgery today. Patient is agreeable. He has tried nonoperative management and failed to improve. Given his age and activity level he would like to proceed with operative intervention -Today we discussed right shoulder arthroscopic evaluation, possible rotator cuff takedown and repair, possible patch augmentation, possible biceps tenodesis, subacromial decompression -We did discuss that if we were to do a patch augmentation his rehabilitative course to be slightly faster than rotator cuff repair. -We discussed that in the setting of rotator cuff repair he will most likely be looking at a 5 to 6-month recovery time. He would be in a sling for 6 weeks followed by range of motion exercises for 6 weeks and strengthening starting at 12 weeks. He will likely have to be off work for 3 to 4 months. -The literature shows an approximately 10% retear rate after surgical repair due to a combination of technical factors and biology healing response. He is aware of these risks. -He will discuss this with his employer and get back to us about scheduling surgery. This will most likely occur in August or September. -Follow-up at a mutually convenient time for surgical intervention. -Procedure: Right shoulder diagnostic arthroscopy, possible rotator cuff takedown and repair versus collagen patch augmentation, possible subacromial decompression, possible biceps tenodesis -Position: Beachchair -Needs: Arthrex Swivel lock x 2, corkscrew x 2, Arthrex fiber tack biceps. [employer] Regeneten patch on backup. Anticoagulation: None /es/ KAELYN WESTON SHOULDER AND ELBOW CLINICAL FELLOW Signed: 07/30/2024 16:49 KAELYN WESTON [facility]
--- OUTSIDE RECORDS SUMMARY | 2025-05-23 12:49 | XMS_ITS | Clinical Summary ---
Author Organization Lakisha Ramos [facility] Address [address] [address] [place] [address] Phone Care Team Providers Care Log Haul Chain Feeder Name Role Phone Pippa Burrell [facility] Primary Care Provider [phone] Medications cetirizine (ZyrTEC) 10 mg tablet Take 10 mg by mouth daily. 01/24/2021 Active buPROPion HCL (WELLBUTRIN XL) 300 mg Extended Release 24 hour tablet Take 300 mg by mouth daily in the morning. 01/24/2021 Active DULoxetine (CYMBALTA) 60 mg Capsule, Delayed Release(E.C.) Take 60 mg by mouth daily. 01/24/2021 Active Immunizations Immunization Administration Dates Next Due (ADACEL/BOOSTRIX)(10 YR UP) TDAP VACCINE, 0.5ML, IM 01/24/2021 Social History Tobacco Use Types Packs/Day Years Used Date Smoking Tobacco: Never Smokeless Tobacco: Never Alcohol Use Standard Drinks/Week Comments Yes 0 (1 standard drink = 0.6 oz pur e alcohol) Sex and Gender Information Value Date Recorded Sex Assigned at Not on file Legal Sex Male 5:22 AM CDT Gender Identity Not on file Sexual Orientation Not on file Last Filed Vital Signs Vital Sign Reading Time Taken Comments Blood Pressure 134/79 01/24/2021 1:17 PM CDT Pulse 85 01/24/2021 1:17 PM CDT Temperature 36.5 C (97.7 F) 01/24/2021 1:17 PM CDT Respiratory Rate 17 01/24/2021 1:17 PM CDT Oxygen Saturation - - Inhaled Oxygen Concentration - - Weight 140.6 kg (310 lb) 01/24/2021 1:17 PM CDT Height 188 cm (6' 2) 01/24/2021 1:17 PM CDT Body Mass Index 39.8 01/24/2021 1:17 PM CDT Plan of Treatment Health Maintenance Due Date Last Done Comments HPV VACCINES (1 - Male 3-dose series) 2005 HEPATITIS B VACCINES (1 of 3 - 19+ 3-dose series) 11/22 INFLUENZA VACCINE (#1) 2025 DTAP/TDAP/TD VACCINES (2 - Td or Tdap) 01/24/2031 Insurance [facility] Care Teams Log Haul Chain Feeder Relationship Specialty Start Date End Date Pippa Burrell APRN-BC [address] [facility] [place] [id number] PCP - General 01/24/21
--- OUTSIDE RECORDS SUMMARY | 2025-05-23 12:49 | XMS_ITS | Encounter Summary ---
Author Name [facility] [place] Organization [facility] [place] Address [address] [place] [address] Care Team Providers Care Relay Operator Name Role Phone ISMA ROSARIO Primary Care Provider REBECCA Kinney Unavailable Unavailable Selected Encounter This section includes the information on record at [place] for the Encounter. Date/Time Encounter Type Encounter Description Reason Provider Source Oct 10, 2024 10:30 AM THERAPEUTIC EXERCISES OCCUPATIONAL THERAPY ICD-10-CM M25.511 Pain in right shoulder GEOVANNY PANIAGUA Carmen Encounter Template Text not used by [place] Assessments - Encounter Diagnoses This section includes the primary and secondary diagnoses documented for the Encounter. Date/Time Primary/Secondary Diagnosis Diagnosis Name Provider Source Oct 10, 2024 11:35 AM PRIMARY Pain in right shoulder GEOVANNY PANIAGUA [facility] Plan of Treatment: Future Appointments (+ [...] Appointment Type Appointme nt Facility Name Oct 23, 2024 11:30 AM AMBULATORY - SURGERY [facility] Nov 05, 2024 11:20 AM AMBULATORY - SURGERY [facility] Nov 14, 2024 11:30 AM AMBULATORY - REHAB MEDICIN E [facility] Nov 19, 2024 09:49 AM AMBULATORY - MEDICINE [facility] Nov 28, 2024 02:00 PM AMBULATORY - REHAB MEDICIN E [facility] Dec 12, 2024 01:15 PM AMBULATORY - MEDICINE [facility] Dec 24, 2024 10:40 AM AMBULATORY - SURGERY [facility] Dec 29, 2024 02:30 PM AMBULATORY - REHAB MEDICIN E [facility] Dec 31, 2024 09:30 AM AMBULATORY - PSYCHIATRY [facility] Dec 31, 2024 09:30 AM [facility] Jan 09, 2025 02:30 PM AMBULATORY - REHAB MEDICIN E [facility] Jan 21, 2025 10:00 AM AMBULATORY - SURGERY [facility] Jan 26, 2025 03:00 PM AMBULATORY - REHAB MEDICIN E [facility] Jan 28, 2025 09:30 AM AMBULATORY - PSYCHIATRY [facility] Jan 28, 2025 09:30 AM AMBULATORY - [facility]IATRY [facility] February 20, 2025 12:00 PM AMBULATORY - NONE [facility] February 25, 2025 11:30 AM AMBULATORY - REHAB MEDICIN E [facility] March 01, 2025 09:10 AM AMBULATORY - MEDICINE [facility] March 11, 2025 02:40 PM AMBULATORY - MEDICINE [facility] Apr 01, 2025 11:30 AM AMBULATORY - REHAB MEDICIN E [facility] Vital Signs: All taken on the encounter date This section contains inpatient and outpatient Vital Signs collected on the date of the Encounter. Date/Time Temperature Pulse Blood Pressure Respiratory Rate SP02 Pain Height Weight Body Mass Index Source Oct 10, 2024 11:30 AM 98.2 74 133/85 16 2 [facility] Social History: Smoking Status (Most current) and Tobacco Use (All prior to encounter date) This section includes the most current, and the historical, smoking and tobacco- related health factors from the [facility] where the Encounter took place. Current Smoking Status This section includes the most current smoking, or tobacco-related health factor, from the [place] facility where the Encounter took place. Date/Time Current Smoking Status Comment David dodge May 02, 2024 11:00 AM VA-TOBACCO NEVER USED [facility] Tobacco Use History This section includes a history of the smoking, or tobacco-related health factors, that were collected on or before the date of the Encounter. The data comes from the [place] facility where the Encounter took place. Date/Time Smoking Status/Tobacco Use Comment F michael Jan 14, 2019 05:30 PM [place]-TOBACCO NEVER USED [facility] Jun 07, 2018 01:03 PM TOBACCO REFUSED SCREEN V15 [facility] Aug 10, 2017 09:25 AM LIFETIME NON-USER OF TOBACCO [facility] Jul 13, 2017 11:32 AM LIFETIME NON-USER OF TOBACCO [facility] May 08, 2017 01:14 PM LIFETIME NON-USER OF TOBACCO [facility] Encounter Notes: All associated encounter notes This section contains the clinical notes associated to the Encounter. Date/Time Encounter Note(s) Provider Source Oct 10, 2024 11:14 AM PHYSICAL MEDICINE REHAB NOTE: LOCAL TITLE: OT DAILY [facility] STANDARD TITLE: PHYSICAL MEDICINE REHAB NOTE DATE OF NOTE: OCT 10, 2024@11:14 ENTRY DATE: OCT 10, 2024@11:14:05 AUTHOR: GEOVANNY PANIAGUA COSIGNER: URGENCY: STATUS: COMPLETED OT DAILY [facility] Has ADDENDA Occupational Therapy Daily Note Diagnosis: Pain in [...] Date of Initial Evaluation: 09/10/2024 Visit #: 3 Ca or NS #: 0 TIME: 7220-8533 Ther ex: 45 minutes SUBJECTIVE: Vet reports decrease to R shoulder pain since last visit. Vet states he has been wearing the sling all the day and has no difficulty with donning and doffing. Reports he does not see ortho until 10/29 and is not sure if he is able to dicontinue his sling. OT reached out to ortho team for clarification. 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 Goal: Return to work Pain: 12/29 OBJECTIVE: PROM R SHOULDER SUPINE IN DE/6 Flexion:145 ER: 66 IR: 63 AROM SHOULDER STANDING: Left Right 10/10 10/10 Flexion:160 148 EX: 50 46 ABD: 150 132 ER: 65 48 IR: T8 T12 Shoulder strength testing deferred at this time. Treatment: Access Code: [email or web address] URL: [email or web address] Artist/ Date: 10/10/2024 Prepared by: Geovanny Paniagua Exercises - Seated Shoulder Flexion AAROM with Mervat Behind - 1 x daily - 7 x weekly - 3 sets - 10 reps - Seated Shoulder Scaption AAROM with Mervat at Side - 1 x daily - 7 x weekly - 3 sets - 10 reps - Supine Shoulder Flexion AAROM with Dowel - 1 x daily - 7 x weekly - 3 sets - 10 reps - Bilat supine Shoulder Flexion overhead Supine Shoulder External Rotation with Dowel - 1 x daily - 7 x weekly - 3 sets - 10 reps - Supine Alternating Shoulder Flexion - 1 x daily - 7 x weekly - 3 sets - 10 reps - Standing Shoulder Internal Rotation AROM Behind Back - very slowly educated to go to stretch then drop down ~1 to 2 inches and hold stretch PAST: Access Code: [email or web address] URL: [email or web address] Artist/ Date: 09/10/2024 Prepared by: Kianna Armas Exercises [...] (PROM to shoulder) able to compelte in [facility] with good demo - Vet instructed to complete basic AROM of the wrist, forearm, and elbow including elbow flexion/extension, forearm supination/pronation, wrist flexion/extension/ulnar deviation/radial deviation. Vet able to demonstrate in the clinic Equipment/Instructions: [X] None [employer] was ready to learn and demonstrated [...] needed to assist with reutrn to ADLs. presents with good rehabilitation potential. PLAN: to be seen by OT 1-2x every other week 30days with shoulder ROM and gradual progression of strength per protocol, proprioception, and modalities for pain control. Discussed plan of care with and was agreeable to plan. Vet to f/u in 11/03 to conitnue with Phse II of post op protocal. Continued skilled occupational therapy [...] 4/5 grade in all involved MM groups. FASHION EDITOR GOALS: To be achieved in (6-8 visits). [...] /arlet/ ESCOBAR Dominguez/Eder, CLT Occupational Therapist Signed: 10/10/2024 11:35 Receipt Acknowledged By: 10/10/2024 16:30 /es/ AJITH FRIEDMAN Occupational Therapist 10/10/2024 ADDENDUM STATUS: COMPLETED Per ortho Robin Chan: can D/C sling today (6 week s/p surg), then standard rotator cuff protocol for rehab. OT called and informed vet, instructed on conservative coffee cup weight bearing until told otherwise by Ortho/surgeon. /arlet/ Geovanny Paniagua OTR/L, CLT Occupational Therapist Signed: 10/10/2024 11:45 GEOVANNY PANIAGUA [facility]
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
--- OUTSIDE RECORDS SUMMARY | 2025-05-23 12:49 | XMS_ITS | Encounter Summary ---
Author Name [facility] [place] Organization [place] Address [address] [place] [address] Care Team Providers Care Search Advertising Strategist Name Role Phone ISMA ROSARIO Primary Care Provider REBECCA Kinney Unavailable Unavailable Selected Encounter This section includes the information on record at [place] for the Encounter. Date/Time Encounter Type Encounter Description Reason Provider Source February 25, 2025 11:30 AM OT RE-EVAL EST PLAN CARE OCCUPATIONAL THERAPY ICD-10-CM M25.511 Pain in right shoulder AJITH FRIEDMAN [employer] Encounter Template Text not used by [place] Assessments - Encounter Diagnoses This section includes the primary and secondary diagnoses documented for the Encounter. Date/Time Primary/Secondary Diagnosis Diagnosis Name Provider Source February 25, 2025 12:52 PM PRIMARY Pain in right shoulder AJITH FRIEDMAN [facility] Plan of Treatment: Future Appointments (+ 6 months) and Future Tests (+/- 45 days) The Plan of Treatment section includes future care activities for the patient from all [place] treatmentfacilities. This section includes future appointments and future orders which are active, pending or scheduled. Future Appointments This section includes appointments that were scheduled to occur 6 months from the date of the Encounter, up to a maximum of 20 appointments. The data comes from all [place] treatment facilities. Appointment Date/Time Appointment Type Appointme nt Facility Name March 01, 2025 09:10 AM AMBULATORY - MEDICINE [facility] March 11, 2025 02:40 PM AMBULATORY - MEDICINE [facility] Apr 01, 2025 11:30 AM AMBULATORY - REHAB MEDICIN E [facility] Apr 01, 2025 02:40 PM AMBULATORY - MEDICINE [facility] Apr 07, 2025 07:22 PM AMBULATORY - MEDICINE [facility] Apr 29, 2025 09:30 AM AMBULATORY - PSYCHIATRY [facility] Apr 29, 2025 09:30 AM [facility]ORY - [facility]IATRY [facility] Apr 29, 2025 02:00 PM AMBULATORY - SURGERY [facility] Apr 29, 2025 02:15 PM AMBULATORY - MEDICINE [facility] May 23, 2025 01:00 PM AMBULATORY - NONE [facility] May 27, 2025 11:00 AM [facility] Jun 02, 2025 10:00 AM AMBULATORY - SURGERY [facility] Aug 07, 2025 09:30 AM AMBULATORY - PS[facility]CHIATRY [facility] Aug 07, 2025 09:30 AM AMBULATORY - PSYCHIATRY [facility] Active, Pending, and Scheduled Orders This section includes a listing of several types of active, pending, and scheduled orders, including clinic medications orders, diagnostic test orders, procedure orders and consult orders; where the start date of the order is 45 days before the date of the Encounter or 45 days after the date of theEncounter. The data comes from all [place] treatment facilities. Test Date/Time Test Type Test Details Facility Name March 11, 2025 03:38 PM Consult Order WHOLE HEAL TH CASE SPECIALIST OUTPT ST [facility] Work[facility] Choice [facility] Apr 01, 2025 03:28 PM Consult Order ORTHOPEDIC SHOULDER/ELBOW EVAL OUTPT [facility] Cons Hide Worker's [facility] Social History: Smoking Status (Most current) and Tobacco Use (All prior to encounter date) This section includes the most current, and the historical, smoking and tobacco- related health factors from the [place] facility where the Encounter took place. Current Smoking Status This section includes the most current smoking, or tobacco-related health factor, from the [place] facility where the Encounter took place. Date/Time Current Smoking Status Comment David ity May 02, 2024 11:00 AM [place]-TOBACCO NEVER USED [facility] Tobacco Use History This section includes a history of the smoking, or tobacco-related health factors, that were collected on or before the date of the Encounter. The data comes from the [place] facility where the Encounter took place. Date/Time Smoking Status/Tobacco Use Comment F acility Jan 14, 2019 05:30 PM [place]-TOBACCO NEVER USED [facility] Jun 07, 2018 01:03 PM TOBACCO REFUSED SCREEN V15 [facility] Aug 10, 2017 09:25 AM LIFETIME NON-USER OF TOBACCO [facility] Jul 13, 2017 11:32 AM LIFETIME NON-USER OF TOBACCO [facility] May 08, 2017 01:14 PM LIFETIME NON-USER OF TOBACCO [facility] Radiology Reports: +/- 30 days of the [...] the Encounter. The data comes from all [place] treatment facilities. Date/Time Radiology Report Provider Source February 20, 2025 12:04 PM MRI SHOULDER RIGHT : ALEYDA SORTO [id number] -1990 M Exm Date: FEBRUARY 20, 2025@12:04 Req Phys: JASPER LAMA Pat Loc: [facility] (Req'g Loc) Img Loc: [facility] Service: [address] [address] (Case [id number] COMPLETE) MRI SHOULDER RIGHT (MRI Detailed) CPT:68482 Proc Modifiers : RIGHT CPT Modifiers : [...] Responsible Attending: Jasper Lama Attending Contact Number: [phone] Resident Contact Number: Does your patient have [...] 23, 2025 Date Verified: FEBRUARY 23, 2025 [employer] E-Sig:/ES/Elisa Oconnell MD Report: MRI SHOULDER RIGHT CASE #: [id number] DATE:02/20/2025 4:29 PM CLINICAL HISTORY:s/p right rotator [...] Elisa Oconnell MD, Radiologist (Neelam) /ELISA DELGADO [facility] Encounter Notes: All associated encounter notes This section contains the clinical notes associated to the Encounter. Date/Time Encounter Note(s) Provider Source February 25, 2025 11:30 AM OCCUPATIONAL THERA PY E & M NOTE: LOCAL TITLE: OT PROGRESS ST STANDARD TITLE: OCCUPATIONAL THERAPY E & M NOTE DATE OF NOTE: FEBRUARY 25, 2025@11:30 ENTRY DATE: FEBRUARY 25, 2025@12:36:18 AUTHOR: AJITH FRIEDMAN EXP COSIGNER: URGENCY: STATUS: [...] stabilizer strengthening. Special Instructions: Avoid overhead strengthening. Ortho note from 12/24: He does have [...] scapular posture and ways to correct this. Date of Initial Evaluation: 09/10/2024 Visit #: 9 Ca or NS #: 0 TIME: 15:00-15:30 ReAssess: 30 minutes SUBJECTIVE: Vet reports occasional R shoulder pain after activities such as sweeping/ mopping. He states he has been using ice and Voltaren. He states the L shoulder is worse than the R Goal: Return to work Pain: States 2/10 R shoulder at end of exercise session OBJECTIVE: Vet presents into OT ambulating without AD. 01/26/25: AROM R SHOULDER STANDING: EVAL REASSESS Left Right Right Right Right Right Date 10/10 10/10 11/14 12/29 01/26 02/25 Flexion:160 148 145 165 150 155 EX: 50 46 50 50 50 65 ABD: 150 132 140 160 160 165 ER: 65 48 64 65 60 w/tightness 65 IR: T8 T12 T12 T8 NT T8 R Shoulder Strength: Flexion: 4/5 without pain EX: 4+/5 without pain ABD: 4/5 without pain ER: 4/5 without pain IR: 4/5 without pain Treatment: participated in the following this date: CURRENT: - Vet educated on optimizing body mechanics and slow,controlled movements - Vet educated on reji-scapular strengthening with good return demo - Wall slides and doorway stretches were reinforced - Vet issued green t-band for rows, extension, and ER with good return demo. vet also completed another set using 5# wt with good technique. He states he continues to use 15# at home- emphasized technique over weight PREVIOUS 01/26/25: - [place] educated on decreasing weight lifted until pain-free resistance is achieved - Vet educated on doorway stretch, wall stretch in SH flexion and abduction with good return demo - Vet to continue HEP and was encouraged to review previously issued [employer] HEP videos for refresher on optimal HEP techniques - Vet encouraged to use heat prior to stretches PREVIOUS: - educated to continue with use of [...] Standing Low Trap Green and Blue TheraBand [place] [employer] was ready to learn and demonstrated an understanding of instructions given on Role of OT, 1:1 instruction in equipment issued and/or home exercise program as noted above. ASSESSMENT: This 33 year old male presents to therapy s/p right rotator cuff surgery. has had MRI and is awaiting results from MD. Vet encouraged to exercise in pain-free range/resistance. will continue to benefit from skilled occupational therapy in order to address pain and progress HEP. presents with good rehabilitation potential. PLAN: Vet to f/u after April 01 ortho appt to guide additional treatment needs Continued skilled occupational therapy as below to address: Treatment Plan: ___ADLs _x__UE AROM/AAROM/PROM ___Transfers ___Cognition ___Coordination ___Endurance ___Gross/Fine Motor ___Home Management ___Visual Perception ___Standing Act. _x__UE Strengthening ___Sensation/Compensation ___Visual Skills ___Facilitation ___Inhibition ___Adaptive equipment Assessment _x__Modalities _x__Other:HEP SHORT TERM GOALS: To be achieved in (4-6 visits). 1. Demonstrate HEP with 100% accuracy-PROGRESSING MET 2. Increase AROM to WFL in all planes of motion in UE-PROGRESSING. MET 3. Increase MM mass to 4/5 grade in all involved MM groups. MET JAIL GOALS: To be achieved in (6-8 visits). [...] Patient Education Topic/Teaching Needs: Rehabilitation and Habilitation R shoulder HEP Methods used included: One-on-one: demo, return demo Teaching outcomes: Good level of understanding /arlet/ AJITH FRIEDMAN Occupational Therapist Signed: 02/25/2025 12:53 AJITH FRIEDMAN [facility]
--- OUTSIDE RECORDS SUMMARY | 2025-05-23 12:49 | XMS_ITS | Encounter Summary ---
Author Name [facility] [place] Organization [place] Address [address] [place] [address] Care Team Providers Care Tellers Supervisor Name Role Phone ISMA ROSARIO Primary Care Provider REBECCA Kinney Unavailable Unavailable Selected Encounter This section includes the information on record at [place] for the Encounter. Date/Time Encounter Type Encounter Description Reason Provider Source Aug 29, 2024 08:35 AM Outpatient Encounter GENERAL SURGERY LUKE BRANDON Carmen Encounter Template Text not used by [place] Plan of Treatment: Future Appointments (+ 6 [...] 10, 2024 11:00 AM AMBULATORY - SURGERY [facility] Sep 10, 2024 01:00 PM AMBULATORY - REHAB MEDICIN E [facility] Sep 26, 2024 02:00 PM AMBULATORY - REHAB MEDICIN E [facility] Sep 29, 2024 02:00 PM AMBULATORY - PS[facility]CHIATRY [facility] Sep 29, 2024 02:00 PM AMBULATORY - PSYCHIATRY [facility] Oct 01, 2024 09:30 AM AMBULATORY - PSYCHIATRY [facility] Oct 01, 2024 09:30 AM AMBULATORY - PSYCHIATRY [facility] Oct 10, 2024 10:30 AM AMBULATORY - REHAB MEDICIN E [facility] Oct 10, 2024 11:13 AM AMBULATORY - MEDICINE [facility] Oct 23, 2024 11:30 AM AMBULATORY - SURGERY [facility] Nov 05, 2024 11:20 AM AMBULATORY - SURGERY [facility] Nov 14, 2024 11:30 AM AMBULATORY - REHAB MEDICIN E [facility] Nov 19, 2024 09:49 AM AMBULATORY - MEDICINE [facility] Nov 28, 2024 02:00 PM AMBULATORY - REHAB MEDICIN E [facility] Dec 12, 2024 01:15 PM AMBULATORY - MEDICINE [facility] Dec 24, 2024 10:40 AM AMBULATORY - SURGERY [facility] Dec 29, 2024 02:30 PM AMBULATORY - REHAB MEDICIN E [facility] Dec 31, 2024 09:30 AM AMBULATORY - PSYCHIATRY [facility] Dec 31, 2024 09:30 AM AMBULATORY - PS[facility]CHIATRY [facility] Jan 09, 2025 02:30 PM AMBULATORY - REHAB MEDICIN E [facility] Vital Signs: All taken on the encounter date This section contains inpatient and outpatient Vital Signs collected on the date of the Encounter. Date/Time Temperature Pulse Blood Pressure Respiratory Rate SP02 Pain Height Weight Body Mass Index Source Aug 29, 2024 11:55 AM 97.2 87 114/67 11 94 0 [facility] Aug 29, 2024 06:12 AM 97.3 84 140/79 14 98 8 74 314.5 40 [facility] Social History: Smoking Status (Most current) and Tobacco Use (All prior to encounter date) This section includes the most current, and the historical, smoking and tobacco- related health factors from the [place] facility where the Encounter took place. Current Smoking Status This section includes the most current smoking, or tobacco-related health factor, from the [place] facility where the Encounter took place. Date/Time Current Smoking Status Comment David dodge May 02, 2024 11:00 AM [place]-TOBACCO NEVER USED [facility] Tobacco Use History This section includes a history of the smoking, or tobacco-related health factors, that were collected on or before the date of the Encounter. The data comes from the [place] facility where the Encounter took place. Date/Time Smoking Status/Tobacco Use Comment F acility Jan 14, 2019 05:30 PM [place]-TOBACCO NEVER USED [facility] Jun 07, 2018 01:03 PM TOBACCO REFUSED SCREEN V15 [facility] Aug 10, 2017 09:25 AM LIFETIME NON-USER OF TOBACCO [facility] Jul 13, 2017 11:32 AM LIFETIME NON-USER OF TOBACCO [facility] May 08, 2017 01:14 PM LIFETIME NON-USER OF TOBACCO [facility] Radiology Reports: +/- 30 days [...] the Encounter. The data comes from all [place] treatment facilities. Date/Time Radiology Report Provider Source Jul 30, 2024 11:15 AM CHEST X-RAY, 2 VIE WS: ALEYDA SORTO [id number] -1990 M Exm Date: JUL 30, 2024@11:15 Req Phys: BRIAN MOCTEZUMA Loc: [facility] (Req'g Loc) Img Loc: [facility] RADIOLOGY SUITE Service: [address] [address] (Case [id number] COMPLETE) CHEST X-RAY, 2 VIEWS (RAD Detailed) CPT:21759 Reason for Study: preop Clinical History: Pre Operative CXR Report Status: Verified Date Reported: JUL 30, 2024 Date Verified: JUL 30, 2024 Mirror Silverer E-Sig:/ES/HODAN JANE Report: INDICATION: preop COMPARISON: 04/15/2024 TECHNIQUE: Chest 2 views Impression: No pneumothorax. No large pleural effusion. No focal consolidation. Normal heart size. Normal mediastinal contours. Redemonstrated partial resection of the right clavicle. Primary Interpreting Staff: HODAN JANE, RADIOLOGIST (Mirror Silverer) /HODAN DOOLEY [facility] Encounter Notes: All associated encounter notes This section contains the clinical notes associated to the Encounter. Date/Time Encounter Note(s) Provider Source Aug 29, 2024 08:35 AM NURSING PROCEDURE NOTE: LOCAL TITLE: [facility] OPERATING ROOM/PROCEDURE FIRE RISK ASSESSMEN STANDARD TITLE: NURSING PROCEDURE NOTE DATE OF NOTE: AUG 29, 2024@08:35 ENTRY DATE: AUG 29, 2024@08:35:28 AUTHOR: LUKE BRANDON COSIGNER: URGENCY: STATUS: COMPLETED PROBLEM: FIRE RISK ASSESSMENT EXPECTED OUTCOME: Patient will remain free from injury related to surgical fire/ procedural fire NURSING ASSESSMENT: A. Is an alcohol-based skin antiseptic or other flammable solution being used preoperatively? Yes, Interventions TIME-OUT to include: Flammable prep solutions were contained in nonflammable packaging. Flammable prep solutions utilized were a unit dosed applicator. Allow flammable skin antiseptics to dry completely and fumes to dissipate per manufacture guidelines prior to applying drapes and before using a potential ignition source. Flammable solution soaked materials have been removed from the OR/Procedural area prior to draping and use of an ignition source. Comments: B. Is the procedure being performed above the xiphoid process or in the oropharynx? Yes, Interventions Coat head and facial hair near the site with water-soluble surgical lubricant to decrease flammability. Use an adhesive incise drape between the surgical/procedural site and the oxygen source. If oxygen concentration is greater than 30% consider laryngeal mask airway or endotracheal tube. Comments: C. Is open oxygen or nitrous oxide being administered (delivery via nasal cannula or face mask)? No D. Is an ESU (Electrical Surgical Unit), laser, or fiber optic cord being used? Yes, Interventions ESU Place the ESU in a location that does not put stress on the electrical cord. Keep the electrical cord dry and free of kinks, knots, and bends. Inspect the ESU cord before use, and do not use it if there is any evidence of breaks, nicks, or cracks in the outer insulation coating. Keep the active electrode cord free of kinks and coils during use. Only the person controlling the active electrode should activate the ESU. Use the lowest possible power setting for the ESU. Store the active electrode in a clean, dry, non-conductive safety holster when it is not in use. Keep sterile drapes or linens away from the activated ESU. Do not use an ignition source to enter the bowel or the trachea. Keep the ESU active electrode away from oxygen, nitrous oxide, or combustible anesthetic gas sources if possible. Do not activate the active electrode in the presence of flammable agents until the agents are dry and vapors have dissipated (eg, alcohol-based skin antiseptics, tinctures, de-fatting agents, collodion, petroleum-based lubricants, phenol, aerosol adhesives, uncured methyl methacrylate). Keep the active electrode tip clean. Use active electrode tips according to the marketing programs specialist's instructions. Use only active electrodes or return electrodes that are compatible with the ESU. Seat the active electrode tip securely into the electrosurgical hand piece. Do not alter the active electrode tip (eg, by bending, by using insulation sheaths made from flammable materials such as rubber catheters). Activate the active electrode only when it is in close proximity to the target tissue and away from other metal objects that could conduct heat or cause arcing. Inspect minimally invasive electrosurgical instruments for impaired insulation and remove them from service if the insulation is not intact. Use cut or blend settings instead of coagulation when possible. Remove the active electrode tip from the electrosurgical hand piece before discarding it. Remove the batteries or disable the cautery tip before disposing of battery-powered, hand-held cautery units, if applicable. During perineal procedure, use moistened radiopaque sponges to cover or pack the anus. Fiber-optic Light Use Place the light source in standby mode or turn it off when the cable is not in use. Inspect light cables before use and remove them from service if broken light bundles are visible. Connect all fiber-optic light cables before activating the light source. Place the light source on standby when disconnecting fiber-optic light cables. Secure the working end (ie, the end that is inserted into the body) of the endoscope or cord on a moist towel or away from any drapes, sponges, or other flammable materials. Comments: E. Other possible contributors to fire are present (defibrillator, drills, saws, burrs) Yes, Interventions Slowly drip saline on a moving drill, libertad, or saw blade. Place drills or saws on the [place] stand or back table when not in use. Comments: Additional comments: /arlet/ EMERITA MAYEN, RN REGISTERED NURSE Signed: 08/29/2024 08:36 LUKE BRANDON [facility]
--- OUTSIDE RECORDS SUMMARY | 2025-05-23 12:49 | XMS_ITS | Encounter Summary ---
Author Name [facility] [place] [place] Organization [facility] [place] Address [address] [place] [address] Care Team Providers Care Pig Farmer Name Role Phone ISMA ROSARIO Primary Care Provider REBECCA Kinney Unavailable Unavailable Selected Encounter This section includes the information on record at [place] for the Encounter. Date/Time Encounter Type Encounter Description Reason Provider Source Sep 29, 2024 02:16 PM Outpatient Encounter ADMIN PAT ACTIVTIES (MASNONCT) SHERI JACOBO Carmen Encounter Template Text not used by [place] Plan of Treatment: Future Appointments (+ 6 months) and Future Tests (+/- 45 days) The Plan of Treatment section includes future care activities for the patient from all [place] treatmentfacilities. This section includes future appointments and future orders which are active, pending or scheduled. Future Appointments This section includes appointments that were scheduled to occur 6 months from the date of the Encounter, up to a maximum of 20 appointments. The data comes from all [place] treatment facilities. Appointment Date/Time Appointment Type Appointme nt Facility Name Oct 01, 2024 09:30 AM AMBULATORY - PSYCHIATRY [facility] Oct 01, 2024 09:30 AM AMBULATORY - [facility]IATRY [facility] Oct 10, 2024 10:30 AM AM[facility]UL[facility] - [facility] Oct 10, 2024 11:13 AM AMBULATORY - MEDICINE [facility] Oct 23, 2024 11:30 AM AMBULATORY - SURGERY [facility] Nov 05, 2024 11:20 AM AMBULATORY - SURGERY [facility] Nov 14, 2024 11:30 AM AMBULATORY - REHAB MEDICIN E [facility] Nov 19, 2024 09:49 AM AMBULATORY - MEDICINE [facility] Nov 28, 2024 02:00 PM AMBULATORY - REHAB MEDICIN E [facility] Dec 12, 2024 01:15 PM AMBULATORY - MEDICINE [facility] Dec 24, 2024 10:40 AM AMBULATORY - SURGERY [facility] Dec 29, 2024 02:30 PM AMBULATORY - REHAB MEDICIN E [facility] Dec 31, 2024 09:30 AM AMBULATORY - PSYCHIATRY [facility] Dec 31, 2024 09:30 AM [facility]IATRY [facility] Jan 09, 2025 02:30 PM AMBULATORY - REHAB MEDICIN E [facility] Jan 21, 2025 10:00 AM AMBULATORY - SURGERY [facility] Jan 26, 2025 03:00 PM AMBULATORY - REHAB MEDICIN E [facility] Jan 28, 2025 09:30 AM AMBULATORY - PSYCHIATRY [facility] Jan 28, 2025 09:30 AM AMBUL[facility] - [facility]IATRY [facility] February 20, 2025 12:00 PM AMBULATORY - NONE [facility] Social History: Smoking Status (Most current) and Tobacco Use (All prior to encounter date) This section includes the most current, and the historical, smoking and tobacco- related health factors from the [place] facility where the Encounter took place. Current Smoking Status This section includes the most current smoking, or tobacco-related health factor, from the [place] facility where the Encounter took place. Date/Time Current Smoking Status Corinne dodge May 02, 2024 11:00 AM [place]-TOBACCO NEVER USED [facility] Tobacco Use History This section includes a history of the smoking, or tobacco-related health factors, that were collected on or before the date of the Encounter. The data comes from the [place] facility where the Encounter took place. Date/Time Smoking Status/Tobacco Use Comment F acility Jan 14, 2019 05:30 PM VA-TOBACCO NEVER USED [facility] Jun 07, 2018 01:03 PM TOBACCO REFUSED SCREEN V15 [facility] Aug 10, 2017 09:25 AM LIFETIME NON-USER OF TOBACCO [facility] Jul 13, 2017 11:32 AM LIFETIME NON-USER OF TOBACCO [facility] May 08, 2017 01:14 PM LIFETIME NON-USER OF TOBACCO [facility] Encounter Notes: All associated encounter notes This section contains the clinical notes associated to the Encounter. Date/Time Encounter Note(s) Provider Source Sep 29, 2024 02:16 PM MENTAL HEALTH ADMINISTRATIVE NOTE: LOCAL TITLE: [facility] STANDARD TITLE: MENTAL HEALTH ADMINISTRATIVE NOTE DATE OF NOTE: SEP 29, 2024@14:16 ENTRY DATE: SEP 29, 2024@14:16:29 AUTHOR: SHERI JACOBO EXP COSIGNER: URGENCY: STATUS: COMPLETED did not attend scheduled appointment. DOES NOT have a high risk flag for suicide assigned to his/her chart. Attempted to contact by phone due to failure to appear for scheduled appointment. [place] missed scheduled appointment. First unsuccessful attempt at phone contact made. Further attempts at contact will be made on separate days. - Car Rental Deliverer (added as signer) is hereby requested to send letter with clinic contact information, encouraging the [place] to call to discuss further services if so desired. Further attempts at phone contact will be made. - Left message for with direct contact information for clinic. /arlet/ SHERI JACOBO MD [facility] Signed: 09/29/2024 14:30 Receipt Acknowledged By: 09/29/2024 14:35 /es/ RIAN SIN [facility] 09/30/2024 08:55 /arlet/ CATY LOOMIS BSN RN Registered Nurse SHERI JACOBO [facility]
--- OUTSIDE RECORDS SUMMARY | 2025-05-23 12:49 | XMS_ITS ---
Author Name [facility] [place] Organization [facility] [place] Address [address] [place] [address] Care Team Providers Care Applications Analyst Name Role Phone ISMA ROSARIO Primary Care Provider REBECCA Kinney Unavailable Unavailable Selected Encounter This section includes the information on record at [place] for the Encounter. Date/Time Encounter Type Encounter Description Reason Provider Source Aug 29, 2024 11:53 AM Outpatient Encounter ADMIN PAT ACTIVTIES (MASNONCT) JS BASS Encounter Template Text not used by [place] [...] 2024 11:00 AM AMBULATORY - SURGERY [facility] Sep 10, 2024 01:00 PM AMBULATORY - REHAB MEDICIN E [facility] Sep 26, 2024 02:00 PM AMBULATORY - REHAB MEDICIN E [facility] Sep 29, 2024 02:00 PM AMBULATORY - PSYCHIATRY [facility] Sep 29, 2024 02:00 PM AMBULATORY - PSYCHIATRY [facility] Oct 01, 2024 09:30 AM AMBULATORY - PSYCHIATRY [facility] Oct 01, 2024 09:30 AM AMBULATORY - PSYCHIATRY [facility] Oct 10, 2024 10:30 AM AMBULATORY - REHAB MEDICIN E [facility] Oct 10, 2024 11:13 AM AMBULATORY - MEDICINE [facility] Oct 23, 2024 11:30 AM AMBULATORY - SURGERY [facility] Nov 05, 2024 11:20 AM AMBULATORY - SURGERY [facility] Nov 14, 2024 11:30 AM AMBULATORY - REHAB MEDICIN E [facility] Nov 19, 2024 09:49 AM AMBULATORY - MEDICINE [facility] Nov 28, 2024 02:00 PM AMBULATORY - REHAB MEDICIN E [facility] Dec 12, 2024 01:15 PM AMBULATORY - MEDICINE [facility] Dec 24, 2024 10:40 AM AMBULATORY - SURGERY [facility] Dec 29, 2024 02:30 PM AMBULATORY - REHAB MEDICIN E [facility] Dec 31, 2024 09:30 AM AMBULATORY - PSYCHIATRY [facility] Dec 31, 2024 09:30 AM AMBULATORY - PSYCHIATRY [facility] Jan 09, 2025 02:30 PM AMBULATORY - REHAB MEDICIN E [facility] Vital Signs: All taken on the encounter date This section contains inpatient and outpatient Vital Signs collected on the date of the Encounter. Date/Time Temperature Pulse Blood Pressure Respiratory Rate SP02 Pain Height Weight Body Mass Index Source Aug 29, 2024 11:55 AM 97.2 87 114/67 11 94 0 [facility] Aug 29, 2024 06:12 AM 97.3 84 140/79 14 98 8 74 314.5 40 [facility] Social History: Smoking Status [...] 02, 2024 11:00 AM [place]-TOBACCO NEVER USED [facility] Tobacco Use History This section includes a history of the smoking, or tobacco-related health factors, that were collected on or before the date of the Encounter. The data comes from the [place] facility where the Encounter took place. Date/Time Smoking Status/Tobacco Use Comment F acility Jan 14, 2019 05:30 PM [place]-TO[place]ACCO NEVER USED [facility] Jun 07, 2018 01:03 PM TOBACCO REFUSED SCREEN V15 [facility] Aug 10, 2017 09:25 AM LIFETIME NON-USER OF TOBACCO [facility] Jul 13, 2017 11:32 AM LIFETIME NON-USER OF TOBACCO [facility] May 08, 2017 01:14 PM LIFETIME NON-USER OF TOBACCO [facility] Radiology Reports: +/- 30 [...] CHEST X-RAY, 2 VIE WS: ALEYDA SORTO [id number] -[id number] M Ex Date: JUL 30, 2024@11:15 Req Phys: BRIAN MOCTEZUMA Loc: [facility] (Req'g Loc) Img Loc: [facility] SUITE Service: [facility] [address] [place] [address] (Case [id number] COMPLETE) CHEST X-RAY, 2 VIEWS (RAD Detailed) CPT:13965 Reason for Study: preop Clinical History: Pre Operative CXR Report Status: Verified Date Reported: JUL 30, 2024 Date Verified: JUL 30, 2024 Silver Lap Machine Tender E-Sig:/ARLET/HODAN JANE Report: INDICATION: preop COMPARISON: 04/15/2024 TECHNIQUE: Chest 2 views Impression: No pneumothorax. No large pleural effusion. No focal consolidation. Normal heart size. Normal mediastinal contours. Redemonstrated partial resection of the right clavicle. Primary Interpreting Staff: HODAN JANE, RADIOLOGIST (Silver Lap Machine Tender) /HODAN DOOLEY [facility] Encounter Notes: All associated encounter notes This section contains the clinical notes associated to the Encounter. Date/Time Encounter Note(s) Provider Source Sep 03, 2024 09:47 AM NURSING NOTE: LOCAL TITLE: [facility] SURGICAL POST OP PROCEDURE CALL [facility] STANDARD TITLE: NURSING NOTE DATE OF NOTE: SEP 03, 2024@09:47 ENTRY DATE: SEP 03, 2024@09:47:44 AUTHOR: RACHEL EMANUEL COSIGNER: URGENCY: STATUS: COMPLETED Post discharge call successful. Patient identifiers. Date and time contact made Aug@09:50 Full name. Date of . How are you feeling today? (Record any signs or symptoms to Emergency/Hospital visit)sore, tired Date of discharge:Aug Where were you discharged from? [facility] Affected Surgical site(s):felt a pop a couple days ago Redness at the surgical site?No Swelling at the surgical site?No Have you been running a fever?No Are you tolerating your diet? Yes Nausea and vomiting? No Bowel movements?Yes Difficulty voiding?No Were you provided a copy of your updated Medication list upon discharge? Yes Were there changes to your medications? Yes Do you have any questions related to your medications? No Has a face to face appointment been made with your surgeon?Yes Date and timeAug@11:00 Employee contacted the appropriate Surgical Clinic with information from the call.YES Contact physician? YesIssac Lynne MD notified and he stated as long as there are no changes to the wound they would just see him next week for his appointment. /arlet/ RACHEL SEON RN REGISTERED NURSE Signed: 09/03/2024 09:57 RACHEL EMANUEL [facility] Aug 29, 2024 11:53 AM ANESTHESIOLOGY ROBERTA WSHEET: LOCAL TITLE: PACU POST-OP FLOWSHEET [facility] STANDARD TITLE: ANESTHESIOLOGY FLOWSHEET DATE OF NOTE: AUG 29, 2024@11:53 ENTRY DATE: AUG 29, 2024@11:53:07 AUTHOR: JS BASS COSIGNER: URGENCY: STATUS: COMPLETED Patient: ALEYDA SORTO SSN: [id number] Anesthesia Method: General 08/29/2024 8:43 Airway: Endotracheal [...] Right shoulder arthroscopy Diagnosis: Right shoulder pain PACU Drugs: PACU Fluids: Anesthesia Procedure: ---- Procedure 08/29/2024 6:43 Line Number: 1, Level Of Consciousness: Awake, Site: Arm, Laterality: Left, Catheter Type: Angio, Catheter Size: 20 Ga, Inserted By: Holding Nurse Procedure 08/29/2024 6:43 Line Number: 1, Level Of Consciousness: Awake, Site: Arm, Laterality: Left, Catheter Type: Angio, Catheter Size: 20 Ga, Inserted By: Holding Nurse Date of Operation: 08/29/2024 Anesthesia Care End: 08/29/2024 11:17 Resources: Aquacel foam placed on jalil prominence to protect skin during surgery Safety Belt Staff: --------- KAELYN WESTON, SURGEON KAELYN WESTON, ATT. SURGEON NEVA AGUILAR, Holding Nurse SWAPNA RIVERA ANES. MARY. SWAPNA RIVERA ANES. SUPER. PARRY, NATHAN, PRIN. ANES. WOOTTEN, AMY, PRIN. ANES. JS BASS, Post-Op Nurse Surgery Start Time: 08/29/2024 8:59 Procedure End Time: Moderate Sedation Care End: /arlet/ JS FELDER RN REGISTERED NURSE Signed: 08/29/2024 11:53 JS BASS [facility]
--- OUTSIDE RECORDS SUMMARY | 2025-05-23 12:49 | XMS_ITS | Encounter Summary ---
Author Name [facility] Address [address] [place] [address] Care Team Providers Care Staff Trainer Name Role Phone ISMA ROSARIO Primary Care Provider REBECCA Kinney Unavailable Unavailable Selected Encounter This section includes the information on record at [place] for the Encounter. Date/Time Encounter Type Encounter Description Reason Provider Source Apr 07, 2025 07:22 PM EMERGENCY DEPT VISIT [facility] ICD-10-CM R21 Rash and other nonspecific skin eruption YONG HEATH Carmen Encounter Template Text not used by [place] Assessments - Encounter Diagnoses This section includes the primary and secondary diagnoses documented for the Encounter. Date/Time Primary/Secondary Diagnosis Diagnosis Name Provider Source Apr 07, 2025 08:30 PM PRIMARY Rash and other nonspecific skin eruption YONG HEATH [facility] Plan of Treatment: Future Appointments (+ 6 months) and Future Tests (+/- 45 days) The Plan of Treatment section includes future care activities for the patient from all [place] treatmentfacilities. This section includes future appointments and future orders which are active, pending or scheduled. Future Appointments This section includes appointments that were scheduled to occur 6 months from the date of the Encounter, up to a maximum of 20 appointments. The data comes from all [place] treatment facilities. Appointment Date/Time Appointment Type Appointme nt Facility Name Apr 29, 2025 09:30 AM AMBULATORY - PSYCHIATRY [facility] Apr 29, 2025 09:30 AM AMB[facility]ORY [facility]IATRY [facility] Apr 29, 2025 02:00 PM AMBULATORY - SURGERY [facility] Apr 29, 2025 02:15 PM AMBULATORY - MEDICINE [facility] May 23, 2025 01:00 PM AMBULATORY - NONE [facility] May 27, 2025 11:00 AM [facility] Jun 02, 2025 10:00 AM [facility] Aug 07, 2025 09:30 AM AMBULATORY - PS[facility]CHIATRY [facility] Aug 07, 2025 09:30 AM AMBULATORY - PSYCHIATRY [facility] Active, Pending, and Scheduled Orders This section includes a listing of several types of active, pending, and scheduled orders, including clinic medications orders, diagnostic test orders, procedure orders and consult orders; where the start date of the order is 45 days before the date of the Encounter or 45 days after the date of theEncounter. The data comes from all [place] treatment facilities. Test Date/Time Test Type Test Details Facility Name March 11, 2025 03:38 PM Consult Order WHOLE HEAL TH EDGE STITCHER OUTPT [facility] Apr 01, 2025 03:28 PM Consult Order ORTHOPEDIC SHOULDER/ELBOW EVAL OUTPT [facility] Apr 21, 2025 09:48 AM Consult Order COMMUNITY CARE-IMAGING MAGNETIC RESONANCE IMAGING-AUTO [facility] Lab Results: +/- 30 days of the encounter This section includes the Chemistry and Hematology Lab Results on record with [place] for the patient. Radiology Reports and Pathology Reports are provided separately, in subsequent sections. Lab Results This section contains the Chemistry/Hematology Results that were resulted 30 days before or 30 daysafter the date of the Encounter. Date/Time Source Result Type Result - Unit Interpretation Reference Range Specimen Type Comment Apr 01, 2025 03:37 PM [facility] RAPID PLASMA REAGIN (RPR) SERUM Specimen Type : SERUM No comment entered. Ordering Provider: FANI CONTRERAS Report Released Date/Time: Apr 01, 2025 03:29 PM Reporting Lab: [facility] [address] [id number] Performing Lab: [facility] [address] [id number] RAPID PLASMA REAGIN (RPR) NONREACTIVE NO NREACTIVE Apr 01, 2025 03:37 PM [facility] GC & CHLAMYDIA PCR (STL-PB) URINE [...] Apr 01, 2025 03:29 PM Reporting Lab: [facility] [address] [phone] Performing Lab: [address] [address] N.GONORRHOEAE PCR (STL) Not Detected Not Detected C.TRACHOMATIS PCR (STL) Not Detected Not Detected Apr 01, 2025 03:37 PM [facility] HIV COMBO FOURTH GENERATION (STL) SERUM Speci men Type: SERUM No comment entered. Ordering Provider: FANI CONTRERAS Report Released Date/Time: Apr 01, 2025 03:29 PM Reporting Lab: [facility] [address] [address] Performing Lab: [facility] [address] [place] [id number] HIV COMBO FOURTH GENERATION (STL) Nonreactive Nonreactive Apr 01, 2025 03:36 PM [facility] TRICHOMONAS PCR (STL-PB) URINE Specimen Type: [...] Apr 01, 2025 03:29 PM Reporting Lab: [place] [address] [address] [facility] [address] Performing Lab: [place] [address] [facility] [phone] TRICHOMONAS PCR (STL-PB) Not Detected No t Detected Vital Signs: All taken on the encounter date This section contains inpatient and outpatient Vital Signs collected on the date of the Encounter. Date/Time Temperature Pulse Blood Pressure Respiratory Rate SP02 Pain Height Weight Body Mass Index Source Apr 07, 2025 07:41 PM 98.1 F 81 /min 138/89 mm[Hg] 17 /min [address] [facility] Social History: Smoking Status (Most current) and Tobacco Use (All prior to encounter date) This section includes the most current, and the historical, smoking and tobacco- related health factors from the [place] facility where the Encounter took place. Current Smoking Status This section includes the most current smoking, or tobacco-related health factor, from the [place] facility where the Encounter took place. Date/Time Current Smoking Status Comment Facil ity May 02, 2024 11:00 AM MS-TOBACCO NEVER USED [facility] Tobacco Use History This section includes a history of the smoking, or tobacco-related health factors, that were collected on or before the date of the Encounter. The data comes from the [place] facility where the Encounter took place. Date/Time Smoking Status/Tobacco Use Comment F acility Jan 14, 2019 05:30 PM MS-TOBACCO NEVER USED [facility] Jun 07, 2018 01:03 PM TOBACCO REFUSED SCREEN V15 [facility] Aug 10, 2017 09:25 AM LIFETIME NON-USER OF TOBACCO [facility] Jul 13, 2017 11:32 AM LIFETIME NON-USER OF TOBACCO [facility] May 08, 2017 01:14 PM LIFETIME NON-USER OF TOBACCO [facility] Radiology Reports: +/- 30 days of [...] the Encounter. The data comes from all [place] treatment facilities. Date/Time Radiology Report Provider Source Apr 01, 2025 03:28 PM SHOULDER,LEFT,2 OR MORE VIEWS: ALEYDA SORTO [id number] -1990 M Exm Date: APR 01, 2025@15:28 Req Phys: FANI CONTRERAS Pat Loc: - GEN MED TM-C SAME DAY (R Img Loc: -MAIN RADIOLOGY SUITE Service: [facility], [place], [address] [address] (Case [id number] COMPLETE) SHOULDER,LEFT,2 OR MORE VIEWS (RAD Detailed) CPT:42043 Proc Modifiers : LEFT Reason for Study: 1 month of non-traumatic L shoulder pain Clinical History: Report Status: Verified Date Reported: APR 02, 2025 Date Verified: APR 02, 2025 Appraiser [employer] E-Sig:/ES/KRISTEN MALDONADO Report: EXAM: SHOULDER,LEFT,2 OR MORE VIEWS HISTORY: 1 month of non-traumatic L shoulder pain FINDINGS: 3 views obtained. No fracture or dislocation. No advanced arthritic changes. No soft tissue abnormality is seen. Impression: No significant bony abnormality. RR Primary Interpreting Staff: KRISTEN MALDONADO Staff Physician (Appraiser Timber) /KRISTEN PHELAN [facility] Encounter Notes: All associated encounter notes This section contains the clinical notes associated to the Encounter. Date/Time Encounter Note(s) Provider Source Apr 07, 2025 08:05 PM PHYSICIAN EMERGENC Y DEPT NOTE: LOCAL TITLE: EMERGENCY DEPARTMENT STANDARD TITLE: PHYSICIAN EMERGENCY DEPT NOTE DATE OF NOTE: APR 07, 2025@20:05 ENTRY DATE: APR 07, 2025@20:05:50 AUTHOR: YONG HEATH EXP COSIGNER: URGENCY: STATUS: COMPLETED TRIAGE CHIEF COMPLAINT: HPI: Patient is a 34-year-old male with history of mood disorder, allergic rhinitis, PTSD, prediabetes, constipation, GERD presents the ER with poison ana maria rash to the face, groin and trunk over the past few days. tells me he is highly susceptible to poison ana maria rash and this feels similar. Patient denies fever, chills, nausea, vomiting. Patient denies any other complaints. REVIEW OF SYSTEMS: See HPI for further [...] CAUSE DIZZINESS OR DROWSINESS. Indication: FOR NIGHTMARES No medications found.. 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 Any medication discrepancies have been resolved. Patient [...] has answered NKA PHYSICAL EXAM: VITAL SIGNS: 138/89 (04/07/2025 19:41)81 (04/07/2025 19:41)97% (04/01/2025 14:39)98.1 F [36.7 C] (04/07/2025 19:41)17 (04/07/2025 19:41)The OBJECT WEIGHT LAST 3 was NOT found...Contact IRM. MAThe OBJECT was NOT found...Contact IRM.PAIN ASSESSMENTThe OBJECT was NOT found...Contact IRM. Measurement DT PAIN 04/07/2025 19:41 3 CONSTITUTIONAL: No acute distress, Non-toxic appearance HENT: airway patent EYES: Conj pink, sclera clear NECK: Normal range of motion, No tenderness, Supple, No stridor, No LAD. CARDIOVASCULAR: Normal heart rate, Normal rhythm, No murmurs, No rubs, No gallops. PULMONARY/CHEST: CTA bilaterally, thorax stable without tenderness ABDOMEN: Bowel sounds normal, Soft, flat, No tenderness, No bruit, No masses, No pulsatile masses BACK: No tenderness, No CVA tenderness : RECTAL: EXTREMITIES: Normal range of motion, Intact distal pulses, No edema, No tenderness NEUROLOGIC: Alert & oriented/reactive, Normal motor function, Normal gait, no ataxia, No focal deficits appreciated on cursory screening exam SKIN: Warm, Dry, No erythema, pruritic maculopapular rash on face, trunk with few excoriations, no evidence of superinfection or drainage. LABS: RADIOLOGY: ECG IMPRESSION: ED COURSE & MEDICAL DECISION MAKING: Nursing notes, medications, vital signs, allergies and pertinent labs & imaging studies reviewed (see chart for details) with lab results reviewed with patient and family/caregivers at bedside and radiology results reviewed with patient and any family/caregivers at bedside. Stable, alert, nontoxic, nonfocal with clinically apparent pruritic rash consistent with contact dermatitis, you has had prior episodes. hemodynamically stable in ED, comfortable, nontoxic-appearing. [place] has responded well to steroids with prior episodes of poison ana maria. [place] was given IM Depo-Medrol in ED and he will be discharged home on prednisone with taper. Supportive measures were discussed including calamine lotion, benadryl as needed for itching and close monitoring of symptoms. Patient felt stable for discharge home and close follow-[facility] with [facility]. Clinical information obtained from an independent historian. History obtained from or confirmed by: Clinical information obtained from patient ___spouse ___parent ___guardian ___family ___friend ___EMS ___other: Discussed with radiology regarding test interpretation: No radiology test performed during this ED visit I performed an independent interpretation of: ___EKG ___rhythm strip ___plain x-ray ___ultrasound ___CT scan ___MRI ___other Patient's care impacted by: ___Diabetes ___Hypertension ___Cancer ___other: Patient's care is significantly limited by social determinants of health including, but not limited to: ___inadequate housing ___low income ___alcoholism and drug addiction in family ___problems related to primary support group ___unemployment ___problems with employment ___language barrier ___lack of transportation ___psychiatric disease ___other social determinants of health: External records reviewed: _X__Inpatient records _X__office records _X__outpatient records ___prior outpatient labs ___prior outpatient radiology ___primary care record ___outside ED record ___PMD referral ___outside ER ___urgent care referral ___other: Management of the patient was discussed with: ___Hospitalist ___consultant ___behavioral health provider ___primary care provider ___other: The following testing was considered but ultimately was not performed after discussion with the patient/family: I considered prescription management with the following but ultimately did not prescribe: Rx for prednisone with taper sent to pharmacy ___pain medication ___antiviral ___antibiotic ___other: I considered admission/ observation but decided upon discharge due to: patient felt stable for discharge home and outpatient management. 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 SERVICE/TIME: MEDICATIONS GIVEN IN ED: [X] YES [ ] NO DIFFERENTIAL DIAGNOSES CONSIDERED: Hives, contact dermatitis, allergic reaction, cellulitis, rash, nonspecific skin eruption, other DECISION to ADMIT / DISCHARGE TIME: 2019 DISPOSITION CONDITION:[X] Improved [ ] Unchanged [ ] Deteriorated CLINICAL IMPRESSION: 1 -rash and other nonspecific skin eruption 2 - 3 - DISCHARGE INSTRUCTIONS AND PATIENT-DIRECTED FOLLOW-UP RECOMMENDATIONS: DIET: regular ACTIVITY: ad iesha NEW MEDS: MEDICATION RECONCILIATION: CONTINUE ALL PRESCRIBED MEDICATIONS DIRECTED EXCEPT: FOLLOW-UP WITH PRIMARY HAND MOLD MAKER/SPECIALIST: routine in 1-2 weeks if not improving, sooner if worse RETURN TO EMERGENCY: if any worries or concerns ADDITIONAL SIGNATURE PCP: [X] YES [ ] NO [ ] not [...] CAUSE DIZZINESS OR DROWSINESS. Indication: FOR NIGHTMARES /arlet/ Yong Heath MD Staff ED Attending Physician Signed: 04/07/2025 20:28 Receipt Acknowledged By: 04/28/2025 08:51 /arlet/ ISMA ROSARIO MD Staff Physician 04/27/2025 20:47 /arlet/ REBECCA MENEZES Resident Physician YONG HEATH [facility] Apr 07, 2025 07:41 PM EMERGENCY DEPT TRI AGE NOTE: LOCAL TITLE: EMERGENCY DEPARTMENT TRIAGE NOTE STANDARD TITLE: EMERGENCY DEPT TRIAGE NOTE DATE OF NOTE: APR 07, 2025@19:41 ENTRY DATE: APR 07, 2025@19:41:04 AUTHOR: KISHAN LOZANO EXP COSIGNER: URGENCY: STATUS: COMPLETED EMERGENCY DEPARTMENT TRIAGE NOTE Has ADDENDA Emergency Department/Urgent Care Center Triage Patient age:34 Sex in chart: MALE Mode of Arrival: Private vehicle Mode of Mobility: * Walk 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 Pt using benadryl gel without relief. Requesting steroid shot. Pt endorses lump on penis and had STI testing at clinic which was negative, wondering what it could be Level of Consciousness (AVPU): Alert = Appears aware of and responsive to the environment on their own. Follows commands, opens eyes spontaneously, and tracks objects. Vital Signs: Temperature 98.1 F (36.7 C) Pulse 81 Respirations 17 Blood Pressure 138/89 Pulse Oximetry 97 Room Air Pain: DVPRS Scale Location: [facility] Pain Rating Scale (DVPRS): Pain Score: 3 Patient's acceptable pain goal: Suicide Screen: [place] Suicide Severity Rating Scale (C-SSRS) screener 1. [...] Prediabetes 14) Pain of right shoulder joint /arlet/ KISHAN LOZANO MSN, RN REGISTERED NURSE Signed: 04/07/2025 19:43 04/07/2025 ADDENDUM STATUS: COMPLETED 2026- Pt given 80mg methylprednisolone to R deltoid IM per order /arlet/ KISHAN LOZANO MSN, RN REGISTERED NURSE Signed: 04/07/2025 20:42 KISHAN LOZANO [facility]
--- OUTSIDE RECORDS SUMMARY | 2025-05-23 12:49 | XMS_ITS | Encounter Summary ---
Author Name [facility] [place] [facility] [place] Organization [facility] [place] Address [address] [place] [address] Care Team Providers Care Stock Manager Name Role Phone ISMA ROSRAIO Primary Care Provider REBECCA Kinney Unavailable Unavailable Selected Encounter This section includes the information on record at [place] for the Encounter. Date/Time Encounter Type Encounter Description Reason Provider Source Oct 10, 2024 11:13 AM EMERGENCY DEPT VISIT [facility] EMERGENCY DEPT ICD-10-CM H60.8X2 Other otitis externa, left ear ERIKA FRANKEL MD I[facility] Encounter Template Text not used by [place] Assessments - Encounter Diagnoses This section includes the primary and secondary diagnoses documented for the Encounter. Date/Time Primary/Secondary Diagnosis Diagnosis Name Provider Source Oct 10, 2024 12:14 PM PRIMARY Other otitis externa, left ear ERIKA FRANKEL MD [facility] Plan of Treatment: Future Appointments [...] 2024 11:30 AM AMBULATORY - SURGERY [facility] Nov 05, 2024 11:20 AM AMBULATORY - SURGERY [facility] Nov 14, 2024 11:30 AM AMBULATORY - REHAB MEDICIN E [facility] Nov 19, 2024 09:49 AM AMBULATORY - MEDICINE [facility] Nov 28, 2024 02:00 PM AMBULATORY - REHAB MEDICIN E [facility] Dec 12, 2024 01:15 PM AMBULATORY - MEDICINE [facility] Dec 24, 2024 10:40 AM AMBULATORY - SURGERY [facility] Dec 29, 2024 02:30 PM AMBULATORY - REHAB MEDICIN E [facility] Dec 31, 2024 09:30 AM AMBULATORY - PS[facility]ATRY [facility] Dec 31, 2024 09:30 AM [facility] Jan 09, 2025 02:30 PM AMBULATORY - REHAB MEDICIN E [facility] Jan 21, 2025 10:00 AM AMBULATORY - SURGERY [facility] Jan 26, 2025 03:00 PM AMBULATORY - REHAB MEDICIN E [facility] Jan 28, 2025 09:30 AM [facility]ORY - [facility]RY [facility] Jan 28, 2025 09:30 AM [facility]RY [facility] February 20, 2025 12:00 PM AMBULATORY - NONE [facility] February 25, 2025 11:30 AM AMBULATORY - REHAB MEDICIN E [facility] March 01, 2025 09:10 AM AMBULATORY - MEDICINE [facility] March 11, 2025 02:40 PM AMBULATORY - MEDICINE [facility] Apr 01, 2025 11:30 AM AMBULATORY - REHAB MEDICIN E [facility] Vital Signs: All taken on the encounter date This section contains inpatient and outpatient Vital Signs collected on the date of the Encounter. Date/Time Temperature Pulse Blood Pressure Respiratory Rate SP02 Pain Height Weight Body Mass Index Source Oct 10, 2024 11:30 AM 98.2 74 133/85 16 2 [facility] Social History: Smoking Status (Most current) and Tobacco Use (All prior to encounter date) This section includes the most current, and the historical, smoking and tobacco- related health factors from the [facility] where the Encounter took place. Current Smoking Status This section includes the most current smoking, or tobacco-related health factor, from the [place] facility where the Encounter took place. Date/Time Current Smoking Status Comment David boggsy May 02, 2024 11:00 AM [place]-TOBACCO NEVER USED [facility] Tobacco Use History This section includes a history of the smoking, or tobacco-related health factors, that were collected on or before the date of the Encounter. The data comes from the [place] facility where the Encounter took place. Date/Time Smoking Status/Tobacco Use Comment F acbashir Jan 14, 2019 05:30 PM [place]-TOBACCO NEVER USED [facility] Jun 07, 2018 01:03 PM TOBACCO REFUSED SCREEN V15 [facility] Aug 10, 2017 09:25 AM LIFETIME NON-USER OF TOBACCO [facility] Jul 13, 2017 11:32 AM LIFETIME NON-USER OF TOBACCO [facility] May 08, 2017 01:14 PM LIFETIME NON-USER OF TOBACCO [facility] Encounter Notes: All associated encounter notes This section contains the clinical notes associated to the Encounter. Date/Time Encounter Note(s) Provider Source Oct 10, 2024 11:59 AM PHYSICIAN EMERGENCY DEPT NOTE: LOCAL TITLE: EMERGENCY DEPARTMENT ST STANDARD TITLE: PHYSICIAN EMERGENCY DEPT NOTE DATE OF NOTE: OCT 10, 2024@11:59 ENTRY DATE: OCT 10, 2024@11:59:45 AUTHOR: ERIKA FRANKEL MD EXP COSIGNER: URGENCY: STATUS: COMPLETED TRIAGE CHIEF COMPLAINT: L ear pain HPI: Patient is a 33 yo M w/ h/o bipolar, allergic rhinitis, GERD, HLD here w/ L ear pain. He notes recurrent dx of ear infections over last 2 years. ~1 week ago noticed a painful mass in L auditory canal. States that he bought an endoscopic otoscope on [employer] and was looking in his ear yesterday, believes he saw a spot of pus on lesion. This AM was cleaning ear with a q-tip and found pus and blood. No f/c, respiratory symptoms, tinnitus different than baselijne, hearing loss, vertigo. Otherwise well. REVIEW OF SYSTEMS: See HPI for further [...] CAUSE DIZZINESS OR DROWSINESS. Indication: FOR NIGHTMARES 1) ONDANSETRON INJ,SOLN IVP Q8H PRN 4MG/2ML. I have reviewed the patient's medication list with the patient and/or his/her care-obgyn hospitalist physician. Any medication discrepancies have been resolved. Patient will be provided with an updated list of his/her medication(s). SURGICAL HISTORY: not pertinent FAMILY HISTORY: not pertinent SOCIAL HISTORY: Social History Main Topics: Smoking status: No data available for: Current Tobacco User Alcohol Use: denies Negative mg/dL (07/30/24 11:08) Illicit Drug Use: denies ALLERGIES: Review of patient's allergies indicates: Patient has answered NKA PHYSICAL EXAM: VITAL SIGNS: 133/85 (10/10/2024 11:30)74 (10/10/2024 11:30)99% (09/10/2024 11:05)98.2 F [36.8 C] (10/10/2024 11:30)16 (10/10/2024 11:30)The OBJECT WEIGHT LAST 3 was NOT found...Contact IRM. MAThe OBJECT was NOT found...Contact IRM.PAIN ASSESSMENTThe OBJECT was NOT found...Contact IRM. Measurement DT PAIN 10/10/2024 11:30 2 CONSTITUTIONAL: No acute distress, non-toxic appearance HENT: OP clear, b/l TMs pearly coughlin, normal in appearance, L external canal with 3 mm papular lesion with some crusted over blood, no pus. EYES: Sclerae clear, EOMI, PERRL NECK: Normal range of motion, supple, no stridor. CARDIOVASCULAR: Normal rate, regular rhythm. PULMONARY/CHEST: Normal work of breathing, no respiratory distress. ABDOMEN: Soft, flat, No tenderness, no mass. BACK: No midline C/T/L tenderness, No CVA tenderness EXTREMITIES: Normal range of motion, distal pulses symmetric/intact, No edema LYMPHATIC: No appreciable LAD NEUROLOGIC: Speech fluent, alert & oriented x 3, normal motor function, normal gait, no ataxia SKIN: Warm, dry, no rash ED COURSE & MEDICAL DECISION MAKIN yo M here w/ L ear pain found to have small auditory canal papule/cyst. Will rx topical abx/dex. Will refer ENT given recurrent diagnosis of AOM. D/c home with return precautions. Nursing notes, medications, vital signs, allergies and pertinent labs & imaging studies reviewed (see chart for details) with lab results reviewed with patient/family and radiology results reviewed with patient/family. 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/TIME: n/a MEDICATIONS GIVEN IN ED: [ ] YES [ x ] NO DIFFERENTIAL DIAGNOSES CONSIDERED: Per MDM DECISION to ADMIT / DISCHARGE TIME: 1200 DISPOSITION CONDITION:[ x ] Improved [ ] Unchanged [ ] Deteriorated CLINICAL IMPRESSION: 1 - External auditory canal lesion, suspect cyst 2 - 3 - DISCHARGE INSTRUCTIONS AND PATIENT-DIRECTED FOLLOW-UP RECOMMENDATIONS: DIET: regular ACTIVITY: ad iesha NEW MEDS: -Ciprodex MEDICATION RECONCILIATION: CONTINUE ALL PRESCRIBED MEDICATIONS DIRECTED EXCEPT: FOLLOW-UP WITH PRIMARY PLANT BREEDER/SPECIALIST: routine in 1-2 weeks if not improving, sooner if worse RETURN TO EMERGENCY: if any worries or concerns worsening pain, bleeding, hearing loss, vertigo ADDITIONAL SIGNATURE PCP: [ x ] YES [ ] NO [ ] [...] CAUSE DIZZINESS OR DROWSINESS. Indication: FOR NIGHTMARES /es/ ERIKA FRANKEL MD Staff Physician Signed: 10/10/2024 14:38 Receipt Acknowledged By: 10/29/2024 12:11 /arlet/ ISMA ROSARIO MD Staff Physician 11/28/2024 12:35 /arlet/ REBECCA MENEZES Resident Physician ERIKA FRANKEL MD [facility]
--- OUTSIDE RECORDS SUMMARY | 2025-05-23 12:49 | XMS_ITS | Encounter Summary ---
Author Name [facility] [place] [facility] [place] Organization [facility] [place] Address [address] [place] [address] Care Team Providers Care Driller Portable Name Role Phone ISMA ROSARIO Primary Care Provider REBECCA Kinney Unavailable Unavailable Selected Encounter This section includes the information on record at [place] for the Encounter. Date/Time Encounter Type Encounter Description Reason Provider Source Nov 14, 2024 11:30 AM THERAPEUTIC EXERCISES OCCUPATIONAL THERAPY ICD-10-CM M25.511 Pain in right shoulder AJITH FRIEDMAN Carmen Encounter Template Text not used by [place] Assessments - Encounter Diagnoses This section includes the primary and secondary diagnoses documented for the Encounter. Date/Time Primary/Secondary Diagnosis Diagnosis Name Provider Source Nov 14, 2024 12:16 PM PRIMARY Pain in right shoulder AJITH FRIEDMAN [facility] Plan of Treatment: [...] Appointment Type Appointme nt Facility Name Nov 19, 2024 09:49 AM AMBULATORY - MEDICINE [facility] Nov 28, 2024 02:00 PM AMBULATORY - REHAB MEDICIN E [facility] Dec 12, 2024 01:15 PM AMBULATORY - MEDICINE [facility] Dec 24, 2024 10:40 AM AMBULATORY - SURGERY [facility] Dec 29, 2024 02:30 PM AMBULATORY - REHAB MEDICIN E [facility] Dec 31, 2024 09:30 AM AMBULATORY - PSYCHIATRY [facility] Dec 31, 2024 09:30 AM AMBULATORY - [facility]IATRY [facility] Jan 09, 2025 02:30 PM AMBULATORY - REHAB MEDICIN E [facility] Jan 21, 2025 10:00 AM AMBULATORY - SURGERY [facility] Jan 26, 2025 03:00 PM AMBULATORY - REHAB MEDICIN E [facility] Jan 28, 2025 09:30 AM AMBULATORY - PSYCHIATRY [facility] Jan 28, 2025 09:30 AM AMBULATORY - PS[facility]CHIATRY [facility] February 20, 2025 12:00 PM AMBULATORY - NONE [facility] February 25, 2025 11:30 AM AMBULATORY - REHAB MEDICIN E [facility] March 01, 2025 09:10 AM AMBULATORY - MEDICINE [facility] March 11, 2025 02:40 PM AMBULATORY - MEDICINE [facility] Apr 01, 2025 11:30 AM AMBULATORY - REHAB MEDICIN E [facility] Apr 01, 2025 02:40 PM AMBULATORY - MEDICINE [facility] Apr 07, 2025 07:22 PM AMBULATORY - MEDICINE [facility] Apr 29, 2025 09:30 AM AMBULATORY - PSYCHIATRY [facility] Lab Results: +/- 30 days of [...] Type Comment Dec 12, 2024 02:29 PM [facility] LIPID PANEL (STL) PLASMA Specimen Type: PLASMA Comment: No hemolysis noted. Ordering Provider: REBECCA MENEZES Report Released Date/Time: Dec 12, 2024 02:20 PM Reporting Lab: [place] [address] [address] [address] Performing Lab: [address] [address] CHOLESTEROL 182 mg/dL 0-200 TRIGLYCERIDE 237 mg/dL H 0-150 CALCULATED LDL 106 mg/dL HDL(New) 29 mg/dL L >40 Dec 12, 2024 02:29 PM [facility] COMPREHENSIVE METABOLIC PANEL PLASMA Specimen Type: PLASMA Comment: No hemolysis noted. Ordering Provider: REBECCA MENEZES Report Released Date/Time: Dec 12, 2024 02:20 PM Reporting Lab: [facility] [address] [address] Performing Lab: [place] [address] [address] [address] CREATININE 1.06 mg/dL 0.7-1.3 UREA NITROGEN 13.6 [...] 94.4 >60 Dec 12, 2024 02:29 PM [facility] CBC BLOOD Specimen Type: BLOOD No comment entered. Ordering Provider: REBECCA MENEZES Report Released Date/Time: Dec 12, 2024 02:20 PM Reporting Lab: [facility] [address] [facility] [address] Performing Lab: [facility] [address] [facility] [address] [address] WBC 6.2 10*3/uL 3.6-11.2 RBC 4.84 10*6/uL [...] 02, 2024 11:00 AM [place]-TOBACCO NEVER USED [facility] Tobacco Use History This section includes a history of the smoking, or tobacco-related health factors, that were collected on or before the date of the Encounter. The data comes from the [place] facility where the Encounter took place. Date/Time Smoking Status/Tobacco Use Comment F acility Jan 14, 2019 05:30 PM [place]-TOBACCO NEVER USED [facility] Jun 07, 2018 01:03 PM TOBACCO REFUSED SCREEN V15 [facility] Aug 10, 2017 09:25 AM LIFETIME NON-USER OF TOBACCO [facility] Jul 13, 2017 11:32 AM LIFETIME NON-USER OF TOBACCO [facility] May 08, 2017 01:14 PM LIFETIME NON-USER OF TOBACCO [facility] Encounter Notes: All associated encounter notes This section contains the clinical notes associated to the Encounter. Date/Time Encounter Note(s) Provider Source Nov 14, 2024 11:30 AM OCCUPATIONAL THERA PY E & M NOTE: LOCAL TITLE: OT PROGRESS STL STANDARD TITLE: OCCUPATIONAL THERAPY E & M NOTE DATE OF NOTE: NOV 14, 2024@11:30 ENTRY DATE: NOV 14, 2024@12:03:22 AUTHOR: AJITH FRIEDMAN EXP COSIGNER: URGENCY: STATUS: COMPLETED Occupational Therapy Daily/Progress Note Diagnosis: Pain in right Shoulder(ICD-10-CM M25.511) Requesting Provider: BRIAN MOCTEZUMA Reason for request: R shoulder scope, possible cuff repair 08/29/24 Surgery: Right arthroscopic rotator cuff repair Date of surgery: 08/29/24 IS 11 WEEKS POST-OP 11 weeks p/o on 11/14/24 PHYSICAL THERAPY REFERRAL: Rotator cuff repair (Phase [...] Date of Initial Evaluation: 09/10/2024 Visit #: 4 Ca or NS #: 0 TIME: 11:30-11:55 Ther ex: 25 minutes SUBJECTIVE: Vet reports he had a slip/trip fall in his home onto his outstretched R arm. 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 Goal: Return to work Pain: 2-3/10 constant- pre/post OT session OBJECTIVE: Dominick presents into OT without s/s of overt pain AROM SHOULDER STANDING: Left Right Right 10/10 10/10 11/14 Flexion:160 148 145 EX: 50 46 50 ABD: 150 132 140 ER: 65 48 64 IR: T8 T12 T12 Shoulder strength testing deferred at this time. Treatment: participated in the following this date: - [place] educated on use of ice for targeted pain at bicep tendon since fall - completed 10 reps of each shoulder AROM exericse in all planes with no pain reported/observed and with/without cane - Vet educated to avoid resistive pulling and other resistive movements where shoulder is involved and when elbow comes away from the body- Vet expressed understanding - educated that bicep curls are allowed and Vet encouraged to perform in pain free range PREVIOUS HEP RESOURCES: Access Code: [email or web address] URL: [email or web address] Date: 10/10/2024 Prepared by: Rosendo Garcia Exercises - Seated Shoulder Flexion AAROM with [...] hold stretch PAST: Access Code: [email or web address] URL: [email or web address] Date: 09/10/2024 Prepared by: Kianna Armas Exercises [...] L hand assisting the R to move Equipment/Instructions: [X] None [place] Education was ready to learn and demonstrated [...] order to address pain and progress HEP. [place] presents with good rehabilitation potential. PLAN: to be seen by OT 1-2x every other week 30days with shoulder ROM and gradual progression of strength per protocol, proprioception, and modalities for pain control. Discussed plan of care with and was agreeable to plan. Vet to f/u on 11/28 to continue with Phse III of post [...] 4/5 grade in all involved MM groups. GROUP HOME GOALS: To be achieved in (6-8 visits). [...] Patient Education Topic/Teaching Needs: Rehabilitation and Habilitation RTC repair HEP protocol Methods used included: One-on-one: demo/return demo Teaching outcomes: Good level of understanding /arlet/ AJITH FRIEDMAN Occupational Therapist Signed: 11/14/2024 12:16 AJITH FRIEDMAN [facility]
--- OUTSIDE RECORDS SUMMARY | 2025-05-23 12:49 | XMS_ITS | Encounter Summary ---
Author Name [facility] [place] [facility] [place] Organization [facility] [place] Address [address] [place] [address] Care Team Providers Care Searchlight Operator Name Role Phone ISMA ROSARIO Primary Care Provider REBECCA Kinney Unavailable Unavailable Selected Encounter This section includes the information on record at [place] for the Encounter. Date/Time Encounter Type Encounter Description Reason Provider Source Sep 10, 2024 01:00 PM THERAPEUTIC EXERCISES OCCUPATIONAL THERAPY ICD-10-CM M25.511 Pain in right shoulder GEOVANNY PANIAGUA Encounter Template Text not used by [place] Assessments - Encounter Diagnoses This section includes the primary and secondary diagnoses documented for the Encounter. Date/Time Primary/Secondary Diagnosis Diagnosis Name Provider Source Sep 10, 2024 03:36 PM PRIMARY Pain in right shoulder KIANNA ARMAS [facility] Plan of Treatment: Future [...] PM AMBULATORY - REHAB MEDICIN E [facility] Sep 29, 2024 02:00 PM AMBULATORY - PSYCHIATRY [facility] Sep 29, 2024 02:00 PM AMBULATORY - PSYCHIATRY [facility] Oct 01, 2024 09:30 AM AMBULATORY - PSYCHIATRY [facility] Oct 01, 2024 09:30 AM AMBULATORY - PSYCHIATRY [facility] [place] [facility] Oct 10, 2024 10:30 AM AMBULATORY - REHAB MEDICIN E [facility] Oct 10, 2024 11:13 AM AMBULATORY - MEDICINE [facility] Oct 23, 2024 11:30 AM AMBULATORY - SURGERY [facility] Nov 05, 2024 11:20 AM AMBULATORY - SURGERY [facility] Nov 14, 2024 11:30 AM AMBULATORY - REHAB MEDICIN E [facility] Nov 19, 2024 09:49 AM AMBULATORY - MEDICINE [facility] Nov 28, 2024 02:00 PM AMBULATORY - REHAB MEDICIN E [facility] Dec 12, 2024 01:15 PM AMBULATORY - MEDICINE [facility] Dec 24, 2024 10:40 AM AMBULATORY - SURGERY [facility] Dec 29, 2024 02:30 PM AMBULATORY - REHAB MEDICIN E [facility] Dec 31, 2024 09:30 AM AMBULATORY - PSYCHIATRY [facility] Dec 31, 2024 09:30 AM AMBULATORY - PSYCHIATRY [facility] Jan 09, 2025 02:30 PM AMBULATORY - RE[facility]AB MEDICIN [facility] Jan 21, 2025 10:00 AM AMBULATORY - SURGERY [facility] Jan 26, 2025 03:00 PM AMBULATORY - REHAB MEDICIN E [facility] Vital Signs: All taken on the encounter date This section contains inpatient and outpatient Vital Signs collected on the date of the Encounter. Date/Time Temperature Pulse Blood Pressure Respiratory Rate SP02 Pain Height Weight Body Mass Index Source Sep 10, 2024 11:05 AM 97.8 80 130/85 20 99 1 [facility] Social History: Smoking Status (Most current) and Tobacco Use (All prior to encounter date) This section includes the most current, and the historical, smoking and tobacco- related health factors from the [facility] where the Encounter took place. Current Smoking Status This section includes the most current smoking, or tobacco-related health factor, from the [place] facility where the Encounter took place. Date/Time Current Smoking Status Comment David dodge May 02, 2024 11:00 AM [place]-TOBACCO NEVER USED [facility] Tobacco Use History This section includes a history of the smoking, or tobacco-related health factors, that were collected on or before the date of the Encounter. The data comes from the [place] facility where the Encounter took place. Date/Time Smoking Status/Tobacco Use Comment Maximus michael Jan 14, 2019 05:30 PM [place]-TOBAC[place] NEVER USED [facility] Jun 07, 2018 01:03 PM TOBACCO REFUSED SCREEN V15 [facility] Aug 10, 2017 09:25 AM LIFETIME NON-USER OF TOBACCO [facility] Jul 13, 2017 11:32 AM LIFETIME NON-USER OF TOBACCO [facility] May 08, 2017 01:14 PM LIFETIME NON-USER OF TOBACCO [facility] Encounter Notes: All associated encounter notes This section contains the clinical notes associated to the Encounter. Date/Time Encounter Note(s) Provider Source Sep 10, 2024 01:46 PM OCCUPATIONAL MEDIC INE CONSULT: LOCAL TITLE: OT CONSULT ST STANDARD TITLE: OCCUPATIONAL MEDICINE CONSULT DATE OF NOTE: SEP 10, 2024@13:46 ENTRY DATE: SEP 10, 2024@13:47:07 AUTHOR: KIANNA ARMAS EXP COSIGNER: URGENCY: STATUS: COMPLETED OT CONSULT STL Has ADDENDA Occupational Therapy Consult Note Diagnosis: Pain in right Shoulder(ICD-10-CM M25.511) Requesting Provider: BRIAN MOCTEZUMA Reason for request: R shoulder scope, possible cuff repair 08/29/24 Order/Precautions/Surgery/Pr ocedures performed: PHYSICAL THERAPY REFERRAL: Rotator cuff repair [...] Date of Initial Evaluation: 09/10/2024 Visit #: 1 Ca or NS #: 0 TIME: [id number] 35 minutes Eval: 15 minutes Ther ex: 20 minutes PMH: 1) Mood disorder 2) Allergic rhinitis 3) Pain of left shoulder joint 4) Low back pain 5) Severe bipolar II disorder 6) Posttraumatic stress disorder 7) Gastroesophageal reflux disease 8) Constipation 9) Obesity 10) Knee pain 11) HLD - Hyperlipidemia 12) Decreased vitamin D 13) Prediabetes 14) Pain of right shoulder joint SUBJECTIVE: Dominick reports some R shoulder pain since surgery on 08/29. Dominick states he has been wearing the sling all the day and has no difficulty with donning and doffing. Dominick states he has been having difficulty sleeping due to the pain and is sleeping in a recliner. Dominick has a hx of shoulder surgeries and is familiar with the rehabilitation process. 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 Goal: Return to work Pain: 12/29 OBJECTIVE: Dominick is A/O x 4 (name, place, time/date, situation). Dominick ambulated into the clinic without use of AD wearing post-operative sling. Dominick is R hand dominant. Dominick was able to demo understanding of therapy instructions this date. No further cognitive screening was indicated. UE: Digit/wrist/elbow AROM WNL. Vet with some initial stiffness with elbow flexion but able to complete ROM with repetition. Shoulder ROM and strength testing deferred at this time. Treatment: In addition to an initial occupational therapy evaluation, vet provided with home exercise program he was able to complete within the clinic including: Access Code: [email or web address] URL: [email or web address] Date: 09/10/2024 Prepared by: Kianna Armas Exercises [...] hand assisting the R to move - Vet instructed to complete basic AROM of the wrist, forearm, and elbow including elbow flexion/extension, forearm supination/pronation, wrist flexion/extension/ulnar deviation/radial deviation. Vet able to demonstrate in the clinic Equipment/Instructions: [X] None [place] [employer] was ready to learn and demonstrated an understanding of instructions given on Role of OT, [place] 1:1 instruction in equipment issued and/or home [...] needed to assist with reutrn to ADLs. [place] presents with good rehabilitation potential. Occupational Profile and History [] Brief (low) [X] Expanded (moderate) [] Extensive (high) Performance deficits identified: [X] ADLs [X] IADLs [] Functional mobility [X] Range of motion [X] Muscle Strength [] Functional Endurance [] Functional Balance [] Fine motor coordination [] Adaptive equipment needs [] Cognition [] Vision [] Coping skills [] Interpersonal interaction [] Impulse control [] Other (please specify: ) [place]: 1-3 performance deficits = Low complexity 3-5 performance deficits = moderate complexity 5 or more performance deficits = high complexity Level of Clinical Decision Making [] problem-focused assessment [X] detailed assessment [] comprehensive assessment --Therefore, from the findings above in Veterans Occupational Profile/History, Performance Deficits and level of clinical decision making, the OT Evaluation level of complexity of this patient was: [] Low [X] Moderate [] High Barriers to achieving goals: None PLAN: to be seen by OT 1-2x every other week 30days with shoulder ROM and gradual progression of strength per protocol, proprioception, and modalities for pain control. Discussed plan of care with and was agreeable to plan.Vet to f/u in 1-2 weeks to reassess his progress and to review/amend his HEP as needed and appropriate. Continued skilled occupational therapy as below to [...] 4/5 grade in all involved MM groups. ALF GOALS: To be achieved in (6-8 visits). 1. Vet will describe improved pain management with combination of HEP, and increased awareness of posture/scapular/biomechanic s and positioning techniques 2. Return to prior level of independent function at home and in the community. Date of Initiation of Treatment Plan: 09/10/2024 *This note will serve as the d/c note should this be the last tx intervention* /arlet/ KIANNA ARMAS OCCUPATIONAL THERAPIST FELLOW Signed: 09/10/2024 15:39 Receipt Acknowledged By: 09/10/2024 16:02 /arlet/ CHRISTOFER Dominguez CLT Occupational Therapist 09/10/2024 ADDENDUM STATUS: COMPLETED I have reviewed the treatment, documentation, and plan of care for this patient with O.T. Fellow VICENTE Willett and agree with the above assessment. Level of Supervision: [ ] Room [ ] Area [x] Available /arlet/ CHRISTOFER Dominguez CLT Occupational Therapist Signed: 09/10/2024 16:[address] [facility]
--- OUTSIDE RECORDS SUMMARY | 2025-05-23 12:49 | XMS_ITS | Encounter Summary ---
Author Name [facility] [place] [facility] [place] Organization [facility] [place] Address [address] [place] [address] Care Team Providers Care Iron Worker Foreman Name Role Phone ISMA ROSARIO Primary Care Provider CHICHO Kinney Unavailable Unavailable Selected Encounter This section includes the information on record at [place] for the Encounter. Date/Time Encounter Type Encounter Description Reason Provider Source Apr 29, 2025 02:15 PM OFFICE O/P EST LOW 20 MIN PRIMARY CARE/MEDICINE ICD-10-CM N50.89 Other specified disorders of the male genital organs ISMA ROSARIO Carmen Encounter Template Text not used by [place] Assessments - Encounter Diagnoses This section includes the primary and secondary diagnoses documented for the Encounter. Date/Time Primary/Secondary Diagnosis Diagnosis Name Provider Source Apr 29, 2025 03:38 PM PRIMARY Other specified disorders of the male genital organs CHICHO HUNT [facility] Plan of Treatment: Future Appointments (+ 6 months) and Future Tests (+/- 45 days) The Plan of Treatment section includes future care activities for the patient from all [place] treatmentfacilities. This section includes future appointments and future orders which are active, pending or scheduled. Future Appointments This section includes appointments that were scheduled to occur 6 months from the date of the Encounter, up to a maximum of 20 appointments. The data comes from all [place] treatment facilities. Appointment Date/Time Appointment Type Appointme nt Facility Name May 23, 2025 01:00 PM AMBULATORY - NONE [facility] May 27, 2025 11:00 AM AMBULATORY - NONE [facility] Jun 02, 2025 10:00 AM AMBULATORY - SURGERY [facility] Aug 07, 2025 09:30 AM AMBULATORY - PSYCHIATRY [facility] Aug 07, 2025 09:30 AM AMBULATORY - PSYCHIATRY [facility] Active, Pending, and Scheduled Orders This section includes a listing of several types of active, pending, and scheduled orders, including clinic medications orders, diagnostic test orders, procedure orders and consult orders; where the start date of the order is 45 days before the date of the Encounter or 45 days after the date of theEncounter. The data comes from all [place] treatment facilities. Test Date/Time Test Type Test Details Facility Name Apr 01, 2025 03:28 PM Consult Order ORTHOPEDIC SHOULDER/ELBOW EVAL OUTPT [facility] [place] [facility] Apr 21, 2025 09:48 AM Consult Order COMMUNITY CARE-IMAGING MAGNETIC RESONANCE IMAGING-[facility] Results: +/- 30 days of the [...] Type Comment Apr 01, 2025 03:37 PM [facility] RAPID PLASMA REAGIN (RPR) SERUM Specimen Type : SERUM No comment entered. Ordering Provider: FANI CONTRERAS Report Released Date/Time: Apr 01, 2025 03:29 PM Reporting Lab: [facility] [address] [facility] [address] Performing Lab: [place] [id number] [facility] [id number] RAPID PLASMA REAGIN (RPR) NONREACTIVE NO NREACTIVE Apr 01, 2025 03:37 PM [facility] HIV COMBO FOURTH GENERATION (STL) SERUM Speci men Type: SERUM No comment entered. Ordering Provider: FAIN CONTRERAS Report Released Date/Time: Apr 01, 2025 03:29 PM Reporting Lab: [facility] [address] [place] [id number] Performing Lab: [address] [address] HIV COMBO FOURTH GENERATION (STL) Nonreactive Nonreactive Apr 01, 2025 03:37 PM [facility] GC & CHLAMYDIA PCR (STL-PB) URINE [...] Apr 01, 2025 03:29 PM Reporting Lab: [address] [address] Performing Lab: [address] [address] N.GONORRHOEAE PCR (STL) Not Detected Not Detected C.TRACHOMATIS PCR (STL) Not Detected Not Detected Apr 01, 2025 03:36 PM [facility] TRICHOMONAS PCR (STL-PB) URINE Specimen Type: [...] Apr 01, 2025 03:29 PM Reporting Lab: [facility] [address] [address] Performing Lab: [facility] [address] [facility] [address] TRICHOMONAS PCR (STL-PB) Not Detected No t [...] /min 97 % [address] [facility] Apr 29, 2025 01:58 PM 155/89 mm[Hg] [facility] Apr 29, 2025 01:58 PM 97.9 F 72 /min 151/94 mm[Hg] 20 /min 98 % [address] [facility] Social History: Smoking Status (Most current) and Tobacco Use (All prior to encounter date) This section includes the most current, and the historical, smoking and tobacco- related health factors from the [place] facility where the Encounter took place. Current Smoking Status This section includes the most current smoking, or tobacco-related health factor, from the [place] facility where the Encounter took place. Date/Time Current Smoking Status Comment David dodge May 02, 2024 11:00 AM [place]-TOBACCO NEVER USED [facility] Tobacco Use History This section includes a history of the smoking, or tobacco-related health factors, that were collected on or before the date of the Encounter. The data comes from the [place] facility where the Encounter took place. Date/Time Smoking Status/Tobacco Use Comment Maximus rodriguez Jan 14, 2019 05:30 PM [place]-TOBACCO NEVER USED [facility] Jun 07, 2018 01:03 PM TOBACCO REFUSED SCREEN V15 [facility] Aug 10, 2017 09:25 AM LIFETIME NON-USER OF TOBACCO [facility] Jul 13, 2017 11:32 AM LIFETIME NON-USER OF TOBACCO [facility] May 08, 2017 01:14 PM LIFETIME NON-USER OF TOBACCO [facility] Radiology Reports: +/- 30 days of the [...] the Encounter. The data comes from all [place] treatment facilities. Date/Time Radiology Report Provider Source Apr 01, 2025 03:28 PM SHOULDER,LEFT,2 OR MORE VIEWS: ALEYDA SORTO [id number] -[phone] M Exm Date: APR 01, 2025@15:28 Req Phys: FANI CONTRERAS Pat Loc: - GEN MED TM-C SAME DAY (R Img Loc: -MAIN RADIOLOGY SUITE Service: [facility], [address] [address] (Case [id number] COMPLETE) SHOULDER,LEFT,2 OR MORE VIEWS (RAD Detailed) CPT:34271 Proc Modifiers : LEFT Reason for Study: 1 month of non-traumatic L shoulder pain Clinical History: Report Status: Verified Date Reported: APR 02, 2025 Date Verified: APR 02, 2025 Ear Nose And Throat Specialist E-Sig:/ARLET/KRISTEN MALDONADO Report: EXAM: SHOULDER,LEFT,2 OR MORE VIEWS HISTORY: 1 month of non-traumatic L shoulder pain FINDINGS: 3 views obtained. No fracture or dislocation. No advanced arthritic changes. No soft tissue abnormality is seen. Impression: No significant bony abnormality. RR Primary Interpreting Staff: KRISTEN MALDONADO Staff Physician (Ear Nose And Throat Specialist) /KRISTEN PHELAN [facility] Encounter Notes: All associated encounter notes This section contains the clinical notes associated to the Encounter. Date/Time Encounter Note(s) Provider Source Apr 29, 2025 03:08 PM PRIMARY CARE NOTE: LOCAL TITLE: PRIMARY CARE PROVIDER ESTABLISHED VISIT [facility] STANDARD TITLE: PRIMARY CARE NOTE DATE OF NOTE: APR 29, 2025@15:08 ENTRY DATE: APR 29, 2025@15:08:56 AUTHOR: CHICHO HUNT COSIGNER: ISMA ROSARIO URGENCY: STATUS: COMPLETED PRIMARY CARE PROVIDER ESTABLISHED VISIT [facility] Has ADDENDA CLINIC: [facility] DATE: APR 29, 2025 SUBJECTIVE: 34M with PMHx bipolar disorder, ANGE on CPAP, Right rotator cuff tear s/p repair 08/29/24presenting for persistent penile lesion. Patient continues to feel left shoulder pain after a fall on Oct 29, he is being evaluated by orthopedic surgery with a pending shoulder MRI. Aside from this, he feels stressed given the current political situation which is negatively impacting his weight loss and mood symptoms. The primary reason he is presenting today is for a penile lesion that first appeared roughly 4 weeks ago. He saw the same day clinic at that time and underwent negative STD testing. Since then, the lesion has intermittently discharged pus with some pain, but the lesion is persisting and is now more firm and nodular. Last has sexual contact was roughly 4-5 months ago without protection. He denies any fevers or chills, pruritis, dysuria, or purulent urethral discharge. The lesion is not painful today. Denies any changes in weight, diet, or activity level since last seen. Continues to take all medications appropriately as [...] use, but quit 5 years ago. Illicit: Denies. MEDS: Active Outpatient Medications (including Supplies): Active [...] WITH FOOD OR MILK. Indication: CONTACT DERMATITIS Allergies: Patient has answered NKA OBJECTIVE: Vitals: Temperature: 97.9 F [36.6 C] (04/29/2025 14:31) BP: 137/86 (04/29/2025 14:31) Pulse: 62 (04/29/2025 14:31) Resp: 18 (04/29/2025 14:31) Pain: 0 (04/29/2025 14:31) Height: 74 in [188.0 cm] (04/29/2025 13:58) Weight:334.6 lb [151.77 kg] (04/29/2025 14:31) Physical Exam: General: No acute distress, alert and oriented, obese HEENT: Normocephalic, atraumatic Cardiac: Regular rate and rhythm, no murmurs, rubs or gallops Vascular: 2+ DP bilaterally Pulmonary: Clear to auscultation bilaterally, no wheezes, rales, or rhonchi Abdominal: Soft, non-tender, non-distended, BS (+) Extremity: No cyanosis or edema, full ROM and strength in RUE Neuro: No focal neurologic deficits Skin: 2 cm, nontender, firm skin colored nodule with central punctum noted on left side of penile shaft; no expressible purulent discharge or erythema Psych: Appropriate mood and affect Labs: WBC [...] 14:29 BASOPHILS, ABSOLUTE 0.03 10*3/uL 12/12/2024 14:29 SODIUM 139 mEq/L 12/12/2024 14:29 POTASSIUM 5.0 [...] 14:29 CALCULATED LDL 106 mg/dL 12/12/2024 14:29 VITAMIN D, 25-HYDROXY 20.6 L ng/mL 12/12/2023 14:01 B12 413 pg/mL 12/12/2023 14:01 No FOLATE (STL-MA);FOLATE (PB);FOLATE (DC 07-29);FOLATE (DC 07/29) data found Collection DT Specimen Test Name Result Units Ref Range 04/01/2025 15:37 SERUM RPR NONREACTIVE Ref: NONREACTIVE No HIV SCREENING EO data found PROST. SPECIFIC AG.(PB-STL) 0.381 ng/mL 12/12/2023 14:01 Imaging: Date Procedure CPT Status Case # 04/01/2025 SHOULDER,LEFT,2 OR MORE VIEWS [id number] Verified [id number] No significant bony abnormality. RR 02/20/2025 MRI SHOULDER RIGHT [id number] Verified [id number] FINDINGS/IMPRESSION: Interval rotator cuff repair with anchors [...] resorption unchanged since 04/06/2017 No subacromial/subdeltoid bursitis. No data available for: US ABD AORTA (AAA) US ABD AORTA SCREENING(AAA) US AAA SCREENING US ABDOMEN AORTA (AAA), LIMITED LOW DOSE CHEST CT No data available for: [facility] CANC[facility] SCREENING ASSESSMENT & PLAN: 34M with PMHx bipolar disorder, ANGE on CPAP, Right rotator cuff tear s/p repair presenting for primary care followup visit. #Left penile lesion - 4 week history of 2 cm, nontender, firm skin colored nodule with central punctum noted on left side of penile shaft; no expressible purulent discharge or erythema -Last sexual contact 4-6 weeks ago without protection -HIV, G/C, RPR, Trichomonas testing negative 03/2025 -Lesion continues to persist and is now firm and nodular, not painful or purulent but aesthetically displeasing to patient -Unresponsive to warm compresses -Appearance consistent with epidermoid inclusion cyst Plan: -Dermatology referral placed #Right rotator cuff tendinopathy -Underwent surgical repair on 08/29/25, posterior shoulder symptoms have resolved -now presenting with anterior shoudler pain after mechanical fall Oct 29 -Full ROM and limited pain on exam Plan: -Advised patient to apply voltaren to anterior shoulder PRN -Established with ortho, MRI pending #Obesity -Patient endorses poor diet and low activity levels since recent surgery -Offered counseling on weight loss and excercise, offered number to MOVE program , patient wishes to resolve shoulder pain issues before proceeding with this #ANGE -Uses nasal CPAP at home, but feels his nose is getting blocked despite flonase and oceanspray -Large sized full face mask ordered #Bipolar disorder -Follows with psychiatry -Denies suicidal ideation -Continue Duloxetine and Lamotrigine #Health maintenance - CRC: Does not qualify - LDCT: Does not qualify - AAA: Does not qualify - PSA:Does not qualify Discussed with Dr. Rosario Time sepent on date of visit including face to face time, data review, and charting was 25 minutes Chicho Hunt D.O. /arlet/ CHICHO HUNT Resident Physician Signed: 04/29/2025 15:38 /arlet/ ISMA ROSARIO MD Staff Physician Cosigned: 04/30/2025 08:59 04/30/2025 ADDENDUM STATUS: COMPLETED I have independently reviewed the chart, labs, and imaging and have examined the patient with the resident. I have discussed the assessment and plan with the resident and I agree with the note as documented. /arlet/ ISMA ROSARIO MD Staff Physician Signed: 04/30/2025 09:00 CHICHO HUNT [facility] Apr 29, 2025 02:35 PM NURSING NOTE: LOCAL TITLE: V15 PACT FACE TO FACE NOTE [facility] STANDARD TITLE: NURSING NOTE DATE OF NOTE: APR 29, 2025@14:35 ENTRY DATE: APR 29, 2025@14:35:28 AUTHOR: ZIA SHAH COSIGNER: URGENCY: STATUS: COMPLETED Provider Visit: Patient Identifiers : Full Name Date of Reason for visit: Established Follow-Up presents c/o lump to penis, noted at least 2 weeks. Requesting urology consult. Mode of Arrival: Ambulatory Allergy Review: ALLERGIES/ADVERSE REACTIONS - NONE FOUND Allergy list reviewed and remains current. Recent Vital Signs: Temperature: 97.9 F [36.6 C] (04/29/2025 14:31) Pulse: 62 (04/29/2025 14:31) Respiration: 18 (04/29/2025 14:31) B/P: 137/86 (04/29/2025 14:31) Pain: 0 (04/29/2025 14:31) Wt: 334.6 lb [151.77 kg] (04/29/2025 14:31) Ht: 74 in [188.0 cm] (04/29/2025 13:58) BMI: 43.0 POX: 97% (04/29/2025 14:31) PERSONAL HEALTH INVENTORY Notes: No data available for PHI note titles PERSONAL HEALTH INVENTORY - MAP: 04/01/2025 Personal Health Plan [place], [place], [place] (MAP) family and dog 12/12/2024 Personal Health Plan [place], [place], [place] (MAP) my dog What matters most to you in your life right now? -- [place]'s Response: family/friends, my dogs. Would you like to discuss any personal problem, family problem, alcohol use, drug use, or a mental or emotional illness? No Contact provided Primary Care phone number and encouraged to call if any questions or concerns. Review that after hours nurse line [phone] and emergency room are available 14/05 for patient use. Contact verbalized good understanding. /arlet/ ZIA SHAH LICENSED PRACTICAL NURSE Signed: 04/29/2025 14:42 ZIA SHAH [facility]
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
--- OUTSIDE RECORDS SUMMARY | 2025-05-23 12:49 | XMS_ITS | Encounter Summary ---
Author Name [facility] [place] [facility] [place] Organization [facility] [place] Address [address] [place] [address] Care Team Providers Care Drafter Assistant Name Role Phone ISMA ROSARIO Primary Care Provider REBECCA Kinney Unavailable Unavailable Selected Encounter This section includes the information on record at [place] for the Encounter. Date/Time Encounter Type Encounter Description Reason Provider Source Jan 21, 2025 10:00 AM OFFICE O/P EST LOW 20 MIN OPTOMETRY ICD-10-CM H04.123 Dry eye syndrome of bilateral lacrimal glands FABIO COLES Carmen Encounter Template Text not used by [place] Assessments - Encounter Diagnoses This section includes the primary and secondary diagnoses documented for the Encounter. Date/Time Primary/Secondary Diagnosis Diagnosis Name Provider Source Jan 21, 2025 10:11 AM PRIMARY Dry eye syndrome of bilateral lacrimal glands FABIO COLES [facility] Jan 21, 2025 10:11 AM SECONDARY Unspecified astigmatism, left eye FABIO COLES [facility] Plan of Treatment: Future Appointments (+ 6 months) and Future Tests (+/- 45 days) The Plan of Treatment section includes future care activities for the patient from all [place] treatmentfacilities. This section includes future appointments and future orders which are active, pending or scheduled. Future Appointments This section includes appointments that were scheduled to occur 6 months from the date of the Encounter, up to a maximum of 20 appointments. The data comes from all [place] treatment [facility]. Appointment Date/Time Appointment Type Appointme nt Facility Name Jan 26, 2025 03:00 PM AMBULATORY - REHAB MEDICIN E [facility] Jan 28, 2025 09:30 AM AMBULATORY - PSYCHIATRY [facility] Jan 28, 2025 09:30 AM AMBULATORY - PS[facility]CHIATRY [facility] February 20, 2025 12:00 PM AMBULATORY - NONE [facility] February 25, 2025 11:30 AM AMBULATORY - REHAB MEDICIN E [facility] March 01, 2025 09:10 AM AMBULATORY - MEDICINE [facility] March 11, 2025 02:40 PM AMBULATORY - MEDICINE [facility] Apr 01, 2025 11:30 AM AMBULATORY - REHAB MEDICIN E [facility] Apr 01, 2025 02:40 PM AMBULATORY - MEDICINE [facility] Apr 07, 2025 07:22 PM AMBULATORY - MEDICINE [facility] Apr 29, 2025 09:30 AM AMBULATORY - PSYCHIATRY [facility] Apr 29, 2025 09:30 AM AMBULATORY - [facility]CHIATRY [facility] Apr 29, 2025 02:00 PM AMBULATORY - SURGERY [facility] Apr 29, 2025 02:15 PM AMBULATORY - MEDICINE [facility] May 23, 2025 01:00 PM AMBULATORY - NONE [facility] May 27, 2025 11:00 AM AMBULATORY - NONE [facility] Jun 02, 2025 10:00 AM AMBULATORY - SURGERY [facility] Social History: Smoking Status (Most current) and Tobacco Use (All prior to encounter date) This section includes the most current, and the historical, smoking and tobacco- related health factors from the [place] facility where the Encounter took place. Current Smoking Status This section includes the most current smoking, or tobacco-related health factor, from the [place] facility where the Encounter took place. Date/Time Current Smoking Status Comment David dodge May 02, 2024 11:00 AM [place]-TOBACCO NEVER USED [facility] Tobacco Use History This section includes a history of the smoking, or tobacco-related health factors, that were collected on or before the date of the Encounter. The data comes from the [place] facility where the Encounter took place. Date/Time Smoking Status/Tobacco Use Comment F acility Jan 14, 2019 05:30 PM [place]-TOBACCO NEVER USED [facility] [...] the Encounter. The data comes from all [place] treatment facilities. Date/Time Radiology Report Provider Source February 20, 2025 12:04 PM MRI SHOULDER RIGHT : ALEYDA SORTO [id number] -1990 M Exm Date: FEBRUARY 20, 2025@12:04 Req Phys: JASPER LAMA Loc: [facility] (Req'g Loc) Img Loc: [facility] Service: [facility], [place], [facility] [address] [place] [address] (Case [id number] COMPLETE) MRI SHOULDER RIGHT (MRI Detailed) CPT:76832 Proc Modifiers : RIGHT CPT Modifiers : [...] Responsible Attending: Jasper Lama Attending Contact Number: [phone] Resident Contact Number: Does your patient have [...] 23, 2025 Date Verified: FEBRUARY 23, 2025 Metal Burnisher E-Sig:/ES/Stephan Oconnell MD Report: MRI SHOULDER RIGHT CASE #: [id number] DATE:02/20/2025 4:29 PM CLINICAL HISTORY:s/p right rotator [...] Primary Interpreting Staff: Stephan Oconnell MD, Radiologist (Metal Burnisher) /STEPHAN DELGADO [facility] Encounter Notes: All associated encounter notes This section contains the clinical notes associated to the Encounter. Date/Time Encounter Note(s) Provider Source Jan 21, 2025 09:56 AM OPTOMETRY NOTE: LOCAL TITLE: OPTOMETRY NOTE STANDARD TITLE: OPTOMETRY NOTE DATE OF NOTE: JAN 21, 2025@09:56 ENTRY DATE: JAN 21, 2025@09:56:37 AUTHOR: JESÚS COLES COSIGNER: URGENCY: STATUS: COMPLETED Last seen 01/21/24 Reason for visit: Ocular Health CC: 1. Vision stable per patient - No ocular complaints or vision changes Ocular meds: Xiidra BID OU ATs QID/PRN OU Ocular ROS: (-) Trauma (+) S/p LASIK OU JACOB, PM glare. Stable since 2014 Family OcHX: (-) blindness (-) glaucoma (-) AMD (-) RD Cardiovascular ROS: no change from problem & medication lists CPRS Problem list, medications and allergies reviewed: CPRS Serology for Diabetes GLUCOSE 97 mg/dL 12/12/2024 14:29 HGA1C 5.3 % 07/30/2024 11:04 Cardiovascular BP: 133/84 (12/24/2024 10:36) Pulse: 82 (12/24/2024 10:36) Neuro: Orientation: Normal Psych: Mood/Affect: Normal Depression/suicide ideation: NO VISUAL ACUITY With correction Distance Visual Acuity OD 20/15 OS 20/15 Pupils PERRL OU (-)APD Confrontation: FTFC OU Extra-Ocular Muscles Full OU, (-) diplopia, (-) pain Externals/adnexa: Unremarkable OU Refraction: O.D. plano 20/20 O.S. +0.25 -0.50 150 20/20 Add: + 2.50 01/21/25 OD [place] [facility] 20/15 OS [place] - 0.75 x 145 20/15 SLIT LAMP EXAMINATION Lids/Lashes/Lacrimal No blepharitis OU Conjunctiva/Sclera White/quiet OU Cornea Clear OU; LASIK scars OU Ant Chamber Deep and quiet OU; no cells or flare Iris Normal, (-)NVI OU Lens Clear (undilated) OU Intraocular Pressures (Goldmann) 1 gtt fluress Date: O.D. O.S. Time Meds 01/21/24 15 15 1106 none 01/21/25 16 16 1006 none RETINAL EVALUATION Patient deferred dilation today, due to not having a driver recruiter and inclement weather UNDilated retinal exam Optic Nerve OD: 0.3 CDR Flat, pink, distinct (-)NVD OS: 0.3 CDR Flat, pink, distinct (-)NVD Vessels: 2/3 OU; no tortuosity noted Posterior Pole: OD: (-) Hemorrhages (-) exudates (-) cotton wool spots OS: (-) Hemorrhages (-) exudates (-) cotton wool spots Macula: OD: Flat, clear (+) FLR OS: Flat, clear (+) FLR Assessment/Plan 01/21/25 1. Dry Eyes OU - S/p LASIK OU - JACOB, PM glare (stable since 2014) - patient asymptomatic with drops - Continue Xiidra BID, ATS QID/PRN OU Refilled drops to be mailed to patient - Monitor yearly Ed. Pt on all findings and given the opportunity to have questions answered RTC in 1 year for CEE; sooner PRN /es/ JESÚS COLES O.D. Staff Supervisor Engine Assembly, Optometry Signed: 01/21/2025 10:14 JESÚS COLES [facility]
--- OUTSIDE RECORDS SUMMARY | 2025-05-23 12:49 | XMS_ITS | Encounter Summary ---
Author Name [facility] [place] [facility] [place] Address [address] [place] [address] Care Team Providers Care Electrolysis Needle Operator Name Role Phone ISMA ROSARIO Primary Care Provider REBECCA Kinney Unavailable Unavailable Selected Encounter This section includes the information on record at [place] for the Encounter. Date/Time Encounter Type Encounter Description Reason Provider Source Apr 01, 2025 11:30 AM THERAPEUTIC EXERCISES OCCUPATIONAL THERAPY ICD-10-CM M25.511 Pain in right shoulder AJITH FRIEDMAN Carmen Encounter Template Text not used by [place] Assessments - Encounter Diagnoses This section includes the primary and secondary diagnoses documented for the Encounter. Date/Time Primary/Secondary Diagnosis Diagnosis Name Provider Source Apr 02, 2025 01:14 PM PRIMARY Pain in right shoulder AJITH FRIEDMAN [facility] Plan of Treatment: Future Appointments (+ 6 months) and Future Tests (+/- 45 days) The Plan of Treatment section includes future care activities for the patient from all [place] treatmentfacilities. This section includes future appointments and future orders which are active, pending or scheduled. Future Appointments This section includes appointments that were scheduled to occur 6 months from the date of the Encounter, up to a maximum of 20 appointments. The data comes from all [place] treatment facilities. Appointment Date/Time Appointment Type Appointme nt Facility Name Apr 07, 2025 07:22 PM AMBULATORY - MEDICINE [facility] Apr 29, 2025 09:30 AM AMBULATORY - PS[facility]IATRY [facility] Apr 29, 2025 09:30 AM [facility]ORY - [facility]IATRY [facility] Apr 29, 2025 02:00 PM AMBULATORY - SURGERY . [facility] Apr 29, 2025 02:15 PM AM[facility]ULATORY [facility] MEDICINE [facility] May 23, 2025 01:00 PM AMBULATORY - NONE [facility] May 27, 2025 11:00 AM AMBULATORY - NONE [facility] Jun 02, 2025 10:00 AM AMBULATORY - SURGERY [facility] Aug 07, 2025 09:30 AM AMBULATORY - PSYCHIATRY [facility] Aug 07, 2025 09:30 AM AMBULATORY - PS[facility]CHIATRY [facility] Active, Pending, and Scheduled Orders This section includes a listing of several types of active, pending, and scheduled orders, including clinic medications orders, diagnostic test orders, procedure orders and consult orders; where the start date of the order is 45 days before the date of the Encounter or 45 days after the date of theEncounter. The data comes from all [place] treatment facilities. Test Date/Time Test Type Test Details Facility Name March 11, 2025 03:38 PM Consult Order WHOLE HEAL TH SUPERVISOR METAL FABRICATING OUTPT [facility] Apr 01, 2025 03:28 PM Consult Order ORTHOPEDIC SHOULDER/ELBOW EVAL OUTPT [facility] Apr 21, 2025 09:48 AM Consult Order COMMUNITY CARE-IMAGING MAGNETIC RESONANCE IMAGING-AUTO [facility] Lab Results: +/- 30 days of the encounter This section includes the Chemistry and Hematology Lab Results on record with [place] for the patient. Radiology Reports and Pathology Reports are provided separately, in subsequent sections. Lab Results This section contains the Chemistry/Hematology Results that were resulted 30 days before or 30 daysafter the date of the Encounter. Date/Time Source Result Type Result - Unit Interpretation Reference Range Specimen Type Comment Apr 01, 2025 03:37 PM [facility] RAPID PLASMA REAGIN (RPR) SERUM Specimen Type : SERUM No comment entered. Ordering Provider: FANI CONTRERAS Report Released Date/Time: Apr 01, 2025 03:29 PM Reporting Lab: [facility] [address] [facility] [address] Performing Lab: [facility] [address] [place] [phone] RAPID PLASMA REAGIN (RPR) NONREACTIVE NO NREACTIVE Apr 01, 2025 03:37 PM [facility] GC & CHLAMYDIA PCR (STL-PB) URINE Specimen [...] Apr 01, 2025 03:29 PM Reporting Lab: [facility] [address] [facility] [address] Performing Lab: [facility] [address] [place] [phone] N.GONORRHOEAE PCR (STL) Not Detected Not Detected C.TRACHOMATIS PCR (STL) Not Detected Not Detected Apr 01, 2025 03:37 PM [facility] HIV COMBO FOURTH GENERATION (STL) SERUM Speci men Type: SERUM No comment entered. Ordering Provider: FANI CONTRERAS Report Released Date/Time: Apr 01, 2025 03:29 PM Reporting Lab: [facility] [address] [facility] [phone] Performing Lab: [facility] [address] [place] [phone] HIV COMBO FOURTH GENERATION (STL) Nonreactive Nonreactive Apr 01, 2025 03:36 PM [facility] TRICHOMONAS PCR (STL-PB) URINE Specimen Type: URINE [...] Apr 01, 2025 03:29 PM Reporting Lab: [place] [address] [facility] [id number] Performing Lab: [address] [address] TRICHOMONAS PCR (STL-PB) Not Detected No t Detected Vital Signs: All taken on the encounter date This section contains inpatient and outpatient Vital Signs collected on the date of the Encounter. Date/Time Temperature Pulse Blood Pressure Respiratory Rate SP02 Pain Height Weight Body Mass Index Source Apr 01, 2025 02:39 PM 97.9 76 128/80 18 97 0 327.5 42 [facility] Social History: Smoking Status (Most current) and Tobacco Use (All prior to encounter date) This section includes the most current, and the historical, smoking and tobacco- related health factors from the [place] facility where the Encounter took place. Current Smoking Status This section includes the most current smoking, or tobacco-related health factor, from the [place] facility where the Encounter took place. Date/Time Current Smoking Status Comment David ity May 02, 2024 11:00 AM [place] NEVER USED [facility] Tobacco Use History This section includes a history of the smoking, or tobacco-related health factors, that were collected on or before the date of the Encounter. The data comes from the [place] facility where the Encounter took place. Date/Time Smoking Status/Tobacco Use Comment F acility Jan 14, 2019 05:30 PM VA-TOBACCO NEVER USED [facility] Jun 07, 2018 01:03 PM TOBACCO REFUSED SCREEN V15 [facility] Aug 10, 2017 09:25 AM LIFETIME NON-USER OF TOBACCO [facility] Jul 13, 2017 11:32 AM LIFETIME NON-USER OF TOBACCO [facility] May 08, 2017 01:14 PM LIFETIME NON-USER OF TOBACCO [facility] Radiology Reports: +/- 30 days of [...] the Encounter. The data comes from all [place] treatment facilities. Date/Time Radiology Report Provider Source Apr 01, 2025 03:28 PM SHOULDER,LEFT,2 OR MORE VIEWS: ALEYDA SORTO [id number] -1990 M Exm Date: APR 01, 2025@15:28 Req Phys: FANI CONTRERAS Pat Loc: [facility]-PC GEN MED TM-C SAME DAY (R Img Loc: -MAIN RADIOLOGY SUITE Service: [address] [address] (Case [id number] COMPLETE) SHOULDER,LEFT,2 OR MORE VIEWS (RAD Detailed) CPT:93973 Proc Modifiers : LEFT Reason for Study: 1 month of non-traumatic L shoulder pain Clinical History: Report Status: Verified Date Reported: APR 02, 2025 Date Verified: APR 02, 2025 Tobacco Shaker E-Sig:/ES/KRISTEN MALDONADO Report: EXAM: SHOULDER,LEFT,2 OR MORE VIEWS HISTORY: 1 month of non-traumatic L shoulder pain FINDINGS: 3 views obtained. No fracture or dislocation. No advanced arthritic changes. No soft tissue abnormality is seen. Impression: No significant bony abnormality. RR Primary Interpreting Staff: KRISTEN MALDONADO, Staff Physician (Tobacco Shaker) /KRISTEN PHELAN [facility] Encounter Notes: All associated encounter notes This section contains the clinical notes associated to the Encounter. Date/Time Encounter Note(s) Provider Source Apr 01, 2025 11:30 AM OCCUPATIONAL THERA PY E & M NOTE: LOCAL TITLE: OT PROGRESS STL STANDARD TITLE: OCCUPATIONAL THERAPY E & M NOTE DATE OF NOTE: APR 01, 2025@11:30 ENTRY DATE: APR 01, 2025@12:01:18 AUTHOR: AJITH FRIEDMAN EXP COSIGNER: URGENCY: STATUS: [...] Date of Initial Evaluation: 09/10/2024 Visit #: 10 Ca or NS #: 0 TIME: 11:30-12:00 Ther Ex: 30 minutes SUBJECTIVE: Vet continues to report occasional anterior R shoulder pain after activity. He states he has been using ice and Voltaren. He states the L shoulder is worse than the R and he is requesting a L shoulder X-Ray at this time Goal: Return to work Pain: States L shoulder pain: current: 3-4/10-->increases to 8/10 with activity; <2/10 R shoulder at end of exercise session OBJECTIVE: Vet presents into OT ambulating without AD. AROM R SHOULDER STANDIN/11: NOT MEASURED THIS DATE EVAL REASSESS Left Right Right Right Right Right Date 10/10 10/10 11/14 3/10 4/ 5/7 Flexion:160 148 145 165 150 155 EX: 50 46 50 50 50 65 ABD: 150 132 140 160 160 165 ER: 65 48 64 65 60 w/tightness 65 IR: T8 T12 T12 T8 NT T8 R Shoulder Strength: Flexion: 4/5 without pain EX: 4+/5 without pain ABD: 4/5 without pain ER: 4/5 without pain IR: 4/5 without pain Treatment: Jupiter participated in the following this date: CURRENT 03/31: - Vet agreeable to participate in periscap and RTC strengthening of RUE this date, completing 1 set of 15-20 each for rows, ext, ER, abduction and prone scapular restraction. He declines full resistive HEP participation at this time. - Vet educated on wall slides with good return demo PREVIOUS 02/25: - Vet educated on optimizing body mechanics [...] emphasized technique over weight PREVIOUS 01/26/25: - Jupiter educated on decreasing weight lifted until pain-free resistance is achieved - Vet educated on doorway stretch, wall stretch in SH flexion and abduction with good return demo - Vet to continue HEP and was encouraged to review previously issued [employer] HEP videos for refresher on optimal HEP [...] of instructions given on Role of OT, Jupiter 1:1 instruction in equipment issued and/or home exercise program as noted above. ASSESSMENT: This 33 year old male presents to therapy s/p right rotator cuff surgery. Vet reports he has been working which may be exacerbating pain. Jupiter has had MRI R shoulder with finding to be further discussed with ortho. Vet now reports increased L shoulder pain and will be requesting XR and therapy. Vet encouraged to exercise in pain-free range/resistance. will continue to benefit from skilled occupational therapy in order to address pain and progress HEP. Jupiter presents with good rehabilitation potential. PLAN: Vet to f/u after April 29 ortho appt to guide additional treatment needs Continued skilled occupational therapy as below to address: Treatment Plan: ___ADLs _x__UE AROM/AAROM/PROM ___Transfers ___Cognition ___Coordination ___Endurance ___Gross/Fine Motor ___Home Management ___Visual Perception ___Standing Act. _x__UE Strengthening ___Sensation/Compensation ___Visual Skills ___Facilitation ___Inhibition ___Adaptive equipment Assessment _x__Modalities _x__Other:HEP SHORT TERM GOALS: To be achieved in (4-6 visits). 1. Demonstrate HEP with 100% accuracy-MET 2. Increase AROM to WFL in all planes of motion in UE- MET 3. Increase MM mass to 4/5 grade in all involved MM groups. MET TREE AND SHRUB WORKER GOALS: To be achieved in (6-8 visits). [...] be the last tx intervention* Learning Assessment: Learning Assessment: Patient/Caregiver appeared ready for instruction (good eye contact, appropriate questions, active participation, etc.) Person(s) who received education: Patient Education Topic/Teaching Needs: Rehabilitation and Habilitation shoulder HEP Methods used included: One-on-one: demo/return demo Teaching outcomes: Good level of understanding /arlet/ AJITH FRIEDMAN Occupational Therapist Signed: 04/02/2025 13:14 AJITH FRIEDMAN [facility]
--- OUTSIDE RECORDS SUMMARY | 2025-05-23 12:49 | XMS_ITS | Encounter Summary ---
Author Name [facility] [place] [facility] [place] Organization [facility] [place] Address [address] [place] [address] Care Team Providers Care Shift Engineer Name Role Phone ISMA ROSARIO Primary Care Provider REBECCA Kinney Unavailable Unavailable Selected Encounter This section includes the information on record at [place] for the Encounter. Date/Time Encounter Type Encounter Description Reason Provider Source Oct 10, 2024 11:13 AM Outpatient Encounter EMERGENCY DEPT JAGJIT VERONICA Encounter Template Text not used by [place] Plan of Treatment: Future Appointments (+ 6 months) and Future Tests (+/- 45 days) The Plan of Treatment section includes future care activities for the patient from all [place] treatmentfacilities. This section includes future appointments and future orders which are active, pending or scheduled. Future Appointments This section includes appointments that were scheduled to occur 6 months from the date of the Encounter, up to a maximum of 20 appointments. The data comes from all [place] treatment facilities. Appointment Date/Time Appointment Type Appointme nt Facility Name Oct 23, 2024 11:30 AM AMBULATORY - SURGERY [facility] Nov 05, 2024 11:20 AM AMBULATORY - SURGERY [facility] Nov 14, 2024 11:30 AM AMBULATORY - REHAB MEDICIN E [facility] Nov 19, 2024 09:49 AM AMBULATORY - MEDICINE [facility] Nov 28, 2024 02:00 PM AMBULATORY - REHAB MEDICIN E [facility] Dec 12, 2024 01:15 PM AMBULATORY - MEDICINE [facility] Dec 24, 2024 10:40 AM AMBULATORY - SURGERY [facility] Dec 29, 2024 02:30 PM AMBULATORY - REHAB MEDICIN E [facility] Dec 31, 2024 09:30 AM AMBULATORY - PSYCHIATRY [facility] Dec 31, 2024 09:30 AM AMBULATORY - PS[facility]IATRY [facility] Jan 09, 2025 02:30 PM AMBULATORY - REHAB MEDICIN E [facility] Jan 21, 2025 10:00 AM AMBULATORY - SURGERY [facility] Jan 26, 2025 03:00 PM AMBULATORY - REHAB MEDICIN E [facility] Jan 28, 2025 09:30 AM AMBULATORY - PSYCHIATRY [facility] Jan 28, 2025 09:30 AM AMBULATORY - PSYCHIATRY [facility] February 20, 2025 12:00 PM AMBULATORY - NONE [facility] February 25, 2025 11:30 AM AMBULATORY - REHAB MEDICIN E [facility] March 01, 2025 09:10 AM AMBULATORY - MEDICINE [facility] March 11, 2025 02:40 PM AMBULATORY - MEDICINE [facility] Apr 01, 2025 11:30 AM AMBULATORY - REHAB MEDICIN E [facility] Vital Signs: All taken on the encounter date This section contains inpatient and outpatient Vital Signs collected on the date of the Encounter. Date/Time Temperature Pulse Blood Pressure Respiratory Rate SP02 Pain Height Weight Body Mass Index Source Oct 10, 2024 11:30 AM 98.2 74 133/85 16 2 [facility] Social History: Smoking Status (Most current) and Tobacco Use (All prior to encounter date) This section includes the most current, and the historical, smoking and tobacco- related health factors from the [place] facility where the Encounter took place. Current Smoking Status This section includes the most current smoking, or tobacco-related health factor, from the [place] facility where the Encounter took place. Date/Time Current Smoking Status Comment David ity May 02, 2024 11:00 AM VA-TOBACCO NEVER USED [facility] Tobacco Use History This section includes a history of the smoking, or tobacco-related health factors, that were collected on or before the date of the Encounter. The data comes from the [place] facility where the Encounter took place. Date/Time Smoking Status/Tobacco Use Comment F acility Jan 14, 2019 05:30 PM VA-TOBACCO NEVER USED [facility] Jun 07, 2018 01:03 PM TOBACCO REFUSED SCREEN V15 [facility] Aug 10, 2017 09:25 AM LIFETIME NON-USER OF TOBACCO [facility] Jul 13, 2017 11:32 AM LIFETIME NON-USER OF TOBACCO [facility] May 08, 2017 01:14 PM LIFETIME NON-USER OF TOBACCO [facility] Encounter Notes: All associated encounter notes This section contains the clinical notes associated to the Encounter. 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 pt has an ear camera and saw a pus pocket in his ear. pt states he took a qtip to his ear to clean the area and pus and blood was on the Q tip. Level of Consciousness (AVPU): Alert = Appears aware of and responsive to the environment on their own. Follows commands, opens eyes spontaneously, and tracks objects. Vital Signs: Temperature 98.2 F (36.8 C) Pulse 74 Respirations 16 Blood Pressure 133/85 Pulse Oximetry 97 Room Air Pain: No pain Pain Score: 2 Suicide Screen: [place] Suicide Severity Rating Scale (C-SSRS) screener 1. [...] 14) Pain of right shoulder joint /es/ JAGJIT SEON RN REGISTERED NURSE Signed: 10/10/2024 11:31 JAGJIT VERONICA [facility]
== END 2025-05-23 12:36 | disposition home or self-care (01) ==
DX: Z01.89 Encounter for other specified special examinations (principal); S46.112A Strain of muscle, fascia and tendon of long head of biceps, left arm, initial encounter; X58.XXXA Exposure to other specified factors, initial encounter
CPT/HCPCS: 73221